=== PATIENT | female | born 1955 | race Caucasian/White ===

== ENCOUNTER 2016-12-23 12:04 | Emergency (ER) | payer OTHER ==
--- NOTE | 2016-12-23 13:48 | RAD ---
INDICATION: Change in mental status COMPARISON: June 29, 2013 TECHNIQUE: Noncontrast axial source images were acquired from the skull base to the vertex. FINDINGS: Ventricles/sulci: The ventricles and cisterns are normal in size and configuration for age. Brain parenchyma: There is no focal parenchymal finding, evidence of intracranial mass, or intracranial mass effect. Intracranial hemorrhage:None. Extra-axial spaces: There are no abnormal extra axial fluid collections or evidence of extra-axial mass. Calvarium: There is no calvarial fracture or other calvarial abnormality. Scalp: There is no evidence of scalp or extracalvarial soft tissue abnormality. Paranasal sinuses/mastoid: The paranasal sinuses and mastoid air cells are clear. Other: None. IMPRESSION: NO ACUTE INTRACRANIAL FINDINGS
[2016-12-23 14:18] LABS: Hematocrit 32 % (35-47); Hemoglobin 10.5 g/dl (12.0-16.0); Mean Corpuscular HGB Conc 33 g/dl (31-36); Mean Corpuscular Hemoglobin 30 pg (27-31); Mean Corpuscular Volume 92 fL (80-97); Mean Platelet Volume 9 um3 (7.4-10.4); Red Blood Count 3.46 10^6/ul (4.0-5.4); Red Cell Distribution Width 16 % (10.5-15); White Blood Count 10.7 10^3/ul (3.5-10.8)
[2016-12-23 14:30] LABS: Albumin 3.6 g/dL (3.2-5.2); BUN/Creatinine Ratio 16.4 (8-20); Calcium 8.5 mg/dL (8.6-10.3); Globulin 3.7 g/dL (2-4); Potassium 3.8 mmol/L (3.5-5.0); Total Bilirubin 0.2 mg/dL (0.2-1.0); Total Protein 7.3 g/dL (6.4-8.9)
[2016-12-23 14:32] LABS: Troponin I 0.01 ng/mL (<0.04)
[2016-12-23 14:47] LABS: Urine Bacteria 1+ (Absent); Urine Bilirubin Negative (Negative); Urine Glucose Negative (Negative); Urine Nitrite Negative (Negative)
[2016-12-23 17:02] LABS: Benzodiazepine Urine Screen None Detected (None Detect)
[2016-12-23 18:16] VITALS: BP 132/62
--- NOTE | 2016-12-25 13:35 | ED ---
Samy Hartman Billy, scribed for Reinier Santos MD on 12/23/16 at 1322 . Neurological HPI - HPI Summary HPI Summary: Patient is a 61 year-old female coming to [facility] after Dr. Ott referred her to the ED with concerns for slurred speech. Patient states that her speech impairment began this morning. Patient also reports fatigue today. Patient reports RLE and bilateral upper extremity weakness which she states is chronic and unchanged today. Nothing makes her symptoms better or worse today. - History of Current Complaint Chief Complaint: EDWeakness Stated Complaint: WEAKNESS Time Seen by Provider: 12/23/16 13:01 Hx Obtained From: Patient Onset/Duration: Gradual Onset Timing: Constant Onset Severity: Moderate Current Severity: Moderate Pain Intensity: 0 Character: Weak, Impaired Speech, Other: - fatigue Aggravating: Nothing Alleviating: Nothing - Allergy/Home Medications Allergies/Adverse Reactions: Allergies Allergy/AdvReac Type Severity Reaction Status Date / Time Povidone Iodine Allergy Mild Rash Verified 07/02/16 16:05 [From Betadine] Doxazosin [From Cardura] Allergy Unknown Unknown Verified 07/02/16 16:05 Reaction Details Diazepam [From Valium] Allergy electrophysiology nurse practitioner Verified 07/02/16 16:05 reaction Mushroom Extract Complex Allergy GI Upset Verified 07/02/16 16:05 Sertraline Allergy suicidal Verified 07/02/16 16:05 Ibuprofen [From Motrin] AdvReac Severe See Comment Verified 07/02/16 16:05 Alprazolam [From Xanax] AdvReac Intermediate Agitation Verified 07/02/16 16:05 KIERSTEN Inhibitors AdvReac Coughing Verified 07/02/16 16:05 Atorvastatin [From Lipitor] AdvReac muscle Verified 07/02/16 16:05 weakness Erythromycin AdvReac abd. pain Verified 07/02/16 16:05 Fentanyl AdvReac suicidal Verified 06/24/16 11:27 Lamotrigine [From Lamictal] AdvReac kidney Verified 06/24/16 11:27 failure Rosiglitazone [From Avandia] AdvReac heart Verified 06/24/16 11:27 failure Simvastatin [From Zocor] AdvReac muscle Verified 06/24/16 11:27 weakness Venlafaxine [From Effexor] AdvReac dizzy Verified 06/24/16 11:27 PMH/Surg Hx/FS Hx/Imm Hx Endocrine/Hematology History: Reports: Hx Diabetes Denies: Hx Anticoagulant Therapy, Hx Thyroid Disease Cardiovascular History: Reports: Hx Hypercholesterolemia, Hx Hypertension, Other Cardiovascular Problems/Disorders - IDDM Denies: Hx Angina, Hx Coronary Artery Disease, Hx Myocardial Infarction, Hx Pacemaker/ICD, Hx Valvular Heart Disease Respiratory History: Reports: Hx Asthma Denies: Hx Chronic Obstructive Pulmonary Disease (COPD) GI History: Reports: Hx Gall Bladder Disease History: Reports: Hx Kidney Stones Denies: Hx Renal Disease Musculoskeletal History: Reports: Hx Arthritis, Hx Back Problems, Hx Osteoporosis Denies: Hx Rheumatoid Arthritis Sensory History: Reports: Hx Contacts or Glasses Opthamlomology History: Reports: Hx Contacts or Glasses Neurological History: Reports: Other Neuro Impairments/Disorders - RUPTURED DISKS, SPINAL STIMULATOR Denies: Hx Dementia, Hx Seizures Psychiatric History: Reports: Hx Anxiety, Hx Depression Denies: Hx Substance Abuse - Surgical History Surgery Procedure, Year, and Place: SPINE stimulator, gall bladder removed, gastric bipass 2002, multiple ortho surgeries Hx Anesthesia Reactions: No - Immunization History Date of Tetanus Vaccine: ` Infectious Disease History: No Infectious Disease History: Denies: Hx Hepatitis, Hx Human Immunodeficiency Virus (HIV), Traveled Outside the [place] in Last 30 Days - Family History Known Family History: Positive: Cardiac Disease, Hypertension, Diabetes, Renal Disease, Other - brain CA - Social History Alcohol Use: None Substance Use Type: Reports: None Hx Tobacco Use: No Smoking Status (MU): Never Smoked Tobacco Have You Smoked in the Last Year: No Review of Systems Positive: Fatigue. Negative: Fever Positive: Weakness, Slurred Speech All Other Systems Reviewed And Are Negative: Yes Physical Exam Triage Information Reviewed: Yes Vital Signs On Initial Exam: Initial Vitals Temp Pulse Resp BP Pulse Ox 98.4 F 78 16 136/61 100 12/23/16 12:18 12/23/16 12:18 12/23/16 12:18 12/23/16 12:18 12/23/16 12:18 Vital Signs Reviewed: Yes Appearance: Positive: Well-Appearing, No Pain Distress Skin: Positive: Warm, Skin Color Reflects Adequate Perfusion, Dry Head/Face: Positive: Normal Head/Face Inspection Eyes: Positive: Other: - Pinpoint pupils. Neck: Positive: Supple, Nontender Respiratory/Lung Sounds: Positive: Clear to Auscultation, Breath Sounds Present Cardiovascular: Positive: RRR Abdomen Description: Positive: Nontender, Soft Musculoskeletal: Positive: Edema Left - 2-3+ lower extremity edema bilaterally. , Edema Right - 2-3+ lower extremity edema bilaterally. Neurological: Positive: Slurred Speech Psychiatric: Positive: Affect/Mood Appropriate AVPU Assessment: Alert Diagnostics - Vital Signs Vital Signs Temp Pulse Resp BP Pulse Ox 12/23/16 12:18 98.4 F 78 16 136/61 100 - Laboratory Lab Results: Lab Results 12/23/16 12/23/16 12/23/16 Range/Units 13:50 13:50 13:50 WBC 10.7 (3.5-10.8) 10^3/ul RBC 3.46 L (4.0-5.4) 10^6/ul Hgb 10.5 L (12.0-16.0) g/dl Hct 32 L (35-47) % MCV 92 (80-97) fL MCH 30 (27-31) pg MCHC 33 (31-36) g/dl RDW 16 H (10.5-15) % Plt Count 288 (150-450) 10^3/ul MPV 9 (7.4-10.4) um3 Neut % (Auto) 60.0 (38-83) % Lymph % (Auto) 32.2 (25-47) % Sebastian % (Auto) 5.2 (1-9) % Eos % (Auto) 1.9 (0-6) % Baso % (Auto) 0.7 (0-2) % Absolute Neuts (auto) 6.4 (1.5-7.7) 10^3/ul Absolute Lymphs (auto) 3.4 (1.0-4.8) 10^3/ul Absolute Monos (auto) 0.6 (0-0.8) 10^3/ul Absolute Eos (auto) 0.2 (0-0.6) 10^3/ul Absolute Basos (auto) 0.1 (0-0.2) 10^3/ul Absolute Nucleated RBC 0.01 10^3/ul Nucleated RBC % 0.1 Sodium 138 (133-145) mmol/L Potassium 3.8 (3.5-5.0) mmol/L Chloride 113 H (101-111) mmol/L Carbon Dioxide 18 L (22-32) mmol/L Anion Gap 7 (2-11) mmol/L BUN 30 H (6-24) mg/dL Creatinine 1.83 H (0.51-0.95) mg/dL Est GFR ( Amer) 36.0 (>60) Est GFR (Non-Af Amer) 28.0 (>60) BUN/Creatinine Ratio 16.4 (8-20) Glucose 50 L (70-100) mg/dL Lactic Acid 1.0 (0.5-2.0) mmol/L Calcium 8.5 L (8.6-10.3) mg/dL Total Bilirubin 0.20 (0.2-1.0) mg/dL AST 40 H (13-39) U/L ALT 20 (7-52) U/L Alkaline Phosphatase 74 (34-104) U/L Troponin I 0.01 (<0.04) ng/mL Total Protein 7.3 (6.4-8.9) g/dL Albumin 3.6 (3.2-5.2) g/dL Globulin 3.7 (2-4) g/dL Albumin/Globulin Ratio 1.0 (1-3) TSH (0.34-5.60) mcIU/mL Urine Color Urine Appearance Urine pH (5-9) Ur Specific [place] (1.010-1.030) Urine Protein (Negative) Urine Ketones (Negative) Urine Blood (Negative) Urine Nitrate (Negative) Urine Bilirubin (Negative) Urine Urobilinogen (Negative) Ur Leukocyte Esterase (Negative) Urine WBC (Auto) (Absent) Urine RBC (Auto) (Absent) Ur Squamous Epith Cells (Absent) Urine Bacteria (Absent) Hyaline Casts (Absent) Urine Glucose (Negative) Urine Opiates Screen (None Detect) Ur Barbiturates Screen (None Detect) Ur Phencyclidine Scrn (None Detect) Ur Amphetamines Screen (None Detect) U Benzodiazepines Scrn (None Detect) Urine Cocaine Screen (None Detect) U Cannabinoids Screen (None Detect) 12/23/16 12/23/16 12/23/16 Range/Units 13:50 13:50 14:23 WBC (3.5-10.8) 10^3/ul RBC (4.0-5.4) 10^6/ul Hgb (12.0-16.0) g/dl Hct (35-47) % MCV (80-97) fL MCH (27-31) pg MCHC (31-36) g/dl RDW (10.5-15) % Plt Count (150-450) 10^3/ul MPV (7.4-10.4) um3 Neut % (Auto) (38-83) % Lymph % (Auto) (25-47) % Sebastian % (Auto) (1-9) % Eos % (Auto) (0-6) % Baso % (Auto) (0-2) % Absolute Neuts (auto) (1.5-7.7) 10^3/ul Absolute Lymphs (auto) (1.0-4.8) 10^3/ul Absolute Monos (auto) (0-0.8) 10^3/ul Absolute Eos (auto) (0-0.6) 10^3/ul Absolute Basos (auto) (0-0.2) 10^3/ul Absolute Nucleated RBC 10^3/ul Nucleated RBC % Sodium (133-145) mmol/L Potassium (3.5-5.0) mmol/L Chloride (101-111) mmol/L Carbon Dioxide (22-32) mmol/L Anion Gap (2-11) mmol/L BUN (6-24) mg/dL Creatinine (0.51-0.95) mg/dL Est GFR ( Amer) (>60) Est GFR (Non-Af Amer) (>60) BUN/Creatinine Ratio (8-20) Glucose (70-100) mg/dL Lactic Acid (0.5-2.0) mmol/L Calcium (8.6-10.3) mg/dL Total Bilirubin (0.2-1.0) mg/dL AST (13-39) U/L ALT (7-52) U/L Alkaline Phosphatase (34-104) U/L Troponin I (<0.04) ng/mL Total Protein (6.4-8.9) g/dL Albumin (3.2-5.2) g/dL Globulin (2-4) g/dL Albumin/Globulin Ratio (1-3) TSH 3.89 (0.34-5.60) mcIU/mL Urine Color Straw Urine Appearance Clear Urine pH 5.0 (5-9) Ur Specific [place] 1.008 L (1.010-1.030) Urine Protein Negative (Negative) Urine Ketones Negative (Negative) Urine Blood 1+ H (Negative) Urine Nitrate Negative (Negative) Urine Bilirubin Negative (Negative) Urine Urobilinogen Negative (Negative) Ur Leukocyte Esterase Negative (Negative) Urine WBC (Auto) Trace(0-5/hpf) (Absent) Urine RBC (Auto) Trace(0-2/hpf) (Absent) Ur Squamous Epith Cells Present H (Absent) Urine Bacteria 1+ H (Absent) Hyaline Casts Present H (Absent) Urine Glucose Negative (Negative) Urine Opiates Screen None detected (None Detect) Ur Barbiturates Screen None detected (None Detect) Ur Phencyclidine Scrn None detected (None Detect) Ur Amphetamines Screen None detected (None Detect) U Benzodiazepines Scrn None detected (None Detect) Urine Cocaine Screen None detected (None Detect) U Cannabinoids Screen None detected (None Detect) Result Diagrams: 12/23/16 13:50 12/23/16 13:50 Lab Statement: Any lab studies that have been ordered have been reviewed, and results considered in the medical decision making process. - CT brain CT Interpretation: No Acute Changes CT Interpretation Completed By: Radiologist - EKG 1226 EKG Interpretation: NSR 80 bpm, no ST elevation Course/Dx - Course Course Of Treatment: Loni Richards was sent over from the wound clinic with a concern for AMS. She was reported to be groggy and to have difficulty picking things up with her hands and to have right leg weakness.SHe reported to me that she always has difficulty with her hands secondary to carpal tunnel and her right leg is always weak seconday to back issues for which she has had surgery in the past. She was quite sleepy here and her pupils were quite small. Her W/ U was negative and she was allowed to recover here in the ED for presumed over- use of her fentanyl. - Diagnoses Provider Diagnoses: WEAKNESS Discharge - Discharge Plan Condition: Stable Disposition: HOME Patient Education Materials: Weakness (ED) Referrals: Cortney Yeboah MD [Primary Care Provider] - The documentation as recorded by the Samy falcon Billy accurately reflects the service I personally performed and the decisions made by me, Reinier Santos MD.
== END 2016-12-23 18:12 | disposition home or self-care (01) ==
LOC: ED 12:04
DX: R53.1 Weakness (principal); E11.9 Type 2 diabetes mellitus without complications; I10 Essential (primary) hypertension; E78.00 Pure hypercholesterolemia, unspecified; Z79.4 Long term (current) use of insulin; Z79.82 Long term (current) use of aspirin
CPT/HCPCS: 36415; 70450; 80053; 80307; 81003; 81015; 83605; 84443; 84484; 85025; 87086; 93005; 99282

== ENCOUNTER 2017-04-02 17:28 | Emergency (ER) | payer OTHER ==
[2017-04-02 19:51] VITALS: BP 157/82
--- NOTE | 2017-04-02 21:30 | UC ---
Eloy Hartman Alok, scribed for Anh Del Rosario MD on 04/02/17 at 1905 . Complaint Female HPI - HPI Summary HPI Summary: 61F presents to the [facility] for right-sided lower back pain and right flank pain for the past 3 days. Pt states her back pain is different than her chronic back pain at her center spine. Pt states her pain registers at a 7.5 out of 10 at rest and 9 out of 10 while standing. Pt also notes muscle spasms and pain across her right side abd that radiates to her lower abd. Pt also notes urinary urgency and dysuria. Pt denies fever. Pt has h/o kidney stones and was last treated for with lithotripsy and nephrostomy tube 1.5 years ago on the right side. Since then she has had several small kidney stones she was able to pass. Pt also states she has right kidney, stage two, kidney failure. PMHx/PSHx includes HTN, lithotripsy, and a laminectomy. - History Of Current Complaint Chief Complaint: UCBackPain Stated Complaint: LOW BACK PAIN Time Seen by Provider: 04/02/17 18:45 Hx Obtained From: Patient ?: No Onset/Duration: Lasting Days, Still Present Timing: Constant Severity Initially: Moderate Severity Currently: Moderate Pain Intensity: 7 Pain Scale Used: 0-10 Numeric Character: Dull Aggravating Factor(s): Urination Alleviating Factor(s): Nothing Associated Signs And Symptoms: Positive: Back Pain. Negative: Fever - Allergies/Home Medications Allergies/Adverse Reactions: Allergies Allergy/AdvReac Type Severity Reaction Status Date / Time Povidone Iodine Allergy Mild Rash Verified 04/02/17 17:43 [From Betadine] Doxazosin [From Cardura] Allergy Unknown Unknown Verified 04/02/17 17:43 Reaction Details Diazepam [From Valium] Allergy hydrogen plant operations manager Verified 04/02/17 17:43 reaction Mushroom Extract Complex Allergy GI Upset Verified 04/02/17 17:43 Sertraline Allergy suicidal Verified 04/02/17 17:43 Ibuprofen [From Motrin] AdvReac Severe See Comment Verified 04/02/17 17:43 Alprazolam [From Xanax] AdvReac Intermediate Agitation Verified 04/02/17 17:43 KIERSTEN Inhibitors AdvReac Coughing Verified 04/02/17 17:43 Atorvastatin [From Lipitor] AdvReac muscle Verified 04/02/17 17:43 weakness Erythromycin AdvReac abd. pain Verified 04/02/17 17:43 Fentanyl AdvReac suicidal Verified 04/02/17 17:43 Lamotrigine [From Lamictal] AdvReac kidney Verified 04/02/17 17:43 failure Rosiglitazone [From Avandia] AdvReac heart Verified 04/02/17 17:43 failure Simvastatin [From Zocor] AdvReac muscle Verified 04/02/17 17:43 weakness Venlafaxine [From Effexor] AdvReac dizzy Verified 04/02/17 17:43 PMH/Surg Hx/FS Hx/Imm Hx Endocrine History Of: Reports: Diabetes Denies: Thyroid Disease Cardiovascular History Of: Reports: Hypertension Denies: Cardiac Disorders, Pacemaker/ICD, Myocardial Infarction Respiratory History Of: Reports: Asthma Denies: COPD GI/ History Of: Reports: Gall Bladder Disease, Kidney Stones Denies: Renal Disease Neurological History Of: Denies: CVA, Dementia, Seizures Psychological History Of: Reports: Anxiety, Depression Other History Of: Negative For: Anticoagulant Therapy - Surgical History Surgical History: Yes Surgery Procedure, Year, and Place: SPINE stimulator, gall bladder removed, gastric bipass 2002, multiple ortho surgeries - Family History Known Family History: Positive: Cardiac Disease, Hypertension, Diabetes, Renal Disease, Other - brain CA - Social History Occupation: Disabled Alcohol Use: None Substance Use Type: None Smoking Status (MU): Never Smoked Tobacco Have You Smoked in the Last Year: No - Immunization History Most Recent Influenza Vaccination: 2012 Most Recent Tetanus Shot: 2010 Most Recent Pneumonia Vaccination: 2012 Review of Systems Constitutional: Negative Skin: Negative Gastrointestinal: Abdominal Pain Genitourinary: Dysuria, Urgency Musculoskeletal: Myalgia, Other: - back pain Neurological: Negative Psychological: Negative All Other Systems Reviewed And Are Negative: Yes Physical Exam Triage Information Reviewed: Yes Appearance: Well-Appearing, Well-Nourished, Pain Distress Vital Signs: Initial Vital Signs Temp 98.1 F 04/02/17 17:37 Pulse 104 04/02/17 17:37 Resp 16 04/02/17 17:37 BP 150/73 04/02/17 17:37 Pulse Ox 100 04/02/17 17:37 Elevated BP and Tachycardia noted. Vital Signs Reviewed: Yes Eyes: Positive: Conjunctiva Clear ENT: Positive: Normal ENT inspection Neck: Positive: Supple Respiratory: Positive: Lungs clear, Normal breath sounds, No respiratory distress Cardiovascular: Positive: RRR, No Murmur, Pulses Normal, Brisk Capillary Refill Abdomen Description: Positive: Nontender, No Organomegaly, Soft, CVA Tenderness (R). Negative: CVA Tenderness (L), Distended, Guarding, Hepatomegaly, McBurney' s Point Tenderness, Peritoneal Signs, Pulsatile Mass, Splenomegaly Bowel Sounds: Positive: Present Musculoskeletal: Positive: Other: - Palpable spinal stimulator. Right para- spinal and right flank tenderness. Ambulates with a walker. Neurological: Positive: Alert, Muscle Tone Normal Psychological Exam: Normal Skin Exam: Normal Complaint Female Dx - Course Course Of Treatment: High Blood Pressure noted. Allergies noted. Pt medications reviewed at visit. Pt presents with right flank pain and dysuria. UA showed positive leukocytes, trace urine blood, and positive urine protein. Expressed unavailablility of CT at [facility] so unable to assess for renal calculi. Will treat for UTI with Sulfa-antibiotics and pain with tramadol. Advise pt to strain all urine and f/u with urologist. - Differential Dx/Diagnosis Differential Diagnosis/HQI/PQRI: Renal Colic, Ureteral Stone, Urinary Tract Infection Provider Diagnoses: Blood pressure under poor control. UTI Discharge - Discharge Plan Condition: Stable Disposition: HOME Prescriptions: Sulfamethox/Trimethoprim DS* [Bactrim DS 800/160 TAB*] 1 tab PO BID #20 tab traMADol TAB* [Ultram*] 50 mg PO Q6HR PRN #20 tab MDD 4 PRN Reason: Pain Patient Education Materials: Urinary Tract Infection in Women (ED), Flank Pain (ED) Referrals: Cortney Yeboah MD [Primary Care Provider] - 2 Days Nikolai Shaw MD [Medical Doctor] - As Soon As Possible Additional Instructions: Strain all of your urine. Follow up with your urologist in [place], or Dr. Shaw. RETURN TO URGENT CARE FOR ANY NEW OR WORSENING SYMPTOMS The documentation as recorded by the Eloy falcon Alok accurately reflects the service I personally performed and the decisions made by , Anh Del Rosario MD.
== END 2017-04-02 19:49 | disposition home or self-care (01) ==
LOC: UCEAST 17:28
DX: N39.0 Urinary tract infection, site not specified (principal); I12.9 Hypertensive chronic kidney disease with stage 1 through stage 4 chronic kidney disease, or unspecified chronic kidney disease; N18.2 Chronic kidney disease, stage 2 (mild); J45.909 Unspecified asthma, uncomplicated; F41.9 Anxiety disorder, unspecified; F32.9 Major depressive disorder, single episode, unspecified; E11.22 Type 2 diabetes mellitus with diabetic chronic kidney disease; Z88.5 Allergy status to narcotic agent; Z88.3 Allergy status to other anti-infective agents; Z87.442 Personal history of urinary calculi; Z98.84 Bariatric surgery status; Z96.9 Presence of functional implant, unspecified
CPT/HCPCS: 81003; 87077; 87086; 87186; 99212; G0463

== ENCOUNTER 2017-04-08 11:59 | Emergency (ER) | payer OTHER ==
[2017-04-08] MEDS ORDERED: Ketorolac INJ* 30 MG/ML 1 ML VIAL IV ONE (14:36)
[2017-04-08] MEDS ORDERED: NS 0.9% 1000 ML* 1,000 ML IV ONE (14:36)
[2017-04-08] MEDS ORDERED: Morphine INJ* 4 MG/ML 1 ML SYRINGE IV ONE (14:40)
[2017-04-08 14:49] LABS: Hematocrit 33 % (35-47); Hemoglobin 10.9 g/dl (12.0-16.0); Mean Corpuscular HGB Conc 33 g/dl (31-36); Mean Corpuscular Hemoglobin 30 pg (27-31); Mean Corpuscular Volume 92 fL (80-97); Mean Platelet Volume 9 um3 (7.4-10.4); Red Blood Count 3.65 10^6/ul (4.0-5.4); Red Cell Distribution Width 14 % (10.5-15); White Blood Count 8.1 10^3/ul (3.5-10.8)
[2017-04-08 15:00] LABS: Albumin 3.5 g/dL (3.2-5.2); BUN/Creatinine Ratio 16.9 (8-20); C Reactive Protein 9.45 mg/L (< 5.00); Calcium 8.4 mg/dL (8.6-10.3); EGFR Non-African American 32.7 (>60); Globulin 3.6 g/dL (2-4); Potassium 5.4 mmol/L (3.5-5.0); Total Bilirubin 0.2 mg/dL (0.2-1.0); Total Protein 7.1 g/dL (6.4-8.9)
[2017-04-08 15:01] LABS: Urine Bacteria 1+ (Absent); Urine Bilirubin Negative (Negative); Urine Glucose 2+(150 mg/dL) (Negative); Urine Nitrite Negative (Negative)
--- NOTE | 2017-04-08 15:59 | RAD ---
CLINICAL HISTORY: Right flank pain. Relevant surgical history includes cholecystectomy and gastric bypass surgery. COMPARISON: Most recent comparison CT is dated July 02, 2016 TECHNIQUE: Noncontrast CT examination of the abdomen and pelvis from the lung bases through the initial tuberosities. FINDINGS: VISUALIZED LUNG BASES: The visualized lung bases are grossly clear. There is no pleural effusion. ABDOMEN AND PELVIS: Evaluation of the solid organs and vasculature is limited without intravenous contrast. Surgical material at the gastroesophageal junction is consistent with the patient's history of gastric bypass surgery. The liver, spleen, pancreas and adrenal glands are grossly normal in appearance. The gallbladder is surgically absent. At the right lower pole collecting system there is a 3 mm calcification. The punctate calcification seen at the left lower pole collecting system on the previous CT examination is not seen today. There is no significant hydronephrosis bilaterally. There is no new severe perinephric stranding. No renal calculi are seen in either ureter or in the urinary bladder. Evaluation of the gastrointestinal tract is limited without oral contrast. The small and large bowel are not distended.The patient's normal appendix is identified in the right lower quadrant with gas in the lumen (axial image 120). There is no gross retroperitoneal or mesenteric lymphadenopathy. There is a supraumbilical diastases recti allowing mesenteric fat and a small amount of bowel to herniate beyond the border of the abdominal wall musculature. This is similar in appearance to the previous CT examination. The pelvic viscera is normal in appearance. There is infrarenal abdominal aortic aneurysm. Coarse atherosclerotic calcification particularly involves the celiac trunk and superior mesenteric artery. Again seen are multilevel degenerative changes of the lower thoracic and lumbar spine. Postoperative findings include a T8/T9 level intrathecal neural stimulator as well as posterior transpedicular fixation of the L3, L4 and L5 levels.There are no sinister bone lesions. IMPRESSION: 1. No obstructing renal calculi or signs of urinary obstruction bilaterally. 2. Extensive degenerative, chronic and postoperative findings described in the body of the report.
[2017-04-08 16:21] VITALS: BP 132/77
--- NOTE | 2017-04-08 18:47 | ED ---
Samy Hartman Billy, scribed for Choco Mejía MD on 04/08/17 at 1400 . GI/ HPI - HPI Summary HPI Summary: Patient is a 61 year-old female coming to [facility] for evaluation of right-sided flank pain. She has a history of kidney stones. These symptoms started about 8 days ago. Pain severity 8/10. She reports constant pain that is worse with movement and ambulation. Positive nausea without diarrhea or constipation. She took 1 tramadol at 1200 without improvement. - History of Current Complaint Chief Complaint: EDFlankPain Time Seen by Provider: 04/08/17 13:56 Stated Complaint: PAIN ON RT SIDE Hx Obtained From: Patient Onset/Duration: Started Days Ago Timing: Constant Severity: Moderate Current Severity: Moderate Pain Intensity: 8 Location of Pain: Flank Associated Signs and Symptoms: Positive: Nausea. Negative: Constipation, Diarrhea Aggravating Factor(s): Movement Alleviating Factor(s): Nothing - Allergy/Home Medications Allergies/Adverse Reactions: Allergies Allergy/AdvReac Type Severity Reaction Status Date / Time Povidone Iodine Allergy Mild Rash Verified 04/02/17 17:43 [From Betadine] Doxazosin [From Cardura] Allergy Unknown Unknown Verified 04/02/17 17:43 Reaction Details Diazepam [From Valium] Allergy emergency preparedness manager Verified 04/02/17 17:43 reaction Mushroom Extract Complex Allergy GI Upset Verified 04/02/17 17:43 Sertraline Allergy suicidal Verified 04/02/17 17:43 Ibuprofen [From Motrin] AdvReac Severe See Comment Verified 04/02/17 17:43 Alprazolam [From Xanax] AdvReac Intermediate Agitation Verified 04/02/17 17:43 KIERSTEN Inhibitors AdvReac Coughing Verified 04/02/17 17:43 Atorvastatin [From Lipitor] AdvReac muscle Verified 04/02/17 17:43 weakness Erythromycin AdvReac abd. pain Verified 04/02/17 17:43 Fentanyl AdvReac suicidal Verified 04/02/17 17:43 Lamotrigine [From Lamictal] AdvReac kidney Verified 04/02/17 17:43 failure Rosiglitazone [From Avandia] AdvReac heart Verified 04/02/17 17:43 failure Simvastatin [From Zocor] AdvReac muscle Verified 04/02/17 17:43 weakness Venlafaxine [From Effexor] AdvReac dizzy Verified 04/02/17 17:43 PMH/Surg Hx/FS Hx/Imm Hx Endocrine/Hematology History: Reports: Hx Diabetes Denies: Hx Anticoagulant Therapy, Hx Thyroid Disease Cardiovascular History: Reports: Hx Hypercholesterolemia, Hx Hypertension, Other Cardiovascular Problems/Disorders - IDDM Denies: Hx Angina, Hx Coronary Artery Disease, Hx Myocardial Infarction, Hx Pacemaker/ICD, Hx Valvular Heart Disease Respiratory History: Reports: Hx Asthma Denies: Hx Chronic Obstructive Pulmonary Disease (COPD) GI History: Reports: Hx Gall Bladder Disease History: Reports: Hx Kidney Stones Denies: Hx Renal Disease Musculoskeletal History: Reports: Hx Arthritis, Hx Back Problems, Hx Osteoporosis Denies: Hx Rheumatoid Arthritis Sensory History: Reports: Hx Contacts or Glasses Opthamlomology History: Reports: Hx Contacts or Glasses Neurological History: Reports: Other Neuro Impairments/Disorders - RUPTURED DISKS, SPINAL STIMULATOR Denies: Hx Dementia, Hx Seizures Psychiatric History: Reports: Hx Anxiety, Hx Depression Denies: Hx Substance Abuse - Surgical History Surgery Procedure, Year, and Place: SPINE stimulator, gall bladder removed, gastric bipass 2002, multiple ortho surgeries Hx Anesthesia Reactions: No - Immunization History Date of Tetanus Vaccine: ` Infectious Disease History: Denies: Hx Clostridium Difficile, Hx Hepatitis, Hx Human Immunodeficiency Virus (HIV), Hx of Known/Suspected MRSA, Hx Shingles, Hx Tuberculosis, Hx Known/ Suspected VRE, Traveled Outside the [place] in Last 30 Days - Family History Known Family History: Positive: Cardiac Disease, Hypertension, Diabetes, Renal Disease, Other - brain CA - Social History Alcohol Use: None Substance Use Type: Reports: None Hx Tobacco Use: No Smoking Status (MU): Never Smoked Tobacco Have You Smoked in the Last Year: No Review of Systems Negative: Fever Positive: Nausea. Negative: Diarrhea Positive: flank pain All Other Systems Reviewed And Are Negative: Yes Physical Exam - Summary Physical Exam Summary: VITAL SIGNS: Reviewed. GENERAL: Patient is an obese, well-developed, well-nourished female who is in some discomfort in the stretcher secondary to pain. Patient is not in any acute respiratory distress. HEAD AND FACE: No signs of trauma. No ecchymosis, hematomas or skull depressions. No sinus tenderness. EYES: PERRLA, EOMI x 2, No injected conjunctiva, no nystagmus. EARS: Hearing grossly intact. Ear canals and tympanic membranes are within normal limits. MOUTH: Oropharynx within normal limits. NECK: Supple, trachea is midline, no adenopathy, no JVD, no carotid bruit, no c- spine tenderness, neck with full ROM. CHEST: Symmetric, no tenderness at palpation LUNGS: Clear to auscultation bilaterally. No wheezing or crackles. CVS: Regular rate and rhythm, S1 and S2 present, no murmurs or gallops appreciated. ABDOMEN: Soft, non-tender. Positive right-sided CVA tenderness. No signs of distention. No rebound no guarding, and no masses palpated. Bowel sounds are normal. EXTREMITIES: FROM in all major joints, no edema, no cyanosis or clubbing. NEURO: Alert and oriented x 3. No acute neurological deficits. Speech is normal and follows commands. SKIN: Dry and warm Triage Information Reviewed: Yes Vital Signs On Initial Exam: Initial Vitals Temp Pulse Resp BP Pulse Ox 98.8 F 107 20 183/84 100 04/08/17 12:06 04/08/17 12:06 04/08/17 12:06 04/08/17 12:06 04/08/17 12:06 Vital Signs Reviewed: Yes Diagnostics - Vital Signs Vital Signs Temp Pulse Resp BP Pulse Ox 04/08/17 13:14 98 18 155/76 100 04/08/17 12:06 98.8 F 107 20 183/84 100 - Laboratory Lab Results: Lab Results 04/08/17 04/08/17 04/08/17 Range/Units 14:15 14:15 14:15 WBC 8.1 (3.5-10.8) 10^3/ul RBC 3.65 L (4.0-5.4) 10^6/ul Hgb 10.9 L (12.0-16.0) g/dl Hct 33 L (35-47) % MCV 92 (80-97) fL MCH 30 (27-31) pg MCHC 33 (31-36) g/dl RDW 14 (10.5-15) % Plt Count 272 (150-450) 10^3/ul MPV 9 (7.4-10.4) um3 Neut % (Auto) 59.3 (38-83) % Lymph % (Auto) 30.8 (25-47) % Lewis % (Auto) 7.3 (1-9) % Eos % (Auto) 1.8 (0-6) % Baso % (Auto) 0.8 (0-2) % Absolute Neuts (auto) 4.8 (1.5-7.7) 10^3/ul Absolute Lymphs (auto) 2.5 (1.0-4.8) 10^3/ul Absolute Monos (auto) 0.6 (0-0.8) 10^3/ul Absolute Eos (auto) 0.2 (0-0.6) 10^3/ul Absolute Basos (auto) 0.1 (0-0.2) 10^3/ul Absolute Nucleated RBC 0 10^3/ul Nucleated RBC % 0 Sodium 131 L (133-145) mmol/L Potassium 5.4 H (3.5-5.0) mmol/L Chloride 104 (101-111) mmol/L Carbon Dioxide 22 (22-32) mmol/L Anion Gap 5 (2-11) mmol/L BUN 27 H (6-24) mg/dL Creatinine 1.60 H (0.51-0.95) mg/dL Est GFR ( Amer) 42.0 (>60) Est GFR (Non-Af Amer) 32.7 (>60) BUN/Creatinine Ratio 16.9 (8-20) Glucose 154 H (70-100) mg/dL Lactic Acid (0.5-2.0) mmol/L Calcium 8.4 L (8.6-10.3) mg/dL Total Bilirubin 0.20 (0.2-1.0) mg/dL AST 29 (13-39) U/L ALT 21 (7-52) U/L Alkaline Phosphatase 96 (34-104) U/L C-Reactive Protein 9.45 H (< 5.00) mg/L Total Protein 7.1 (6.4-8.9) g/dL Albumin 3.5 (3.2-5.2) g/dL Globulin 3.6 (2-4) g/dL Albumin/Globulin Ratio 1.0 (1-3) Amylase 51 (29-103) U/L Lipase 23 (11.0-82.0) U/L Urine Color Yellow Urine Appearance Cloudy Urine pH 5.0 (5-9) Ur Specific [place] 1.011 (1.010-1.030) Urine Protein 2+(100 mg/dl) H (Negative) Urine Ketones Negative (Negative) Urine Blood Negative (Negative) Urine Nitrate Negative (Negative) Urine Bilirubin Negative (Negative) Urine Urobilinogen Negative (Negative) Ur Leukocyte Esterase 3+ H (Negative) Urine WBC (Auto) 3+(>20/hpf) H (Absent) Urine RBC (Auto) 2+(6-10/hpf) H (Absent) Ur Squamous Epith Cells Present H (Absent) Urine Bacteria 1+ H (Absent) Urine Glucose 2+(150 mg/dl) H (Negative) 04/08/17 04/08/17 Range/Units 14:15 16:48 WBC (3.5-10.8) 10^3/ul RBC (4.0-5.4) 10^6/ul Hgb (12.0-16.0) g/dl Hct (35-47) % MCV (80-97) fL MCH (27-31) pg MCHC (31-36) g/dl RDW (10.5-15) % Plt Count (150-450) 10^3/ul MPV (7.4-10.4) um3 Neut % (Auto) (38-83) % Lymph % (Auto) (25-47) % Lewis % (Auto) (1-9) % Eos % (Auto) (0-6) % Baso % (Auto) (0-2) % Absolute Neuts (auto) (1.5-7.7) 10^3/ul Absolute Lymphs (auto) (1.0-4.8) 10^3/ul Absolute Monos (auto) (0-0.8) 10^3/ul Absolute Eos (auto) (0-0.6) 10^3/ul Absolute Basos (auto) (0-0.2) 10^3/ul Absolute Nucleated RBC 10^3/ul Nucleated RBC % Sodium (133-145) mmol/L Potassium 4.9 (3.5-5.0) mmol/L Chloride (101-111) mmol/L Carbon Dioxide (22-32) mmol/L Anion Gap (2-11) mmol/L BUN (6-24) mg/dL Creatinine (0.51-0.95) mg/dL Est GFR ( Amer) (>60) Est GFR (Non-Af Amer) (>60) BUN/Creatinine Ratio (8-20) Glucose (70-100) mg/dL Lactic Acid 1.1 (0.5-2.0) mmol/L Calcium (8.6-10.3) mg/dL Total Bilirubin (0.2-1.0) mg/dL AST (13-39) U/L ALT (7-52) U/L Alkaline Phosphatase (34-104) U/L C-Reactive Protein (< 5.00) mg/L Total Protein (6.4-8.9) g/dL Albumin (3.2-5.2) g/dL Globulin (2-4) g/dL Albumin/Globulin Ratio (1-3) Amylase (29-103) U/L Lipase (11.0-82.0) U/L Urine Color Urine Appearance Urine pH (5-9) Ur Specific [place] (1.010-1.030) Urine Protein (Negative) Urine Ketones (Negative) Urine Blood (Negative) Urine Nitrate (Negative) Urine Bilirubin (Negative) Urine Urobilinogen (Negative) Ur Leukocyte Esterase (Negative) Urine WBC (Auto) (Absent) Urine RBC (Auto) (Absent) Ur Squamous Epith Cells (Absent) Urine Bacteria (Absent) Urine Glucose (Negative) Result Diagrams: 04/08/17 14:15 04/08/17 16:48 Lab Statement: Any lab studies that have been ordered have been reviewed, and results considered in the medical decision making process. - CT abd/pel CT Interpretation Completed By: Radiologist - 1. No obstructing renal calculi or signs of urinary obstruction bilaterally. 2. Extensive degenerative, chronic and postoperative findings described in the body of the report. Re-Evaluation - Re-Evaluation First Eval Re-Evaluation Time: 17:13 Change: Improved GIGU Course/Dx - Course Assessment/Plan: Patient is a 61 year-old female coming to [facility] for evaluation of right-sided flank pain. She has a history of kidney stones. These symptoms started about 8 days ago. Pain severity 8/10. She reports constant pain that is worse with movement and ambulation. Positive nausea without diarrhea or constipation. She took 1 tramadol at 1200 without improvement. Test results WNL except for a slight chronic anemia, sodium 131, potassium 5.4, but after hydration, it was 4.9. BUN 27, creatinine 1.60 which is consistent with chronic renal failure. UA is contaminated therefore the patients urine will be sent for urine cultures. In the ED course, the patient was given IV fluids and morphine for the pain. The patients symptoms then resolved. CT abd/pel shows findings as read by the radiologist: 1. No obstructing renal calculi or signs of urinary obstruction bilaterally. 2. Extensive degenerative, chronic and postoperative findings described in the body of the report. Since the patient is feeling better and there are no kidney stones, I recommended for the patient to follow up with PCP. The patient is hemodynamically stable, A&Ox3. I discussed all the findings and test results with the patient. Patient was instructed to return to the emergency room immediately if any of the symptoms return or worsens. They were explained the possibility of an early abdominal pathology which was not detected at this time despite the physical exam and testing. They understand and agree. Abdominal exam before discharge: Soft, NT. No signs of distention. BS present. No rebound no guarding, and no masses palpated. Patient is alert and oriented and hemodynamically stable. Patient is to follow up with primary care physician in the next 2 to 3 days. Patient agree and understands. In the official report by Dr. Peterson, it says that there is a infrarenal AAA. I discussed the case with Dr. Eastman who read the CT, and he states that this is an error and that the report should in fact read that there is NO infrarenal AAA. - Diagnoses Differential Diagnoses - Female: Diverticulitis, Urinary Tract Infection, Ureteral Calculi Provider Diagnoses: Flank pain Discharge - Discharge Plan Condition: Stable Disposition: HOME Patient Education Materials: Flank Pain (ED) Referrals: Cortney Yeboah MD [Primary Care Provider] - The documentation as recorded by the Samy falcon Billy accurately reflects the service I personally performed and the decisions made by me, Choco Mejía MD.
--- NOTE | 2017-04-10 14:42 | PN ---
Progress Note - Progress Note Note: urine culture grew e.coli - called patient to inform Patient was placed on Cipro by her PCP today Will await sensitivities and call if needed to change
== END 2017-04-08 17:20 | disposition home or self-care (01) ==
LOC: ED 11:59
DX: R10.84 Generalized abdominal pain (principal); R11.0 Nausea
CPT/HCPCS: 36415; 74176; 80053; 81003; 81015; 82150; 83605; 83690; 84132; 85025; 86140; 87077; 87086; 87186; 99283; J1885; J2270; Q9967

== ENCOUNTER 2018-01-23 21:50 | Emergency (ER) | payer OTHER ==
[2018-01-23] MEDS ORDERED: traMADol TAB* 50 MG PO ONE (22:47)
--- NOTE | 2018-01-23 22:49 | ED ---
Lower Extremity - History of Current Complaint Chief Complaint: EDExtremityLower Stated Complaint: RT LEG PAIN Time Seen by Provider: 01/23/18 22:32 Hx Obtained From: Patient Mechanism Of Injury: Blunt Trauma, Fall From A Standing Position Onset/Duration: Hours Severity Initially: Mild Severity Currently: Mild Pain Intensity: 0 Timing: Constant Character Of Pain: Aching Associated Signs And Symptoms: Positive: Swelling, Bruising Aggravating Factor(s): Standing Alleviating Factor(s): Rest - Allergies/Home Medications Allergies/Adverse Reactions: Allergies Allergy/AdvReac Type Severity Reaction Status Date / Time MS Povidone Iodine Allergy Mild Rash Verified 04/02/17 17:43 [From Betadine] MS Doxazosin [From Cardura] Allergy Unknown Unknown Verified 04/02/17 17:43 Reaction Details MS Ibuprofen [From Motrin] AdvReac Severe CAUSED Verified 01/23/18 23:02 RENAL DEFICIT MS Alprazolam [From Xanax] AdvReac Intermediate Agitation Verified 04/02/17 17: 43 MS KIERSTEN Inhibitors AdvReac Coughing Verified 04/02/17 17:43 [KIERSTEN Inhibitors] MS Atorvastatin AdvReac muscle Verified 04/02/17 17:43 [From Lipitor] weakness MS Diazepam [From Valium] AdvReac battery tester Verified 01/23/18 23:02 reaction MS Erythromycin AdvReac abd. pain Verified 04/02/17 17:43 [Erythromycin] MS Fentanyl [Fentanyl] AdvReac suicidal Verified 04/02/17 17:43 MS Lamotrigine AdvReac kidney Verified 04/02/17 17:43 [From Lamictal] failure MS Mushroom Extract Complex AdvReac GI Upset Verified 01/23/18 23:02 [Mushroom Extract Complex] MS Rosiglitazone AdvReac heart Verified 04/02/17 17:43 [From Avandia] failure MS Sertraline [Sertraline] AdvReac suicidal Verified 01/23/18 23:02 MS Simvastatin [From Zocor] AdvReac muscle Verified 04/02/17 17:43 weakness MS Venlafaxine [From Effexor] AdvReac dizzy Verified 04/02/17 17:43 PMH/Surg Hx/FS Hx/Imm Hx Endocrine/Hematology History: Reports: Hx Diabetes Denies: Hx Anticoagulant Therapy, Hx Thyroid Disease Cardiovascular History: Reports: Hx Hypercholesterolemia, Hx Hypertension, Other Cardiovascular Problems/Disorders - IDDM Denies: Hx Angina, Hx Coronary Artery Disease, Hx Myocardial Infarction, Hx Pacemaker/ICD, Hx Valvular Heart Disease Respiratory History: Reports: Hx Asthma Denies: Hx Chronic Obstructive Pulmonary Disease (COPD) GI History: Reports: Hx Gall Bladder Disease History: Reports: Hx Kidney Stones Denies: Hx Dialysis Comment Only: Hx Renal Disease - ONLY KIDNEY STONES PER PT Musculoskeletal History: Reports: Hx Arthritis, Hx Back Problems, Hx Osteoporosis Denies: Hx Rheumatoid Arthritis Sensory History: Reports: Hx Contacts or Glasses Opthamlomology History: Reports: Hx Contacts or Glasses Neurological History: Reports: Other Neuro Impairments/Disorders - RUPTURED DISKS, SPINAL STIMULATOR Denies: Hx Dementia, Hx Seizures Psychiatric History: Reports: Hx Anxiety, Hx Depression Denies: Hx Substance Abuse - Cancer History Hx Chemotherapy: No Hx Radiation Therapy: No - Surgical History Surgery Procedure, Year, and Place: SPINE stimulator, gall bladder removed, gastric bipass 2002, multiple ortho surgeries Hx Anesthesia Reactions: No - Immunization History Date of Tetanus Vaccine: ` Infectious Disease History: No Infectious Disease History: Denies: Hx Clostridium Difficile, Hx Hepatitis, Hx Human Immunodeficiency Virus (HIV), Hx of Known/Suspected MRSA, Hx Shingles, Hx Tuberculosis, Hx Known/ Suspected VRE, Traveled Outside the [place] in Last 30 Days - Family History Known Family History: Positive: Cardiac Disease, Hypertension, Diabetes, Renal Disease, Other - brain CA - Social History Alcohol Use: None Substance Use Type: Reports: None Hx Tobacco Use: No Smoking Status (MU): Never Smoked Tobacco Have You Smoked in the Last Year: No Review of Systems All Other Systems Reviewed And Are Negative: Yes Physical Exam Vital Signs On Initial Exam: Initial Vitals Temp Pulse Resp BP Pulse Ox 36.9 C 118 20 124/78 99 01/23/18 21:56 01/23/18 21:56 01/23/18 21:56 01/23/18 21:56 01/23/18 21:56 Appearance: Positive: Well-Appearing Skin: Positive: Warm, Dry Respiratory/Lung Sounds: Positive: Clear to Auscultation, Breath Sounds Present Cardiovascular: Positive: Normal, RRR Psychiatric: Positive: Normal Diagnostics - Vital Signs Vital Signs Temp Pulse Resp BP Pulse Ox 01/23/18 21:56 36.9 C 118 20 124/78 99 - Laboratory Lab Statement: Any lab studies that have been ordered have been reviewed, and results considered in the medical decision making process. Lower Extremity Course/Dx - Diagnoses Differential Diagnosis/HQI/PQRI: Positive: Contusion, Dislocation, Fracture ( Closed), Sprain, Strain, Tendonitis Provider Diagnoses: Hematoma of leg Discharge - Discharge Plan Condition: Improved Disposition: HOME Prescriptions: Ketorolac TAB * [Toradol TAB *] 10 mg PO Q6H 3 Days #10 tab Patient Education Materials: Hematoma (ED) Referrals: Cortney Yeboah MD [Primary Care Provider] - Piyush Kaur MD [Medical Doctor] - 4 Days
[2018-01-24 00:01] VITALS: BP 128/72
--- NOTE | 2018-01-24 07:59 | RAD ---
Indication: Lateral right lower leg bruising and pain after a fall Comparison: None. Technique: AP and lateral views right lower leg. Report: The visualized bones are adequately corticated and well aligned. There is no acute fracture, dislocation or other focal abnormality. The soft tissues appear grossly normal. Atherosclerotic calcification is seen overlying the distal SFA and popliteal arteries extending into the anterior and posterior tibial arteries. IMPRESSION: 1. No radiographically apparent fracture or dislocation. 2. Incidentally noted is calcified atherosclerosis of the right infrapopliteal arteries. If the patient's symptoms persist, follow-up imaging is recommended.
== END 2018-01-24 | disposition home or self-care (01) ==
LOC: ED 21:50
DX: S80.11XA Contusion of right lower leg, initial encounter (principal); E11.8 Type 2 diabetes mellitus with unspecified complications; Z79.4 Long term (current) use of insulin; E78.00 Pure hypercholesterolemia, unspecified; I10 Essential (primary) hypertension; W19.XXXA Unspecified fall, initial encounter; Y92.9 Unspecified place or not applicable
CPT/HCPCS: 99282; A9270-GY

== ENCOUNTER → 2018-05-14 09:47 | Emergency (ER) | payer OTHER ==
[~2018-05-14 09:47] MED LIST: NS 0.9% 1000 ML* 1,000 ML IV ONE; Ondansetron INJ* 2 MG/ML VIAL IV ONE
--- NOTE | 2018-05-14 11:05 | RAD ---
INDICATION: Right upper quadrant and right lower chest pain. COMPARISON: Comparison is made with a prior chest x-ray study from April 14, 2017. TECHNIQUE: A portable view of the chest was obtained. FINDINGS: The heart is within normal limits in size. There is a focal area of increased density at the right lung base possibly representing atelectasis although nonspecific. The lungs are otherwise clear. No pleural effusion is seen. IMPRESSION: RIGHT BASILAR DENSITY POSSIBLY REPRESENTING ATELECTASIS. RECOMMEND PA AND LATERAL CHEST FILMS FOR FURTHER EVALUATION.
[2018-05-14 11:22] LABS: ABS Basophils 0 10^3/ul (0-0.2); ABS Eosinophils 0.2 10^3/ul (0-0.6); ABS Lymphocytes 1.6 10^3/ul (1.0-4.8); ABS Monocytes 0.6 10^3/ul (0-0.8); ABS Neutrophils 5.4 10^3/ul (1.5-7.7); ABS Nucleated RBC 0 10^3/ul; Eosinophil % 2.9 % (0-6); Hematocrit 25 % (35-47); Hemoglobin 8.1 g/dl (12.0-16.0); Lymphocyte % 20.5 % (25-47); Mean Corpuscular HGB Conc 32 g/dl (31-36); Mean Corpuscular Hemoglobin 28 pg (27-31); Mean Corpuscular Volume 85 fL (80-97); Mean Platelet Volume 8.1 um3 (7.4-10.4); Nucleated Red Blood Cells % 0.1; Platelet Count 362 10^3/ul (150-450); Red Blood Count 2.95 10^6/ul (4.00-5.40); Red Cell Distribution Width 16 % (10.5-15); White Blood Count 7.9 10^3/ul (3.5-10.8)
[2018-05-14 11:30] LABS: INR 0.95 (0.77-1.02)
[2018-05-14 11:39] LABS: EGFR Non-African American 39.1 (>60)
[2018-05-14 12:47] LABS: Urine Appearance Cloudy; Urine Blood Negative (Negative); Urine Color Yellow; Urine Ketones Negative (Negative); Urine Protein 1+(30 mg/dL) (Negative); Urine Urobilinogen Negative (Negative)
--- NOTE | 2018-05-14 13:07 | RAD ---
HISTORY: ruq/rt lateral upper abd pain,po contrast only, mass seen on port COMPARISONS: CT of the chest dated April 16, 2017 TECHNIQUE: Multiple contiguous axial CT scans were obtained of the chest, abdomen, and pelvis, without intravenous contrast enhancement. Coronal and sagittal multiplanar reformations are submitted for review.. Oral contrast was administered. FINDINGS: The study is limited by the lack of intravenous contrast. This limits evaluation of the solid organs and vasculature. CHEST NECK AND THYROID: The lower neck and thyroid are unremarkable. CHEST WALL: There is no lower cervical, axillary, or supraclavicular lymphadenopathy by size criteria. HEART AND PERICARDIUM: The heart is unremarkable. AORTA AND PULMONARY VASCULATURE: The aorta and pulmonary vasculature are normal. MEDIASTINUM: There is no mediastinal lymphadenopathy by size criteria. JILLIAN: There is no hilar lymphadenopathy by size criteria. AIRWAY AND ESOPHAGUS: The airway is unremarkable, without endobronchial filling defect. The esophagus is grossly normal. LUNG PARENCHYMA: The lungs are clear. PLEURA: There is minimal eventration of the right hemidiaphragm. This appears to correspond to the finding noted on portable radiograph. BONES AND SOFT TISSUES: Degenerative changes are noted. ABDOMEN/PELVIS: LIVER: The liver is normal in shape, size, contour, and attenuation. BILE DUCTS: There is no intrahepatic or extrahepatic biliary dilatation. GALLBLADDER: The gallbladder is not visualized. Surgical clips are noted in the gallbladder fossa. PANCREAS: The pancreas is normal, without mass or ductal dilatation. SPLEEN: Normal in size and appearance. UPPER GI TRACT: Evaluation of the gastrointestinal tract is limited by incomplete gastric distention. There is postsurgical change to the upper GI tract. SMALL BOWEL & MESENTERY: The small bowel is normal in contour, course, and caliber. There is no obstruction or dilatation. COLON: The colon is normal in contour, course, caliber. There is no pericolonic inflammatory change. ADRENALS: Normal bilaterally. KIDNEYS: The kidneys are normal in shape, size, contour, and axis. There is no hydronephrosis or nephrolithiasis. BLADDER: The bladder is smooth in contour. PELVIC ORGANS: The uterus and adnexa are grossly normal for technique. AORTA: There is calcific atherosclerotic disease of the abdominal aorta and its branches, without aneurysmal dilatation IVC: Unremarkable LYMPH NODES: There is no lymphadenopathy by size criteria. ABDOMINAL WALL: There is large ventral hernia containing fat and a loop of small bowel. There is no obstruction. There is stranding of the subcutaneous fat anteriorly. BONES AND SOFT TISSUES: Degenerative changes are noted. The patient is status post multilevel laminectomy and spinal fusion. OTHER: None IMPRESSION: 1. LARGE VENTRAL HERNIA CONTAINING FAT AND LOOP OF SMALL BOWEL WITHOUT OBSTRUCTION. 2. INFLAMMATORY CHANGE OF THE SUBCUTANEOUS FAT ANTERIORLY WHICH MAY REFLECT CELLULITIS IN THE CORRECT CLINICAL SETTING. 3. POSTSURGICAL CHANGE. 4. ATHEROSCLEROSIS. 5. NO LUNG MASS.
[2018-05-14 14:55] VITALS: BP 135/83
--- NOTE | 2018-05-14 15:32 | ED ---
Rachel Hartman Edward, scribed for Tad Maldonado MD on 05/14/18 at 1012 . Abdominal Pain/Female - HPI Summary HPI Summary: 63 y/o female presents to the ED c/o R side ABD pain starting around 5-6 weeks ago. Pain most severe right below the R rib. Pain aggravated with food and drink - pain described as someone "taking a knife and twisting it". At its worst the pain is 10/10; currently it is at a 3/10. Associated sx: decreased appetite, nausea. Denies fevers/chills or urinary symptoms. Pt seen by PCP this morning, sent to ED. Sx - gallbladder removal, gastric bypass (2002), 4x back surgeries, R shoulder reduction, "belly button surgery". Past medications reviewed on visit. Pt takes 500 mg ASA 1x in the morning, oxycontin for chronic back pain. PMHx kidney stones, broken rib R side. - History of Current Complaint Chief Complaint: EDAbdPain Stated Complaint: ABD PAIN Time Seen by Provider: 05/14/18 10:08 Hx Obtained From: Patient Onset/Duration: Lasting Weeks Timing: Constant Severity Currently: Mild Pain Intensity: 3 Pain Scale Used: 0-10 Numeric Location: Other - R side Aggravating Factor(s): Food Alleviating Factor(s): Nothing Associated Signs and Symptoms: Positive: Decreased Appetite, Nausea. Negative: Fever, Urinary Symptoms Allergies/Adverse Reactions: Allergies Allergy/AdvReac Type Severity Reaction Status Date / Time MS Povidone Iodine Allergy Mild Rash Verified 05/14/18 09:56 [From Betadine] MS Doxazosin [From Cardura] Allergy Unknown Unknown Verified 05/14/18 09:56 Reaction Details MS Ibuprofen [From Motrin] AdvReac Severe CAUSED Verified 05/14/18 09:56 RENAL DEFICIT MS Alprazolam [From Xanax] AdvReac Intermediate Agitation Verified 05/14/18 09: 56 MS KIERSTEN Inhibitors AdvReac Coughing Verified 05/14/18 09:56 [KIERSTEN Inhibitors] MS Atorvastatin AdvReac muscle Verified 05/14/18 09:56 [From Lipitor] weakness MS Diazepam [From Valium] 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 pain Verified 05/14/18 09:56 [Erythromycin] MS Fentanyl [Fentanyl] AdvReac suicidal Verified 05/14/18 09:56 MS Lamotrigine AdvReac kidney Verified 05/14/18 09:56 [From Lamictal] failure MS Mushroom Extract Complex AdvReac GI Upset Verified 05/14/18 09:56 [Mushroom Extract Complex] MS Rosiglitazone AdvReac heart Verified 05/14/18 09:56 [From Avandia] failure MS Sertraline [Sertraline] AdvReac suicidal Verified 05/14/18 09:56 MS Simvastatin [From Zocor] AdvReac muscle Verified 05/14/18 09:56 weakness MS Venlafaxine [From Effexor] AdvReac dizzy Verified 05/14/18 09:56 Home Medications: Home Medications Albuterol HFA INHALER* [Ventolin HFA Inhaler*] 2 puff INH Q4H PRN 05/14/18 [ History Confirmed 05/14/18] Cholecalciferol TAB* [Vitamin D TAB*] 1,000 units PO DAILY 05/14/18 [History Confirmed 05/14/18] Cyclobenzaprine HCl [Amrix] 30 mg PO BEDTIME 05/14/18 [History Confirmed ] DULoxetine DR CAP* [Cymbalta CAP*] 30 mg PO BEDTIME 05/14/18 [History Confirmed 05/14/18] Diltiazem CD CAP* [Cardizem CD CAP*] 120 mg PO BEDTIME 05/14/18 [History Confirmed 05/14/18] Fexofenadine HCl [Allergy Relief 24Hr] 180 mg PO QAM 05/14/18 [History Confirmed 05/14/18] Gabapentin [Gralise] 300 mg PO BEDTIME 05/14/18 [History Confirmed 05/14/18] Insulin Glargine,Hum.rec.anlog [Basaglar Kwikpen] 50 unit SC BID 05/14/18 [ History Confirmed 05/14/18] Insulin LISPRO* [HumaLOG*] 0 units SUBCUT DIRECTED 05/14/18 [History Confirmed 05/14/18] Losartan TAB* [Cozaar TAB*] 50 mg PO QAM 05/14/18 [History Confirmed 05/14/18] Ropinirole TAB* [Requip TAB*] 1 mg PO BEDTIME 05/14/18 [History Confirmed ] oxyCODONE SR TAB(*) [Oxycontin(*)] 10 mg PO TID PRN 05/14/18 [History Confirmed 05/14/18] PMH/Surg Hx/FS Hx/Imm Hx Previously Healthy: No Endocrine/Hematology History: Reports: Hx Diabetes Denies: Hx Anticoagulant Therapy, Hx Thyroid Disease Cardiovascular History: Reports: Hx Hypercholesterolemia, Hx Hypertension, Other Cardiovascular Problems/Disorders - IDDM Denies: Hx Angina, Hx Coronary Artery Disease, Hx Myocardial Infarction, Hx Pacemaker/ICD, Hx Valvular Heart Disease Respiratory History: Reports: Hx Asthma Denies: Hx Chronic Obstructive Pulmonary Disease (COPD) GI History: Reports: Hx Gall Bladder Disease History: Reports: Hx Kidney Stones Denies: Hx Dialysis Comment Only: Hx Renal Disease - ONLY KIDNEY STONES PER PT Musculoskeletal History: Reports: Hx Arthritis, Hx Back Problems, Hx Osteoporosis Denies: Hx Rheumatoid Arthritis Sensory History: Reports: Hx Contacts or Glasses Opthamlomology History: Reports: Hx Contacts or Glasses Neurological History: Reports: Other Neuro Impairments/Disorders - RUPTURED DISKS, SPINAL STIMULATOR Denies: Hx Dementia, Hx Seizures Psychiatric History: Reports: Hx Anxiety, Hx Depression Denies: Hx Substance Abuse - Cancer History Hx Chemotherapy: No Hx Radiation Therapy: No - Surgical History Surgery Procedure, Year, and Place: SPINE stimulator, gall bladder removed, gastric bipass 2002, multiple ortho surgeries Hx Anesthesia Reactions: No - Immunization History Date of Tetanus Vaccine: ` Infectious Disease History: No Infectious Disease History: Denies: Hx Clostridium Difficile, Hx Hepatitis, Hx Human Immunodeficiency Virus (HIV), Hx of Known/Suspected MRSA, Hx Shingles, Hx Tuberculosis, Hx Known/ Suspected VRE, Traveled Outside the [place] in Last 30 Days - Family History Known Family History: Positive: Cardiac Disease, Hypertension, Diabetes, Renal Disease, Other - brain CA - Social History Alcohol Use: None Hx Substance Use: No Substance Use Type: Reports: None Hx Tobacco Use: No Smoking Status (MU): Never Smoked Tobacco Have You Smoked in the Last Year: No Review of Systems Constitutional: Negative Eyes: Negative ENT: Negative Cardiovascular: Negative Respiratory: Negative Positive: Abdominal Pain, Nausea, Other - decreased appetite Genitourinary: Negative Musculoskeletal: Negative Skin: Negative Neurological: Negative Psychological: Normal All Other Systems Reviewed And Are Negative: Yes Physical Exam Triage Information Reviewed: Yes Vital Signs On Initial Exam: Initial Vitals Temp Pulse Resp BP Pulse Ox 97.3 F 100 17 151/67 100 05/14/18 09:53 05/14/18 09:53 05/14/18 09:53 05/14/18 09:53 05/14/18 09:53 Vital Signs Reviewed: Yes Appearance: Positive: Well-Appearing, No Pain Distress Skin: Positive: Warm, Skin Color Reflects Adequate Perfusion, Dry, Other - No rash Head/Face: Positive: Normal Head/Face Inspection Eyes: Positive: EOMI, SANG ENT: Positive: Normal ENT inspection Neck: Positive: Supple, Nontender Respiratory/Lung Sounds: Positive: Clear to Auscultation, Breath Sounds Present Cardiovascular: Positive: RRR Abdomen Description: Positive: Soft, Other: - TTP RUQ @ R upper lateral ABD Bowel Sounds: Positive: Present Musculoskeletal: Positive: Strength/ROM Intact, Edema Left - Pedal edema worse on the L than the R Neurological: Positive: Sensory/Motor Intact, Alert, Oriented to Person Place, Time Psychiatric: Positive: Affect/Mood Appropriate Diagnostics - Vital Signs Vital Signs Temp Pulse Resp BP Pulse Ox 05/14/18 09:53 97.3 F 100 17 151/67 100 - Laboratory Lab Results: Lab Results 05/14/18 05/14/18 05/14/18 Range/Units 11:01 11:01 11:01 WBC 7.9 (3.5-10.8) 10^3/ul RBC 2.95 L (4.00-5.40) 10^6/ul Hgb 8.1 L (12.0-16.0) g/dl Hct 25 L (35-47) % MCV 85 (80-97) fL MCH 28 (27-31) pg MCHC 32 (31-36) g/dl RDW 16 H (10.5-15) % Plt Count 362 (150-450) 10^3/ul MPV 8.1 (7.4-10.4) um3 Neut % (Auto) 68.8 (38-83) % Lymph % (Auto) 20.5 L (25-47) % [place] % (Auto) 7.4 H (0-7) % Eos % (Auto) 2.9 (0-6) % Baso % (Auto) 0.4 (0-2) % Absolute Neuts (auto) 5.4 (1.5-7.7) 10^3/ul Absolute Lymphs (auto) 1.6 (1.0-4.8) 10^3/ul Absolute Monos (auto) 0.6 (0-0.8) 10^3/ul Absolute Eos (auto) 0.2 (0-0.6) 10^3/ul Absolute Basos (auto) 0 (0-0.2) 10^3/ul Absolute Nucleated RBC 0 10^3/ul Nucleated RBC % 0.1 INR (Anticoag Therapy) 0.95 (0.77-1.02) APTT 28.5 (26.0-36.3) seconds Sodium 138 (135-145) mmol/L Potassium 4.0 (3.5-5.0) mmol/L Chloride 110 (101-111) mmol/L Carbon Dioxide 22 (22-32) mmol/L Anion Gap 6 (2-11) mmol/L BUN 19 (6-24) mg/dL Creatinine 1.36 H (0.51-0.95) mg/dL Est GFR ( Amer) 47.4 (>60) Est GFR (Non-Af Amer) 39.1 (>60) BUN/Creatinine Ratio 14.0 (8-20) Glucose 52 L (70-100) mg/dL Lactic Acid (0.5-2.0) mmol/L Calcium 8.0 L (8.6-10.3) mg/dL Total Bilirubin 0.20 (0.2-1.0) mg/dL AST 18 (13-39) U/L ALT 10 (7-52) U/L Alkaline Phosphatase 101 (34-104) U/L C-Reactive Protein 16.66 H (<8.01) mg/L B-Natriuretic Peptide ( - 100) pg/mL Total Protein 6.5 (6.4-8.9) g/dL Albumin 3.0 L (3.2-5.2) g/dL Globulin 3.5 (2-4) g/dL Albumin/Globulin Ratio 0.9 L (1-3) Lipase < 10 L (11.0-82.0) U/L Urine Color Urine Appearance Urine pH (5-9) Ur Specific [place] (1.010-1.030) Urine Protein (Negative) Urine Ketones (Negative) Urine Blood (Negative) Urine Nitrate (Negative) Urine Bilirubin (Negative) Urine Urobilinogen (Negative) Ur Leukocyte Esterase (Negative) Urine WBC (Auto) (Absent) Urine RBC (Auto) (Absent) Ur Squamous Epith Cells (Absent) Urine Bacteria (Absent) Urine Glucose (Negative) 05/14/18 05/14/18 05/14/18 Range/Units 11:01 11:01 12:26 WBC (3.5-10.8) 10^3/ul RBC (4.00-5.40) 10^6/ul Hgb (12.0-16.0) g/dl Hct (35-47) % MCV (80-97) fL MCH (27-31) pg MCHC (31-36) g/dl RDW (10.5-15) % Plt Count (150-450) 10^3/ul MPV (7.4-10.4) um3 Neut % (Auto) (38-83) % Lymph % (Auto) (25-47) % [place] % (Auto) (0-7) % Eos % (Auto) (0-6) % Baso % (Auto) (0-2) % Absolute Neuts (auto) (1.5-7.7) 10^3/ul Absolute Lymphs (auto) (1.0-4.8) 10^3/ul Absolute Monos (auto) (0-0.8) 10^3/ul Absolute Eos (auto) (0-0.6) 10^3/ul Absolute Basos (auto) (0-0.2) 10^3/ul Absolute Nucleated RBC 10^3/ul Nucleated RBC % INR (Anticoag Therapy) (0.77-1.02) APTT (26.0-36.3) seconds Sodium (135-145) mmol/L Potassium (3.5-5.0) mmol/L Chloride (101-111) mmol/L Carbon Dioxide (22-32) mmol/L Anion Gap (2-11) mmol/L BUN (6-24) mg/dL Creatinine (0.51-0.95) mg/dL Est GFR ( Amer) (>60) Est GFR (Non-Af Amer) (>60) BUN/Creatinine Ratio (8-20) Glucose (70-100) mg/dL Lactic Acid 1.1 (0.5-2.0) mmol/L Calcium (8.6-10.3) mg/dL Total Bilirubin (0.2-1.0) mg/dL AST (13-39) U/L ALT (7-52) U/L Alkaline Phosphatase (34-104) U/L C-Reactive Protein (<8.01) mg/L B-Natriuretic Peptide 98 ( - 100) pg/mL Total Protein (6.4-8.9) g/dL Albumin (3.2-5.2) g/dL Globulin (2-4) g/dL Albumin/Globulin Ratio (1-3) Lipase (11.0-82.0) U/L Urine Color Yellow Urine Appearance Cloudy Urine pH 5.0 (5-9) Ur Specific [place] 1.010 (1.010-1.030) Urine Protein 1+(30 mg/dl) A (Negative) Urine Ketones Negative (Negative) Urine Blood Negative (Negative) Urine Nitrate Positive A (Negative) Urine Bilirubin Negative (Negative) Urine Urobilinogen Negative (Negative) Ur Leukocyte Esterase 3+ A (Negative) Urine WBC (Auto) 3+(>20/hpf) A (Absent) Urine RBC (Auto) 2+(6-10/hpf) A (Absent) Ur Squamous Epith Cells Present A (Absent) Urine Bacteria 1+ A (Absent) Urine Glucose Negative (Negative) Result Diagrams: 05/14/18 11:01 05/14/18 11:01 Lab Statement: Any lab studies that have been ordered have been reviewed, and results considered in the medical decision making process. - Radiology CXR Xray Interpretation: Positive (See Comments) - RIGHT BASILAR DENSITY POSSIBLY REPRESENTING ATELECTASIS. RECOMMEND PA AND LATERAL CHEST FILMS FOR FURTHER EVALUATION. Radiology Interpretation Completed By: Radiologist - CT Chest/ABD/Pel CT CT Interpretation: Positive (See Comments) - 1. LARGE VENTRAL HERNIA CONTAINING FAT AND LOOP OF SMALL BOWEL WITHOUT OBSTRUCTION. 2. INFLAMMATORY CHANGE OF THE SUBCUTANEOUS FAT ANTERIORLY WHICH MAY REFLECT CELLULITIS IN THE CORRECT CLINICAL SETTING. 3. POSTSURGICAL CHANGE. 4. ATHEROSCLEROSIS. 5. NO LUNG MASS. CT Interpretation Completed By: Radiologist Abdominal Pain Fem Course/Dx - Course Course Of Treatment: DISCUSSED RESULTS WITH PATIENT. RX ZOFRAN. F/U PMD; RETURN IF WORSE. - Diagnoses Provider Diagnoses: Abdominal pain, right lateral, Abdominal pain, right upper quadrant, Nausea Discharge - Sign-Out/Discharge Documenting (check all that apply): Discharge/Admit/Transfer - Discharge Plan Condition: Stable Disposition: HOME Prescriptions: Ondansetron ODT TAB* [Zofran 4 MG Odt TAB*] 4 mg PO Q6H PRN #15 tab.odt PRN Reason: Nausea Patient Education Materials: Acute Nausea and Vomiting (ED), Abdominal Pain (ED ) Referrals: Cortney Yeboah MD [Primary Care Provider] - Additional Instructions: FOLLOW UP WITH YOUR DOCTOR. CALL TODAY FRO FOLLOW UP. RETURN TO THE EMERGENCY DEPARTMENT FOR ANY WORSENING OF YOUR CONDITION; PAIN, FEVER, DEHYDRATION OR QUESTIONS OR CONCERNS. - Billing Disposition and Condition Condition: STABLE Disposition: Home The documentation as recorded by the Rachel falcon Edward accurately reflects the service I personally performed and the decisions made by me, Tad Maldonado MD.
--- NOTE | 2018-05-16 07:41 | ED ---
Progress - Progress Note Progress Note: Patient's preliminary urine culture findings reveal greater than 100,000 Escherichia coli. Patient was not initiated on antibiotics however will await final results to start treatment. Final cultures pending and should return by tomorrow. Course/Dx - Course Course Of Treatment: DISCUSSED RESULTS WITH PATIENT. RX ZOFRAN. F/U PMD; RETURN IF WORSE. - Diagnoses Provider Diagnoses: Abdominal pain, right lateral, Abdominal pain, right upper quadrant, Nausea Discharge - Sign-Out/Discharge Documenting (check all that apply): Post-Discharge Follow Up - Discharge Plan Condition: Stable Disposition: HOME Prescriptions: Ondansetron ODT TAB* [Zofran 4 MG Odt TAB*] 4 mg PO Q6H PRN #15 tab.odt PRN Reason: Nausea Patient Education Materials: Acute Nausea and Vomiting (ED), Abdominal Pain (ED ) Referrals: Cortney Yeboah MD [Primary Care Provider] - Additional Instructions: FOLLOW UP WITH YOUR DOCTOR. CALL TODAY FRO FOLLOW UP. RETURN TO THE EMERGENCY DEPARTMENT FOR ANY WORSENING OF YOUR CONDITION; PAIN, FEVER, DEHYDRATION OR QUESTIONS OR CONCERNS. - Billing Disposition and Condition Condition: STABLE Disposition: Home
--- NOTE | 2018-05-17 11:42 | PN ---
Progress Note - Progress Note Date of Service: 05/14/18 Note: Pt. seen in ER 05/14. Final urine culture today is growing >100,000 e. coli. I called and spoke with pt. today at 11:39am and discussed results. Will start on keflex based on culture sensitivity. Will f.u with PCP. Pt. understands and agrees with plan.
== END | disposition home or self-care (01) ==
LOC: ED 09:47
DX: R10.11 Right upper quadrant pain (principal); R11.0 Nausea; K43.9 Ventral hernia without obstruction or gangrene; J98.4 Other disorders of lung; E11.9 Type 2 diabetes mellitus without complications; Z79.4 Long term (current) use of insulin; I10 Essential (primary) hypertension; E78.00 Pure hypercholesterolemia, unspecified; J45.909 Unspecified asthma, uncomplicated; Z87.442 Personal history of urinary calculi; F41.9 Anxiety disorder, unspecified; F32.9 Major depressive disorder, single episode, unspecified; Z90.49 Acquired absence of other specified parts of digestive tract; Z98.84 Bariatric surgery status; Z88.6 Allergy status to analgesic agent; Z88.1 Allergy status to other antibiotic agents; Z88.8 Allergy status to other drugs, medicaments and biological substances; Z82.49 Family history of ischemic heart disease and other diseases of the circulatory system; Z83.3 Family history of diabetes mellitus; Z84.1 Family history of disorders of kidney and ureter; Z80.8 Family history of malignant neoplasm of other organs or systems
CPT/HCPCS: 36415; 71045; 71250; 74176; 80053; 81003; 81015; 83605; 83690; 83880; 85025; 85610; 85730; 86140; 87077; 87086; 87186; 96374; 99283; J2405

== ENCOUNTER 2018-06-19 20:50 | Emergency (ER) | payer OTHER ==
--- OUTSIDE RECORDS SUMMARY | 2018-06-19 21:16 | XMS REPORT ---
:1955 External Reference #:[id number] Author Organization Morales Marie M.D., [facility] Address [address] [facility] [facility] [address] [place] [address] Phone [phone] Care Team Providers Name Role Phone Cortney Yeboah MD Care Team Information Fnp Unavailable Cortney Yeboah MD Primary Care Physician Unavailable Payers Type Date Identification Numbers Payment Provider Subscriber Commercial Effective: Policy Number: Raheel Richards 2013 [id number] PayID: [id number] [address] [place], [place] [id number] Problems Date Description Provider Status Onset: 05/15/2017 Primary open angle glaucoma of right Gabino Santino, OD Active eye Onset: 08/23/2016 Primary open angle glaucoma of right Morales Marie M.D. Active eye Onset: 09/20/2015 Primary open-angle glaucoma, mild stage Morales Marie M.D. Active Onset: 06/03/2014 Degeneration of macula due to cyst, Morales Marie M.D. Active hole or pseudohole Onset: 03/02/2014 Tear film insufficiency Morales Marie M.D. Active Onset: 03/02/2014 Lens Replaced By Other Means Morales Marie M.D. Active Onset: 03/02/2014 Open-angle glaucoma Morales Marie M.D. Active Family History Date Family Member(s) Problem(s) Comments Father Blindness Father Cataract Father Diabetes Father Heart Disease Father Noncontributory Mother Diabetes Mother Heart Disease Mother High BP Social History Type Date Description Comments ETOH Use Denies alcohol use Smoking Patient has never smoked Allergies, Adverse Reactions, Alerts Date Description Reaction Status Severity Comments 12/02/2013 ALL Anit-Depressants active Medications Medication Date Status Form Strength Qnty SIG Indications Ordering Provider Betoptic-S 03/10 Active Suspension 0.25% 15ml one drop Gabino /2018 twice a De, day right OD eye Latanoprost 03/10 Active Solution 0.005% 7.5ml 1 drops both eyes De, every OD night Brimonidine 02/18 Active Solution 0.15% 15uni instill 1 ts drop bid De, OD OD Prilosec Active Capsules DR Unknown Albuterol Sulfate Active Unknown Lantus Active Aspir-[address] 81mg Unknown Furosemide Active Tablets Unknown Duloxetine HCL Active Caps DR 30mg Cymbalta Part Ropinirole HCL Active Tablets Requip Gralise Active Tablets 300mg Ropinirole HCL Active Tablets 0.5mg Cortney VALDERRAMA Omeprazole Active Capsules DR 20mg Take One Capsule By Mouth Daily Losartan Active Tablets 25mg Take 1 Unknown Potassium Tablet Daily Loratadine Active Tablets 10mg Take 1 Tablet Daily as Needed For Allergies Diltiazem HCL ER Active Caps ER 120mg Take 1 Unknown Coated Beads 24HR Capsule AT Bedtime Silver Active Cream 1% Yeboah, Sulfadiazine Cortney VALDERRAMA Amrix Active Caps ER 15mg Unknown 24HR Citalopram Active Tablets 10mg Take 1 Unknown Hydrobromide Tablet Every Day Klor-Con M10 Active Tablets ER 10Meq Cortney VALDERRAMA Terbinafine HCL Active Cream 1% Oxycodone HCL Active Tablets 5mg Unknown Ventolin HFA Active Aerosol 108(90Bas , e) Cortney mcg/Act Meclizine HCL Active Tablets 25mg Cortney VALDERRAMA Humalog Kwikpen Active Solution 100Unit/M If BS Unknown /0000 Pen-Inject L 150-199 Give 3 Units , If BS 200-250 Give 4 U 250-299 Give 6 Uni Klor-Con 10 Active Tablets ER 10Meq Take 1 Unknown /0000 Tablet By Mouth Every Day Fluconazole 00 Active Tablets 100mg Unknown /0000 Hydrocodone-Aceta Active Tablets 5-325mg Unknown min Truetest Test Active Strips Yeboah Cortney VALDERRAMA Diltiazem HCL ER 00 Active Caps ER 180mg Unknown Coated 24HR Cyclobenzaprine Active Tablets 10mg Unknown HCL /0000 Gabapentin 00 Active Capsules 300mg Unknown /0000 Calcium Carbonate Active Tablets 1250mg Unknown / Latanoprost 05/15 Hx Solution 0.005% 7.5ml 1 drops H40.1111 right eye De, - QHS OD 03/10 Betoptic-S 05/15 Hx Suspension 0.25% 10uni instill 1 H40.1111 ts drop bid De, - OD OD 03/10 Latanoprost 12/21 Hx Solution 0.005% 2.5un 1 drops H40.11x1 its right Frank, - every M.D. 05/15 /2016 Restasis 12/02 Hx Emulsion 0.05% 180vi 1 gtt ou als bid Frank, - M.D. 06/03 Betoptic-S 11/18 Hx Suspension 0.25% 10uni place 1 ts drop into Frank, - right eye M.D. 05/15 twice a day Sulfasalazine /00 Hx Tablets Unknown / - 02/18 Oxycodone HCL 00/00 Hx Capsules Unknown / - 09/05 Oxycontin 00/00 Hx Unknown / - 04/18 Lovaza /00 Hx Capsules Unknown / - 09/05 Gabapentin /00 Hx Capsules Unknown / - 09/05 Cephalexin /00 Hx Capsules 500mg Unknown / - 02/18 Amoxicillin 00/00 Hx Capsules 500mg Unknown / - 02/18 Azithromycin 00/00 Hx Tablets 250mg Take 2 Unknown /0000 Tablets By - Mouth 02/18 Then Take 1 Tablet Daily For 4 Days Ciprofloxacin HCL 00/00 Hx Tablets 250mg Unknown / - 02/18 Ciprofloxacin HCL 00/00 Hx Tablets 500mg take 1 Unknown /0000 tablet - twice a Vital Signs Date Vital Result Comment 03/10/2018 Intraocular Pressure Right Eye 18 mmHg Intraocular Pressure Left Eye 15 mmHg 02/18/2018 Intraocular Pressure Right Eye 23 mmHg Intraocular Pressure Left Eye 20 mmHg 11/17/2017 Intraocular Pressure Right Eye 18 mmHg 08/15/2017 Intraocular Pressure Right Eye 18 mmHg Intraocular Pressure Left Eye 16 mmHg 05/15/2017 Intraocular Pressure Right Eye 18 mmHg Intraocular Pressure Left Eye 15 mmHg 08/23/2016 Intraocular Pressure Right Eye 18 mmHg Intraocular Pressure Left Eye 16 mmHg 05/23/2016 Intraocular Pressure Right Eye 18 mmHg Intraocular Pressure Left Eye 16 mmHg 04/18/2016 Intraocular Pressure Right Eye 25 mmHg Intraocular Pressure Left Eye 16 mmHg 01/17/2016 Intraocular Pressure Right Eye 14 mmHg Intraocular Pressure Left Eye 15 mmHg 12/21/2015 Intraocular Pressure Right Eye 25 mmHg Intraocular Pressure Left Eye 16 mmHg 09/20/2015 Intraocular Pressure Right Eye 18 mmHg Intraocular Pressure Left Eye 14 mmHg 06/16/2015 Intraocular Pressure Right Eye 18 mmHg Intraocular Pressure Left Eye 14 mmHg 03/15/2015 Intraocular Pressure Right Eye 16 mmHg Intraocular Pressure Left Eye 15 mmHg 12/15/2014 Intraocular Pressure Right Eye 15 mmHg Intraocular Pressure Left Eye 14 mmHg 09/05/2014 Intraocular Pressure Right Eye 18 mmHg Intraocular Pressure Left Eye 14 mmHg 06/03/2014 Intraocular Pressure Right Eye 18 mmHg Intraocular Pressure Left Eye 14 mmHg 03/02/2014 Intraocular Pressure Right Eye 14 mmHg Intraocular Pressure Left Eye 14 mmHg Results Description No Information Procedures Date CPT Code Description Status 03/10/2018 54071 Refraction Completed 03/10/2018 44783 Eye Exam Est Intermediate Completed 02/18/2018 14231 Oct, Optic Nerve Completed 02/18/2018 43511 Eye Exam Est Intermediate Completed 11/17/2017 11290 Oct Retina Completed 11/17/2017 14243 Eye Exam Est Intermediate Completed 08/15/2017 78697 Eye Exam Est Intermediate Completed 05/15/2017 54380 Visual Field Exam Extended, Unilateral Or Bilateral Completed 05/15/2017 72743 Eye Exam Est Intermediate Completed 08/23/2016 83742 Fundus Photography W/Interpretation & Report Completed 08/23/2016 14795 Refraction Completed 08/23/2016 13501 Eye Exam Est Comprehensive Completed 04/18/2016 48238 Eye Exam Est Intermediate Completed 12/21/2015 21392 Oct, Optic Nerve Completed 12/21/2015 23802 Eye Exam Est Intermediate Completed 09/20/2015 43623 Eye Exam Est Intermediate Completed 09/20/2015 15813 Visual Field Exam Extended, Unilateral Or Bilateral Completed 06/16/2015 70781 Fundus Photography W/Interpretation & Report Completed 06/16/2015 20565 Eye Exam Est Comprehensive Completed 03/15/2015 47035 Eye Exam Est Intermediate Completed 12/15/2014 34580 Oct, Optic Nerve Completed 12/15/2014 85330 Eye Exam Est Intermediate Completed 09/05/2014 65664 Visual Field Exam Extended, Unilateral Or Bilateral Completed 09/05/2014 93358 Eye Exam Est Intermediate Completed 06/03/2014 21979 Fundus Photography W/Interpretation & Report Completed 06/03/2014 55254 Ophthalmoscopy Subsequent Completed 06/03/2014 85291 Eye Exam Est Intermediate Completed 03/02/2014 55937 Eye Exam Est Intermediate Completed 02/18/2012 91965 Ophthalmic Biometry By Partial Coherence Interferometry Completed W/Intra 02/18/2012 28472 Eye Exam New Comprehensive Completed Encounters Type Date Location Provider CPT E/M Dx Office Visit 05/23/2016 3:45p Main Office Morales Marie M.D. 42075 H40.11x1 Office Visit 01/17/2016 2:15p Main Office Morales Marie M.D. 54486 H40.11x1 Plan of Care 06/11/2018 - Gabino De ODH40.1112 Primary open-angle glaucoma, right eye, moderate [id number] Primary open-angle glaucoma, left eye, mild kncmgC14.343 Macular cyst, hole, or pseudohole, bilateralFollow up:3 mos full, sooner PRN
--- OUTSIDE RECORDS SUMMARY | 2018-06-19 21:18 | XMS REPORT ---
:1955 External Reference #:[id number] Author Organization [facility] Address [address] [place] [address] [place] [address] Phone [phone] Care Team Providers Name Role Phone Cortney Yeboah MD Primary Care Physician Unavailable Payers Type Date Identification Numbers Payment Provider Subscriber Commercial Effective: Policy Number: [employer] Ligaab[employer] He Maurice 2013 [id number] Group Number: [id number] [address] PayID: [id number] [place] [address] Medigap Part B Expires: 2013 Policy Number: [id number] Medicaid Cathy Muñoz PayID: [id number] [address] [place] [address] Problems Date Description Provider Status Onset: 12/19/2013 Type 2 diabetes mellitus with multiple Cortney Yeboah M.D. Active complications Note: neuropathy, nephropathy stage 3 renal failure ( s/p stent for staghorn calculus) Onset: 12/19/2013 Hyperlipidemia Cortney Yeboah M.D. Active Onset: 12/19/2013 Benign essential hypertension Cortney Yeboah M.D. Active Onset: 10/12/2014 Chronic pain Cortney Yeboah M.D. Active Onset: 10/12/2014 Depressive disorder Cortney Yeboah M.D. Active Onset: 10/12/2014 Obesity Cortney Yeboah M.D. Active Onset: 10/12/2014 Chronic renal failure Cortney Yeboah M.D. Active Note: diabetic nephropathy and recurrent nephrolithiasis in the past Dr. Herndon Onset: 10/12/2014 Glaucoma Cortney Yeboah M.D. Active Onset: 10/12/2014 Varicose veins of lower extremity Cortney Yeboah M.D. Active Onset: 11/18/2014 Dyssomnia Lauren Leung MD Active Onset: 11/18/2014 Hypersomnia Lauren Leung MD Active Onset: 11/18/2014 Restless legs Lauren Leung MD Active Onset: 11/18/2014 Bariatric Surgery Status Lauren Leung MD Active Onset: 02/08/2015 Obstructive sleep apnea syndrome Lauren Leung MD Active Onset: 02/08/2015 Morbid obesity Lauren Leung MD Active Onset: Hernia of anterior abdominal wall Active Note: referred to [facility] by Dr. Thomson due to need of abdominoplasty Onset: 02/21/2016 Osteoporosis Cortney Yeboah M.D. Active Onset: 09/09/2016 Essential hypertension Cortney Yeboah M.D. Active Onset: 10/25/2016 Secondary hyperparathyroidism Cortney Yeboah M.D. Active Note: due to renal failure Dr. Herndon Onset: 07/31/2017 Peripheral vascular disease Anuradha Hope MD, [facility], Active [facility] Onset: 10/12/2014 Osteopenia Cortney Yeboah M.D. Inactive Inactive: 02/21/2016 Onset: 01/14/2013 Chronic osteomyelitis Ti Mendoza M.D. Resolved Resolved: 10/12/2014 Onset: 12/19/2013 Kidney stone Cortney Yeboah M.D. Resolved Resolved: 11/23/2015 Family History Date Family Member(s) Problem(s) Comments General Diabetes General Heart Disease Father 70 Children None First Sister 65 Second Sister 58 Grandfather 64 Grandfather due to Accident () Grandmother 84 : (age 64 Paternal Grandmother due to Brain Cancer Years) Social History Type Date Description Comments Marital Status Lives With Alone Occupation Disabled Cigarette Use Never Smoked Cigarettes ETOH Use Denies alcohol use Smoking Patient has never smoked Recreational Drug Use Denies Drug Use Daily Caffeine Does Not Consume Caffeine Daily Caffeine consumes chocolate occasionally Exercise Type/Frequency Exercises regularly pt states she walks daily for about 30 minutes Personal Habits Text 3-5 meals a day since bypass surgery Allergies, Adverse Reactions, Alerts Date Description Reaction Status Severity Comments 01/13/2013 Alex Inhibitors active cough 01/13/2013 Lipitor active muscle weakness /pain in legs 01/13/2013 Diazepam active 01/13/2013 Doxazosin active 01/21/2013 Mushrooms active 01/21/2013 Xanax active 01/21/2013 Valium active 11/02/2014 Sertraline suicidal effect active 11/02/2014 Betadine Dermatologic reaction active 11/02/2014 Erythromycin abdominal pain active 11/02/2014 Fentanyl suicidal effects active Medications Medication Date Status Form Strength Qnty SIG Indications Ordering Provider Bacitraycin Plus 06/11 Active Ointment 500Unit/GM 1unit apply to S30.811A s wound Yeboah, twice a M.D. day Bacitracin Zinc 06/11 Active Ointment 500Unit/GM 14.17 apply S30.811A Cortney /2018 0gm twice a Yeboah, day x 10 M.D. days Ciprofloxacin 06/11 Hx Tablets 250mg 14tab take one N39.0 Cortney HCL s tablet [place], - twice a M.D. 06/18 day for days. Bed Rails 11/12 Active 2unit as needed R29.6 Cortney s dx r29.6 Lorraine Yeboah Fergon 07/31 Active Tablets 240(27Fe) takes Marcis T. mg occasional Sodums, ly--1 , FAC, tablet [facility] daily Radha Allergy 06/26 Active Tablets 180mg 60tab 1 by mouth R05 s every day [place], as needed M.Geo Calabrese 01/15 Active Solution 100Unit/ML 45ml now doing Cortney /2017 Pen-Inject 55u at [place], hs----inje M.DNighat ct 50 units and 50 u PM BD Pen Norman 06/13 Active Misc 31G X 8 mm 100un for use Cortney Short/Ultrafine its with [place], 31G X 5/16" lantus & M.D. humalog pens daily Truetest Strips 11/23 Active Strips 100un Test four Cortney /2016 its times a Yeboah, day if M.D. needed Cpap 07/13 Active Device Cortney Lorraine Yeboah Duloxetine HCL 08/[address] 30mg 1 by mouth [address] Adonay Domínguez Kwikpen 04/07 Active Solution 100Unit/ML 45ml Refer to E66.09 Cortney Pen-Inject scanned esther Yeboah, MKb sliding scale Losartan 03/29 Active Tablets 25mg 90tab take 2 I10 Cortney Potassium s tablet [place], daily (pt M.DNighat states one 50 mg tab daily 02/20/18) Diltiazem HCL ER 03/29 Active Caps ER 120mg 90cap 1 by mouth Cortney Coated Beads 24HR s at bedtime Lorraine Yeboah Freestyle 02/21 Active Misc Freestyle 100un use 4 E66.09 Cortney Lancets Lancets its times a [place], day as M.DNighat directed dx 250.02 Freestyle Lite 02/21 Active Device 1unit check E66.09 Cortney Blood Glucose s fingerstic [place], Monitoring k daily M.DNighat System Freestyle Lite 02/21 Active Strip 100un Test four E11.69 Cortney Test /2013 its times a [place], day M.D. BD Insulin 07/21 Active Misc 29G X 1/2" 100un use as Cortney Syringe /2012 1 ML its directed [place] Safetyglide/1ML/ with M.DNighat 29G X 1/2" lantus Trueresult Blood 06/09 Active Kit w/Device 1unit use as Cortney Glucose s directed [place], Monitoring M.DNighat System Insulin 04/27 Active Misc 30G X 1box as Cortney Syringe/0.5ML/ 5/16" 0.5 directed [place] G X 16" ML M.DNighat Betoptic-S Active Suspension 0.25% 1 gtt OU Unknown / bid Xalatan Active Solution 0.005% right eye Unknown / twice a day Amrix Active Tablets 30 1 po q lizy Proair HFA Active Aerosol 108(90Base 1unit 2 puffs by Cortney / ) mcg/Act s mouth Yeboah, every 4 M.D. hours as needed Alpha Lipoic Active Capsules 200mg 1 cap po Unknown Acid daily Systane Ultra Active Solution 0.4-0.3% 1 drop Unknown each eye twice daily for dry eyes Grallse Active 300mg once a day Unknown Potassium Active Tablets 595(99K) takes Unknown Gluconate /0000 mg prn---take 1 tablets by mouth in the morning Niacin Active Tablets 500mg 1 by mouth Unknown every day Magnesium Oxide Active Tablets 250mg 1 by mouth Unknown -MG Supplement every day as needed Turmeric Active Tablets 500mg daily Vitamin D Active Tablets 5000Units 4 by mouth E55.9 Unknown every day Oxycontin Active Tab ER 12H 10mg take 1 Abuse-Det tablet by mouth every 8 hours as directed maximum daily dose of Requip Active Tablets 0.5mg 90tab take 1 to Cortney /0000 s 3 tabs at Yeboah, night for M.D. rls Benadryl Active Capsules 25mg taking 2 bid currently- -----one tab by mouth at bedtime as needed Cephalexin 11/12 Hx Capsules 250mg 15cap 1 cap 3 L03.311 s times a [place], - day x 5 M.D. Bacitracin 11/12 Hx Ointment 500Unit/GM 14gm apply to Cortney (External) affected Yeboah, - areas on M.D. 02/19 the hands twice a day x 7 days Ciprofloxacin 04/14 Hx Tablets 500mg 10tab one by N39.0 Madalyn HCL s mouth Varn, - twice N.P. 04/19 daily for 5 days Cipro 04/08 Hx Tablets 500mg 14tab 1 by mouth Cortney s twice a Yeboah, - day for 7 M.D. Vitamin D 03/26 Hx Capsules [id number] 6caps once a E55.9 Cortney (Ergocalciferol) week Yeboah, - M.D. 08/07 Bacitracin 09/09 Hx Ointment 500Unit/GM 60gm apply to L03.818 Cortney (External) arm twice Yeboah, - a day x 10 M.D. Alendronate 02/20 Hx Tablets 70mg 12tab not M81.0 Cortney Sodium s taking--on Yeboah, - ce a week M.D. 02/19 Vitamin D 02/20 Hx Capsules [id number] 8caps 1 tab by E55.9 Cortney (Ergocalciferol) mouth Yeboah, - every week M.D. 01/15 Doxycycline 02/11 Hx Tablets 100mg 1 by mouth Unknown Hyclate twice a - day 02/21 Ergocalciferol 12/11 Hx Capsules [id number] 8caps 1 tab by Cortney mouth Yeboah, - every week M.D. 02/20 Truetest Test 11/23 Hx Strips 100un Test four its times a [place], - day if M.D. 11/23 needed Ciprofloxacin 11/01 Hx Tablets 500mg 14tab 1 tab by R31.9 Cortney HCL s mouth Yeboah, - twice a M.D. Cipro 10/02 Hx Tablets 250mg 6tabs one by M54.5 nouth Yeboah, - twice M.D. 11/01 daily for 3 days Furosemide 10/02 Hx Tablets 20mg 7tabs 1 by mouth R60.9 every Yeboah, - other day M.D. 11/01 Fluconazole 07/13 Hx Tablets 100mg 7tabs 1 tab by 682.2 Cortney /2015 mouth Yeboah, - daily x 7 M.D. Mupirocin 02/09 Hx Ointment 2% 22gm apply on 682.9 Cortney /2015 affected Yeboah, - area twice M.D. 05/29 daily for 10 days Cephalexin 01/25 Hx Tablets 250mg 20tab 1 by mouth 682.9 Cortney /2015 s twice a [place], - day M.D. 02/09 Lantus Melinaostar 12/26 Hx Solution 100Unit/ML 60uni inject 55 Pen-Inject ts u in the Yeboah, - morning 50 M.D. 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 08/24 areas Celexa 07/28 Hx Tablets 10mg 90tab 1 by mouth s every day Rimma Yeboah M.D. 08/17 Duloxetine HCL 07/[address] 20mg 30cap take one 311 Part s capsule by [place], - mouth one M.D. 08/17 time [place]-3 Complex 04/12 Hx Capsules 192-251-11 90cap once a day mg-mg-Unit s [place] - M.DNighat 12/13 [place]-3 & 03/29 Hx Capsules 1200mg 90cap once a day 272.4 Ocrtney [place]-6 Fish Oil s [place] - M.DNighat 01/25 Loratadine 03/29 Hx Tablets 10mg 90tab take 1 J30.9 s tablet [place], - daily as M.D. 02/02 needed for allergies Diltiazem HCL ER 02/21 Hx Caps ER 180mg 30cap 1 by mouth 24HR s every day Rimma YeboahDNighat 03/29 Gabapentin 11/18 Hx Capsules 300mg 90cap 1 po bid s - 04/19 Meclizine HCL 07/21 Hx Tablets 25mg 90tab 1 by mouth 850.0 s as needed [place], - every 12 M.D. 05/24 hours needed Truetest Strips 06/09 Hx Strips 100un Test four its times a [place], - day if M.D. 11/23 needed Lantus Solostar 04/29 Hx Pens 5unit inject 25 s units sq [place], - bid M.D. 04/29 Humalog Kwikpen 04/29 Hx Sopn 100Unit/ML 5unit 5 units sq s with meals [place], - M.D. 04/07 BD Pen 04/29 Hx Misc 31G X 5 mm 100un use as Cortney Needle/Mini its directed [place] afine/31G X - with M.D. 01/23" 06/13 lantus and /2015 humalog Lantus Solostar 04/29 Hx Sopn 100Unit/ML 60uni inject 45 ts units in [place], - the M.D. 12/26 and 35 units in at night One Touch Ultra 04/27 Hx 100un check bs 4 Cortney Strips its times a [place], - day M.D. 06/09 Calcium 500 +D 04/27 Hx Tablets 500-400mg- 60tab 1 po qd Unit s [place], - M.D. 11/23 Accu-Check Katerine 02/25 Hx 1Box check bs 4 Cortney Test Strips /2012 times/day [place], - M.D. 04/27 Ergocalciferol 02/05 Hx Capsules [id number] 8caps 1 tab by mouth [place], - every week M.D. 07/21 Calcium 02/05 Hx Tablets 600mg 120ta 1 harinder bid bs [place], - M.D. 07/21 Spinal 01/21 Hx Cortney Stimulator [place], - M.D. 05/23 Klor-Con 10 01/21 Hx Tablets ER 10Meq 90tab 1 by mouth s every day [place], - M.D. 02/20 Xanax Hx Tablets 0.5mg 30tab po tid prn Unknown /0000 s - 01/21 Miralax Hx Packet [id number] 1mon 17 gm qd Unknown / prn - 07/21 Orphenadrine Hx Tablets ER 100mg 20tab po bid prn Unknown Citrate CR /0000 12HR s - 01/21 Xalatan Hx Solution 0.005% ou qhs 1 Unknown /0000 ggt R eye - 02/25 Multivitamins Hx Tablets 30tab 1 po qd Unknown / s - 11/23 Lantus Hx Solution 100Unit/ML 6unit 25 units Cortney /0000 s sq bid Rimma Yeboah M.D. 04/29 Humalog Hx Solution 100Unit/ML 5unit 5 units sq Cortney /0000 s with meals Rimma Yeboah M.D. 04/29 Vitamin D-3 Hx Tablets 5000Unit 8tabs po qd Unknown / - 02/05 Cod Liver Oil Hx Capsules 1 po qd Unknown /0000 - 07/21 Meclizine HCL Hx Tablets 12.5mg 12tab tid prn Unknown / s - 11/[address] Aspir-[address] 81mg 1 po qd Unknown /0000 - 11/18 Lovaza Hx Capsules 1gm 60cap 1 by mouth Cortney /0000 s twice a [place] - meghan Peters 03/29 Oxycontin Hx Tablets ER 30mg 60tab 1 po tid Unknown /0000 12HR s - 04/27 Oxycodone HCL Hx Tablets 10mg 120ta 1 tablet Unknown /0000 bs po q4hrs - prn 04/27 Flexeril Hx Tablets 10mg 30tab 1.5 tabs Unknown /0000 s po bid prn - 10/12 Gabapentin Hx Capsules 300mg 90cap 1 po tid Unknown /0000 s - 11/05 Bactrim DS Hx Tablets 800-160mg 14tab 1 po bid Unknown /0000 s for 14 - days 01/21 Zioptan Hx Solution 0.0015% once daily Unknown /0000 right eye - at hs 07/21 Preservative Hx both eyes Unknown Free Tears /0000 4 times a - day 07/21 Oxycontin 00/00 Hx Tablets ER 20mg 1 tab bid Unknown /0000 12HR - 11/[address] 30mg 90cap 1 po qd Cortney /0000 Part Rimma Kruse M.D. 04/07 Oxycontin Hx 10mg bid Unknown / - 10/03 Aspirin Hx Tablets 81mg one tab Unknown /0000 daily - 01/08 Iron Hx Tablets Unknown / - 12/13 Vitamin D High Hx Capsules Unknown Potency - 10/03 Diltiazem CD Hx Caps ER 180mg 90cap 1 po qd Cortney /0000 24HR Rimma Kruse M.D. 02/21 Gralise Hx Tablets 300mg one po at Unknown /0000 hs - 10/03 Oxycodone HCL ER Hx Capsules 15mg 40cap one tab Unknown /0000 s twice - daily 10/03 Oxycontin Hx Tab ER 12H 20mg 60tab Not Taking Unknown /0000 Abuse-Det s 1 by - mouth 01/15 twice daily Cymbalta Hx Caps DR 30mg 90cap 1 by mouth Unknown / Part s every day - 12/13 Duloxetine HCL Hx Caps DR 30mg 1 by mouth 311 Unknown /0000 Part every day - Dr. Urias 12/13 Cholecalciferol Hx Pill 5,000Units one daily Unknown /0000 - 02/19 Cyclobenzaprine Hx Tablets 10mg 30tab one by Unknown HCL /0000 s mouth - three 12/12 times day as needed spasm Gabapentin Hx Capsules 300mg 1 by mouth Unknown /0000 at bedtime - 12/13 Gralise Hx Tablets 300mg 1 po qd Unknown /0000 - 04/02 Iron Supplement 00/00 Hx Tablets 325(65Fe) by mouth Unknown /0000 mg every day - 02/19 Vitamin D 00/00 Hx Tablets 5000Unit 6 by mouth Unknown /0000 every day - 08/07 Magnesium 00/00 Hx Capsules otc once a Unknown /0000 day - 11/23 Potassium 00/00 Hx Tablets 1 tab by Unknown /0000 mouth - every 11/23 other OTC Cranberry 00/00 Hx Capsules 2 tabs Unknown /0000 with every - meal 04/02 Iron 00/00 Hx Tablets 325(65Fe) 1 by mouth Unknown /0000 mg every day - 06/25 Furosemide 00 Hx Tablets 20mg take 1 Unknown /0000 tablet by - mouth once 02/20 daily 7 days then 1 tablet every other day . Takes as needed Omeprazole [address] 20mg 30cap Cortney /0000 Rimma Kruse M.D. 04/02 Furosemide 00/00 Hx Tablets 20mg 1 by mouth Unknown /0000 every - morning as 10/17 Niacin 00/ Hx Tablets 1 by mouth Unknown /0000 every day - 04/02 Claritin-D 12 Hx Tablets ER 5-120mg prn Unknown Hour /0000 12HR - 06/26 Lasix 00 Hx Tablets 20mg 1 by mouth Unknown /0000 every - other day 06/25 Klor-Con 10 00/00 Hx Tablets ER 10Meq 1 by mouth Unknown /0000 every day - 06/25 Tramadol HCL 00/00 Hx Tablets 50mg 1-2 Unknown /0000 tablets - every 6 07/05 hours needed Bactrim DS 0000 Hx Tablets 800-160mg 1 by mouth Unknown /0000 twice a - day 06/25 Pope 00/00 Hx Tablets 650mg Unknown /0000 - 12/11 Oxycodone HCL 00/00 Hx Tablets 10mg 1 by mouth Unknown /0000 every 6 - hours as 12/11 pain Immunizations CPT Code Status Date Vaccine Lot # [id number] Given 08/07/2017 Influenza Virus Vaccine, Quadrivalent, Split, [id number] Preservative Free [id number] Given 09/13/2016 Influenza Virus Vaccine, Quadrivalent, Split, Preservative Free [id number] Given 08/25/2015 Flu Vaccine NOS [id number] Given 01/25/2015 Pneumococcal Conjugate Vaccine 13 Valent For [id number] Intramuscular Use 93818 Given 08/17/2014 Influenza Virus Vaccine, Quadrivalent, Split, [id number] Preservative Free 89555 Given 07/06/2014 Zoster (Zostavax) [id number] 02188 Given 07/21/2013 Influenza Virus 3Yrs & Over 97948 Given 02/25/2013 Pneumonia Vaccine [id number] Refused 09/09/2016 Influenza Virus Vaccine, Quadrivalent, Split Virus , Im Use Vital Signs Date Vital Result Comment 06/11/2018 Height 66 inches 5'6" Weight 262.00 lb Heart Rate 105 /min BP Systolic Sitting 118 mmHg BP Diastolic Sitting 78 mmHg O2 % BldC Oximetry 97 % BMI (Body Mass Index) 42.3 kg/m2 05/14/2018 Height 66 inches 5'6" Weight 278.00 lb Heart Rate 89 /min BP Systolic Sitting 126 mmHg BP Diastolic Sitting 64 mmHg O2 % BldC Oximetry 98 % BMI (Body Mass Index) 44.9 kg/m2 03/27/2018 Height 66 inches 5'6" Weight 279.38 lb Heart Rate 88 /min BP Systolic Sitting 130 mmHg Rue large cuff BP Diastolic Sitting 82 mmHg Rue large cuff Respiratory Rate 14 /min O2 % BldC Oximetry 98 % On Ra BMI (Body Mass Index) 45.1 kg/m2 03/10/2018 Height 66 inches 5'6" Weight 277.00 lb w/ shoes Heart Rate 82 /min reg BP Systolic Sitting 112 mmHg Lue BP Diastolic Sitting 70 mmHg Lue Respiratory Rate 16 /min BMI (Body Mass Index) 44.7 kg/m2 Ejection Fraction 50-55% as of 12/2014 echo 02/20/2018 Height 66 inches 5'6" Weight 295.00 lb Heart Rate 90 /min BP Systolic Sitting 130 mmHg Lue large cuff BP Diastolic Sitting 66 mmHg Lue large cuff Respiratory Rate 16 /min O2 % BldC Oximetry 97 % On Ra BMI (Body Mass Index) 47.6 kg/m2 02/02/2018 Heart Rate 112 /min BP Systolic Sitting 138 mmHg BP Diastolic Sitting 75 mmHg O2 % BldC Oximetry 99 % 11/12/2017 Weight 282.00 lb Heart Rate 90 /min BP Systolic Sitting 104 mmHg BP Diastolic Sitting 60 mmHg Body Temperature 97.7 F O2 % BldC Oximetry 95 % 08/07/2017 Weight 284.25 lb Heart Rate 87 /min BP Systolic Sitting 150 mmHg BP Diastolic Sitting 98 mmHg Body Temperature 98.0 F O2 % BldC Oximetry 98 % 07/31/2017 Height 67 inches 5'7" Weight 275.00 lb with out shoes Heart Rate 110 /min reg BP Systolic Sitting 160 mmHg Lue lg cuff BP Diastolic Sitting 80 mmHg Lue lg cuff Respiratory Rate 18 /min BMI (Body Mass Index) 43.1 kg/m2 Ejection Fraction 50-55% date 01/05/15 ECHO 06/26/2017 Weight 280.12 lb Heart Rate 90 /min BP Systolic Sitting 140 mmHg BP Diastolic Sitting 68 mmHg Body Temperature 98.8 F O2 % BldC Oximetry 98 % 04/22/2017 Weight 285.38 lb Heart Rate 107 /min BP Systolic 140 mmHg BP Diastolic 80 mmHg Body Temperature 98.7 F O2 % BldC Oximetry 97 % 04/14/2017 Weight 259.00 lb Heart Rate 121 /min BP Systolic 120 mmHg BP Diastolic 62 mmHg Body Temperature 98.2 F O2 % BldC Oximetry 99 % 04/03/2017 Height 67 inches 5'7" Weight 276.25 lb with shoes BP Systolic 126 mmHg LA lrg cuff BP Diastolic 70 mmHg LA lrg cuff BMI (Body Mass Index) 43.3 kg/m2 Ejection Fraction 50% - 55% echo 01/05/15 03/26/2017 Weight 274.25 lb Heart Rate 108 /min BP Systolic 140 mmHg BP Diastolic 76 mmHg Body Temperature 98.2 F O2 % BldC Oximetry 98 % 01/15/2017 Weight 261.25 lb Heart Rate 102 /min BP Systolic Sitting 152 mmHg 138/80 BP Diastolic Sitting 90 mmHg 138/80 Body Temperature 99.0 F O2 % BldC Oximetry 92 % 10/17/2016 Weight 266.25 lb Heart Rate 101 /min BP Systolic 140 mmHg BP Diastolic 70 mmHg Body Temperature 98.2 F O2 % BldC Oximetry 98 % 09/09/2016 Weight 264.00 lb Heart Rate 112 /min BP Systolic Sitting 130 mmHg BP Diastolic Sitting 74 mmHg Body Temperature 97.4 F O2 % BldC Oximetry 98 % 06/06/2016 Weight 268.50 lb Heart Rate 98 /min BP Systolic 130 mmHg BP Diastolic 80 mmHg Body Temperature 97.0 F O2 % BldC Oximetry 98 % 03/05/2016 Weight 269.00 lb Heart Rate 93 /min BP Systolic Sitting 127 mmHg BP Diastolic Sitting 70 mmHg Body Temperature 97.3 F 02/21/2016 Weight 269.00 lb Heart Rate 99 /min BP Systolic Sitting 152 mmHg BP Diastolic Sitting 79 mmHg Body Temperature 97.6 F 01/02/2016 Height 66 inches 5'6" Weight 260.50 lb with out shoes Heart Rate 88 /min BP Systolic Sitting 164 mmHg LA lg cuff BP Diastolic Sitting 82 mmHg LA lg cuff Respiratory Rate 17 /min BMI (Body Mass Index) 42.0 kg/m2 Ejection Fraction 50-55% date 01/05/15 ECHO 12/15/2015 Height 66 inches 5'6" Weight 264.00 lb Heart Rate 99 /min BP Systolic Sitting 130 mmHg BP Diastolic Sitting 80 mmHg Respiratory Rate 14 /min Body Temperature 98.0 F O2 % BldC Oximetry 97 % BMI (Body Mass Index) 42.6 kg/m2 11/23/2015 Height 66 inches 5'6" Weight 250.00 lb Heart Rate 91 /min BP Systolic Sitting 122 mmHg BP Diastolic Sitting 60 mmHg Body Temperature 97.8 F O2 % BldC Oximetry 98 % BMI (Body Mass Index) 40.3 kg/m2 11/01/2015 Height 66 inches 5'6" Weight 263.00 lb Heart Rate 80 /min BP Systolic Sitting 128 mmHg BP Diastolic Sitting 80 mmHg Respiratory Rate 15 /min Body Temperature 98.5 F O2 % BldC Oximetry 98 % BMI (Body Mass Index) 42.4 kg/m2 10/13/2015 Height 66 inches 5'6" Weight 275.00 lb Heart Rate 94 /min BP Systolic 150 mmHg BP Diastolic 80 mmHg Respiratory Rate 16 /min O2 % BldC Oximetry 98 % BMI (Body Mass Index) 44.4 kg/m2 10/12/2015 Height 66 inches 5'6" Weight 275.00 lb Heart Rate 76 /min BP Systolic Sitting 128 mmHg BP Diastolic Sitting 84 mmHg Respiratory Rate 14 /min Body Temperature 98.6 F O2 % BldC Oximetry 98 % BMI (Body Mass Index) 44.4 kg/m2 10/02/2015 Height 66 inches 5'6" Weight 262.00 lb Heart Rate 105 /min BP Systolic Sitting 114 mmHg BP Diastolic Sitting 74 mmHg Body Temperature 98.6 F Pain Level 7 R flank O2 % BldC Oximetry 98 % BMI (Body Mass Index) 42.3 kg/m2 07/19/2015 Height 66 inches 5'6" Weight 259.00 lb Pain Level 10 BMI (Body Mass Index) 41.8 kg/m2 07/13/2015 Weight 259.00 lb Heart Rate 94 /min BP Systolic Sitting 124 mmHg BP Diastolic Sitting 64 mmHg Body Temperature 98.9 F O2 % BldC Oximetry 97 % 07/12/2015 Heart Rate 91 /min BP Systolic 130 mmHg BP Diastolic 70 mmHg Respiratory Rate 14 /min O2 % BldC Oximetry 98 % 05/29/2015 Weight 263.00 lb Heart Rate 105 /min BP Systolic Sitting 118 mmHg BP Diastolic Sitting 76 mmHg Body Temperature 97.7 F 04/24/2015 Heart Rate 99 /min BP Systolic Sitting 149 mmHg BP Diastolic Sitting 82 mmHg Respiratory Rate 20 /min O2 % BldC Oximetry 98 % 02/21/2015 Height 66 inches 5'6" Weight 265.00 lb Heart Rate 82 /min BP Systolic Sitting 150 mmHg Ra, large BP Diastolic Sitting 80 mmHg Ra, large BMI (Body Mass Index) 42.8 kg/m2 02/09/2015 Height 66 inches 5'6" Weight 265.00 lb Heart Rate 96 /min Body Temperature 98.1 F O2 % BldC Oximetry 97 % BMI (Body Mass Index) 42.8 kg/m2 02/08/2015 Height 66 inches 5'6" Weight 289.00 lb Heart Rate 96 /min BP Systolic Sitting 130 mmHg BP Diastolic Sitting 68 mmHg O2 % BldC Oximetry 98 % BMI (Body Mass Index) 46.6 kg/m2 01/25/2015 Weight 262.00 lb Heart Rate 113 /min BP Systolic Sitting 152 mmHg 122/80 on recheck BP Diastolic Sitting 80 mmHg 122/80 on recheck Body Temperature 97.7 F 12/13/2014 Height 66 inches 5'6" Weight 241.00 lb Heart Rate 80 /min BP Systolic Sitting 122 mmHg LA, large BP Diastolic Sitting 84 mmHg LA, large BMI (Body Mass Index) 38.9 kg/m2 11/18/2014 Height 66 inches 5'6" Weight 254.00 lb Heart Rate 108 /min BP Systolic Sitting 148 mmHg BP Diastolic Sitting 92 mmHg Respiratory Rate 22 /min Body Temperature 97.8 F O2 % BldC Oximetry 97 % BMI (Body Mass Index) 41.0 kg/m2 Neck Circumference in inches 15.5 10/27/2014 Weight 263.00 lb Heart Rate 96 /min BP Systolic Sitting 114 mmHg BP Diastolic Sitting 64 mmHg Body Temperature 98.4 F 10/12/2014 Weight 252.00 lb Heart Rate 90 /min BP Systolic Sitting 138 mmHg BP Diastolic Sitting 80 mmHg 08/31/2014 Weight 260.00 lb Heart Rate 92 /min BP Systolic Sitting 118 mmHg BP Diastolic Sitting 71 mmHg Body Temperature 97.6 F Pain Level 9 knees 08/24/2014 Weight 254.00 lb Heart Rate 92 /min BP Systolic Sitting 128 mmHg BP Diastolic Sitting 74 mmHg Body Temperature 97.6 F O2 % BldC Oximetry 98 % 08/17/2014 Weight 254.00 lb Heart Rate 84 /min BP Systolic Sitting 138 mmHg BP Diastolic Sitting 82 mmHg 07/06/2014 Weight 247.50 lb Heart Rate 90 /min BP Systolic Sitting 130 mmHg BP Diastolic Sitting 76 mmHg O2 % BldC Oximetry 98 % 06/02/2014 Weight 246.00 lb Heart Rate 74 /min BP Systolic Sitting 124 mmHg BP Diastolic Sitting 80 mmHg 04/20/2014 Weight 243.00 lb Heart Rate 86 /min BP Systolic Sitting 124 mmHg BP Diastolic Sitting 82 mmHg Body Temperature 98.5 F 04/18/2014 Weight 244.00 lb Heart Rate 108 /min BP Systolic Standing 122 mmHg BP Diastolic Standing 68 mmHg Body Temperature 98.0 F O2 % BldC Oximetry 98 % 04/07/2014 Weight 250.00 lb Heart Rate 80 /min BP Systolic Sitting 124 mmHg BP Diastolic Sitting 62 mmHg Body Temperature 98.2 F 03/29/2014 Weight 243.00 lb Heart Rate 64 /min BP Systolic Sitting 148 mmHg BP Diastolic Sitting 84 mmHg 11/18/2013 Height 66.75 inches 5'6.75" Weight 251.00 lb Heart Rate 83 /min BP Systolic Sitting 120 mmHg BP Diastolic Sitting 64 mmHg Body Temperature 97.9 F BMI (Body Mass Index) 39.6 kg/m2 07/21/2013 Height 66.75 inches 5'6.75" Weight 237.75 lb Heart Rate 112 /min BP Systolic Sitting 156 mmHg BP Diastolic Sitting 64 mmHg BMI (Body Mass Index) 37.5 kg/m2 04/27/2013 Weight 240.25 lb Heart Rate 126 /min BP Systolic Sitting 139 mmHg BP Diastolic Sitting 94 mmHg 02/25/2013 Height 66.5 inches 5'6.50" Weight 252.75 lb Heart Rate 98 /min BP Systolic Sitting 120 mmHg BP Diastolic Sitting 74 mmHg BMI (Body Mass Index) 40.2 kg/m2 02/04/2013 Weight 255.75 lb Heart Rate 96 /min BP Systolic Sitting 126 mmHg BP Diastolic Sitting 68 mmHg 01/21/2013 Height 66 inches 5'6" Weight 255.25 lb Heart Rate 106 /min BP Systolic Sitting 124 mmHg BP Diastolic Sitting 72 mmHg Body Temperature 97.6 F O2 % BldC Oximetry 95 % BMI (Body Mass Index) 41.2 kg/m2 01/14/2013 Height 66 inches 5'6" Weight 251.00 lb BP Systolic 118 mmHg BP Diastolic 76 mmHg Body Temperature 97.6 F BMI (Body Mass Index) 40.5 kg/m2 Results Test Date Test Result H/L Range Note Ua Routine 06/11/2018 Ua Specific Erin 1.015 Ua PH 5 Ua Color dark yellow Ua Appera cloudy Ua WBC ++ Ua Protein 100++ Ua Glucose norm Ua Ketones - Ua Bilirubin - Ua Urobilinogen norm Ua Nitrite + Ua Occult Blood trace CBC Auto Diff 05/14/2018 White Blood Count 7.9 10^3/uL 3.5-10.8 Red Blood Count 2.95 10^6/uL Low 4.00-5.40 Hemoglobin 8.1 g/dL Low 12.0-16.0 Hematocrit 25 % Low 35-47 Mean Corpuscular Volume 85 fL 80-97 Mean Corpuscular Hemoglobin 28 pg 27-31 Mean Corpuscular HGB Conc 32 g/dL 31-36 Red Cell Distribution Width 16 % High 10.5-15 Platelet Count 362 10^3/uL 150-450 Mean Platelet Volume 8.1 um3 7.4-10.4 Abs Neutrophils 5.4 10^3/uL 1.5-7.7 Abs Lymphocytes 1.6 10^3/uL 1.0-4.8 Abs Monocytes 0.6 10^3/uL 0-0.8 Abs Eosinophils 0.2 10^3/uL 0-0.6 Abs Basophils 0 10^3/uL 0-0.2 Abs Nucleated RBC 0 10^3/uL Granulocyte % 68.8 % 38-83 Lymphocyte % 20.5 % Low 25-47 Monocyte % 7.4 % High 0-7 Eosinophil % 2.9 % 0-6 Basophil % 0.4 % 0-2 Nucleated Red Blood Cells % 0.1 Laboratory test finding 05/14/2018 Lactic Acid 1.1 mmol/L 0.5-2.0 1 B-Type Natriuretic Peptide BNP 98 pg/mL 2 Inr/Protime 05/14/2018 Inr 0.95 0.77-1.02 Laboratory test finding 05/14/2018 Partial Thrombo Time 28.5 seconds 26.0 -36.3 PTT Comp Metabolic Panel 05/14/2018 Sodium 138 mmol/L 135-145 Potassium 4.0 mmol/L 3.5-5.0 Chloride 110 mmol/L 101-111 Co2 Carbon Dioxide 22 mmol/L 22-32 Anion Gap 6 mmol/L 2-11 Glucose 52 mg/dL Low 70-100 Blood Urea Nitrogen 19 mg/dL 6-24 Creatinine 1.36 mg/dL High 0.51-0.95 BUN/Creatinine Ratio 14.0 8-20 Calcium 8.0 mg/dL Low 8.6-10.3 Total Protein 6.5 g/dL 6.4-8.9 Albumin 3.0 g/dL Low 3.2-5.2 Globulin 3.5 g/dL 2-4 Albumin/Globulin Ratio 0.9 Low 1-3 Total Bilirubin 0.20 mg/dL 0.2-1.0 Alkaline Phosphatase 101 U/L 34-104 Alt 10 U/L 7-52 Ast 18 U/L 13-39 Egfr Non- 39.1 >60 Egfr 47.4 >60 3 Laboratory test finding 05/14/2018 Lipase < 10 U/L Low 11.0-82.0 C Reactive Protein 16.66 mg/L High <8.01 Urinalysis Profile 05/14/2018 Urine Color Yellow Urine Appearance Cloudy Urine Specific Erin 1.010 1.010-1.030 Urine pH 5.0 5-9 Urine Urobilinogen Negative Negative Urine Ketones Negative Negative Urine Protein 1+(30 mg/dL) Negative Urine Leukocytes 3+ Negative Urine Blood Negative Negative Urine Nitrite Positive Negative Urine Bilirubin Negative Negative Urine Glucose Negative Negative Urine White Blood Cell 3+(>20/hpf) Absent Urine Red Blood Cell 2+(6-10/hpf) Absent Urine Bacteria 1+ Absent Urine Squamous Epithelial Cell Present Absent Urine Culture And 05/14/2018 Urine Culture SEE RESULT BELOW 4 Sensitivities Laboratory test finding 05/14/2018 Hemoglobin A1c 7.5 High 5-7 Laboratory test finding 11/12/2017 Hemoglobin A1c 8.1 High 5-7 Laboratory test finding 08/07/2017 Hemoglobin A1c 9.9 High 5-7 Lipid Profile (Trig/Chol/HDL) 07/02/2017 Triglycerides 210 mg/dL 5 Cholesterol 186 mg/dL 6 HDL Cholesterol 38.0 mg/dL 7 LDL Cholesterol 106 mg/dL 8 Laboratory test finding 07/02/2017 Ferritin 22.3 ng/mL 11-307 CBC Auto Diff 07/02/2017 White Blood Count 8.0 10^3/uL 3.5-10.8 Red Blood Count 3.92 10^6/uL Low 4.0-5.4 Hemoglobin 11.5 g/dL Low 12.0-16.0 Hematocrit 35 % 35-47 Mean Corpuscular Volume 89 fL 80-97 Mean Corpuscular Hemoglobin 29 pg 27-31 Mean Corpuscular HGB Conc 33 g/dL 31-36 Red Cell Distribution Width 14 % 10.5-15 Platelet Count 306 10^3/uL 150-450 Mean Platelet Volume 9 um3 7.4-10.4 Abs Neutrophils 5.4 10^3/uL 1.5-7.7 Abs Lymphocytes 1.8 10^3/uL 1.0-4.8 Abs Monocytes 0.6 10^3/uL 0-0.8 Abs Eosinophils 0.2 10^3/uL 0-0.6 Abs Basophils 0.1 10^3/uL 0-0.2 Abs Nucleated RBC 0 10^3/uL Granulocyte % 67.2 % 38-83 Lymphocyte % 22.6 % Low 25-47 Monocyte % 7.4 % 1-9 Eosinophil % 2.1 % 0-6 Basophil % 0.7 % 0-2 Nucleated Red Blood Cells % 0 Comp Metabolic Panel 07/02/2017 Sodium 135 mmol/L 133-145 Potassium 4.0 mmol/L 3.5-5.0 Chloride 106 mmol/L 101-111 Co2 Carbon Dioxide 22 mmol/L 22-32 Anion Gap 7 mmol/L 2-11 Glucose 186 mg/dL High 70-100 Blood Urea Nitrogen 22 mg/dL 6-24 Creatinine 1.35 mg/dL High 0.51-0.95 BUN/Creatinine Ratio 16.3 8-20 Calcium 8.6 mg/dL 8.6-10.3 Total Protein 6.9 g/dL 6.4-8.9 Albumin 3.4 g/dL 3.2-5.2 Globulin 3.5 g/dL 2-4 Albumin/Globulin Ratio 1.0 1-3 Total Bilirubin 0.30 mg/dL 0.2-1.0 Alkaline Phosphatase 98 U/L 34-104 Alt 17 U/L 7-52 Ast 25 U/L 13-39 Egfr Non- 39.6 >60 Egfr 50.9 >60 9 Laboratory test finding 07/02/2017 Vitamin D Total 25(Oh) 24.7 ng/mL Low 30-50 Urine Microalbumin Random 06/26/2017 Urine Creatinine 65.75 mg/dL Ur Microalbumin (mg/L) 354.3 mg/L Urine Microalbumin/Creatinine 538.8 ug/mg High <31 Laboratory test 05/18/2017 Epifix 18 SEE RESULTS BELO 10, 11 finding <SEE NOTE> CBC Auto Diff 04/14/2017 White Blood Count 10.0 10^3/uL 3.5-10.8 Red Blood Count 3.81 10^6/uL Low 4.0-5.4 Hemoglobin 11.3 g/dL Low 12.0-16.0 Hematocrit 34 % Low 35-47 Mean Corpuscular Volume 90 fL 80-97 Mean Corpuscular Hemoglobin 30 pg 27-31 Mean Corpuscular HGB Conc 33 g/dL 31-36 Red Cell Distribution Width 14 % 10.5-15 Platelet Count 273 10^3/uL 150-450 Mean Platelet Volume 9 um3 7.4-10.4 Abs Neutrophils 7.1 10^3/uL 1.5-7.7 Abs Lymphocytes 2.1 10^3/uL 1.0-4.8 Abs Monocytes 0.6 10^3/uL 0-0.8 Abs Eosinophils 0.2 10^3/uL 0-0.6 Abs Basophils 0.1 10^3/uL 0-0.2 Abs Nucleated RBC 0 10^3/uL Granulocyte % 70.9 % 38-83 Lymphocyte % 21.1 % Low 25-47 Monocyte % 5.9 % 1-9 Eosinophil % 1.5 % 0-6 Basophil % 0.6 % 0-2 Nucleated Red Blood Cells % 0 Basic Metabolic Panel 04/14/2017 Sodium 129 mmol/L Low 133-145 Potassium 4.1 mmol/L 3.5-5.0 Chloride 99 mmol/L Low 101-111 Co2 Carbon Dioxide 18 mmol/L Low 22-32 Anion Gap 12 mmol/L High 2-11 Glucose 273 mg/dL High 70-100 Blood Urea Nitrogen 42 mg/dL High 6-24 Creatinine 1.58 mg/dL High 0.51-0.95 BUN/Creatinine Ratio 26.6 High 8-20 Calcium 8.2 mg/dL Low 8.6-10.3 Egfr Non- 33.1 >60 Egfr 42.6 >60 12 Laboratory test 04/14/2017 D Dimer Quantitative > 1050 ng/mL High Less Than 230 13 finding TSH (Thyroid Stim Horm) 2.28 mcIU/mL 0.34-5.60 B-Type Natriuretic Peptide BNP 30 pg/mL 14 Urine Culture And 04/14/2017 Urine Culture SEE RESULT BELOW 15 Sensitivities Ua Routine 04/14/2017 Ua Specific Erin 1.015 Ua PH 5 Ua Color yellow Ua Appera cloudy Ua WBC pos Ua Protein 30+ Ua Glucose 1000 Ua Ketones neg Ua Bilirubin neg Ua Urobilinogen neg Ua Nitrite neg Ua Occult Blood about 50 Laboratory test finding 04/08/2017 Potassium 4.9 mmol/L 3.5-5.0 CBC Auto Diff 04/08/2017 White Blood Count 8.1 10^3/uL 3.5-10.8 Red Blood Count 3.65 10^6/uL Low 4.0-5.4 Hemoglobin 10.9 g/dL Low 12.0-16.0 Hematocrit 33 % Low 35-47 Mean Corpuscular Volume 92 fL 80-97 Mean Corpuscular Hemoglobin 30 pg 27-31 Mean Corpuscular HGB Conc 33 g/dL 31-36 Red Cell Distribution Width 14 % 10.5-15 Platelet Count 272 10^3/uL 150-450 Mean Platelet Volume 9 um3 7.4-10.4 Abs Neutrophils 4.8 10^3/uL 1.5-7.7 Abs Lymphocytes 2.5 10^3/uL 1.0-4.8 Abs Monocytes 0.6 10^3/uL 0-0.8 Abs Eosinophils 0.2 10^3/uL 0-0.6 Abs Basophils 0.1 10^3/uL 0-0.2 Abs Nucleated RBC 0 10^3/uL Granulocyte % 59.3 % 38-83 Lymphocyte % 30.8 % 25-47 Monocyte % 7.3 % 1-9 Eosinophil % 1.8 % 0-6 Basophil % 0.8 % 0-2 Nucleated Red Blood Cells % 0 Laboratory test finding 04/08/2017 Lactic Acid 1.1 mmol/L 0.5-2.0 16 Comp Metabolic Panel 04/08/2017 Sodium 131 mmol/L Low 133-145 Potassium 5.4 mmol/L High 3.5-5.0 Chloride 104 mmol/L 101-111 Co2 Carbon Dioxide 22 mmol/L 22-32 Anion Gap 5 mmol/L 2-11 Glucose 154 mg/dL High 70-100 Blood Urea Nitrogen 27 mg/dL High 6-24 Creatinine 1.60 mg/dL High 0.51-0.95 BUN/Creatinine Ratio 16.9 8-20 Calcium 8.4 mg/dL Low 8.6-10.3 Total Protein 7.1 g/dL 6.4-8.9 Albumin 3.5 g/dL 3.2-5.2 Globulin 3.6 g/dL 2-4 Albumin/Globulin Ratio 1.0 1-3 Total Bilirubin 0.20 mg/dL 0.2-1.0 Alkaline Phosphatase 96 U/L 34-104 Alt 21 U/L 7-52 Ast 29 U/L 13-39 Egfr Non- 32.7 >60 Egfr 42.0 >60 17 Laboratory test finding 04/08/2017 Amylase 51 U/L 29-103 Lipase 23 U/L 11.0-82.0 C Reactive Protein 9.45 mg/L High < 5.00 18 Urinalysis Profile 04/08/2017 Urine Color Yellow Urine Appearance Cloudy Urine Specific Erin 1.011 1.010-1.030 Urine pH 5.0 5-9 Urine Urobilinogen Negative Negative Urine Ketones Negative Negative Urine Protein 2+(100 mg/dL) Negative Urine Leukocytes 3+ Negative Urine Blood Negative Negative Urine Nitrite Negative Negative Urine Bilirubin Negative Negative Urine Glucose 2+(150 mg/dL) Negative Urine White Blood Cell 3+(>20/hpf) Absent Urine Red Blood Cell 2+(6-10/hpf) Absent Urine Bacteria 1+ Absent Urine Squamous Epithelial Cell Present Absent Urine Culture And 04/08/2017 Urine Culture SEE RESULT BELOW 19 Sensitivities Urine Culture And 04/02/2017 Urine Culture SEE RESULT BELOW 20 Sensitivities Poc Urinalysis 04/02/2017 Poc Glucose, Urine Negative Negative Poc Bilirubin, Urine Negative Negative Poc Ketone, Urine Negative Negative Poc Specific Erin, Urine <=1.005 Low 1.010-1.030 Poc Blood, Urine Trace-intact Negative Poc pH, Urine 5.0 5-9 Poc Protein, Urine 1+ Negative Poc Urobilinogen, Urine 0.2 Negative Poc Nitrite, Urine Negative Negative Poc Leukocytes, Urine 2+ Negative Poc Color, Urine Yellow Poc Clarity, Urine Clear 21 Laboratory test finding 03/26/2017 Hemoglobin A1c 11.1 High 5-7 Basic Metabolic Panel 03/10/2017 Sodium 136 mmol/L 133-145 Potassium 3.9 mmol/L 3.5-5.0 Chloride 106 mmol/L 101-111 Co2 Carbon Dioxide 23 mmol/L 22-32 Anion Gap 7 mmol/L 2-11 Glucose 144 mg/dL High 70-100 Blood Urea Nitrogen 21 mg/dL 6-24 Creatinine 1.29 mg/dL High 0.51-0.95 BUN/Creatinine Ratio 16.3 8-20 Calcium 8.9 mg/dL 8.6-10.3 Egfr Non- 41.9 >60 Egfr 53.9 >60 22 Laboratory test finding 03/10/2017 Magnesium 1.9 mg/dL 1.9-2.7 Prealbumin 21 mg/dL 18-38 C Reactive Protein 13.04 mg/L High < 5.00 23 Vitamin B12 435 pg/mL 180-914 24 Vitamin D Total 25(Oh) 17.9 ng/mL Low 30-50 CBC Auto Diff 03/10/2017 White Blood Count 10.7 10^3/uL 3.5-10.8 Red Blood Count 4.19 10^6/uL 4.0-5.4 Hemoglobin 12.7 g/dL 12.0-16.0 Hematocrit 38 % 35-47 Mean Corpuscular Volume 90 fL 80-97 Mean Corpuscular Hemoglobin 30 pg 27-31 Mean Corpuscular HGB Conc 34 g/dL 31-36 Red Cell Distribution Width 14 % 10.5-15 Platelet Count 301 10^3/uL 150-450 Mean Platelet Volume 9 um3 7.4-10.4 Abs Neutrophils 7.3 10^3/uL 1.5-7.7 Abs Lymphocytes 2.6 10^3/uL 1.0-4.8 Abs Monocytes 0.6 10^3/uL 0-0.8 Abs Eosinophils 0.2 10^3/uL 0-0.6 Abs Basophils 0.1 10^3/uL 0-0.2 Abs Nucleated RBC 0 10^3/uL Granulocyte % 68.1 % 38-83 Lymphocyte % 24.0 % Low 25-47 Monocyte % 5.7 % 1-9 Eosinophil % 1.6 % 0-6 Basophil % 0.6 % 0-2 Nucleated Red Blood Cells % 0 Laboratory test finding 03/10/2017 Erythrocyte Sed Rate 63 mm/Hr High 0- 30 Zinc Serum 0.52 g/mL 0.66-1.10 25 Laboratory test 03/10/2017 Epifix 2X2 SEE RESULTS BELO 10, 26 finding <SEE NOTE> Laboratory test 02/23/2017 Epifix 3.5X3.5 Mesh SEE RESULTS BELO 10, 27 finding <SEE NOTE> Laboratory test 02/02/2017 Epifix 3.5X3.5 Mesh SEE RESULTS BELO 28, 29 finding <SEE NOTE> Laboratory test 01/19/2017 Epifix 3.5X3.5 Mesh SEE RESULTS BELO 30, 31 finding <SEE NOTE> Laboratory test 01/15/2017 Hemoglobin A1c 9.1 High 5-7 finding Laboratory test 12/23/2016 Lactic Acid 1.0 mmol/L 0.5-2.0 32 finding Urinalysis Profile 12/23/2016 Urine Color Straw Urine Appearance Clear Urine Specific Erin 1.008 Low 1.010-1.030 Urine pH 5.0 5-9 Urine Urobilinogen Negative Negative Urine Ketones Negative Negative Urine Protein Negative Negative Urine Leukocytes Negative Negative Urine Blood 1+ Negative Urine Nitrite Negative Negative Urine Bilirubin Negative Negative Urine Glucose Negative Negative Urine White Blood Cell Trace(0-5/hpf) Absent Urine Red Blood Cell Trace(0-2/hpf) Absent Urine Bacteria 1+ Absent Urine Squamous Epithelial Cell Present Absent Urine Hyaline Casts Present Absent CBC Auto Diff 12/23/2016 White Blood Count 10.7 10^3/uL 3.5-10.8 Red Blood Count 3.46 10^6/uL Low 4.0-5.4 Hemoglobin 10.5 g/dL Low 12.0-16.0 Hematocrit 32 % Low 35-47 Mean Corpuscular Volume 92 fL 80-97 Mean Corpuscular Hemoglobin 30 pg 27-31 Mean Corpuscular HGB Conc 33 g/dL 31-36 Red Cell Distribution Width 16 % High 10.5-15 Platelet Count 288 10^3/uL 150-450 Mean Platelet Volume 9 um3 7.4-10.4 Abs Neutrophils 6.4 10^3/uL 1.5-7.7 Abs Lymphocytes 3.4 10^3/uL 1.0-4.8 Abs Monocytes 0.6 10^3/uL 0-0.8 Abs Eosinophils 0.2 10^3/uL 0-0.6 Abs Basophils 0.1 10^3/uL 0-0.2 Abs Nucleated RBC 0.01 10^3/uL Granulocyte % 60.0 % 38-83 Lymphocyte % 32.2 % 25-47 Monocyte % 5.2 % 1-9 Eosinophil % 1.9 % 0-6 Basophil % 0.7 % 0-2 Nucleated Red Blood Cells % 0.1 Comp Metabolic Panel 12/23/2016 Sodium 138 mmol/L 133-145 Potassium 3.8 mmol/L 3.5-5.0 Chloride 113 mmol/L High 101-111 Co2 Carbon Dioxide 18 mmol/L Low 22-32 Anion Gap 7 mmol/L 2-11 Glucose 50 mg/dL Low 70-100 Blood Urea Nitrogen 30 mg/dL High 6-24 Creatinine 1.83 mg/dL High 0.51-0.95 BUN/Creatinine Ratio 16.4 8-20 Calcium 8.5 mg/dL Low 8.6-10.3 Total Protein 7.3 g/dL 6.4-8.9 Albumin 3.6 g/dL 3.2-5.2 Globulin 3.7 g/dL 2-4 Albumin/Globulin Ratio 1.0 1-3 Total Bilirubin 0.20 mg/dL 0.2-1.0 Alkaline Phosphatase 74 U/L 34-104 Alt 20 U/L 7-52 Ast 40 U/L High 13-39 Egfr Non- 28.0 >60 Egfr 36.0 >60 33 Laboratory test 12/23/2016 Troponin-I (TnI) 0.01 ng/mL <0.04 34 finding Urine Drug SCR ED & 12/23/2016 Amphetamine Ur Screen None Detected None Detect Pain Clinic Barbiturates Urine Screen None Detected None Detect Benzodiazepine Urine Screen None Detected None Detect Urine Cannabinoids Screen None Detected None Detect Urine Cocaine Screen None Detected None Detect Urine Opiates Screen None Detected None Detect Urine Phencyclidine Screen None Detected None Detect 35 Laboratory test 12/23/2016 TSH (Thyroid Stim 3.89 mcIU/mL 0.34-5.60 finding Horm) Urine Culture And 12/23/2016 Urine Culture SEE RESULT BELOW 36 Sensitivities Laboratory test 12/16/2016 Epifix 3.5X3.5 SEE RESULTS BELO 30, 37 finding <SEE NOTE> Laboratory test 12/01/2016 Epifix 3.5X3.5 SEE RESULTS BELO 30, 38 finding <SEE NOTE> Laboratory test 11/17/2016 Epifix 3.5X3.5 SEE RESULTS BELO 30, 39 finding <SEE NOTE> Laboratory test 10/20/2016 Epifix 2X2 SEE RESULTS BELO 30, 40 finding <SEE NOTE> Basic Metabolic Panel 10/17/2016 Sodium 134 mmol/L 133-145 Potassium 4.7 mmol/L 3.5-5.0 Chloride 104 mmol/L 101-111 Co2 Carbon Dioxide 25 mmol/L 22-32 Anion Gap 5 mmol/L 2-11 Glucose 177 mg/dL High 70-100 Blood Urea Nitrogen 27 mg/dL High 6-24 Creatinine 1.45 mg/dL High 0.51-0.95 BUN/Creatinine Ratio 18.6 8-20 Calcium 8.3 mg/dL Low 8.6-10.3 Egfr Non- 36.6 >60 Egfr 47.1 >60 41 Laboratory test 10/17/2016 Osmolality Serum 295 mOsm/kg 275 - 295 42 finding Laboratory test 09/22/2016 Epifix 3.5X3.5 SEE RESULTS BELO 30, 43 finding <SEE NOTE> Lipid Profile 09/09/2016 Triglycerides 218 mg/dL 44 (Trig/Chol/HDL) Cholesterol 199 mg/dL 45 HDL Cholesterol 34.2 mg/dL 46 LDL Cholesterol 121 mg/dL 47 Laboratory test finding 09/09/2016 Vitamin D Total 25(Oh) 24.5 ng/mL Low 30-50 Basic Metabolic Panel 09/09/2016 Sodium 129 mmol/L Low 133-145 Potassium 5.1 mmol/L High 3.5-5.0 Chloride 95 mmol/L Low 101-111 Co2 Carbon Dioxide 25 mmol/L 22-32 Anion Gap 9 mmol/L 2-11 Glucose 164 mg/dL High 70-100 Blood Urea Nitrogen 15 mg/dL 6-24 Creatinine 1.66 mg/dL High 0.51-0.95 BUN/Creatinine Ratio 9.0 8-20 Calcium 9.7 mg/dL 8.6-10.3 Egfr Non- 31.3 >60 Egfr 40.3 >60 48 Laboratory test 09/09/2016 Hemoglobin A1c 8.1 High 5-7 finding Laboratory test 08/26/2016 Epifix 3.5X3.5 SEE RESULTS BELO 30, 49 finding <SEE NOTE> CBC Auto Diff 07/02/2016 White Blood Count 7.8 10^3/uL 3.5-10.8 Red Blood Count 3.84 10^6/uL Low 4.0-5.4 Hemoglobin 11.6 g/dL Low 12.0-16.0 Hematocrit 35 % 35-47 Mean Corpuscular Volume 92 fL 80-97 Mean Corpuscular Hemoglobin 30 pg 27-31 Mean Corpuscular HGB Conc 33 g/dL 31-36 Red Cell Distribution Width 14 % 10.5-15 Platelet Count 285 10^3/uL 150-450 Mean Platelet Volume 9 um3 7.4-10.4 Abs Neutrophils 4.4 10^3/uL 1.5-7.7 Abs Lymphocytes 2.5 10^3/uL 1.0-4.8 Abs Monocytes 0.6 10^3/uL 0-0.8 Abs Eosinophils 0.3 10^3/uL 0-0.6 Abs Basophils 0.1 10^3/uL 0-0.2 Abs Nucleated RBC 0 10^3/uL Granulocyte % 56.2 % 38-83 Lymphocyte % 31.9 % 25-47 Monocyte % 7.5 % 1-9 Eosinophil % 3.8 % 0-6 Basophil % 0.6 % 0-2 Nucleated Red Blood Cells % 0.1 Comp Metabolic Panel 07/02/2016 Sodium 135 mmol/L 133-145 Potassium 4.2 mmol/L 3.5-5.0 Chloride 107 mmol/L 101-111 Co2 Carbon Dioxide 22 mmol/L 22-32 Anion Gap 6 mmol/L 2-11 Glucose 98 mg/dL 70-100 Blood Urea Nitrogen 23 mg/dL 6-24 Creatinine 1.26 mg/dL High 0.51-0.95 BUN/Creatinine Ratio 18.3 8-20 Calcium 9.2 mg/dL 8.6-10.3 Total Protein 7.8 g/dL 6.4-8.9 Albumin 3.6 g/dL 3.2-5.2 Globulin 4.2 g/dL High 2-4 Albumin/Globulin Ratio 0.9 Low 1-3 Total Bilirubin 0.20 mg/dL 0.2-1.0 Alkaline Phosphatase 93 U/L 34-104 Alt 23 U/L 7-52 Ast 33 U/L 13-39 Egfr Non- 43.0 >60 Egfr 55.3 >60 50 Laboratory test finding 07/02/2016 Magnesium 1.6 mg/dL Low 1.9-2.7 Lipase 12 U/L 11.0-82.0 Troponin-I (TnI) 0.01 ng/mL <0.03 51 Lactic Acid 0.9 mmol/L 0.5-2.0 52 B-Type Natriuretic Peptide BNP 139 pg/mL High 53 Urinalysis Profile 07/02/2016 Urine Color Colorless Urine Appearance Clear Urine Specific Erin 1.005 Low 1.010-1.030 Urine pH 5.0 5-9 Urine Urobilinogen Negative Negative Urine Ketones Negative Negative Urine Protein 1+(30 mg/dL) Negative Urine Leukocytes Negative Negative Urine Blood 1+ Negative Urine Nitrite Negative Negative Urine Bilirubin Negative Negative Urine Glucose Negative Negative Urine White Blood Cell Trace(0-5/hpf) Absent Urine Red Blood Cell 2+(6-10/hpf) Absent Urine Bacteria Absent Absent Comp Metabolic Panel 06/24/2016 Sodium 133 mmol/L 133-145 Potassium 4.7 mmol/L 3.5-5.0 Chloride 105 mmol/L 101-111 Co2 Carbon Dioxide 23 mmol/L 22-32 Anion Gap 5 mmol/L 2-11 Glucose 182 mg/dL High 70-100 Blood Urea Nitrogen 18 mg/dL 6-24 Creatinine 1.31 mg/dL High 0.51-0.95 BUN/Creatinine Ratio 13.7 8-20 Calcium 8.9 mg/dL 8.6-10.3 Total Protein 7.3 g/dL 6.4-8.9 Albumin 3.3 g/dL 3.2-5.2 Globulin 4.0 g/dL 2-4 Albumin/Globulin Ratio 0.8 Low 1-3 Total Bilirubin 0.20 mg/dL 0.2-1.0 Alkaline Phosphatase 85 U/L 34-104 Alt 27 U/L 7-52 Ast 43 U/L High 13-39 Egfr Non- 41.1 >60 Egfr 52.9 >60 54 Laboratory test finding 06/24/2016 Amylase 41 U/L 29-103 Lipase 16 U/L 11.0-82.0 C Reactive Protein 9.38 mg/L High < 5.00 55 CBC Auto Diff 06/24/2016 White Blood Count 6.2 10^3/uL 3.5-10.8 Red Blood Count 3.82 10^6/uL Low 4.0-5.4 Hemoglobin 11.3 g/dL Low 12.0-16.0 Hematocrit 35 % 35-47 Mean Corpuscular Volume 91 fL 80-97 Mean Corpuscular Hemoglobin 30 pg 27-31 Mean Corpuscular HGB Conc 33 g/dL 31-36 Red Cell Distribution Width 14 % 10.5-15 Platelet Count 246 10^3/uL 150-450 Mean Platelet Volume 9 um3 7.4-10.4 Abs Neutrophils 3.8 10^3/uL 1.5-7.7 Abs Lymphocytes 1.8 10^3/uL 1.0-4.8 Abs Monocytes 0.4 10^3/uL 0-0.8 Abs Eosinophils 0.2 10^3/uL 0-0.6 Abs Basophils 0.1 10^3/uL 0-0.2 Abs Nucleated RBC 0 10^3/uL Granulocyte % 60.8 % 38-83 Lymphocyte % 28.9 % 25-47 Monocyte % 6.7 % 1-9 Eosinophil % 2.6 % 0-6 Basophil % 1.0 % 0-2 Nucleated Red Blood Cells % 0 Laboratory test 06/24/2016 Lactic Acid 1.3 mmol/L 0.5-2.0 56 finding Laboratory test 05/27/2016 Vitamin B12 1056 pg/mL High 180-914 57 finding Laboratory test 05/27/2016 Hemoglobin A1c 9.2 % High Less than 6.0 58 finding (Glyco HGB) Urine Microalbumin 05/27/2016 Urine Creatinine 45.84 mg/dL Random Ur Microalbumin (mg/L) 32.7 mg/L Urine Microalbumin/Creatinine 71.3 ug/mg High <31 CBC No Diff 05/21/2016 White Blood Count 6.2 10^3/uL 3.5-10.8 Red Blood Count 3.50 10^6/uL Low 4.0-5.4 Hemoglobin 10.5 g/dL Low 12.0-16.0 Hematocrit 32 % Low 35-47 Mean Corpuscular Volume 91 fL 80-97 Mean Corpuscular Hemoglobin 30 pg 27-31 Mean Corpuscular HGB Conc 33 g/dL 31-36 Red Cell Distribution Width 14 % 10.5-15 Platelet Count 205 10^3/uL 150-450 Mean Platelet Volume 10 um3 7.4-10.4 Comp Metabolic Panel 05/21/2016 Sodium 134 mmol/L 133-145 Potassium 4.6 mmol/L 3.5-5.0 Chloride 104 mmol/L 101-111 Co2 Carbon Dioxide 25 mmol/L 22-32 Anion Gap 5 mmol/L 2-11 Glucose 282 mg/dL High 70-100 Blood Urea Nitrogen 17 mg/dL 6-24 Creatinine 1.34 mg/dL High 0.51-0.95 BUN/Creatinine Ratio 12.7 8-20 Calcium 8.1 mg/dL Low 8.6-10.3 Total Protein 6.5 g/dL 6.4-8.9 Albumin 3.1 g/dL Low 3.2-5.2 Globulin 3.4 g/dL 2-4 Albumin/Globulin Ratio 0.9 Low 1-3 Total Bilirubin 0.30 mg/dL 0.2-1.0 Alkaline Phosphatase 89 U/L 34-104 Alt 18 U/L 7-52 Ast 26 U/L 13-39 Egfr Non- 40.1 >60 Egfr 51.5 >60 59 Iron & Iron Binding Capacity 05/21/2016 Iron 46 g/dL Low 50-212 Unsaturated Iron Binding 297 g/dL Total Iron Binding Capacity 343 g/dL 250-450 % Iron Saturation 13 % Low 15-55 Laboratory test finding 05/21/2016 Folic Acid (Folate) > 20.00 ng/mL > 3.99 Vitamin B12 873 pg/mL 180-914 60 Vitamin D Total 25(Oh) 22.2 ng/mL Low 30-50 Copper, Serum 1.23 g/mL 0.75-1.45 61 Zinc Serum 0.57 g/mL 0.66-1.10 62 Vitamin E Level 12.4 mg/L 5.5 - 17.0 63 Pthi 03/04/2016 Calcium (PTH Intact) 8.7 mg/dL 8.6-10.3 PTH Intact 9.0 pmol/L 1.3-9.3 Laboratory test finding 03/04/2016 Vitamin D Total 25(Oh) 22.0 ng/mL Low 30-50 Hemoglobin A1c (Glyco HGB) 8.9 % High Less than 6.0 64 Wound Culture/Sensi 02/12/2016 Wound/Misc SEE RESULT 65 Culture-Gram Stain BELOW Laboratory test 01/29/2016 Vitamin D Total 17.7 ng/mL Low 30-50 66 finding 25(Oh) Pthi 01/29/2016 Calcium (PTH Intact) 8.3 mg/dL Low 8.6-10.3 PTH Intact 7.4 pmol/L 1.3-9.3 Laboratory test finding 01/29/2016 Hemoglobin A1c (Glyco 8.9 % High Less than 6.0 67 HGB) Ua Routine 11/23/2015 Ua Specific Erin 1.005 Ua PH 5 Ua Color YELLOW Ua Appera CLEAR Ua WBC NEG Ua Protein NEG Ua Glucose NEG Ua Ketones NEG Ua Bilirubin NEG Ua Urobilinogen NEG Ua Nitrite NEG Ua Occult Blood POS Laboratory test finding 11/13/2015 Potassium 4.6 mmol/L 3.5-5.0 Ua Routine 11/01/2015 Ua Specific Erin 1.010 Ua PH 5 Ua Color yellow Ua Appera clear Ua WBC neg Ua Protein neg Ua Glucose neg Ua Ketones neg Ua Bilirubin neg Ua Urobilinogen neg Ua Nitrite neg Ua Occult Blood pos Laboratory test finding 11/01/2015 Magnesium 1.8 mg/dL Low 1.9-2.7 Potassium 5.3 mmol/L High 3.5-5.0 Laboratory test 11/01/2015 Urine Culture And SEE RESULT BELOW 68 finding Sensitivities Laboratory test 10/02/2015 Hemoglobin A1c 8.2 High 5-7 finding Ua Routine 10/02/2015 Ua Specific Erin 1.010 Ua PH 5 Ua Color yellow Ua Appera clear Ua WBC moderate (+) Ua Protein trace Ua Glucose 1000 Ua Ketones neg Ua Bilirubin neg Ua Urobilinogen normal Ua Nitrite neg Ua Occult Blood large Laboratory test 10/02/2015 Urine Culture And SEE RESULT BELOW 69 finding Sensitivities Basic Metabolic Panel 10/02/2015 Sodium 135 mmol/L 133-145 Potassium 4.3 mmol/L 3.5-5.0 Chloride 104 mmol/L 101-111 Co2 Carbon Dioxide 25 mmol/L 22-32 Anion Gap 6 mmol/L 2-11 Glucose 133 mg/dL High 70-100 Blood Urea Nitrogen 27 mg/dL High 6-24 Creatinine 1.54 mg/dL High 0.51-0.95 BUN/Creatinine Ratio 17.5 8-20 Calcium 8.5 mg/dL Low 8.6-10.3 Egfr Non- 34.2 >60 Egfr 44.0 >60 70 Laboratory test finding 10/02/2015 TSH (Thyroid Stim Horm) 3.01 ?IU/mL 0.34-5.60 B-Type Natriuretic Peptide BNP 42 pg/mL 71 Vitamin D Total 25(Oh) 16.7 ng/mL Low 30-50 Laboratory test finding 05/29/2015 Hemoglobin A1c 8.1 High 5-7 Laboratory test finding 01/25/2015 Hemoglobin A1c 8.3 High 5-7 Lipid Panel 01/20/2015 Triglycerides 168 mg/dL 72, 73 Cholesterol 151 mg/dL 72, 74 HDL Cholesterol 35.3 mg/dL 72, 75 LDL Cholesterol 82 mg/dL 72, 76 BMP Basic Metabolic Panel 01/20/2015 Sodium 137 mmol/L 133-145 72 Potassium 4.4 mmol/L 3.5-5.0 72 Chloride 102 mmol/L 101-111 72 Co2 Carbon Dioxide 29 mmol/L 22-32 72 Anion Gap 6 mmol/L 2-11 72 Glucose 109 mg/dL High 70-100 72 Blood Urea Nitrogen 21 mg/dL 6-24 72 Creatinine 1.29 mg/dL High 0.51-0.95 72 BUN/Creatinine Ratio 16.3 8-20 72 Calcium 8.4 mg/dL Low 8.6-10.3 72 Egfr Non- 42.2 >60 72 Egfr 54.2 >60 72, 77 Laboratory test finding 10/12/2014 Hemoglobin A1c 9.1 High 5-7 Wound Culture/Sensi 08/24/2014 Wound/Misc Culture-Gram (SEE NOTE) 78 Stain Basic Metabolic Panel 08/17/2014 Sodium 137 mmol/L 133-145 Potassium 4.8 mmol/L 3.7-5.6 Chloride 106 mmol/L 101-111 Co2 Carbon Dioxide 26 mmol/L 22-32 Anion Gap 5 mmol/L 2-11 Glucose 144 mg/dL High 70-100 Blood Urea Nitrogen 16 mg/dL 6-24 Creatinine 1.25 mg/dL High 0.51-0.95 BUN/Creatinine Ratio 12.8 8-20 Calcium 8.2 mg/dL Low 8.6-10.3 Egfr Non- 43.7 >60 Egfr 56.2 >60 79 Laboratory test finding 07/06/2014 Hemoglobin A1c 6.5 5-7 Urine Culture And 04/18/2014 Urine Culture (SEE NOTE) 80 Sensitivities CBC Auto Diff 04/18/2014 White Blood Count 7.0 10^3/uL 4.8-10.8 Red Blood Count 3.94 10^6/uL Low 4.0-5.4 Hemoglobin 12.0 g/dL 12.0-16.0 Hematocrit 35 % 35-47 Mean Corpuscular Volume 89 fL 80-97 Mean Corpuscular Hemoglobin 31 pg 27-31 Mean Corpuscular HGB Conc 35 g/dL 31-36 Red Cell Distribution Width 14 % 10.5-15 Platelet Count 233 10^3/uL 150-450 Mean Platelet Volume 9 um3 7.4-10.4 Abs Neutrophils 4.3 10^3/uL 1.5-7.7 Abs Lymphocytes 2.1 10^3/uL 1.0-4.8 Abs Monocytes 0.4 10^3/uL 0-0.8 Abs Eosinophils 0.2 10^3/uL 0-0.6 Abs Basophils 0 10^3/uL 0-0.2 Abs Nucleated RBC 0 10^3/uL Granulocyte % 61.2 % 38-83 Lymphocyte % 30.1 % 25-47 Monocyte % 5.7 % 1-9 Eosinophil % 2.4 % 0-6 Basophil % 0.6 % 0-2 Nucleated Red Blood Cells % 0 Inr/Protime 04/18/2014 Inr 0.91 0.85-1.06 Laboratory test finding 04/18/2014 Activated Partial 29.9 seconds 24.0- 36.1 Thrombo Time Lactic Acid 0.9 mmol/L 0.5-2.2 Comp Metabolic Panel 04/18/2014 Sodium 134 mmol/L 133-145 Potassium 3.5 mmol/L Low 3.7-5.6 Chloride 103 mmol/L 101-111 Co2 Carbon Dioxide 24 mmol/L 22-32 Anion Gap 7 mmol/L 2-11 Glucose 144 mg/dL High 70-100 Blood Urea Nitrogen 20 mg/dL 6-24 Creatinine 1.36 mg/dL High 0.51-0.95 BUN/Creatinine Ratio 14.7 8-20 Calcium 8.7 mg/dL 8.6-10.3 Total Protein 7.3 g/dL 6.4-8.9 Albumin 3.6 g/dL 3.2-5.2 Globulin 3.7 g/dL 2-4 Albumin/Globulin Ratio 1.0 1-3 Total Bilirubin 0.30 mg/dL 0.2-1.0 Alkaline Phosphatase 131 U/L High 34-104 Alt 30 U/L 7-52 Ast 22 U/L 13-39 Egfr Non- 39.8 >60 Egfr 51.2 >60 81 Laboratory test finding 04/18/2014 Troponin I 0.00 ng/mL <0.03 82 HIV 1 2 AB Self Referred Nonreactive Nonreactive 83 Blood Culture (SEE NOTE) 84 Comp Metabolic Panel 04/07/2014 Sodium 136 mmol/L 133-145 Potassium 3.9 mmol/L 3.7-5.6 Chloride 106 mmol/L 101-111 Co2 Carbon Dioxide 24 mmol/L 22-32 Anion Gap 6 mmol/L 2-11 Glucose 81 mg/dL 70-100 Blood Urea Nitrogen 30 mg/dL High 6-24 Creatinine 1.37 mg/dL High 0.51-0.95 BUN/Creatinine Ratio 21.9 High 8-20 Calcium 8.6 mg/dL 8.6-10.3 Total Protein 7.0 g/dL 6.4-8.9 Albumin 3.7 g/dL 3.2-5.2 Globulin 3.3 g/dL 2-4 Albumin/Globulin Ratio 1.1 1-3 Total Bilirubin 0.40 mg/dL 0.2-1.0 Alkaline Phosphatase 113 U/L High 34-104 Alt 9 U/L 7-52 Ast 16 U/L 13-39 Egfr Non- 39.5 >60 Egfr 50.8 >60 85 Vitamin D, 25 Hydroxy 04/07/2014 25-Hydroxy Vitamin D2 <4.0 ng/mL 25-Hydroxy Vitamin D3 23 ng/mL 25-Hydroxy Vitamin D Total 23 ng/mL 86 Laboratory test finding 03/29/2014 Hemoglobin A1c 10.1 High 5-7 Urinalysis 12/08/2013 Urine Color Yellow Urine Appearance Cloudy Urine Specific Erin 1.020 1.010-1.030 Urine Esterase 2+ Negative Urine Nitrate Negative Negative Urine Urobilinogen Negative E.U./dL Negative Urine Protein 2+ mg/dL Negative Urine pH 5.0 5-9 Urine Blood 3+ Negative Urine Ketones Negative mg/dL Negative Urine Bilirubin Negative Negative Urine Glucose 3+ mg/dL Negative Urine Microscopic 12/08/2013 Urine WBC 2+ (>10-30 /hpf) None Seen 87 Urine RBC 2+ (>3-10 /hpf) None Seen Urine Epithelial Cells 1+ Squamous /hpf None Seen Bacteria Urine 1+ None Seen Ua Comments Yeast CBC Auto Diff 12/08/2013 White Blood Count 12.7 10^3/uL High 4.8-10.8 Red Blood Count 3.67 10^6/uL Low 4.0-5.4 Hemoglobin 11.2 g/dL Low 12.0-16.0 Hematocrit 33 % Low 35-47 Mean Corpuscular Volume 91 fL 80-97 Mean Corpuscular Hemoglobin 31 pg 27-31 Mean Corpuscular HGB Conc 34 g/dL 31-36 Red Cell Distribution Width 14 % 10.5-15 Platelet Count 184 10^3/uL 150-450 Mean Platelet Volume 10 um3 7.4-10.4 Abs Neutrophils 10.1 10^3/uL High 1.5-7.7 Abs Lymphocytes 1.3 10^3/uL 1.0-4.8 Abs Monocytes 1.1 10^3/uL High 0-0.8 Abs Eosinophils 0.1 10^3/uL 0-0.6 Abs Basophils 0.1 10^3/uL 0-0.2 Abs Nucleated RBC 0.01 10^3/uL Granulocyte % 79.9 % 38-83 Lymphocyte % 10.4 % Low 25-47 Monocyte % 8.6 % 1-9 Eosinophil % 0.6 % 0-6 Basophil % 0.5 % 0-2 Nucleated Red Blood Cells % 0.1 Comp Metabolic Panel 12/08/2013 Sodium 127 mmol/L Low 133-145 Potassium 4.9 mmol/L 3.5-5.0 Chloride 92 mmol/L Low 101-111 Co2 Carbon Dioxide 25.0 mmol/L 22-32 Anion Gap 10.0 mmol/L 2-11 Glucose 441 mg/dL High 70-100 88 Blood Urea Nitrogen 42 mg/dL High 6-24 Creatinine 1.70 mg/dL High 0.50-1.40 BUN/Creatinine Ratio 24.7 High 8-20 Calcium 8.6 mg/dL 8.1-9.9 Total Protein 7.1 g/dL 6.2-8.1 Albumin 2.9 g/dL Low 3.6-5.4 Globulin 4.2 g/dL High 2-4 Albumin/Globulin Ratio 0.7 Low 1-3 Total Bilirubin 0.7 mg/dL 0.4-1.5 Alkaline Phosphatase 96 U/L 30-110 Alt 51 U/L 14-54 Ast 109 U/L High 12-42 Egfr Non- 30.8 >60 Egfr 39.6 >60 89 Laboratory test finding 12/08/2013 Magnesium 1.6 mg/dL Low 1.7-2.6 Creatine Kinase 3330 U/L High 0-200 Troponin I 0.09 ng/mL High 0-0.06 90 TSH (Thyroid Stimulating Horm) 2.91 miu/mL 0.34-5.60 Laboratory test finding 11/18/2013 Hemoglobin A1c 7.9 High 5-7 Vitamin D, 25 Hydroxy 11/18/2013 25-Hydroxy Vitamin D2 <4.0 ng/mL 25-Hydroxy Vitamin D3 27 ng/mL 25-Hydroxy Vitamin D Total 27 ng/mL 91 Comp Metabolic Panel 11/18/2013 Sodium 138 mmol/L 133-145 Potassium 4.1 mmol/L 3.5-5.0 Chloride 104 mmol/L 101-111 Co2 Carbon Dioxide 27.0 mmol/L 22-32 Anion Gap 7.0 mmol/L 2-11 Glucose 195 mg/dL High 70-100 Blood Urea Nitrogen 25 mg/dL High 6-24 Creatinine 1.30 mg/dL 0.50-1.40 BUN/Creatinine Ratio 19.2 8-20 Calcium 8.5 mg/dL 8.1-9.9 Total Protein 6.9 g/dL 6.2-8.1 Albumin 2.9 g/dL Low 3.6-5.4 Globulin 4.0 g/dL 2-4 Albumin/Globulin Ratio 0.7 Low 1-3 Total Bilirubin 0.5 mg/dL 0.4-1.5 Alkaline Phosphatase 98 U/L 30-110 Alt 17 U/L 14-54 Ast 21 U/L 12-42 Egfr Non- 41.9 >60 Egfr 53.9 >60 92 Urinalysis W/Microscopic 07/21/2013 Urine Color Yellow Urine Appearance Clear Urine Specific Erin 1.011 1.010-1.030 Urine Esterase Trace Negative Urine Nitrate Negative Negative Urine Urobilinogen Negative E.U./dL Negative Urine Protein Negative mg/dL Negative Urine pH 5.5 5-9 Urine Blood 2+ Negative Urine Ketones Negative mg/dL Negative Urine Bilirubin Negative Negative Urine Glucose Negative mg/dL Negative Urine WBC None Seen None Seen Urine RBC 1+ (<3 /hpf) None Seen Urine Epithelial Cells 1+ Squamous /hpf None Seen Bacteria Urine None Seen None Seen Ua Routine 07/21/2013 Ua Specific Erin 1.005 Ua PH 5.0 Ua Color yellow Ua Appera clear Ua WBC small Ua Protein trace Ua Glucose neg Ua Ketones neg Ua Bilirubin small Ua Urobilinogen neg Ua Nitrite neg Ua Occult Blood small Urine Drug SCR ED & 07/08/2013 Amphetamine Ur Screen None Detected None Detect Pain Clinic Barbiturates Urine Screen None Detected None Detect Benzodiazepine Urine Screen None Detected None Detect Urine Cannabinoids Screen None Detected None Detect Urine Cocaine Screen None Detected None Detect Urine Opiates Screen None Detected None Detect Urine Phencyclidine Screen None Detected None Detect 93 CBC Auto Diff 07/07/2013 White Blood Count 9.7 10^3/uL 4.8-10.8 Red Blood Count 3.65 10^6/uL Low 4.0-5.4 Hemoglobin 11.1 g/dL Low 12.0-16.0 Hematocrit 34 % Low 35-47 Mean Corpuscular Volume 93 fL 80-97 Mean Corpuscular Hemoglobin 31 pg 27-31 Mean Corpuscular HGB Conc 33 g/dL 31-36 Red Cell Distribution Width 13 % 10.5-15 Platelet Count 243 10^3/uL 150-450 Mean Platelet Volume 10 um3 7.4-10.4 Abs Neutrophils 7.8 10^3/uL High 1.5-7.7 Abs Lymphocytes 1.2 10^3/uL 1.0-4.8 Abs Monocytes 0.5 10^3/uL 0-0.8 Abs Eosinophils 0.1 10^3/uL 0-0.6 Abs Basophils 0 10^3/uL 0-0.2 Abs Nucleated RBC 0.01 10^3/uL Granulocyte % 80.5 % 38-83 Lymphocyte % 12.9 % Low 25-47 Monocyte % 5.5 % 1-9 Eosinophil % 0.8 % 0-6 Basophil % 0.3 % 0-2 Nucleated Red Blood Cells % 0.1 Inr/Protime 07/07/2013 Inr 0.88 0.87-0.97 Laboratory test finding 07/07/2013 Activated Partial 27.0 seconds 22.18- 37.18 Thrombo Time Comp Metabolic Panel 07/07/2013 Sodium 135 mmol/L 133-145 Potassium 3.5 mmol/L 3.5-5.0 Chloride 98 mmol/L Low 101-111 Co2 Carbon Dioxide 24.0 mmol/L 22-32 Anion Gap 13.0 mmol/L High 2-11 Glucose 185 mg/dL High 70-100 Blood Urea Nitrogen 21 mg/dL 6-24 Creatinine 1.30 mg/dL 0.50-1.40 BUN/Creatinine Ratio 16.2 8-20 Calcium 8.4 mg/dL 8.1-9.9 Total Protein 7.2 g/dL 6.2-8.1 Albumin 2.7 g/dL Low 3.6-5.4 Globulin 4.5 g/dL High 2-4 Albumin/Globulin Ratio 0.6 Low 1-3 Total Bilirubin 0.5 mg/dL 0.4-1.5 Alkaline Phosphatase 101 U/L 30-110 Alt 25 U/L 14-54 Ast 47 U/L High 12-42 Egfr Non- 41.9 >60 Egfr 53.9 >60 94 Laboratory test finding 07/07/2013 C Reactive Protein 3.8 mg/dL High Less than 0.5 B Type Natriuretic Peptide 69.0 pg/mL 0-100 Acetaminophen < 10 g/mL Low 10-30 95 Alcohol < 10 mg/dL Less Than 10 96 Salicylate < 4.0 Less Than 30 Serum Negative Negative 97 HIV 1 2 AB Self Referred Nonreactive Nonreactive 98 Urinalysis 07/07/2013 Urine Color Yellow Urine Appearance Clear Urine Specific Erin 1.006 Low 1.010-1.030 Urine Esterase 2+ Negative Urine Nitrate Negative Negative Urine Urobilinogen Negative E.U./dL Negative Urine Protein Negative mg/dL Negative Urine pH 5.0 5-9 Urine Blood Trace Negative Urine Ketones Negative mg/dL Negative Urine Bilirubin Negative Negative Urine Glucose Negative mg/dL Negative Urine Microscopic 07/07/2013 Urine WBC 1+ (<10 /hpf) None Seen Urine RBC None Seen None Seen Urine Epithelial Cells 1+ Squamous /hpf None Seen Bacteria Urine None Seen None Seen Ua Comments Yeast Urine Culture And 07/07/2013 Urine Culture (SEE NOTE) 99 Sensitivities Laboratory test finding 04/27/2013 Hemoglobin A1c 8.2 High 5-7 Vitamin D, 25 Hydroxy 03/12/2013 25-Hydroxy Vitamin D2 13 ng/mL 25-Hydroxy Vitamin D3 18 ng/mL 25-Hydroxy Vitamin D Total 31 ng/mL 100 Urine Microalbumin Random 02/04/2013 Ur Microalbumin (Mg/L) 29.0 mg/L 101 Urine Creatinine 127.8 mg/dL Urine Microalbumin/Creatinine 22.7 ug/mg Less Than 31 Lipid Profile (Trig/Chol/HDL) 02/02/2013 Triglycerides 89 mg/dL 40-200 Cholesterol 128 mg/dL Less than 200 HDL Cholesterol 36 mg/dL Low 40-60 102 Cholesterol/HDL Ratio 3.6 Average 1-4.44 LDL Cholesterol 74.2 mg/dL Less Than 100 103 Comp Metabolic Panel 02/02/2013 Sodium 143 mmol/L 133-145 Potassium 4.0 mmol/L 3.5-5.0 Chloride 108 mmol/L 101-111 Co2 Carbon Dioxide 27.0 mmol/L 22-32 Anion Gap 8.0 mmol/L 2-11 Glucose 74 mg/dL 70-100 Blood Urea Nitrogen 17 mg/dL 6-24 Creatinine 1.40 mg/dL 0.50-1.40 BUN/Creatinine Ratio 12.1 8-20 Calcium 8.5 mg/dL 8.1-9.9 Total Protein 6.2 g/dL 6.2-8.1 Albumin 3.0 g/dL Low 3.6-5.4 Globulin 3.2 g/dL 2-4 Albumin/Globulin Ratio 0.9 Low 1-3 Total Bilirubin 0.4 mg/dL 0.4-1.5 Alkaline Phosphatase 96 U/L 30-110 Alt 24 U/L 14-54 Ast 33 U/L 12-42 Egfr Non- 38.6 >60 Egfr 49.7 >60 104 Laboratory test finding 02/02/2013 Ferritin 149 ng/mL 11-307 Iron & Iron Binding Capacity 02/02/2013 Iron 52 g/dL 28-170 Unsaturated Iron Binding 226 g/dL Total Iron Binding Capacity 278 g/dL 250-450 % Iron Saturation 19 % 15-55 Laboratory test finding 02/02/2013 TSH (Thyroid Stimulating 4.10 miu/mL 0.34-5.60 Horm) Vitamin B12 And Folate 02/02/2013 Vitamin B12 586 pg/mL 180-914 Serum Folate 16.5 ng/mL High 2-16 Laboratory test finding 02/02/2013 Transferrin 195 mg/dL 200 - 360 105 Vitamin D, 25 Hydroxy 02/02/2013 25-Hydroxy Vitamin D2 <4.0 ng/mL 25-Hydroxy Vitamin D3 31 ng/mL 25-Hydroxy Vitamin D Total 31 ng/mL 106 Laboratory test finding 01/21/2013 Hemoglobin A1c 6.7 5-7 CBC No Diff 01/14/2013 White Blood Count 5.3 10^3/uL 4.8-10.8 Red Blood Count 3.60 10^6/uL Low 4.0-5.4 Hemoglobin 11.2 g/dL Low 12.0-16.0 Hematocrit 33 % Low 35-47 Mean Corpuscular Volume 91 fL 80-97 Mean Corpuscular Hemoglobin 31 pg 27-31 Mean Corpuscular HGB Conc 34 g/dL 31-36 Red Cell Distribution Width 14 % 10.5-15 Platelet Count 269 10^3/uL 150-450 Mean Platelet Volume 10 um3 7.4-10.4 Laboratory test finding 01/14/2013 Erythrocyte Sed Rate 57 mm/Hr High 0- 30 Comp Metabolic Panel 01/14/2013 Sodium 131 mmol/L Low 133-145 Potassium 4.7 mmol/L 3.5-5.0 Chloride 104 mmol/L 101-111 Co2 Carbon Dioxide 23.0 mmol/L 22-32 Anion Gap 4.0 mmol/L 2-11 Glucose 88 mg/dL 70-100 Blood Urea Nitrogen 22 mg/dL 6-24 Creatinine 1.40 mg/dL 0.50-1.40 BUN/Creatinine Ratio 15.7 8-20 Calcium 8.6 mg/dL 8.1-9.9 Total Protein 6.5 g/dL 6.2-8.1 Albumin 3.2 g/dL Low 3.6-5.4 Globulin 3.3 g/dL 2-4 Albumin/Globulin Ratio 1.0 1-3 Total Bilirubin 0.5 mg/dL 0.4-1.5 Alkaline Phosphatase 102 U/L 30-110 Alt 20 U/L 14-54 Ast 33 U/L 12-42 Egfr Non- 38.6 >60 Egfr 49.7 >60 107 Laboratory test finding 01/14/2013 C Reactive Protein 0.7 mg/dL High Less than 0.[address] [facility] Severe Sepsis and Septic Shock Management Bundle Measure requires all lactic acids initially measuring >2.0 mmol/L be repeated. 2 >100 to <200 pg/mL: likely compensated congestive heart failure (CHF) 200 to 400 pg/mL: likely moderate CHF >400 pg/mL: likely moderate to severe CHF 3 Because ethnic data is not always readily available, this report includes an eGFR for both -Americans and non- Americans. The National Kidney Disease Education Program (NKDEP) does not endorse the use of the MDRD equation for patients that are not between the ages of 18 and 70, are , have extremes of body size, muscle mass, or nutritional status, or are non- or non-. According to the National Kidney Foundation, irrespective of diagnosis, the stage of the disease is based on the level of kidney function: Stage Description GFR(mL/min/1.73 m(2)) 1 Kidney damage with normal or decreased GFR 90 2 Kidney damage with mild decrease in GFR 60-89 3 Moderate decrease in GFR 30-59 4 Severe decrease in GFR 15-29 5 Kidney failure <15 (or dialysis) 4 SEE RESULT BELOW Name: CATHY MUÑOZ : [address]: Tad Maldonado MD Acct: [id number] Unit: [id number] AGE: 63 Location: ED Re05/14/18 SEX: F Status: REG ER SPEC: [id number] NOREEN: 05/14/18-[address] [facility] [address]: Tad Maldonado MD REQ: [id number] RECD: 05/14/181232 STATUS: ROCHELLE LICONA DR: Cortney Yeboah MD _ SOURCE: URINE [facility]: ORDERED: Urine Culture Procedure Result Reported Site Urine Culture Final 05/16/18- 08 ML Organism 1 ESCHERICHIA COLI [place] Count >100,000 (Many) CFU/ML 1. ESCHERICHIA COLI M.I.C. RX --------- ------ Ampicillin >=32 R Cefazolin <=4 S Cefepime <=1 S Ceftriaxone <=1 S Ciprofloxacin 1 S Gentamicin <=1 S Levofloxacin 1 S Meropenem <=0.25 S Nitrofurantoin <=16 S Tetracycline <=1 S Pipercillin/Tazobactam <=4 S Trimethoprim/Sulfamethoxazole >=320 R Amoxicillin/Clavulanic Acid 4 S Aztreonam <=1 S Contact the Microbiology Department for any additional antibiotic reporting. * ML - Main Lab . END OF REPORT DEPARTMENT OF PATHOLOGY, [address] [place] [address] Bonifacio Kay M.D. Director [facility] # [id number] 5 Desirable <150 Borderline high 150-199 High 200-499 Very High >500 6 Desirable <200 Borderline high 200-239 High >239 7 Low <40 Desirable: 40-60 High: >60 8 Desirable: <100 mg/dL Near Optimal: 100-129 mg/dL Borderline High: 130-159 mg/dL High: 160-189 mg/dL Very High: >189 mg/dL 9 Because ethnic data is not always readily available, this report includes an eGFR for both -Americans and non- Americans. The National Kidney Disease Education Program (NKDEP) does not endorse the use of the MDRD equation for patients that are not between the ages of 18 and 70, are , have extremes of body size, muscle mass, or nutritional status, or are non- or non-. According to the National Kidney Foundation, irrespective of diagnosis, the stage of the disease is based on the level of kidney function: Stage Description GFR(mL/min/1.73 m(2)) 1 Kidney damage with normal or decreased GFR 90 2 Kidney damage with mild decrease in GFR 60-89 3 Moderate decrease in GFR 30-59 4 Severe decrease in GFR 15-29 5 Kidney failure <15 (or dialysis) 10 FU 11 SEE RESULTS BELOW [id number] EPIFIX 18 05/19/17 1047 12 Because ethnic data is not always readily available, this report includes an eGFR for both -Americans and non- Americans. The National Kidney Disease Education Program (NKDEP) does not endorse the use of the MDRD equation for patients that are not between the ages of 18 and 70, are , have extremes of body size, muscle mass, or nutritional status, or are non- or non-. According to the National Kidney Foundation, irrespective of diagnosis, the stage of the disease is based on the level of kidney function: Stage Description GFR(mL/min/1.73 m(2)) 1 Kidney damage with normal or decreased GFR 90 2 Kidney damage with mild decrease in GFR 60-89 3 Moderate decrease in GFR 30-59 4 Severe decrease in GFR 15-29 5 Kidney failure <15 (or dialysis) 13 Please note: The following may produce a false positive D Dimer test: - Rheumatoid factor greater than 60 IU/ml - Plasma hemoglobin greater than 0.05 gm/dl - Bilirubin greater than 50 mg/dl - Lipids greater than 1000 mg/dl - FDP greater than 20 ug/ml 14 >100 to <200 pg/mL: likely compensated congestive heart failure (CHF) 200 to 400 pg/mL: likely moderate CHF >400 pg/mL: likely moderate to severe CHF 15 SEE RESULT BELOW Name: CATHY MUÑOZ : [address]: Madalyn Pitt NP Acct: [id number] Unit: [id number] AGE: 61 Location: [facility] Re04/14/17 SEX: F Status: REG REF SPEC: [id number] NOREEN: 04/14/17-[address]: Madalyn Pitt NP REQ: [id number] RECD: 04/15/171008 STATUS: COMP _ SOURCE: URINE SPDESC: ORDERED: Urine Culture COMMENTS: [id number] Urine Source: Random Procedure Result Reported Site Urine Culture Final 04/16/17- 1005 ML No growth of clinically significant organisms * ML - MAIN LAB ([facility]) . END OF REPORT * ML=Testing performed at Main Lab DEPARTMENT OF PATHOLOGY, [address] [place] [address] Bonifacio Kay M.D. Director [facility] # [id number] [address] [facility] Severe Sepsis and Septic Shock Management Bundle Measure requires all lactic acids initially measuring >2.0 mmol/L be repeated. 17 Because ethnic data is not always readily available, this report includes an eGFR for both -Americans and non- Americans. The National Kidney Disease Education Program (NKDEP) does not endorse the use of the MDRD equation for patients that are not between the ages of 18 and 70, are , have extremes of body size, muscle mass, or nutritional status, or are non- or non-. According to the National Kidney Foundation, irrespective of diagnosis, the stage of the disease is based on the level of kidney function: Stage Description GFR(mL/min/1.73 m(2)) 1 Kidney damage with normal or decreased GFR 90 2 Kidney damage with mild decrease in GFR 60-89 3 Moderate decrease in GFR 30-59 4 Severe decrease in GFR 15-29 5 Kidney failure <15 (or dialysis) 18 Acute inflammation: >10.00 19 SEE RESULT BELOW Name: CATHY MUÑOZ : [address]: Choco Mejía MD Acct: [id number] Unit: [id number] AGE: 61 Location: ED Re04/08/17 SEX: F Status: DEP ER SPEC: [id number] NOREEN: 04/08/[address] [facility] [address]: Choco Mejía MD REQ: [id number] RECD: 04/08/17 STATUS: ROCHELLE LICONA DR: Cortney Yeboah MD _ SOURCE: URINE SPDESC: ORDERED: Urine Culture Procedure Result Reported Site Urine Culture Final 04/10/17- 0844 ML Organism 1 ESCHERICHIA COLI [place] Count >100,000 (Many) CFU/ML 1. ESCHERICHIA COLI M.I.C. RX --------- ------ Ampicillin >=32 R Cefazolin <=4 S Cefepime <=1 S Ceftriaxone <=1 S Ciprofloxacin 1 S Gentamicin <=1 S Levofloxacin 1 S Meropenem <=0.25 S Nitrofurantoin <=16 S Tetracycline <=1 S Pipercillin/Tazobactam <=4 S Trimethoprim/Sulfamethoxazole >=320 R Amoxicillin/Clavulanic Acid 4 S Aztreonam <=1 S Contact the Microbiology Department for any additional antibiotic reporting. * ML - MAIN LAB ([facility]) . END OF REPORT * ML=Testing performed at Main Lab DEPARTMENT OF PATHOLOGY, [address] [place] [address] Bonifacio Kay M.D. Director [facility] # [id number] 20 SEE RESULT BELOW Name: CATHY MUÑOZ : [address]: Anh Del Rosario MD Acct: [id number] Unit: [id number] AGE: 61 Location: [facility] Re04/02/17 SEX: F Status: DEP ER SPEC: [id number] NOREEN: 04/02/17-[address] [facility] [address]: Anh Del Rosario MD REQ: [id number] RECD: 04/03/17-1054 STATUS: ROCHELLE LICONA DR: Cortney Yeboah MD _ [facility] ORDERED: Urine Culture Procedure Result Reported Site Urine Culture Final 04/05/17- 0942 ML Organism 1 ESCHERICHIA COLI [place] Count >100,000 (Many) CFU/ML 1. ESCHERICHIA COLI M.I.C. RX --------- ------ Ampicillin >=32 R Cefazolin <=4 S Cefepime <=1 S Ceftriaxone <=1 S Ciprofloxacin 1 S Gentamicin <=1 S Levofloxacin 1 S Meropenem <=0.25 S Nitrofurantoin <=16 S Tetracycline <=1 S Pipercillin/Tazobactam <=4 S Trimethoprim/Sulfamethoxazole >=320 R Amoxicillin/Clavulanic Acid 4 S Aztreonam <=1 S Contact the Microbiology Department for any additional antibiotic reporting. * ML - MAIN LAB ([facility]) . END OF REPORT * ML=Testing performed at Main Lab DEPARTMENT OF PATHOLOGY, [address] [place] [address] Bonifacio Kay M.D. Director [facility] # [id number] 21 Tank Driver: [id number] 22 Because ethnic data is not always readily available, this report includes an eGFR for both -Americans and non- Americans. The National Kidney Disease Education Program (NKDEP) does not endorse the use of the MDRD equation for patients that are not between the ages of 18 and 70, are , have extremes of body size, muscle mass, or nutritional status, or are non- or non-. According to the National Kidney Foundation, irrespective of diagnosis, the stage of the disease is based on the level of kidney function: Stage Description GFR(mL/min/1.73 m(2)) 1 Kidney damage with normal or decreased GFR 90 2 Kidney damage with mild decrease in GFR 60-89 3 Moderate decrease in GFR 30-59 4 Severe decrease in GFR 15-29 5 Kidney failure <15 (or dialysis) 23 Acute inflammation: >10.00 24 Normal Range 180 to 914 Indeterminate Range 145 to 180 Deficient Range <145 25 ADDITIONAL INFORMATION This test was developed and its performance characteristics determined by [facility] in a manner consistent with CLIA requirements. This test has not been cleared or approved by the U.S. Food and Drug Administration. Test Performed by: [address] [id number] 26 SEE RESULTS BELOW [id number] EPIFIX 2X2 TRANSFUSED 03/10/17 0814 27 SEE RESULTS BELOW [id number] EPIFIX 3.5 MESH TRANSFUSED 02/24/17 1043 28 fu 29 SEE RESULTS BELOW [id number] EPIFIX 3.5 MESH TRANSFUSED 02/03/17 0815 30 FU 31 SEE RESULTS BELOW [id number] EPIFIX 3.5 MESH TRANSFUSED 01/20/[address] [facility] Severe Sepsis and Septic Shock Management Bundle Measure requires all lactic acids initially measuring >2.0 mmol/L be repeated. 33 Because ethnic data is not always readily available, this report includes an eGFR for both -Americans and non- Americans. The National Kidney Disease Education Program (NKDEP) does not endorse the use of the MDRD equation for patients that are not between the ages of 18 and 70, are , have extremes of body size, muscle mass, or nutritional status, or are non- or non-. According to the National Kidney Foundation, irrespective of diagnosis, the stage of the disease is based on the level of kidney function: Stage Description GFR(mL/min/1.73 m(2)) 1 Kidney damage with normal or decreased GFR 90 2 Kidney damage with mild decrease in GFR 60-89 3 Moderate decrease in GFR 30-59 4 Severe decrease in GFR 15-29 5 Kidney failure <15 (or dialysis) 34 99th percentile=0.04 ng/mL Troponin results at [facility] and [facility] are not interchangeable. 35 The urine specimen was tested at the listed cutoffs: Drug class test level (ng/mL) Amphetamines 500 Barbiturates 200 Benzodiazepine metabolites 200 Cocaine metabolites 150 Cannabinoids 50 Opiates 300 Pcp 25 Specimen was received without chain of custody. Results should be used for medical purposes only. 36 SEE RESULT BELOW Name: CATHY MUÑOZ : [address]: Reinier Santos MD Acct: [id number] Unit: [id number] AGE: 61 Location: ED Re12/23/16 SEX: F Status: DEP ER SPEC: [id number] NOREEN: 12/23/[address] [facility] [address]: Reinier Santos MD REQ: [id number] RECD: 12/23/16 STATUS: COMP OTHR DR: Cortney Yeboah MD _ SOURCE: URINE SPDESC: ORDERED: Urine Culture Procedure Result Reported Site Urine Culture Final 12/25/16- 0818 ML No Growth (<1,000 CFU/mL) * ML - [facility]IN LAB ([facility]) . END OF REPORT * ML=Testing performed at Main Lab DEPARTMENT OF PATHOLOGY, [address] [place] [address] Bonifacio Kay M.D. Director [facility] # [id number] 37 SEE RESULTS BELOW [id number] EPIFIX 3.5X3.5 TRANSFUSED 12/16/16 1029 38 SEE RESULTS BELOW [id number] EPIFIX 3.5X3.5 TRANSFUSED 12/02/16 0829 39 SEE RESULTS BELOW [id number] EPIFIX 3.5X3.5 TRANSFUSED 11/18/16 1011 40 SEE RESULTS BELOW [id number] EPIFIX 2X2 TRANSFUSED 10/21/16 1031 41 Because ethnic data is not always readily available, this report includes an eGFR for both -Americans and non- Americans. The National Kidney Disease Education Program (NKDEP) does not endorse the use of the MDRD equation for patients that are not between the ages of 18 and 70, are , have extremes of body size, muscle mass, or nutritional status, or are non- or non-. According to the National Kidney Foundation, irrespective of diagnosis, the stage of the disease is based on the level of kidney function: Stage Description GFR(mL/min/1.73 m(2)) 1 Kidney damage with normal or decreased GFR 90 2 Kidney damage with mild decrease in GFR 60-89 3 Moderate decrease in GFR 30-59 4 Severe decrease in GFR 15-29 5 Kidney failure <15 (or dialysis) 42 Test Performed by: [address] [address] Campaign Associate: Tad Schneider II, M.D., Ph.D. 43 SEE RESULTS BELOW [id number] EPIFIX 3.5X3.5 TRANSFUSED 09/23/16 1013 44 Desirable <150 Borderline high 150-199 High 200-499 Very High >500 45 Desirable <200 Borderline high 200-239 High >239 46 Low <40 Desirable: 40-60 High: >60 47 Desirable: <100 mg/dL Near Optimal: 100-129 mg/dL Borderline High: 130-159 mg/dL High: 160-189 mg/dL Very High: >189 mg/dL 48 Because ethnic data is not always readily available, this report includes an eGFR for both -Americans and non- Americans. The National Kidney Disease Education Program (NKDEP) does not endorse the use of the MDRD equation for patients that are not between the ages of 18 and 70, are , have extremes of body size, muscle mass, or nutritional status, or are non- or non-. According to the National Kidney Foundation, irrespective of diagnosis, the stage of the disease is based on the level of kidney function: Stage Description GFR(mL/min/1.73 m(2)) 1 Kidney damage with normal or decreased GFR 90 2 Kidney damage with mild decrease in GFR 60-89 3 Moderate decrease in GFR 30-59 4 Severe decrease in GFR 15-29 5 Kidney failure <15 (or dialysis) 49 SEE RESULTS BELOW [id number] EPIFIX 3.5X3.5 TRANSFUSED 08/26/16 0946 50 Because ethnic data is not always readily available, this report includes an eGFR for both -Americans and non- Americans. The National Kidney Disease Education Program (NKDEP) does not endorse the use of the MDRD equation for patients that are not between the ages of 18 and 70, are , have extremes of body size, muscle mass, or nutritional status, or are non- or non-. According to the National Kidney Foundation, irrespective of diagnosis, the stage of the disease is based on the level of kidney function: Stage Description GFR(mL/min/1.73 m(2)) 1 Kidney damage with normal or decreased GFR 90 2 Kidney damage with mild decrease in GFR 60-89 3 Moderate decrease in GFR 30-59 4 Severe decrease in GFR 15-29 5 Kidney failure <15 (or dialysis) 51 Reference Range and Interpretation: TnI (ng/mL) Interpretation Less Than 0.03 ng/mL Not supportive of diagnosis of [place] 0.03 - 0.50 ng/mL Indeterminate: suggest serial studies if clinically indicated. Greater than 0.5 ng/mL Consistent with diagnosis of [place] [address] [facility] Severe Sepsis and Septic Shock Management Bundle Measure requires all lactic acids initially measuring >2.0 mmol/L be repeated. 53 >100 to <200 pg/mL: likely compensated congestive heart failure (CHF) 200 to 400 pg/mL: likely moderate CHF >400 pg/mL: likely moderate to severe CHF 54 Because ethnic data is not always readily available, this report includes an eGFR for both -Americans and non- Americans. The National Kidney Disease Education Program (NKDEP) does not endorse the use of the MDRD equation for patients that are not between the ages of 18 and 70, are , have extremes of body size, muscle mass, or nutritional status, or are non- or non-. According to the National Kidney Foundation, irrespective of diagnosis, the stage of the disease is based on the level of kidney function: Stage Description GFR(mL/min/1.73 m(2)) 1 Kidney damage with normal or decreased GFR 90 2 Kidney damage with mild decrease in GFR 60-89 3 Moderate decrease in GFR 30-59 4 Severe decrease in GFR 15-29 5 Kidney failure <15 (or dialysis) 55 Acute inflammation: >10.[address] [facility] Severe Sepsis and Septic Shock Management Bundle Measure requires all lactic acids initially measuring >2.0 mmol/L be repeated. 57 Normal Range 180 to 914 Indeterminate Range 145 to 180 Deficient Range <145 58 Therapeutic target for the treatment of diabetes Mellitus patients is <7% HBA1C, and in selective patients <6.0%.Please refer to [employer] Diabetic care guidelines for further information. 59 Because ethnic data is not always readily available, this report includes an eGFR for both -Americans and non- Americans. The National Kidney Disease Education Program (NKDEP) does not endorse the use of the MDRD equation for patients that are not between the ages of 18 and 70, are , have extremes of body size, muscle mass, or nutritional status, or are non- or non-. According to the National Kidney Foundation, irrespective of diagnosis, the stage of the disease is based on the level of kidney function: Stage Description GFR(mL/min/1.73 m(2)) 1 Kidney damage with normal or decreased GFR 90 2 Kidney damage with mild decrease in GFR 60-89 3 Moderate decrease in GFR 30-59 4 Severe decrease in GFR 15-29 5 Kidney failure <15 (or dialysis) 60 Normal Range 180 to 914 Indeterminate Range 145 to 180 Deficient Range <145 61 Test Performed by: [facility] [place] [address] Campaign Associate: Tad Schneider II, M.D., Ph.D. 62 Test Performed by: [facility] [place] [address] Campaign Associate: Tad Schneider II, M.D., Ph.D. 63 Test Performed by: [place] [address] Campaign Associate: Shanda Santiago, Ph.D. 64 Therapeutic target for the treatment of diabetes Mellitus patients is <7% HBA1C, and in selective patients <6.0%.Please refer to [employer] Diabetic care guidelines for further information. 65 SEE RESULT BELOW Name: CATHY MUÑOZ : [address]: Edwige Ott MD Acct: [id number] Unit: [id number] AGE: 60 Location: WOUND Re02/12/16 SEX: F Status: REG REF SPEC: [id number] NOREEN: 02/12/16-[address] [facility] [address]: Edwige Ott MD REQ: [id number] RECD: 02/12/163689 STATUS: [facility] DR: Cortney Yeboah MD _ SOURCE: ABDOMEN SPDESC: ORDERED: Culture Stain QUERIES: Specimen Description RT LOWER QUADERANT Procedure Result Reported Site Wound/Misc Gram Stain Final 02/12/16- 1300 ML 1+ Neutrophils 1+ Gram Positive Cocci Wound/Misc Culture Final 02/14/16- 0847 ML Organism 1 STAPHYLOCOCCUS AUREUS Quantity 2+ 1. STAPHYLOCOCCUS AUREUS M.I.C. RX --------- ------ Penicillin >=0.5 R Clindamycin <=0.25 S Erythromycin <=0.25 S Gentamicin >=16 R Linezolid 2 S Nitrofurantoin <=16 S Oxacillin <=0.25 S * Quinupristin/Dalfopristin <=0.25 S Rifampin <=0.5 S Tetracycline <=1 S Doxycycline - Deduced S * Minocycline - Deduced S Trimethoprim/Sulfamethoxazole <=10 S Vancomycin 1 S Imipenem-Deduced S * Ampicillin/Sulbactam-Deduced S CONTINUED ON NEXT PAGE * ML=Testing performed at Main Lab DEPARTMENT OF PATHOLOGY, [address] [place] [address] Bonifacio Kay M.D. Director [facility] # [id number] Patient: CATHY MUÑOZ [id number] (Continued) Specimen: [id number] Collected: 02/12/16 Received: 02/12/16115 (Continued) Procedure Result Reported Site Wound/Misc Culture Final (continued) 02/14/16- 846 1. STAPHYLOCOCCUS AUREUS (continued) M.I.C. RX --------- ------ Cefazolin-Deduced S * These antibiotics are not available in the [facility] Formulary Contact the Microbiology Department for any additional antibiotic reporting. * ML - MAIN LAB ([facility]) . END OF REPORT * ML=Testing performed at Main Lab DEPARTMENT OF PATHOLOGY, [address] [place] [address] Bonifacio Kay M.D. Director [facility] # [id number] 66 Please repeat blood work in 8 weeks 02/06/16 67 Therapeutic target for the treatment of diabetes Mellitus patients is <7% HBA1C, and in selective patients <6.0%.Please refer to [employer] Diabetic care guidelines for further information. 68 SEE RESULT BELOW Name: CATHY MUÑOZ : [address]: Cortney Yeboah MD Acct: [id number] Unit: [id number] AGE: 60 Location: [facility] Re11/01/15 SEX: F Status: REG REF SPEC: [id number] NOREEN: 11/01/15-[address]: Cortney Yeboah MD REQ: [id number] RECD: 11/01/157264 STATUS: COMP _ SOURCE: URINE SPDESC: ORDERED: Urine Culture Procedure Result Reported Site Urine Culture Final 11/03/15- 907 ML No Growth (<1,000 CFU/mL) * ML - [facility] ([facility]) . END OF REPORT * ML=Testing performed at Main Lab DEPARTMENT OF PATHOLOGY, [address] [place] [address] Bonifacio Kay M.D. Director [facility] # [id number] 69 SEE RESULT BELOW Name: CATHY MUÑOZ : [address]: Cortney Yeboah MD Acct: [id number] Unit: [id number] AGE: 60 Location: [facility] Re10/02/15 SEX: F Status: REG REF SPEC: [id number] NOREEN: 10/02/15-[address] [facility] [address]: Cortney Yeboah MD REQ: [id number] RECD: 10/02/15 STATUS: COMP _ SOURCE: URINE SPDESC: ORDERED: Urine Culture Procedure Result Reported Site Urine Culture Final 10/05/15- 828 ML Organism 1 KLEBSIELLA PNEUMONIAE Stanford Count >100,000 (Many) CFU/ML 1. KLEBSIELLA PNEUMONIAE M.I.C. RX --------- ------ Ampicillin R Cefazolin <=4 S Cefepime <=1 S Ceftriaxone <=1 S Ciprofloxacin <=0.25 S Gentamicin <=1 S Levofloxacin <=0.12 S Meropenem <=0.25 S Nitrofurantoin 32 S Tetracycline <=1 S Pipercillin/Tazobactam <=4 S Trimethoprim/Sulfamethoxazole <=20 S Amoxicillin/Clavulanic Acid <=2 S Aztreonam <=1 S Contact the Microbiology Department for any additional antibiotic reporting. * ML - MAIN LAB ([facility]) . END OF REPORT * ML=Testing performed at Main Lab DEPARTMENT OF PATHOLOGY, [address] [place] [address] Bonifacio Kay M.D. Director [facility] # [id number] 70 Because ethnic data is not always readily available, this report includes an eGFR for both -Americans and non- Americans. The National Kidney Disease Education Program (NKDEP) does not endorse the use of the MDRD equation for patients that are not between the ages of 18 and 70, are , have extremes of body size, muscle mass, or nutritional status, or are non- or non-. According to the National Kidney Foundation, irrespective of diagnosis, the stage of the disease is based on the level of kidney function: Stage Description GFR(mL/min/1.73 m(2)) 1 Kidney damage with normal or decreased GFR 90 2 Kidney damage with mild decrease in GFR 60-89 3 Moderate decrease in GFR 30-59 4 Severe decrease in GFR 15-29 5 Kidney failure <15 (or dialysis) 71 >100 to <200 pg/mL: likely compensated congestive heart failure (CHF) 200 to 400 pg/mL: likely moderate CHF >400 pg/mL: likely moderate to severe CHF 72 FASTING 73 Desirable <150 Borderline high 150-199 High 200-499 Very High >500 74 Desirable <200 Borderline high 200-239 High >239 75 Low <40 Desirable: 40-60 High: >60 76 Desirable: <100 mg/dL Near Optimal: 100-129 mg/dL Borderline High: 130-159 mg/dL High: 160-189 mg/dL Very High: >189 mg/dL 77 Because ethnic data is not always readily available, this report includes an eGFR for both -Americans and non- Americans. The National Kidney Disease Education Program (NKDEP) does not endorse the use of the MDRD equation for patients that are not between the ages of 18 and 70, are , have extremes of body size, muscle mass, or nutritional status, or are non- or non-. According to the National Kidney Foundation, irrespective of diagnosis, the stage of the disease is based on the level of kidney function: Stage Description GFR(mL/min/1.73 m(2)) 1 Kidney damage with normal or decreased GFR 90 2 Kidney damage with mild decrease in GFR 60-89 3 Moderate decrease in GFR 30-59 4 Severe decrease in GFR 15-29 5 Kidney failure <15 (or dialysis) 78 RUN DATE: 08/26/14 [facility] LAB LIVE PAGE 1 RUN TIME: [address] [place] [address] Specimen Inquiry Name: CATHY MUÑOZ : [address]: Ebenezer Ellsworth NP Acct: [id number] Unit: [id number] AGE: 59 Location: [facility] Re08/24/14 SEX: F Status: REG REF SPEC: [id number] NOREEN: 08/24/14-[address]: Ebenezer Ellsworth SEATING UPHOLSTERER REQ: [id number] RECD: 08/24/14 STATUS: COMP _ SOURCE: WOUND SPDESC:WOUND ORDERED: Culture Stain QUERIES: Medent Number [id number] Specimen Description RIGHT LATERAL FOOT ULCER Procedure Result Verified Site Wound/Misc Gram Stain Final 08/25/14- 0810 ML No Neutrophils Observed 3+ Gram Positive Cocci in Clusters, resembling Staph Wound/Misc Culture Final 08/26/14- 48 ML Organism 1 STAPHYLOCOCCUS AUREUS Quantity 2+ Organism 2 NORMAL CHET Quantity 2+ 1. STAPHYLOCOCCUS AUREUS M.I.C. RX --------- ------ Penicillin >=0.5 R Clindamycin <=0.25 S Erythromycin <=0.25 S Gentamicin <=0.5 S Linezolid 2 S Nitrofurantoin 32 S Oxacillin <=0.25 S * Quinupristin/Dalfopristin <=0.25 S Rifampin <=0.5 S Tetracycline <=1 S Doxycycline - Deduced S * Minocycline - Deduced S Trimethoprim/Sulfamethoxazole <=10 S Vancomycin 1 S CONTINUED ON NEXT PAGE * ML=Testing performed at Main Lab DEPARTMENT OF PATHOLOGY, [address] [place] [address] Bonifacio Kay M.D. Director [facility] # [id number] RUN DATE: 08/26/14 [facility] LAB LIVE PAGE 2 RUN TIME: [address] [place] [address] Specimen Inquiry Patient: LINDSAY MUÑOZESSA Ying [id number] (Continued) Specimen: [id number] Collected: 08/24/14-102 Received: 08/24/14135 (Continued) Procedure Result Verified Site Wound/Misc Culture Final (continued) 08/26/14947 1. STAPHYLOCOCCUS AUREUS (continued) M.I.C. RX --------- ------ Imipenem-Deduced S * Ampicillin/Sulbactam-Deduced S Cefazolin-Deduced S * These antibiotics are not available in the [facility] Formulary Contact the Microbiology Department for any additional antibiotic reporting. END OF REPORT * ML=Testing performed at Main Lab DEPARTMENT OF PATHOLOGY, [facility] [employer] [place], [place] [address] Bonifacio Kay M.D. Director [facility] # [id number] 79 Because ethnic data is not always readily available, this report includes an eGFR for both -Americans and non- Americans. The National Kidney Disease Education Program (NKDEP) does not endorse the use of the MDRD equation for patients that are not between the ages of 18 and 70, are , have extremes of body size, muscle mass, or nutritional status, or are non- or non-. According to the National Kidney Foundation, irrespective of diagnosis, the stage of the disease is based on the level of kidney function: Stage Description GFR(mL/min/1.73 m(2)) 1 Kidney damage with normal or decreased GFR 90 2 Kidney damage with mild decrease in GFR 60-89 3 Moderate decrease in GFR 30-59 4 Severe decrease in GFR 15-29 5 Kidney failure <15 (or dialysis) 80 RUN DATE: 04/20/14 [facility] LAB LIVE PAGE 1 RUN TIME: 912 [facility] [place], [place] [address] Specimen Inquiry Name: CATHY MUÑOZ : [address]: Karthik Luu Acct: [id number] Unit: [id number] AGE: 58 Location: ED Re04/18/14 SEX: F Status: DEP ER SPEC: [id number] NOREEN: 04/18/14-[address] [facility] [address]: Graciela Murphy MD REQ: [id number] RECD: 04/18/14 STATUS: [facility]LE [facility]IC[facility] DR: [facility] Cortney Yeboah MD _ SOURCE: URINE SPDESC: ORDERED: Urine Culture Procedure Result Verified Site Urine Culture Final 04/20/14- 912 ML Organism 1 NORMAL CHET Stanford Count 1-10,000 (Few) CFU/ML END OF REPORT * ML=Testing performed at Main Lab DEPARTMENT OF PATHOLOGY, [address] [place] [address] Bonifacio Kay M.D. Director [facility] # [id number] 81 Because ethnic data is not always readily available, this report includes an eGFR for both -Americans and non- Americans. The National Kidney Disease Education Program (NKDEP) does not endorse the use of the MDRD equation for patients that are not between the ages of 18 and 70, are , have extremes of body size, muscle mass, or nutritional status, or are non- or non-. According to the National Kidney Foundation, irrespective of diagnosis, the stage of the disease is based on the level of kidney function: Stage Description GFR(mL/min/1.73 m(2)) 1 Kidney damage with normal or decreased GFR 90 2 Kidney damage with mild decrease in GFR 60-89 3 Moderate decrease in GFR 30-59 4 Severe decrease in GFR 15-29 5 Kidney failure <15 (or dialysis) 82 Reference Range and Interpretation: TnI (ng/mL) Interpretation Less Than 0.03 ng/mL Not supportive of diagnosis of [place] 0.03 - 0.50 ng/mL Indeterminate: suggest serial studies if clinically indicated. Greater than 0.5 ng/mL Consistent with diagnosis of [place] 83 It is recognized that currently available assays for the detection of antibodies to HIV-1 and/or HIV-2 may not detect all infected individuals. HIV antibodies may be undetectable in some stages of the infection and in some clinical conditions. The performance of this assay has not been established for populations of infants or children. Assayed by Chemiluminescence Microparticle Immunoassay on the Siemens Advia Centaur CP. Values obtained with different methods or kits cannot be used interchangeably.The diagnostic specificity of the ADVIA Centaur 1/O/2 Enhanced assay in the low risk population was 99.90% (6052/6058) with a 95% confidence interval of 99.78 to 99.96%. 84 RUN DATE: 04/23/14 [facility] LAB LIVE PAGE 1 RUN TIME: [address] [place] [address] Specimen Inquiry Name: CATHY MUÑOZ : [address]: Karthik Luu Acct: [id number] Unit: [id number] AGE: 58 Location: ED Re04/18/14 SEX: F Status: DEP ER SPEC: [id number] NOREEN: 04/18/14-[address] [facility] [address]: Graciela Murphy MD REQ: [id number] RECD: 04/18/14-1531 STATUS: ROCHELLE LICONA DR: [facility] Cortney Yeboah MD _ SOURCE: BLOOD,VENO SPDESC: ORDERED: Blood Cult Procedure Result Verified Site Aerobic Culture Bottle Final 04/23/14- 1532 ML No Growth Day 5 Anaerobic Culture Bottle Final 04/23/14- 1532 ML No Growth Day 5 END OF REPORT * ML=Testing performed at Main Lab DEPARTMENT OF PATHOLOGY, [address] [place] [address] Bonifacio Kay M.D. Director [facility] # [id number] 85 Because ethnic data is not always readily available, this report includes an eGFR for both -Americans and non- Americans. The National Kidney Disease Education Program (NKDEP) does not endorse the use of the MDRD equation for patients that are not between the ages of 18 and 70, are , have extremes of body size, muscle mass, or nutritional status, or are non- or non-. According to the National Kidney Foundation, irrespective of diagnosis, the stage of the disease is based on the level of kidney function: Stage Description GFR(mL/min/1.73 m(2)) 1 Kidney damage with normal or decreased GFR 90 2 Kidney damage with mild decrease in GFR 60-89 3 Moderate decrease in GFR 30-59 4 Severe decrease in GFR 15-29 5 Kidney failure <15 (or dialysis) 86 -- REFERENCE VALUE -- 25-HYDROXY D TOTAL (D2+D3) Optimum levels in the healthy population are 20-50, patients with bone disease may benefit from higher levels within this range. Test Performed by: [facility] [address] [place] [address] Campaign Associate: Anuel Russell III, M.D. 87 2+ (>10-30 /hpf) 88 Verbal to [id number] by at 1349 on 12/08/13. Results read back accurately. 89 Because ethnic data is not always readily available, this report includes an eGFR for both -Americans and non- Americans. The National Kidney Disease Education Program (NKDEP) does not endorse the use of the MDRD equation for patients that are not between the ages of 18 and 70, are , have extremes of body size, muscle mass, or nutritional status, or are non- or non-. According to the National Kidney Foundation, irrespective of diagnosis, the stage of the disease is based on the level of kidney function: Stage Description GFR(mL/min/1.73 m(2)) 1 Kidney damage with normal or decreased GFR 90 2 Kidney damage with mild decrease in GFR 60-89 3 Moderate decrease in GFR 30-59 4 Severe decrease in GFR 15-29 5 Kidney failure <15 (or dialysis) 90 Verbal to [id number] by at 1400 on 12/08/13. Results read back accurately. Reference Range and Interpretation: TnI (ng/mL) Interpretation Less Than 0.06 ng/mL Not supportive of diagnosis of [place] 0.06 - 0.50 ng/mL Indeterminate: suggest serial studies if clinically indicated. Greater than 0.5 ng/mL Consistent with diagnosis of [place] 91 -- REFERENCE VALUE -- 25-HYDROXY D TOTAL (D2+D3) Optimum levels in the healthy population are 20-50, patients with bone disease may benefit from higher levels within this range. Test Performed by: [facility] [address] [place] [address] Campaign Associate: Anuel Russell III, M.D. 92 Because ethnic data is not always readily available, this report includes an eGFR for both -Americans and non- Americans. The National Kidney Disease Education Program (NKDEP) does not endorse the use of the MDRD equation for patients that are not between the ages of 18 and 70, are , have extremes of body size, muscle mass, or nutritional status, or are non- or non-. According to the National Kidney Foundation, irrespective of diagnosis, the stage of the disease is based on the level of kidney function: Stage Description GFR(mL/min/1.73 m(2)) 1 Kidney damage with normal or decreased GFR 90 2 Kidney damage with mild decrease in GFR 60-89 3 Moderate decrease in GFR 30-59 4 Severe decrease in GFR 15-29 5 Kidney failure <15 (or dialysis) 93 The urine specimen was tested at the listed cutoffs: Drug class test level (ng/ml) Amphetamines 300 Barbituates 200 Benzodiazepine metabolites 200 Cocaine metabolites 300 Cannabinoids 25 Opiates 200 Pcp 25 This is a screening procedure. Positive results are not confirmed. Specimen was received without chain of custody. Results should be used for medical purposes only. 94 Because ethnic data is not always readily available, this report includes an eGFR for both -Americans and non- Americans. The National Kidney Disease Education Program (NKDEP) does not endorse the use of the MDRD equation for patients that are not between the ages of 18 and 70, are , have extremes of body size, muscle mass, or nutritional status, or are non- or non-. According to the National Kidney Foundation, irrespective of diagnosis, the stage of the disease is based on the level of kidney function: Stage Description GFR(mL/min/1.73 m(2)) 1 Kidney damage with normal or decreased GFR 90 2 Kidney damage with mild decrease in GFR 60-89 3 Moderate decrease in GFR 30-59 4 Severe decrease in GFR 15-29 5 Kidney failure <15 (or dialysis) 95 Toxic levels: greater than 150 mcg/ml @ 4hr post ingest Greater than 50 mcg/ml @ 12hr post ingest The detection limit for acetaminophen is 10.0 mcg/ml . Values less than 10.0 mcg/ml cannot be accurately measured. 96 The detection limit for Ethanol is 10.0 mg/dl . Values less than 10.0 mg/dl cannot be accurately measured. 97 This test detects intact HCG only and is indicated for the early detection of . 98 It is recognized that currently available assays for the detection of antibodies to HIV-1 and/or HIV-2 may not detect all infected individuals. HIV antibodies may be undetectable in some stages of the infection and in some clinical conditions. The performance of this assay has not been established for populations of infants or children. Assayed by Chemiluminescence Microparticle Immunoassay on the Siemens Advia Centaur CP. Values obtained with different methods or kits cannot be used interchangeably.The diagnostic specificity of the ADVIA Centaur 1/O/2 Enhanced assay in the low risk population was 99.90% (6052/6058) with a 95% confidence interval of 99.78 to 99.96%. 99 RUN DATE: 07/10/13 [facility] LAB LIVE PAGE 1 RUN TIME: [address] [place] [address] Specimen Inquiry Name: CATHY MUÑOZ : [address]: Tad Maldonado MD Acct: [id number] Unit: [id number] AGE: 58 Location: ED Re07/07/13 SEX: F Status: DEP ER SPEC: [id number] NOREEN: 07/07/[address] [facility] [address]: Tad Maldonado MD REQ: [id number] RECD: 07/07/13 STATUS: ROCHELLE LICONA DR: Ti Yeboah MD _ SOURCE: URINE SPDESC: ORDERED: Urine Culture Procedure Result Verified Site Urine Culture Final 07/10/13- 857 ML Organism 1 NORMAL CHET [place] Count 75-100,000 (Many) CFU/ML END OF REPORT * ML=Testing performed at Main Lab DEPARTMENT OF PATHOLOGY, [address] [place] [address] Bonifacio Kay M.D. Director [facility] Permit #[id number] 100 -- REFERENCE VALUE -- 25-HYDROXY D TOTAL (D2+D3) Optimum levels in the normal population are 25-80 Test Performed by: [place] [address] Campaign Associate: nAuel Russell III, M.D. 101 Microalbuminuria in a random sample is defined as: Microalbumin/Creatinine ratio of 30-299 ug/mg. 102 HDL Interpretation: Undesirable: High Risk: Less than 40 MG/DL Desirable: Low Risk: Greater than 60 MG/DL 103 LDL Interpretation: Low Risk Optimal Level: LDL Less than 100 MG/DL Near or Above Optimal: LDL 100-129 MG/DL Borderline High Risk: LDL 130-159 MG/DL High Risk: LDL 160-189 MG/DL Very High Risk: LDL Greater than 189 MG/DL 104 Because ethnic data is not always readily available, this report includes an eGFR for both -Americans and non- Americans. The National Kidney Disease Education Program (NKDEP) does not endorse the use of the MDRD equation for patients that are not between the ages of 18 and 70, are , have extremes of body size, muscle mass, or nutritional status, or are non- or non-. According to the National Kidney Foundation, irrespective of diagnosis, the stage of the disease is based on the level of kidney function: Stage Description GFR(mL/min/1.73 m(2)) 1 Kidney damage with normal or decreased GFR 90 2 Kidney damage with mild decrease in GFR 60-89 3 Moderate decrease in GFR 30-59 4 Severe decrease in GFR 15-29 5 Kidney failure <15 (or dialysis) 105 Test Performed by: [place] [address] Campaign Associate: Anuel Russell III, M.D. 106 -- REFERENCE VALUE -- 25-HYDROXY D TOTAL (D2+D3) Optimum levels in the normal population are 25-80 Test Performed by: [place] [address] Campaign Associate: Anuel Russell III, M.D. 107 Because ethnic data is not always readily available, this report includes an eGFR for both -Americans and non- Americans. The National Kidney Disease Education Program (NKDEP) does not endorse the use of the MDRD equation for patients that are not between the ages of 18 and 70, are , have extremes of body size, muscle mass, or nutritional status, or are non- or non-. According to the National Kidney Foundation, irrespective of diagnosis, the stage of the disease is based on the level of kidney function: Stage Description GFR(mL/min/1.73 m(2)) 1 Kidney damage with normal or decreased GFR 90 2 Kidney damage with mild decrease in GFR 60-89 3 Moderate decrease in GFR 30-59 4 Severe decrease in GFR 15-29 5 Kidney failure <15 (or dialysis) Procedures Date CPT Code Description Status Comment 03/10/2018 42977 EKG Tracing & Interpretation Completed 02/26/2018 40221 Polysomnography Sleep Staging Completed 4+ Parameters 08/14/2017 Mammogram Completed 04/14/2017 51483 EKG Tracing & Interpretation Completed 04/08/2017 09414 Removal Devitalization Tissue Completed Wound Less Than Equal 20 Square CM 04/03/2017 82701 EKG Tracing & Interpretation Completed 01/06/2017 12874 Removal Devitalization Tissue Completed Wound Less Than Equal 20 Square CM 01/06/2017 44261 Removal Devitalization Tissue Completed Wound Less Than Equal 20 Square CM 11/10/2016 Colonoscopy Completed normal per pt repeat done in 2012 ( poor prep, recommended repeat in 2 yrs 2014 ) Dr. Simmons refuses to do it again 01/02/2016 00289 EKG Tracing & Interpretation Completed 12/27/2015 Diabetic Retinal Eye Exam Completed 10/19/2015 Bone Mineral Density Test Completed 03/26/2015 28731 Polysomnography Sleep Staging Completed 4+ Parameters W/Cpap 01/05/2015 26267 ECHO Transthoracic, Real-Time Completed 2D With Doppler And Color Flow 01/04/2015 20653 Polysomnography Sleep Staging Completed 4+ Parameters 12/13/2014 31434 EKG Tracing & Interpretation Completed 12/01/2014 56829 Stress Test Supervsn W/Out I/R Completed 12/01/2014 30009 Treadmill Interp/Report Only Completed 10/31/2014 Mammogram Completed 10/12/2014 38586 EKG Tracing & Interpretation Completed 06/30/2013 Diabetic Retinal Eye Exam Completed 06/17/2013 Colonoscopy Completed 01/05/2013 87248 Amputation,Toe;Interphalangeal Completed Joint 01/05/2013 45132 Amputation,Toe;Interphalangeal Completed Joint 08/28/2012 Mammogram Completed 06/10/2011 33970 Rad Exam; Knee, Ap&L Completed 09/17/2008 72843 Treadmill Interp/Report Only Completed 09/17/2008 16026 Treadmill Interp/Report Only Completed 09/17/2008 72249 Stress Test Supervsn W/Out I/R Completed Encounters Type Date Location Provider CPT E/M Dx Office Visit 05/14/2018 [facility] Internal Medicine Cortney Yeboah M.D. 69136 R10.11 8:30a - Pankaj R11.2 E11.65 Office Visit 03/27/2018 11:15a [facility] Jenna Gomez, 72017 G47.33 Services Of [facility] SOHAIL RN, [facility] G47.14 Z68.42 Office Visit 03/10/2018 2:00p [facility] Chasidy Denise, 18069 G47.33 Lorraine E78.2 I10 E66.9 R94.31 Office Visit 02/20/2018 10:00a [facility] Sleep Jenna Gomez, 14027 G47.33 Services Of [facility] AUBRIE SAUCEDA, [facility] Z68.42 Office Visit 02/02/2018 4:20p [facility] Internal Medicine Choco Mcclendon, 93694 S80.11xA - Pankaj Peters M79.661 Office Visit 11/12/2017 11:50a [facility] Internal Medicine Cortney Yeobah, 62947 E11.65 - Pankaj Peters J06.9 L03.311 R29.6 G47.33 Office Visit 08/07/2017 10:10a [facility] Internal Medicine Cortney Yeboah M.D. 34803 J30.9 - Pankaj Z91.19 G47.33 E11.21 Z23 M54.5 Office Visit 07/31/2017 10:00a [facility] Of Anuradha Hope, 30863 I73.9 [facility] [place] [facility] [place], FSCAI Office Visit 06/26/2017 10:30a [facility] Internal Medicine Cortney Yeboah, 41960 E11.65 - Pankaj Peters E78.2 Z91.19 Z98.84 G47.33 R05 I73.9 H40.1111 Office Visit 04/22/2017 2:40p [facility] Internal Medicine Cortney Yeboah M.D. 52397 M54.5 - Pankaj E11.65 Office Visit 04/15/2017 10:00a [facility] [place], 11006 S31.102S [place] [facility] [place]raine E66.9 E55.9 E11.622 Z98.84 Office Visit 04/14/2017 11:20a [facility] Internal Medicine Madalyn Pitt, N.P. 18293 N30.01 - Sawyer N20.0 M54.5 R06.02 Z16.29 Office Visit 04/03/2017 2:20p [facility] Chasidy Denise, 15866 I10 M.Geo E11.65 E55.9 E66.9 Office Visit 03/26/2017 10:30a [facility] Internal Medicine Cortney Yeboah, 46584 E11.65 - Pankaj Peters E55.9 R25.2 J30.9 Office Visit 02/17/2017 12:15p [facility] Jenna Gomez DNP, 83012 T21.22xD AT [facility] [place], FARIDEH-TOM X15.0xxD T31.0 E11.628 Z79.4 Office Visit 01/15/2017 11:50a [facility] Internal Medicine Cortney Yeboah 83133 E11.65 - Pankaj Peters D50.8 E55.9 Z12.31 D50.9 Office Visit 10/17/2016 10:50a [facility] Internal Medicine Cortney Yeboah, 90507 E11.65 - Pankaj Peters E87.1 G47.33 E87.5 Office Visit 10/07/2016 12:09p [facility] Jenna Gomez DNP, 62660 Y92.010 AT [facility] [place], FARIDEH-BC X15.0xxA T31.0 T21.22xA Y92.009 S31.102A Y69 S31.103A E11.622 Office Visit 09/09/2016 10:30a [facility] Internal Medicine Cortney Yeboah, 73272 E11.65 - Pankaj Peters S22.31xA M81.0 E78.2 I10 E55.9 L03.818 Office Visit 06/06/2016 10:50a [facility] Internal Medicine Cortney Yeboah 59625 E11.65 - Lion Peters E55.9 D50.8 E60 Office Visit 03/05/2016 11:10a [facility] Internal Medicine Cortney Yeboah 86159 E11.65 - Lion Peters E55.9 R11.2 Office Visit 02/21/2016 1:40p [facility] Internal Medicine Cortney Yeboah, 84236 E11.65 - Lion Peters E55.9 M81.0 Office Visit 01/02/2016 3:20p [facility] Chasidy Denise, 46476 R60.9 Lorraine E11.65 G47.33 E66.01 I10 Office Visit 12/15/2015 3:40p [facility] Internal [place] [address] M79.671 Lion M25.561 S16.1xxA Office Visit 11/23/2015 1:00p [facility] Internal Medicine Cortney Yeboah 36070 E11.65 - Lion Peters R31.9 Office Visit 11/01/2015 10:10a [facility] Internal Medicine Cortney Yeboah M.D. 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 42105 724.2 C.M.A. 715.15 Office Visit 07/13/2015 11:50a [facility] Internal Medicine Cortney Yeboah M.D. 69162 682.2 - Lion 327.23 Office Visit 07/12/2015 2:30p [facility] [place] [address] 327.23 Services Of [facility] 278.00 Office Visit 05/29/2015 1:30p [facility] Internal Medicine Cortney Yeboah 38109 250.62 - Lion Peters 719.45 250.02 Office Visit 04/24/2015 2:00p [facility] [place] [address] 327.23 Services Of [employer] 780.54 Office Visit 02/21/2015 1:30p [facility] ELI Ferro 10977 327.23 278.01 272.2 401.1 794.39 Office Visit 02/09/2015 10:50a [facility] Internal Medicine Cortney Yeboah 82799 250.62 - Lion Peters 682.9 Office Visit 02/08/2015 11:00a [facility] [place] [address] 327.23 [facility] 278.01 Office Visit 01/25/2015 11:50a [facility] Internal Medicine Cortney Yeboah 93702 250.62 - Lion Peters 272.2 682.9 401.1 V03.82 Office Visit 12/13/2014 11:00a [facility] Chasidy Denise 49565 786.09 M.DNighat 278.01 780.59 401.1 Office Visit 12/01/2014 8:30a [facility] Chasidy Denise 59132 786.09 M.DNighat 794.31 278.01 Office Visit 11/18/2014 11:00a [facility] [place] [address] 780.59 [facility] 780.54 333.94 278.00 V45.86 Office Visit 10/27/2014 10:50a [facility] Internal Medicine Cortney Yeboah 47505 250.60 - Lion Peters 944.06 Office Visit 10/12/2014 10:50a [facility] Internal Medicine Cortney Yeboah 35517 250.60 - Sawyer M.D. 780.79 786.50 V76.10 272.1 916.8 Office Visit 08/31/2014 1:00p [facility] Internal Medicine FARIDEH Lynn 36456 719.46 - Sawyer 724.5 945.19 948.00 Office Visit 08/24/2014 10:00a [facility] Internal Medicine FARIDEH Lynn 33434 945.19 - Sawyer Office Visit 08/17/2014 12:10p [facility] Internal Medicine Cortney Yeboah, 32677 311 - Sawyerdeyanira Peters 945.19 V04.89 276.8 Office Visit 07/06/2014 10:50a [facility] Internal Medicine Cortney Yeboah 75844 250.60 - Lion Peters 276.8 311 454.8 250.82 V04.89 V05.8 Office Visit 06/02/2014 1:50p [facility] Internal Medicine Cortney Yeboah 38533 250.82 - Lion Peters V76.10 Office Visit 04/20/2014 1:30p [facility] Internal Medicine Cortney Yeboah 26097 250.82 - Lion Peters 466.0 276.8 Office Visit 04/18/2014 12:10p [facility] Internal Medicine Cortney Yeboah M.D. 39287 486 Sawyer 250.82 Office Visit 04/07/2014 10:50a [facility] Internal Medicine Cortney Yeboah 57893 250.82 - Lion Peters 338.4 401.9 268.9 268.9 Office Visit 03/29/2014 12:40p [facility] Internal Medicine Cortney Yeboah 04815 250.82 - Lion Peters 401.9 272.4 477.9 Office Visit 12/10/2013 3:25p [facility], Stacy Hazel, 50908 584.5 Hospitalists D.O. 595.0 780.79 728.89 Office Visit 12/09/2013 3:24p [facility], Stacy Hazel, 17958 584.5 Hospitalists D.O. 595.0 780.79 728.89 Office Visit 12/08/2013 3:23p [facility], Heidi Thomson, 13882 728.89 Hospitalists N.P. 595.0 780.79 584.5 Office Visit 11/18/2013 9:50a [facility] Internal Medicine Cortney Yeboah 12133 250.82 - Lion Peters 401.1 268.9 272.4 592.0 586 Office Visit 07/21/2013 10:50a [facility] Internal Medicine Cortney Yeboah M.D. 37660 850.0 - Sawyer 250.82 599.0 Office Visit 04/27/2013 1:50p [facility] Internal Medicine Cortney Obinna, 30428 250.80 - Lion Peters 268.9 401.1 Office Visit 02/25/2013 1:10p [facility] Internal Medicine Cortney Obinna, 93945 V72.31 - Lion Peters V76.2 V76.19 V76.51 250.80 781.91 V76.43 681.11 V03.82 Office Visit 02/04/2013 10:10a [facility] Internal Medicine Cortney Yeboah 19054 250.00 - Sawyer M.Geo 276.1 272.4 586 780.79 285.8 Office Visit 01/21/2013 9:10a [facility] Internal Medicine Cortney Yeboah 57080 250.00 - Lion Son.Geo 276.1 272.1 586 285.8 V45.86 311 401.1 Office Visit 01/14/2013 3:00p [facility] Bev Guardado 37699 730.10 Infectious Diseases Lorraine Mendoza Office Visit 01/08/2013 3:30p [facility] Stacy Hazel, 82877 730.10 Assoc, Hospitalists D.ONighat 682.6 250.00 724.2 Office Visit 01/07/2013 3:30p [facility] Assoc, Stacy Hazel, 57617 730.10 Hospitalists D.ONighat 682.6 250.00 724.2 Office Visit 01/07/2013 1:36p [facility] Bev Mendoza, 39548 730.27 Infectious Diseases M.D. Office Visit 01/06/2013 1:35p [facility] Bev Mendoza, 73684 730.27 Infectious Diseases M.D. Office Visit 01/06/2013 3:30p [facility], 72948 730.10 Assoc, Hospitalists Lorraine 682.6 250.01 724.2 Office Visit 01/05/2013 3:30p [facility], 16713 682.6 Assoc, Hospitalists Lorraine 730.10 250.01 724.2 Office Visit 01/04/2013 1:34p [facility] Ti Mendoza, 35980 730.27 Infectious Diseases M.DNighat Office Visit 01/04/2013 3:29p [facility], 70505 730.10 Assoc, Hospitalists Lorraine 682.6 250.01 724.2 Office Visit 01/04/2013 4:15p [facility] Shane Lucas, 87988 250.80 C.M.A. Lorraine 731.8 Office Visit 01/03/2013 3:29p [facility], 98855 730.10 Assoc, Hospitalists Lorraine 682.6 250.01 724.2 Office Visit 01/02/2013 3:28p [facility], 67805 730.10 Assoc, Hospitalists Lorraine 682.6 995.91 250.01 Office Visit 01/01/2013 3:28p [facility], 54652 682.6 Assoc, Hospitalists Lorraine 995.91 730.10 250.01 Office Visit 12/31/2012 3:28p [facility], 01670 682.6 Assoc, Hospitalists Lorraine 995.91 250.01 724.2 Office Visit 12/30/2012 3:27p [facility], Annia Raza, N.P. 61762 682.6 Hospitalists 250.01 995.91 724.2 Office Visit 07/18/2012 12:06p [facility] Donato Sesay M.D. 21232 995.91 Hospitalists 595.0 780.97 250.00 Office Visit 07/17/2012 12:06p [facility] Assoc, Stacy Hazel, 64924 995.91 Hospitalists D.ONighat 595.0 780.97 250.00 Office Visit 07/05/2011 1:30p [facility] Karel Easton M.D. 44904 716.96 C.M.A. Office Visit 06/10/2011 8:00a [facility] M.D. 19073 844.9 C.M.A. Office Visit 12/05/2010 9:30a [facility] M.D. 27577 716.96 C.M.A. 836.0 Plan of Care 06/11/2018 - Cortney Yeboah M.D.R10.10 Upper abdominal pain, rmozfujsshdY06.8 Other urticariaComments:we discussed using Zyrtec instead of benadryl to help with hivesReferral:[facility], Allergy & TvrhbbhmcnD03.13 Benign paroxysmal vertigo, bilateralComments:it is likely a benign positional vertigo , you should take your time to change baklzipbmV02.811A Abrasion of abdominal wall, initial encounterNew Medication: Bacitraycin Plus 500 Unit/GMBacitracin Zinc 500 Unit/GMN39.0 Urinary tract infection, site not specifiedNew Medication:Ciprofloxacin HCL 250 mgL98.9 Disorder of the skin and subcutaneous tissue, unspecifiedReferral:Hossein Dejesus MD, Dermatology
--- NOTE | 2018-06-20 00:17 | ED ---
Altered Mental Status - HPI Summary HPI Summary: Patient presents to the ED by EMS for possible AMS and neuro symptoms starting this evening. Patient was found by home health nurse, nodding off, lethargic, possible right facial droop, speech change and was sent for evaluation of possible stroke. Here in ED patient is alert and oriented, no facial droop, no speech change. Patient states she took 2 oxycodone 10 mg by mouth together this evening for chronic pain knowing it would help her go to sleep. Patient states she has done before, but not often. Patient also states she has a recent history of right eye injury from a cat which causes her to keep her right eyelid closed. Eye injury has been evaluated by ophthalmology and patient has been told it will heal with time, that she may have vision issues until then. Patient states keeping her right eyelid closed makes the vision change in her right eye less annoying, and she does it regularly. No prior history of CVA or TIA. Denies fever, cough, sore throat, CP, SOB, N/V/D, abdominal pain, change in urinary BM. Medical history is DM, HTN, chronic pain. - History Of Current Complaint Chief Complaint: EDGeneral Stated Complaint: POSS STROKE Time Seen by Provider: 06/19/18 21:07 Hx Obtained From: Patient Onset/Duration: Resolved Timing: Lasting Minutes Severity Initially: Moderate Severity Currently: None Character: Lethargy Aggravating Factor(s): Medication Change Alleviating Factor(s): Nothing Associated Signs And Symptoms: Positive: Negative - Risk Factors CVA Risk Factor: Hypertension, Diabetes - Allergies/Home Medications Allergies/Adverse Reactions: Allergies Allergy/AdvReac Type Severity Reaction Status Date / Time MS Povidone Iodine Allergy Mild Rash Verified 05/14/18 09:56 [From Betadine] MS Doxazosin [From Cardura] Allergy Unknown Unknown Verified 05/14/18 09:56 Reaction Details MS Ibuprofen [From Motrin] AdvReac Severe CAUSED Verified 05/14/18 09:56 RENAL DEFICIT MS Alprazolam [From Xanax] AdvReac Intermediate Agitation Verified 05/14/18 09: 56 MS KIERSTEN Inhibitors AdvReac Coughing Verified 05/14/18 09:56 [KIERSTEN Inhibitors] MS Atorvastatin AdvReac muscle Verified 05/14/18 09:56 [From Lipitor] weakness MS Diazepam [From Valium] AdvReac planning manager Verified 05/14/18 09:56 reaction MS Erythromycin AdvReac abd. pain Verified 05/14/18 09:56 [Erythromycin] MS Fentanyl [Fentanyl] AdvReac suicidal Verified 05/14/18 09:56 MS Lamotrigine AdvReac kidney Verified 05/14/18 09:56 [From Lamictal] failure MS Mushroom Extract Complex AdvReac GI Upset Verified 05/14/18 09:56 [Mushroom Extract Complex] MS Rosiglitazone AdvReac heart Verified 05/14/18 09:56 [From Avandia] failure MS Sertraline [Sertraline] AdvReac suicidal Verified 05/14/18 09:56 MS Simvastatin [From Zocor] AdvReac muscle Verified 05/14/18 09:56 weakness MS Venlafaxine [From Effexor] AdvReac dizzy Verified 05/14/18 09:56 PMH/Surg Hx/FS Hx/Imm Hx Endocrine/Hematology History: Reports: Hx Diabetes Denies: Hx Anticoagulant Therapy, Hx Thyroid Disease Cardiovascular History: Reports: Hx Hypercholesterolemia, Hx Hypertension, Other Cardiovascular Problems/Disorders - IDDM Denies: Hx Angina, Hx Coronary Artery Disease, Hx Myocardial Infarction, Hx Pacemaker/ICD, Hx Valvular Heart Disease Respiratory History: Reports: Hx Asthma Denies: Hx Chronic Obstructive Pulmonary Disease (COPD) GI History: Reports: Hx Gall Bladder Disease History: Reports: Hx Kidney Stones Denies: Hx Dialysis Comment Only: Hx Renal Disease - ONLY KIDNEY STONES PER PT Musculoskeletal History: Reports: Hx Arthritis, Hx Back Problems, Hx Osteoporosis Denies: Hx Rheumatoid Arthritis Sensory History: Reports: Hx Contacts or Glasses Opthamlomology History: Reports: Hx Contacts or Glasses Neurological History: Reports: Other Neuro Impairments/Disorders - RUPTURED DISKS, SPINAL STIMULATOR Denies: Hx Dementia, Hx Seizures Psychiatric History: Reports: Hx Anxiety, Hx Depression Denies: Hx Substance Abuse - Cancer History Hx Chemotherapy: No Hx Radiation Therapy: No - Surgical History Surgery Procedure, Year, and Place: SPINE stimulator, gall bladder removed, gastric bipass 2002, multiple ortho surgeries Hx Anesthesia Reactions: No - Immunization History Date of Tetanus Vaccine: utd Date of Influenza Vaccine: fall 2016 Infectious Disease History: No Infectious Disease History: Denies: Hx Clostridium Difficile, Hx Hepatitis, Hx Human Immunodeficiency Virus (HIV), Hx of Known/Suspected MRSA, Hx Shingles, Hx Tuberculosis, Hx Known/ Suspected VRE, Traveled Outside the [place] in Last 30 Days - Family History Known Family History: Positive: Cardiac Disease, Hypertension, Diabetes, Renal Disease, Other - brain CA - Social History Alcohol Use: None Hx Substance Use: No Substance Use Type: Reports: None Hx Tobacco Use: No Smoking Status (MU): Never Smoked Tobacco Have You Smoked in the Last Year: No Review of Systems Constitutional: Negative Positive: Blurred Vision ENT: Negative Cardiovascular: Negative Respiratory: Negative Gastrointestinal: Negative Genitourinary: Negative Musculoskeletal: Negative Skin: Negative Positive: Slurred Speech Psychological: Normal All Other Systems Reviewed And Are Negative: Yes Physical Exam - Summary Physical Exam Summary: Patient alert and oriented x 4. Neuro exam normal. Pupils mildly constricted, but equal and reactive. No difficulty with speech or finding words. No facial droop. Triage Information Reviewed: Yes Vital Signs On Initial Exam: Initial Vitals Temp Pulse Resp BP Pulse Ox 98.3 F 96 18 136/58 100 06/19/18 20:57 06/19/18 20:57 06/19/18 20:57 06/19/18 20:57 06/19/18 20:57 Vital Signs Reviewed: Yes Appearance: Positive: Well-Appearing Skin: Positive: Warm Head/Face: Positive: Normal Head/Face Inspection Eyes: Positive: Normal Neck: Positive: Supple Respiratory/Lung Sounds: Positive: Clear to Auscultation Cardiovascular: Positive: Normal Abdomen Description: Positive: Nontender Musculoskeletal: Positive: Normal Neurological: Positive: Normal Psychiatric: Positive: Normal AVPU Assessment: Alert - Kendy Coma Scale Best Eye Response: 4 - Spontaneous Best Motor Response: 6 - Obeys Commands Best Verbal Response: 5 - Oriented Coma Scale Total: 15 Diagnostics - Vital Signs Vital Signs Temp Pulse Resp BP Pulse Ox 06/19/18 20:57 98.3 F 96 18 136/58 100 - Laboratory Lab Statement: Any lab studies that have been ordered have been reviewed, and results considered in the medical decision making process. - CT brain CT Interpretation: No Acute Changes CT Interpretation Completed By: Radiologist Altered Mental Statu Course/Dx - Course Course Of Treatment: Patient presents to the ED by EMS for possible AMS and neuro symptoms starting this evening. Patient was found by home health nurse, nodding off, lethargic, possible right facial droop, speech change and was sent for evaluation of possible stroke. Here in ED patient is alert and oriented, no facial droop, no speech change. Patient states she took 2 oxycodone 10 mg by mouth together this evening for chronic pain knowing it would help her go to sleep. Patient states she has done before, but not often. Patient also states she has a recent history of right eye injury from a cat which causes her to keep her right eyelid closed. Eye injury has been evaluated by ophthalmology and patient has been told it will heal with time, that she may have vision issues until then. Patient states keeping her right eyelid closed makes the vision change in her right eye less annoying, and she does it regularly. No prior history of CVA or TIA. Denies fever, cough, sore throat, CP, SOB, N/V/D, abdominal pain, change in urinary BM. Medical history is DM, HTN, chronic pain. Physical exam:Patient alert and oriented x 4. Neuro exam normal. Pupils mildly constricted, but equal and reactive. No difficulty with speech or finding words. No facial droop. Patient has no neurological symptoms during exam. Reveals no neurological symptoms during stay in the ED. Head CT negative. Vital signs within normal limits. Likely source of altered mental status is oxycodone 10 mg by mouth 2 tabs. Found by Home health nurse who was concerned for stroke symptoms. Patient also has history of right eye injury which makes her keep right eye closed, likely explanation for right side face alteration perceived by home health nurse. - Diagnoses Provider Diagnoses: Altered mental status Discharge - Sign-Out/Discharge Documenting (check all that apply): Patient Departure - Discharge Plan Condition: Stable Disposition: HOME Patient Education Materials: Altered Mental Status (ED) Referrals: Cortney Yeboah MD [Primary Care Provider] - Additional Instructions: Follow-up with primary care. Return to the ED for any new or worsening symptoms - Billing Disposition and Condition Condition: STABLE Disposition: Home
[2018-06-20 00:38] VITALS: BP 146/74
--- NOTE | 2018-06-20 07:06 | RAD ---
INDICATION: Possible TIA. COMPARISON: Comparison is made with a prior CT of the brain from December 23, 2016. TECHNIQUE: Contiguous axial sections of the brain were obtained from the skull base to the vertex without contrast. FINDINGS: The ventricles, cisterns and sulci are enlarged consistent with age-related atrophy. There are small areas of decreased density in the subcortical and periventricular white matter suggestive of mild chronic small vessel ischemic changes. In addition there are small more focal CSF density areas present in the subinsular areas and regions of the caudate nuclei heads most consistent with old lacunar infarcts. No other focal abnormality or mass effect is seen. There is no evidence for hemorrhage. No significant focal osseous abnormality is seen. The visualized portion of the paranasal sinuses and mastoid air cells appear clear. IMPRESSION: 1. NO EVIDENCE FOR GROSS ACUTE INFARCT, MASS EFFECT OR HEMORRHAGE. 2. FINDINGS SUGGESTIVE OF MILD CHRONIC SMALL VESSEL ISCHEMIC CHANGE AND OLD LACUNAR INFARCT NOTED.
== END 2018-06-20 00:37 | disposition home or self-care (01) ==
LOC: ED 20:50
DX: R41.82 Altered mental status, unspecified (principal); R53.83 Other fatigue; Z88.6 Allergy status to analgesic agent; Z88.1 Allergy status to other antibiotic agents; Z88.3 Allergy status to other anti-infective agents; Z88.8 Allergy status to other drugs, medicaments and biological substances; Z82.49 Family history of ischemic heart disease and other diseases of the circulatory system; Z83.3 Family history of diabetes mellitus; Z84.1 Family history of disorders of kidney and ureter; Z80.8 Family history of malignant neoplasm of other organs or systems
CPT/HCPCS: 70450; 99282

== ENCOUNTER 2018-10-22 12:04 | Emergency (ER) | payer OTHER ==
[2018-10-22] MEDS ORDERED: NS 0.9% 1000 ML* 1,000 ML IV ONE (12:14)
--- NOTE | 2018-10-22 12:30 | ED ---
Abdominal Pain/Female - HPI Summary HPI Summary: Pt is a 63 y/o female who presents to the ED c/o flank pain. She was diagnosed recently with a UTI at [place], and has been on 500 mg Keflex for [address] revealed no kidney stones at the time. She states she never got the UA results. Pt still reports 6/10 right flank pain. She has dysuria, but denies any hematuria. PMHx kidney stones, DM, HTN, and chronical renal disease. Pt denies being no blood thinners. - History of Current Complaint Chief Complaint: EDUrogenitalProblems Stated Complaint: PAIN ON HER RT SIDE Time Seen by Provider: 10/22/18 12:14 Hx Obtained From: Patient Onset/Duration: Gradual Onset, Lasting Weeks, Still Present Timing: Constant Severity Currently: Moderate Pain Intensity: 6 Pain Scale Used: 0-10 Numeric Location: Flank - right Radiates: No Alleviating Factor(s): Nothing Associated Signs and Symptoms: Positive: Negative Allergies/Adverse Reactions: Allergies Allergy/AdvReac Type Severity Reaction Status Date / Time MS Povidone Iodine Allergy Mild Rash Verified 05/14/18 09:56 [From Betadine] MS Doxazosin [From Cardura] Allergy Unknown Unknown Verified 05/14/18 09:56 Reaction Details MS Ibuprofen [From Motrin] AdvReac Severe CAUSED Verified 05/14/18 09:56 RENAL DEFICIT MS Alprazolam [From Xanax] AdvReac Intermediate Agitation Verified 05/14/18 09: 56 MS KIERSTEN Inhibitors AdvReac Coughing Verified 05/14/18 09:56 [KIERSTEN Inhibitors] MS Atorvastatin AdvReac muscle Verified 05/14/18 09:56 [From Lipitor] weakness MS Diazepam [From Valium] AdvReac political aide Verified 05/14/18 09:56 reaction MS Erythromycin AdvReac abd. pain Verified 05/14/18 09:56 [Erythromycin] MS Fentanyl [Fentanyl] AdvReac suicidal Verified 05/14/18 09:56 MS Lamotrigine AdvReac kidney Verified 05/14/18 09:56 [From Lamictal] failure MS Mushroom Extract Complex AdvReac GI Upset Verified 05/14/18 09:56 [Mushroom Extract Complex] MS Rosiglitazone AdvReac heart Verified 05/14/18 09:56 [From Avandia] failure MS Sertraline [Sertraline] AdvReac suicidal Verified 05/14/18 09:56 MS Simvastatin [From Zocor] AdvReac muscle Verified 05/14/18 09:56 weakness MS Venlafaxine [From Effexor] AdvReac dizzy Verified 05/14/18 09:56 Home Medications: Home Medications [place] 650 mg PO BID 10/22/18 [History Confirmed 10/22/18] Betaxolol-S 0.25%* [Betoptic-S 0.25%*] 1 drop RIGHT EYE BID 10/22/18 [History Confirmed 10/22/18] Brimonidine P 0.15%(NF) [Alphagan P 0.15%(NF)] 1 drop RIGHT EYE BID 10/22/18 [ History Confirmed 10/22/18] Cholecalciferol (Vitamin D3) [Vitamin D3] 5,000 unit PO BID 10/22/18 [History Confirmed 10/22/18] Cyclobenzaprine HCl [Amrix] 30 mg PO BEDTIME 10/22/18 [History Confirmed ] Ferrous Sulfate TAB* 325 mg PO DAILY 10/22/18 [History Confirmed 10/22/18] Fexofenadine (NF) [Radha 180 (NF)] 180 mg PO DAILY PRN 10/22/18 [History Confirmed 10/22/18] Gabapentin [Gralise] 300 mg PO DAILY 10/22/18 [History Confirmed 10/22/18] Insulin Lispro [Admelog Solostar] 0 - 100 unit SUBCUT QID 10/22/18 [History Confirmed 10/22/18] Latanoprost 0.005%* [Xalatan 0.005%*] 1 drop BOTH EYES BEDTIME 10/22/18 [ History Confirmed 10/22/18] Sodium Bicarbonate (ANTACID)* 650 mg PO .WITH EVERY MEAL 10/22/18 [History Confirmed 10/22/18] Torsemide TAB* [Demadex 20 MG*] 40 - 60 mg PO QAM 10/22/18 [History Confirmed ] dilTIAZem HCl [Diltiazem 24Hr ER] 120 mg PO BEDTIME 10/22/18 [History Confirmed 10/22/18] oxyCODONE SR TAB(*) [Oxycontin 10 mg (*)] 10 mg PO Q8HR MDD 30 mg 10/22/18 [ History Confirmed 10/22/18] PMH/Surg Hx/FS Hx/Imm Hx Endocrine/Hematology History: Reports: Hx Diabetes Denies: Hx Anticoagulant Therapy, Hx Thyroid Disease Cardiovascular History: Reports: Hx Hypercholesterolemia, Hx Hypertension, Other Cardiovascular Problems/Disorders - IDDM Denies: Hx Angina, Hx Coronary Artery Disease, Hx Myocardial Infarction, Hx Pacemaker/ICD, Hx Valvular Heart Disease Respiratory History: Reports: Hx Asthma Denies: Hx Chronic Obstructive Pulmonary Disease (COPD) GI History: Reports: Hx Gall Bladder Disease History: Reports: Hx Kidney Stones Denies: Hx Dialysis Comment Only: Hx Renal Disease - ONLY KIDNEY STONES PER PT Musculoskeletal History: Reports: Hx Arthritis, Hx Back Problems, Hx Osteoporosis Denies: Hx Rheumatoid Arthritis Sensory History: Reports: Hx Contacts or Glasses Opthamlomology History: Reports: Hx Contacts or Glasses Neurological History: Reports: Other Neuro Impairments/Disorders - RUPTURED DISKS, SPINAL STIMULATOR Denies: Hx Dementia, Hx Seizures Psychiatric History: Reports: Hx Anxiety, Hx Depression Denies: Hx Substance Abuse - Cancer History Hx Chemotherapy: No Hx Radiation Therapy: No - Surgical History Surgery Procedure, Year, and Place: SPINE stimulator, gall bladder removed, gastric bipass 2002, multiple ortho surgeries Hx Anesthesia Reactions: No - Immunization History Date of Tetanus Vaccine: utd Date of Influenza Vaccine: fall 2016 Infectious Disease History: No Infectious Disease History: Denies: Hx Clostridium Difficile, Hx Hepatitis, Hx Human Immunodeficiency Virus (HIV), Hx of Known/Suspected MRSA, Hx Shingles, Hx Tuberculosis, Hx Known/ Suspected VRE, Traveled Outside the [place] in Last 30 Days - Family History Known Family History: Positive: Cardiac Disease, Hypertension, Diabetes, Renal Disease, Other - brain CA - Social History Alcohol Use: None Hx Substance Use: No Substance Use Type: Reports: None Hx Tobacco Use: No Smoking Status (MU): Never Smoked Tobacco Have You Smoked in the Last Year: No Review of Systems Negative: Fever Positive: dysuria, flank pain. Negative: hematuria All Other Systems Reviewed And Are Negative: Yes Physical Exam - Summary Physical Exam Summary: Appearance: Well appearing, no pain distress, obese Skin: warm, dry, reflects adequate perfusion, scar in midline abdomen with chronic skin erosion, cat scratch RLQ, excoriated wound LLQ, several surgical scars on lower back Head/face: normal Eyes: EOMI, SANG ENT: mucous membranes moist Neck: supple, non-tender Respiratory: CTA, breath sounds present Cardiovascular: RRR, pulses symmetrical, 1-2+ bilateral pitting edema Abdomen: non-tender, soft, ventral hernia, no CVA tenderness, no reproducible abdominal pain Bowel Sounds: present Musculoskeletal: normal, strength/ROM intact, no muscular tenderness Neuro: normal, sensory motor intact, A&Ox3 Triage Information Reviewed: Yes Vital Signs On Initial Exam: Initial Vitals Temp Pulse Resp BP Pulse Ox 96.2 F 106 18 156/68 96 10/22/18 12:07 10/22/18 12:07 10/22/18 12:07 10/22/18 12:07 10/22/18 12:07 Vital Signs Reviewed: Yes Diagnostics - Vital Signs Vital Signs Temp Pulse Resp BP Pulse Ox 10/22/18 12:07 96.2 F 106 18 156/68 96 - Laboratory Result Diagrams: 10/22/18 12:26 10/22/18 12:26 Lab Statement: Any lab studies that have been ordered have been reviewed, and results considered in the medical decision making process. - Radiology Hip/Pelvis XR Radiology Interpretation Completed By: Radiologist Summary of Radiographic Findings: MILD BILATERAL OSTEOARTHRITIC CHANGE IN THE HIPS. ED physician reviewed radiology report. Re-Evaluation - Re-Evaluation First Eval Re-Evaluation Time: 13:27 Change: Unchanged Comment: Informed pt of the normal UA results. Pt has pain with walking. Will put a Lidoderm patch on. Second Eval Re-Evaluation Time: 15:10 Change: Improved Comment: Lidoderm patch alleviated the pain. Abdominal Pain Fem Course/Dx - Course Course Of Treatment: Nurse's note reviewed. Patient with chronic/persistent right flank pain and hip pain for at least one week. CT did one week ago and treated for UTI. IV Rocephin here and case partially treated. Urine is negative including no blood. X-ray of the hip shows constipation that right lower quadrant and some mild osteoarthritis. She is feeling much better with Lidoderm patch in the area. She is instructed to follow up closely with her primary care physician. She will also be treated for possible constipation with MiraLAX, etc. - Diagnoses Differential Diagnosis: Positive: Appendicitis, Irritable Bowel Syndrome, Ovarian Cyst, Renal Colic, Urinary Tract Infection, Other - Arthritis of the hip Provider Diagnoses: Osteoarthritis of right hip, Constipation, Right flank pain Discharge - Sign-Out/Discharge Documenting (check all that apply): Patient Departure - Discharge - Discharge Plan Condition: Improved Disposition: HOME Prescriptions: Bisacodyl SUPP* [Dulcolax Supp*] 10 mg AR DAILY PRN #5 supp PRN Reason: Constipation Polyethylene Glycol 3350* [Miralax*] 17 gm PO TID PRN #20 packet PRN Reason: Constipation Patient Education Materials: Flank Pain (ED) Referrals: Cortney Yeboah MD [Primary Care Provider] - Additional Instructions: If the Lidoderm patch works, will need to order. Call your doctor today to schedule prompt follow-up. Drink plenty of fluids, natural fruit juices may help. Return if worse, fevers, new symptoms or other concerns. - Billing Disposition and Condition Condition: IMPROVED Disposition: Home - Attestation Statements Document Initiated by Niko: Yes Documenting Scribe: Tarsha Weiner Provider For Whom Niko is Documenting (Include Credential): Ayaan Wick MD Scribe Attestation: Tarsha Hartman scribed for Ayaan Wick MD on 10/22/18 at 1835. Scribe Documentation Reviewed: Yes Provider Attestation: The documentation as recorded by the Tarsha falcon accurately reflects the service I personally performed and the decisions made by Ayaan emanuel MD Status of Scribe Document: Viewed
[2018-10-22 12:42] LABS: ABS Basophils 0.1 10^3/ul (0-0.2); ABS Eosinophils 0.2 10^3/ul (0-0.6); ABS Lymphocytes 1.8 10^3/ul (1.0-4.8); ABS Monocytes 0.6 10^3/ul (0-0.8); ABS Neutrophils 6.2 10^3/ul (1.5-7.7); ABS Nucleated RBC 0 10^3/ul; Eosinophil % 2.1 %; Hematocrit 34 % (35-47); Lymphocyte % 20.5 %; Mean Corpuscular HGB Conc 33 g/dl (31-36); Mean Corpuscular Hemoglobin 31 pg (27-31); Mean Corpuscular Volume 94 fL (80-97); Mean Platelet Volume 8.7 fL (7.4-10.4); Nucleated Red Blood Cells % 0; Platelet Count 322 10^3/ul (150-450); Red Blood Count 3.58 10^6/ul (4.00-5.40); Red Cell Distribution Width 15 % (10.5-15); White Blood Count 8.8 10^3/ul (3.5-10.8)
[2018-10-22 12:44] LABS: Urine Appearance Clear; Urine Blood Negative (Negative); Urine Color Straw; Urine Ketones Negative (Negative); Urine Protein Negative (Negative); Urine Specific Gravity 1.004 (1.010-1.030); Urine Urobilinogen Negative (Negative)
--- OUTSIDE RECORDS SUMMARY | 2018-10-22 12:48 | XMS REPORT | Continuity of Care Document ---
:1955 External Reference #:[id number] Author Name Laura Bowden Care Team Providers Name Role Phone Cortney Yeboah MD Care Team Information Operating Room Coordinator Unavailable Cortney Yeboah MD Primary Care Physician Unavailable Payers Type Date Identification Numbers Payment Provider Subscriber Effective: Policy Number: [id number] Raheel He Maurice 2013 Group Number: [id number] [address] PayID: [id number] [place] [address] Expires: 2013 Policy Number: [id number] Medicaid Cathy Muñoz PayID: [id number] [address] [place] [address] Advance Directives Type Date Description Status Comment ÁLVARO 07/06/2014 ÁLVARO Current and Verified Problems Date Description Provider Status Onset: 12/19/2013 [...] anterior abdominal wall Active Note: referred to [facility] by Dr. Thomson due to need of abdominoplasty Onset: 02/21/2016 Osteoporosis Cortney Yeboah M.D. Active Onset: 09/09/2016 Essential hypertension Cortney Yeboah M.D. Active Onset: 10/25/2016 Secondary hyperparathyroidism Cortney Yeboah M.D. Active Note: due to renal failure Dr. Herndon Onset: 07/31/2017 Peripheral vascular disease Anuradha Hope MD, [facility], Active [facility] Onset: 10/20/2018 Chronic kidney disease stage 3 Viri Larsen MD Active Onset: 10/12/2014 Osteopenia Cortney Yeboah M.D. Inactive [...] Years) Social History Type Date Description Comments Sex Unknown Marital Status Lives With Alone Occupation Disabled Tobacco Use Start: Unknown Never Smoked Cigarettes Smoking Status Reviewed: 09/15/18 Never Smoked Cigarettes ETOH Use Denies alcohol use Tobacco Use Start: Unknown Patient has never smoked Recreational Drug Use Denies Drug Use Exercise Type/Frequency Exercises regularly pt states she walks daily for about 30 minutes Allergies, Adverse Reactions, Alerts Date Description Reaction Status Severity Comments 01/13/2013 Alex Inhibitors Active cough 01/13/2013 Lipitor Active muscle weakness /pain in legs 01/13/2013 Diazepam Active 01/13/2013 Doxazosin Active 01/21/2013 Mushrooms Active 01/21/2013 Xanax Active 01/21/2013 Valium Active 11/02/2014 Sertraline suicidal effect Active 11/02/2014 Betadine Dermatologic reaction Active 11/02/2014 Erythromycin abdominal pain Active 11/02/2014 Fentanyl suicidal effects Active Medications Medication Date Status Form Strength Qnty SIG Indications Ordering Provider Shingrix 09/15 Active Suspension 50mcg/0.5M 1unit intramuscu Rec L s lar x 1 Obinna then Lorraine repeat in 4 months Bed Rails 11/12 Active 2unit as needed R29.6 s dx r29.6 Lorraine Yeboah Fergon 07/31 Active Tablets 240(27Fe) takes Marcis T. /2016 mg occasional Sodums, ly--1 , FACC, tablet [facility] daily Radha Allergy 06/26 Active Tablets 180mg 60tab 1 by mouth R05 s every day [place], as needed MKb Tompkinspen 01/15 Active Solution 100Unit/ML 45ml inject 50 Pen-Inject units and [place], 40 u PM M.DNighat BD Pen [place] 06/13 Active Misc 31G X 8 mm 100un for use Cortney Short/Ultrafine its with [place], 31G X 5/16" lant & Lorraine humalog pens daily Truetest Strips 11/23 Active Strips 100un Test four its times a [place], day if M.D. needed Cpap 07/13 Active Device Cortney /2015 Lorraine Yeboah Duloxetine HCL 08/[address] 30mg 1 by mouth [address] Urias Losartan 03/29 Active Tablets 25mg 90tab take 2 I10 Cortney s tablet [place], daily (pt M.D. states one 50 mg tab daily 02/20/18) Diltiazem HCL ER 03/29 Active Caps ER 120mg 90cap 1 by mouth Cortney Coated Beads 24HR s at bedtime Lorraine Yeboah Freestyle 02/21 Active Misc Freestyle 100un use 4 E66.09 Cortney Lancets Lancets its times a [place], day as M.D. directed dx 250.02 Freestyle Lite 02/21 Active Device 1unit check E66.09 Cortney Blood Glucose s fingerstic [place] Monitoring k daily M.D. System Freestyle Lite 02/21 Active Strip 100un use as E11.69 Cortney Test its directed [place], four times M.D. a day BD Insulin 07/21 Active Misc 29G X 1/2" 100un use as Cortney Syringe /2012 1 ML its directed [place], Safetyglide/1ML/ with M.D. 29G X 1/2" lantus Trueresult Blood 06/09 Active Kit w/Device 1unit use as Cortney Glucose s directed [place], Monitoring M.D. System Insulin 04/27 Active Misc 30G X 1box as Cortney Syringe/0.5ML/ 5/16" 0.5 directed [place], G X 5/16" ML M.D. Betoptic-S Active Suspension 0.25% 1 gtt OU Unknown / bid Xalatan Active Solution 0.005% right eye Unknown / twice a day Amrix Active Tablets 30 1 po q lizy Proair HFA Active Aerosol 108(90Base 1unit 2 puffs by Cortney /0000 ) mcg/Act s mouth [place], every 4 M.D. hours as needed Alpha Lipoic Active Capsules 200mg 1 cap po Unknown Acid / daily Systane Ultra Active Solution 0.4-0.3% 1 drop Unknown / each eye twice daily for dry eyes Grallse Active 300mg once a day Unknown / Potassium Active Tablets 595(99K) takes Unknown Gluconate /0000 mg prn---take 1 tablets by mouth in the morning Magnesium Oxide Active Tablets 250mg 1 by mouth Unknown -MG Supplement / every day as needed Turmeric Active Tablets 500mg daily Unknown Vitamin D Active Tablets 5000Units 4 by mouth E55.9 Unknown every day Oxycontin Active Tab ER 12H 10mg take 1 Abuse-Det tablet by mouth every 8 hours as directed maximum daily dose of Sodium Active Tablets 650mg one tid Unknown Bicarbonate Torsemide Active Tablets 20mg take 2 tablets by mouth once daily Cranberry Active Tablets 450mg 4 by mouth Unknown every day prn Fluarix Active Nessa 0.5ml inject 0.5 Unknown Quadrivalent / milliliter intramuscu larly Admelog Solostar Active Solution 100Unit/ML Inject Pen-Inject Daily as Directed on SS Requip Active Tablets 0.5mg 90tab take 1 to s 3 tabs at Yeboah, night for M.D. rls Bacitraycin Plus 06/11 Hx Ointment 500Unit/GM 1unit apply to S30.811A s wound Yeboah, - twice a M.D. Bacitracin Zinc 06/11 Hx Ointment 500Unit/GM 14.17 apply S30.811A 0gm twice a Yeboah, - day x 10 M.D. Ciprofloxacin 06/11 Hx Tablets 250mg 14tab take one N39.0 Cortney HCL s tablet Yeboah, - twice a M.D. 06/18 day for days. Cephalexin 11/12 Hx Capsules 250mg 15cap 1 cap 3 L03.311 s times a Yeboah, - day x 5 M.D. Bacitracin 11/12 Hx Ointment 500Unit/GM 14gm apply to Cortney (External) affected Yeboah, - areas on M.D. 02/19 the twice a day x 7 days Ciprofloxacin 04/14 Hx Tablets 500mg 10tab one by N39.0 Madalyn HCL s mouth Varn, - twice N.P. 04/19 daily for 5 days Cipro 04/08 Hx Tablets 500mg 14tab 1 by mouth Cortney s twice a Yeboah, - day for 7 M.D. Vitamin D 03/26 Hx Capsules 06989Suav 6caps once a E55.9 Cortney (Ergocalciferol) week Yeboah, - M.D. 08/07 Bacitracin 09/09 Hx Ointment 500Unit/GM 60gm apply to L03.818 Cortney (External) arm twice Yeboah, - a day x 10 M.D. Alendronate 02/20 Hx Tablets 70mg 12tab not M81.0 Cortney Sodium s taking--on Yeboah, - ce a week M.D. 02/19 Vitamin D 02/20 Hx Capsules 76409Wpzf 8caps 1 tab by E55.9 Cortney (Ergocalciferol) mouth Yeboah, - every week M.D. 01/15 Doxycycline 02/11 Hx Tablets 100mg 1 by mouth Unknown Hyclate twice a - day 02/21 Ergocalciferol 12/11 Hx Capsules 95465Nmqa 8caps 1 tab by Cortney mouth Yeboah, - every week M.D. 02/20 Truetest Test 11/23 Hx Strips 100un Test four its times a Yeboah, - day if M.D. 11/23 needed Ciprofloxacin 11/01 Hx Tablets 500mg 14tab 1 tab by R31.9 Cortney HCL s mouth Yeboah, - twice a M.D. Cipro 10/02 Hx Tablets 250mg 6tabs one by M54.5 Cortney nouth Yeboah, - twice M.D. 11/01 daily for 3 days Furosemide 10/02 Hx Tablets 20mg 7tabs 1 by mouth R60.9 Cortney every Yeboah, - other day M.D. 11/01 Fluconazole 07/13 Hx Tablets 100mg 7tabs 1 tab by 682.2 Cortney mouth Yeboah, - daily x 7 M.D. Mupirocin 02/09 Hx Ointment 2% 22gm apply on 682.9 affected [place], - area twice M.D. 05/29 daily for 10 days Cephalexin 01/25 Hx Tablets 250mg 20tab 1 by mouth 682.9 s twice a [place], - day M.D. 02/09 Lantus Solostar 12/26 Hx Solution 100Unit/ML 60uni inject 55 Pen-Inject ts u in the Yeboah, - morning 50 M.D. 01/15 u in at night Sulfamethoxazole 08/24 Hx Tablets 800-160mg 20tab take 1 tab 945.19 Zsofia /Trimethoprim DS s by mouth Seng, - twice a [employer] 08/24 day for days Cephalexin 08/24 Hx Capsules 500mg 30cap Take 1 tab 945.19 Zsofi s tid for 10 Seng, - days. [employer] 09/03 Silver 08/17 Hx Cream 1% 1unit apply 945.19 Cortney Sulfadiazine s twice a [place], - day to the M.D. 08/24 affected areas Celexa 07/28 Hx Tablets 10mg 90tab 1 by mouth s every day Rimma Yeboah M.DNighat 08/17 Duloxetine HCL 07/[address] 20mg 30cap take one 311 Part s capsule by [place], - mouth one M.D. 08/17 time daily Marlin-3 Complex 04/12 Hx Capsules 192-251-11 90cap once a day mg-mg-Unit s [place] - M.DNighat 12/13 Humalog Kwikpen 04/07 Hx Solution 100Unit/ML 45ml Refer to E66.09 Pen-Inject scanned Ob[place]na, - document, M.D. 09/15 sliding scale Marlin-3 & 0520 Hx Capsules 1200mg 90cap once a day 272.4 Cortney Marlin-6 Fish Oil s [place] - M.DNighat 01/25 Loratadine 03/29 Hx Tablets 10mg 90tab take 1 J30.9 s tablet [place], - daily as M.D. 02/02 needed for allergies Diltiazem HCL ER 02/21 Hx Caps ER 180mg 30cap 1 by mouth 24HR s every day [place], - M.D. 03/29 Gabapentin 11/18 Hx Capsules 300mg 90cap 1 po bid s - 04/19 Meclizine HCL 07/21 Hx Tablets 25mg 90tab 1 by mouth 850.0 Cortney /2013 s as needed [place], - every 12 M.D. 0524 hours as needed Truetest Strips 06/09 Hx Strips 100un [...] X 5 mm 100un use as Cortney Needle/Mini/ its directed [place] afcici/31G X - with M.D. 01/23" 06/13 lantus [...] - M.D. 04/27 Ergocalciferol 02/05 Hx Capsules [id number] 8caps 1 tab by mouth [place] - every week M.DNighat 07/21 Calcium 02/05 Hx Tablets 600mg 120ta 1 harinder bid bs Rimma Yeboah M.D. 07/21 Spinal 01/21 Hx Ocrtney Rimma Yeboah M.D. 05/23 Klor-Con 10 01/21 Hx Tablets ER 10Meq 90tab 1 by mouth s every day Rimma Yeboah M.D. 02/20 Xanax Hx Tablets 0.5mg 30tab po tid prn Unknown / s - 01/21 Miralax Hx Packet [id number] 1mon 17 gm qd Unknown / prn - 07/21 Orphenadrine Hx Tablets ER 100mg 20tab po bid prn Unknown Citrate CR /0000 12HR s - 01/21 Xalatan Hx Solution 0.005% ou qhs 1 Unknown / ggt R eye - 02/25 Multivitamins Hx [...] Oil Hx Capsules 1 po qd Unknown / - 07/21 Meclizine HCL Hx Tablets 12.5mg 12tab tid prn Unknown / s - 11/18 Aspir-[address] 81mg 1 po qd Unknown / - 11/18 Lovaza Hx Capsules 1gm 60cap 1 by mouth Cortney /0000 s twice a [place] - MNighatDNighat 03/29 Oxycontin Hx Tablets ER 30mg 60tab 1 po tid Unknown /0000 12HR s - 04/27 Oxycodone HCL 00/ Hx Tablets 10mg 120ta 1 tablet Unknown /0000 bs po q4hrs - prn 04/27 Flexeril Hx Tablets 10mg 30tab 1.5 tabs Unknown /0000 s po bid prn - 10/12 Gabapentin 00 Hx Capsules 300mg 90cap 1 po tid Unknown /0000 s - 11/05 Bactrim DS Hx Tablets 800-160mg 14tab 1 po bid Unknown /0000 s for 14 - days 01/21 Zioptan Hx Solution 0.0015% once daily Unknown /0000 right eye - at hs 07/21 Preservative Hx both eyes Unknown Free Tears /0000 4 times a - day 07/21 Oxycontin / Hx Tablets ER 20mg 1 tab bid Unknown /0000 12HR - 11/[address] 30mg 90cap 1 po qd Cortney /0000 Part s Rimma Yeboah M.D. 04/07 Oxycontin 00 Hx 10mg bid Unknown /0000 - 10/03 Aspirin / Hx Tablets 81mg one tab Unknown /0000 daily - 01/08 Iron 00/ Hx Tablets Unknown /0000 - 12/13 Vitamin D High Hx Capsules Unknown Potency /0000 - 10/03 Diltiazem CD Hx Caps ER 180mg 90cap 1 po qd Cortney /0000 24HR s Rimma Yeboah M.D. 02/21 Gralise 00/ Hx Tablets 300mg one po at Unknown /0000 hs - 10/03 Oxycodone HCL ER 00/00 Hx Capsules 15mg 40cap one tab Unknown /0000 s twice - daily 10/03 Oxycontin 00/ Hx Tab ER 12H 20mg 60tab Not Taking Unknown /0000 Abuse-Det s 1 by - mouth 01/15 twice daily Cymbalta Hx Caps DR 30mg 90cap 1 by mouth Unknown /0000 Part s every day - 12/13 Duloxetine HCL Hx Caps DR 30mg 1 by mouth 311 Unknown /0000 Part every day - Dr. Urias 12/13 Cholecalciferol Hx Pill 5,000Units one daily Unknown /0000 - 02/19 Cyclobenzaprine Hx Tablets 10mg 30tab one by Unknown HCL /0000 s mouth - three 12/12 times day as needed spasm Gabapentin 00 Hx Capsules 300mg 1 by mouth Unknown /0000 at bedtime - 12/13 Gralise 00 Hx Tablets 300mg 1 po qd Unknown /0000 - 04/02 Iron Supplement Hx Tablets 325(65Fe) by mouth Unknown /0000 mg every day - 02/19 Vitamin D Hx Tablets 5000Unit 6 by mouth Unknown /0000 every day - 08/07 Magnesium 00/ Hx Capsules otc once a Unknown /0000 day - 11/23 Potassium /00 Hx Tablets 1 tab by Unknown /0000 mouth - every 11/23 other OTC Cranberry Hx Capsules 2 tabs Unknown /0000 with every - meal 04/02 Iron 00 Hx Tablets 325(65Fe) 1 by mouth Unknown /0000 mg every day - 06/25 Furosemide Hx Tablets 20mg take 1 Unknown /0000 tablet by - mouth once 02/20 daily 7 days then 1 tablet every other day . Takes as needed Omeprazole [address] 20mg 30cap Cortney /0000 Rimma Kruse M.D. 04/02 Furosemide / Hx Tablets 20mg 1 by mouth Unknown /0000 every - morning as 10/17 Niacin / Hx Tablets 1 by mouth Unknown /0000 every day - 04/02 Claritin-D 12 Hx Tablets ER 5-120mg prn Unknown Hour /0000 12HR - 06/26 Lasix Hx Tablets 20mg 1 by mouth Unknown /0000 every - other day 06/25 Klor-Con 10 Hx Tablets ER 10Meq 1 by mouth Unknown /0000 every day - 06/25 Tramadol HCL 00/00 Hx Tablets 50mg 1-2 Unknown /0000 tablets - every 6 07/05 hours needed Bactrim DS 00/00 Hx Tablets 800-160mg 1 by mouth Unknown /0000 twice a - day 06/25 Niacin / Hx Tablets 500mg 1 by mouth Unknown /0000 every day - 07/08 Otoe Hx Tablets 650mg Unknown /0000 - 12/11 Oxycodone HCL Hx Tablets 10mg 1 by mouth Unknown /0000 every 6 - hours as 12/11 pain Benadryl Hx Capsules 25mg taking 2 Unknown /0000 bid - currently- 07/08 ----- tab by mouth at bedtime as needed Cephalexin Hx Capsules 500mg bid Unknown /0000 - 07/10 Immunizations CPT Code Status Date Vaccine Lot # [id number] Given 08/12/2018 Fluzone High Dose [id number] Given 08/07/2017 Influenza Virus Vaccine, Quadrivalent, Split, [id number] Preservative Free 66312 Given 09/13/2016 Influenza Virus Vaccine, Quadrivalent, Split, Preservative Free [id number] Given 08/25/2015 Flu Vaccine NOS 60098 Given 01/25/2015 Pneumococcal Conjugate Vaccine 13 Valent For [id number] Intramuscular Use 77045 Given 08/17/2014 Influenza Virus Vaccine, Quadrivalent, Split, [id number] Preservative Free 05829 Given 07/06/2014 Zoster (Zostavax) [id number] 89316 Given 07/21/2013 Influenza Virus 3Yrs & Over 11299 Given 02/25/2013 Pneumonia Vaccine [id number] Refused 09/09/2016 Influenza Virus Vaccine, Quadrivalent, Split Virus , Im Use Vital Signs Date Vital Result Comment 09/15/2018 10:33am Height 66 inches 5'6" Weight 268.00 lb Heart Rate 98 /min BP Systolic Sitting 120 mmHg BP Diastolic Sitting 78 mmHg O2 % BldC Oximetry 98 % BMI (Body Mass Index) 43.3 kg/m2 07/08/2018 1:25pm Height 66 inches 5'6" Weight 280.00 lb Heart Rate 96 /min BP Systolic Sitting 128 mmHg BP Diastolic Sitting 58 mmHg O2 % BldC Oximetry 97 % BMI (Body Mass Index) 45.2 kg/m2 06/11/2018 11:41am Height 66 inches 5'6" Weight 262.00 lb Heart Rate 105 /min BP Systolic Sitting 118 mmHg BP Diastolic Sitting 78 mmHg O2 % BldC Oximetry 97 % BMI (Body Mass Index) 42.3 kg/m2 05/14/2018 8:25am Height 66 inches 5'6" Weight 278.00 lb Heart Rate 89 /min BP Systolic Sitting 126 mmHg BP Diastolic Sitting 64 mmHg O2 % BldC Oximetry 98 % BMI (Body Mass Index) 44.9 kg/m2 03/27/2018 11:00am Height 66 inches 5'6" Weight 279.38 lb Heart Rate 88 /min BP Systolic Sitting 130 mmHg Rue large cuff BP Diastolic Sitting 82 mmHg Rue large cuff Respiratory Rate 14 /min O2 % BldC Oximetry 98 % On Ra BMI (Body Mass Index) 45.1 kg/m2 03/10/2018 1:39pm Height 66 inches 5'6" Weight 277.00 lb w/ shoes Heart Rate 82 /min reg BP Systolic Sitting 112 mmHg Lue BP Diastolic Sitting 70 mmHg Lue Respiratory Rate 16 /min BMI (Body Mass Index) 44.7 kg/m2 Ejection Fraction 50-55% as of 12/2014 echo 02/20/2018 9:54am Height 66 inches 5'6" Weight 295.00 lb Heart Rate 90 /min BP Systolic Sitting 130 mmHg Lue large cuff BP Diastolic Sitting 66 mmHg Lue large cuff Respiratory Rate 16 /min O2 % BldC Oximetry 97 % On Ra BMI (Body Mass Index) 47.6 kg/m2 02/02/2018 4:40pm Heart Rate 112 /min BP Systolic Sitting 138 mmHg BP Diastolic Sitting 75 mmHg O2 % BldC Oximetry 99 % 11/12/2017 11:46am Weight 282.00 lb Heart Rate 90 /min BP Systolic Sitting 104 mmHg BP Diastolic Sitting 60 mmHg Body Temperature 97.7 F O2 % BldC Oximetry 95 % 08/07/2017 10:35am Weight 284.25 lb Heart Rate 87 /min BP Systolic Sitting 150 mmHg BP Diastolic Sitting 98 mmHg Body Temperature 98.0 F O2 % BldC Oximetry 98 % 07/31/2017 9:02am Height 67 inches 5'7" Weight 275.00 lb with out shoes Heart Rate 110 /min reg BP Systolic Sitting 160 mmHg Lue lg cuff BP Diastolic Sitting 80 mmHg Lue lg cuff Respiratory Rate 18 /min BMI (Body Mass Index) 43.1 kg/m2 Ejection Fraction 50-55% date 01/05/15 ECHO 06/26/2017 10:44am Weight 280.12 lb Heart Rate 90 /min BP Systolic Sitting 140 mmHg BP Diastolic Sitting 68 mmHg Body Temperature 98.8 F O2 % BldC Oximetry 98 % 04/22/2017 2:45pm Weight 285.38 lb Heart Rate 107 /min BP Systolic 140 mmHg BP Diastolic 80 mmHg Body Temperature 98.7 F O2 % BldC Oximetry 97 % 04/14/2017 11:16am Weight 259.00 lb Heart Rate 121 /min BP Systolic 120 mmHg BP Diastolic 62 mmHg Body Temperature 98.2 F O2 % BldC Oximetry 99 % 04/03/2017 1:58pm Height 67 inches 5'7" Weight 276.25 lb with shoes BP Systolic 126 mmHg LA lrg cuff BP Diastolic 70 mmHg LA lrg cuff BMI (Body Mass Index) 43.3 kg/m2 Ejection Fraction 50% - 55% echo 01/05/15 03/26/2017 10:32am Weight 274.25 lb Heart Rate 108 /min BP Systolic 140 mmHg BP Diastolic 76 mmHg Body Temperature 98.2 F O2 % BldC Oximetry 98 % 01/15/2017 11:27am Weight 261.25 lb Heart Rate 102 /min BP Systolic Sitting 152 mmHg 138/80 BP Diastolic Sitting 90 mmHg 138/80 Body Temperature 99.0 F O2 % BldC Oximetry 92 % 10/17/2016 10:52am Weight 266.25 lb Heart Rate 101 /min BP Systolic 140 mmHg BP Diastolic 70 mmHg Body Temperature 98.2 F O2 % BldC Oximetry 98 % 09/09/2016 10:56am Weight 264.00 lb Heart Rate 112 /min BP Systolic Sitting 130 mmHg BP Diastolic Sitting 74 mmHg Body Temperature 97.4 F O2 % BldC Oximetry 98 % 06/06/2016 10:46am Weight 268.50 lb Heart Rate 98 /min BP Systolic 130 mmHg BP Diastolic 80 mmHg Body Temperature 97.0 F O2 % BldC Oximetry 98 % 03/05/2016 11:17am Weight 269.00 lb Heart Rate 93 /min BP Systolic Sitting 127 mmHg BP Diastolic Sitting 70 mmHg Body Temperature 97.3 F 02/21/2016 1:22pm Weight 269.00 lb Heart Rate 99 /min BP Systolic Sitting 152 mmHg BP Diastolic Sitting 79 mmHg Body Temperature 97.6 F 01/02/2016 3:13pm Height 66 inches 5'6" Weight 260.50 lb with out shoes Heart Rate 88 /min BP Systolic Sitting 164 mmHg LA lg cuff BP Diastolic Sitting 82 mmHg LA lg cuff Respiratory Rate 17 /min BMI (Body Mass Index) 42.0 kg/m2 Ejection Fraction 50-55% date 01/05/15 ECHO 12/15/2015 3:50pm Height 66 inches 5'6" Weight 264.00 lb Heart Rate 99 /min BP Systolic Sitting 130 mmHg BP Diastolic Sitting 80 mmHg Respiratory Rate 14 /min Body Temperature 98.0 F O2 % BldC Oximetry 97 % BMI (Body Mass Index) 42.6 kg/m2 11/23/2015 1:12pm Height 66 inches 5'6" Weight 250.00 lb Heart Rate 91 /min BP Systolic Sitting 122 mmHg BP Diastolic Sitting 60 mmHg Body Temperature 97.8 F O2 % BldC Oximetry 98 % BMI (Body Mass Index) 40.3 kg/m2 11/01/2015 10:07am Height 66 inches 5'6" Weight 263.00 lb Heart Rate 80 /min BP Systolic Sitting 128 mmHg BP Diastolic Sitting 80 mmHg Respiratory Rate 15 /min Body Temperature 98.5 F O2 % BldC Oximetry 98 % BMI (Body Mass Index) 42.4 kg/m2 10/13/2015 1:07pm Height 66 inches 5'6" Weight 275.00 lb Heart Rate 94 /min BP Systolic 150 mmHg BP Diastolic 80 mmHg Respiratory Rate 16 /min O2 % BldC Oximetry 98 % BMI (Body Mass Index) 44.4 kg/m2 10/12/2015 11:06am Height 66 inches 5'6" Weight 275.00 lb Heart Rate 76 /min BP Systolic Sitting 128 mmHg BP Diastolic Sitting 84 mmHg Respiratory Rate 14 /min Body Temperature 98.6 F O2 % BldC Oximetry 98 % BMI (Body Mass Index) 44.4 kg/m2 10/02/2015 1:16pm Height 66 inches 5'6" Weight 262.00 lb Heart Rate 105 /min BP Systolic Sitting 114 mmHg BP Diastolic Sitting 74 mmHg Body Temperature 98.6 F Pain Level 7 R flank O2 % BldC Oximetry 98 % BMI (Body Mass Index) 42.3 kg/m2 07/19/2015 3:31pm Height 66 inches 5'6" Weight 259.00 lb Pain Level 10 BMI (Body Mass Index) 41.8 kg/m2 07/13/2015 11:50am Weight 259.00 lb Heart Rate 94 /min BP Systolic Sitting 124 mmHg BP Diastolic Sitting 64 mmHg Body Temperature 98.9 F O2 % BldC Oximetry 97 % 07/12/2015 2:01pm Heart Rate 91 /min BP Systolic 130 mmHg BP Diastolic 70 mmHg Respiratory Rate 14 /min O2 % BldC Oximetry 98 % 05/29/2015 1:15pm Weight 263.00 lb Heart Rate 105 /min BP Systolic Sitting 118 mmHg BP Diastolic Sitting 76 mmHg Body Temperature 97.7 F 04/24/2015 2:03pm Heart Rate 99 /min BP Systolic Sitting 149 mmHg BP Diastolic Sitting 82 mmHg Respiratory Rate 20 /min O2 % BldC Oximetry 98 % 02/21/2015 1:25pm Height 66 inches 5'6" Weight 265.00 lb Heart Rate 82 /min BP Systolic Sitting 150 mmHg Ra, large BP Diastolic Sitting 80 mmHg Ra, large BMI (Body Mass Index) 42.8 kg/m2 02/09/2015 10:48am Height 66 inches 5'6" Weight 265.00 lb Heart Rate 96 /min Body Temperature 98.1 F O2 % BldC Oximetry 97 % BMI (Body Mass Index) 42.8 kg/m2 02/08/2015 10:05am Height 66 inches 5'6" Weight 289.00 lb Heart Rate 96 /min BP Systolic Sitting 130 mmHg BP Diastolic Sitting 68 mmHg O2 % BldC Oximetry 98 % BMI (Body Mass Index) 46.6 kg/m2 01/25/2015 12:01pm Weight 262.00 lb Heart Rate 113 /min BP Systolic Sitting 152 mmHg 122/80 on recheck BP Diastolic Sitting 80 mmHg 122/80 on recheck Body Temperature 97.7 F 12/13/2014 10:50am Height 66 inches 5'6" Weight 241.00 lb Heart Rate 80 /min BP Systolic Sitting 122 mmHg LA, large BP Diastolic Sitting 84 mmHg LA, large BMI (Body Mass Index) 38.9 kg/m2 11/18/2014 10:38am Height 66 inches 5'6" Weight 254.00 lb Heart Rate 108 /min BP Systolic Sitting 148 mmHg BP Diastolic Sitting 92 mmHg Respiratory Rate 22 /min Body Temperature 97.8 F O2 % BldC Oximetry 97 % BMI (Body Mass Index) 41.0 kg/m2 Neck Circumference in inches 15.5 10/27/2014 10:42am Weight 263.00 lb Heart Rate 96 /min BP Systolic Sitting 114 mmHg BP Diastolic Sitting 64 mmHg Body Temperature 98.4 F 10/12/2014 11:01am Weight 252.00 lb Heart Rate 90 /min BP Systolic Sitting 138 mmHg BP Diastolic Sitting 80 mmHg 08/31/2014 11:46am Weight 260.00 lb Heart Rate 92 /min BP Systolic Sitting 118 mmHg BP Diastolic Sitting 71 mmHg Body Temperature 97.6 F Pain Level 9 knees 08/24/2014 9:42am Weight 254.00 lb Heart Rate 92 /min BP Systolic Sitting 128 mmHg BP Diastolic Sitting 74 mmHg Body Temperature 97.6 F O2 % BldC Oximetry 98 % 08/17/2014 12:03pm Weight 254.00 lb Heart Rate 84 /min BP Systolic Sitting 138 mmHg BP Diastolic Sitting 82 mmHg 07/06/2014 11:07am Weight 247.50 lb Heart Rate 90 /min BP Systolic Sitting 130 mmHg BP Diastolic Sitting 76 mmHg O2 % BldC Oximetry 98 % 06/02/2014 1:43pm Weight 246.00 lb Heart Rate 74 /min BP Systolic Sitting 124 mmHg BP Diastolic Sitting 80 mmHg 04/20/2014 1:39pm Weight 243.00 lb Heart Rate 86 /min BP Systolic Sitting 124 mmHg BP Diastolic Sitting 82 mmHg Body Temperature 98.5 F 04/18/2014 12:25pm Weight 244.00 lb Heart Rate 108 /min BP Systolic Standing 122 mmHg BP Diastolic Standing 68 mmHg Body Temperature 98.0 F O2 % BldC Oximetry 98 % 04/07/2014 10:51am Weight 250.00 lb Heart Rate 80 /min BP Systolic Sitting 124 mmHg BP Diastolic Sitting 62 mmHg Body Temperature 98.2 F 03/29/2014 12:29pm Weight 243.00 lb Heart Rate 64 /min BP Systolic Sitting 148 mmHg BP Diastolic Sitting 84 mmHg 11/18/2013 9:53am Height 66.75 inches 5'6.75" Weight 251.00 lb Heart Rate 83 /min BP Systolic Sitting 120 mmHg BP Diastolic Sitting 64 mmHg Body Temperature 97.9 F BMI (Body Mass Index) 39.6 kg/m2 07/21/2013 10:40am Height 66.75 inches 5'6.75" Weight 237.75 lb Heart Rate 112 /min BP Systolic Sitting 156 mmHg BP Diastolic Sitting 64 mmHg BMI (Body Mass Index) 37.5 kg/m2 04/27/2013 1:43pm Weight 240.25 lb Heart Rate 126 /min BP Systolic Sitting 139 mmHg BP Diastolic Sitting 94 mmHg 02/25/2013 1:20pm Height 66.5 inches 5'6.50" Weight 252.75 lb Heart Rate 98 /min BP Systolic Sitting 120 mmHg BP Diastolic Sitting 74 mmHg BMI (Body Mass Index) 40.2 kg/m2 02/04/2013 9:59am Weight 255.75 lb Heart Rate 96 /min BP Systolic Sitting 126 mmHg BP Diastolic Sitting 68 mmHg 01/21/2013 9:11am Height 66 inches 5'6" Weight 255.25 lb Heart Rate 106 /min BP Systolic Sitting 124 mmHg BP Diastolic Sitting 72 mmHg Body Temperature 97.6 F O2 % BldC Oximetry 95 % BMI (Body Mass Index) 41.2 kg/m2 01/14/2013 3:03pm Height 66 inches 5'6" Weight 251.00 lb BP Systolic 118 mmHg BP Diastolic 76 mmHg Body Temperature 97.6 F BMI (Body Mass Index) 40.5 kg/m2 Results Test Date Facility Test Result H/L Range Note Ua Routine 06/11/2018 [facility] Ua Specific Jackman 1.015 Ua PH 5 Ua Color dark yellow Ua Appera cloudy Ua WBC ++ Ua Protein 100++ Ua Glucose norm Ua Ketones - Ua Bilirubin - Ua Urobilinogen norm Ua Nitrite + Ua Occult Blood trace Urine Culture And 06/11/2018 [facility] Urine Culture SEE RESULT [address] [place] [address] [phone] Laboratory test 05/14/2018 [facility] Hemoglobin A1c 7.5 High 5-7 finding Urine Culture And 05/14/2018 [facility] Urine Culture SEE RESULT [address] [place] [address] [phone] Urinalysis Profile 05/14/2018 [facility] Urine Color Yellow [address] [place] [address] [phone] Urine Appearance Cloudy Urine Specific Jackman 1.010 N 1.010-1.030 Urine pH 5.0 N 5-9 Urine Urobilinogen Negative Negative Urine Ketones Negative Negative Urine Protein 1+(30 mg/dL) Abnormal Negative Urine Leukocytes 3+ Abnormal Negative Urine Blood Negative Negative Urine Nitrite Positive Abnormal Negative Urine Bilirubin Negative Negative Urine Glucose Negative Negative Urine White Blood Cell 3+(>20/hpf) Abnormal Absent Urine Red Blood Cell 2+(6-10/hpf) Abnormal Absent Urine Bacteria 1+ Abnormal Absent Urine Squamous Epithelial Cell Present Abnormal Absent Laboratory test 05/14/2018 [facility] Lipase < 10 U/L Low 11.0 -82.[address] [place] [address] [phone] C Reactive Protein 16.66 mg/L High <8.01 Comp Metabolic Panel 05/14/2018 [facility] Sodium 138 mmol/L N 135-[address] [place] [address] [phone] Potassium 4.0 mmol/L N 3.5-5.0 Chloride 110 mmol/L N 101-111 Co2 Carbon Dioxide 22 mmol/L N 22-32 Anion Gap 6 mmol/L N 2-11 Glucose 52 mg/dL Low 70-100 Blood Urea Nitrogen 19 mg/dL N 6-24 Creatinine 1.36 mg/dL High 0.51-0.95 BUN/Creatinine Ratio 14.0 N 8-20 Calcium 8.0 mg/dL Low 8.6-10.3 Total Protein 6.5 g/dL N 6.4-8.9 Albumin 3.0 g/dL Low 3.2-5.2 Globulin 3.5 g/dL N 2-4 Albumin/Globulin Ratio 0.9 Low 1-3 Total Bilirubin 0.20 mg/dL N 0.2-1.0 Alkaline Phosphatase 101 U/L N 34-104 Alt 10 U/L N 7-52 Ast 18 U/L N 13-39 Egfr Non- 39.1 >60 Egfr 47.4 >60 3 Laboratory test 05/14/2018 [facility] Partial 28.5 seconds N 26.0-36.[address] [place] [address] PTT [phone] Inr/Protime 05/14/2018 [facility] Inr 0.95 N 0.77-1.[address] [place] [address] [phone] Laboratory test 05/14/2018 [facility] Lactic Acid 1.1 mmol/L N 0.5-2.[address] [place] [address] [phone] B-Type Natriuretic Peptide BNP 98 pg/mL 5 CBC Auto Diff 05/14/2018 [facility] White Blood 7.9 10^3/uL N 3.5-10.[address] [place] [address] [phone] Red Blood Count 2.95 10^6/uL Low 4.00-5.40 Hemoglobin 8.1 g/dL Low 12.0-16.0 Hematocrit 25 % Low 35-47 Mean Corpuscular Volume 85 fL N 80-97 Mean Corpuscular Hemoglobin 28 pg N 27-31 Mean Corpuscular HGB Conc 32 g/dL N 31-36 Red Cell Distribution Width 16 % High 10.5-15 Platelet Count 362 10^3/uL N 150-450 Mean Platelet Volume 8.1 um3 N 7.4-10.4 Abs Neutrophils 5.4 10^3/uL N 1.5-7.7 Abs Lymphocytes 1.6 10^3/uL N 1.0-4.8 Abs Monocytes 0.6 10^3/uL N 0-0.8 Abs Eosinophils 0.2 10^3/uL N 0-0.6 Abs Basophils 0 10^3/uL N 0-0.2 Abs Nucleated RBC 0 10^3/uL Granulocyte % 68.8 % N 38-83 Lymphocyte % 20.5 % Low 25-47 Monocyte % 7.4 % High 0-7 Eosinophil % 2.9 % N 0-6 Basophil % 0.4 % N 0-2 Nucleated Red Blood Cells % 0.1 Laboratory test 11/12/2017 [facility] Hemoglobin A1c 8.1 High 5-7 finding Laboratory test 08/07/2017 [facility] Hemoglobin A1c 9.9 High 5-7 finding Lipid Profile 07/02/2017 [facility] Triglycerides 210 mg/dL N 6 (Trig/Chol/HDL) [address] [place] [address] [phone] Cholesterol 186 mg/dL N 7 HDL Cholesterol 38.0 mg/dL N 8 LDL Cholesterol 106 mg/dL N 9 Laboratory test 07/02/2017 [facility] Ferritin 22.3 ng/mL N 11 -[address] [place] [address] [phone] CBC Auto Diff 07/02/2017 [facility] White Blood 8.0 10^3/uL N 3.5-10.[address] [place] [address] [phone] Red Blood Count 3.92 10^6/uL Low 4.0-5.4 Hemoglobin 11.5 g/dL Low 12.0-16.0 Hematocrit 35 % N 35-47 Mean Corpuscular Volume 89 fL N 80-97 Mean Corpuscular Hemoglobin 29 pg N 27-31 Mean Corpuscular HGB Conc 33 g/dL N 31-36 Red Cell Distribution Width 14 % N 10.5-15 Platelet Count 306 10^3/uL N 150-450 Mean Platelet Volume 9 um3 N 7.4-10.4 Abs Neutrophils 5.4 10^3/uL N 1.5-7.7 Abs Lymphocytes 1.8 10^3/uL N 1.0-4.8 Abs Monocytes 0.6 10^3/uL N 0-0.8 Abs Eosinophils 0.2 10^3/uL N 0-0.6 Abs Basophils 0.1 10^3/uL N 0-0.2 Abs Nucleated RBC 0 10^3/uL N Granulocyte % 67.2 % N 38-83 Lymphocyte % 22.6 % Low 25-47 Monocyte % 7.4 % N 1-9 Eosinophil % 2.1 % N 0-6 Basophil % 0.7 % N 0-2 Nucleated Red Blood Cells % 0 N Comp Metabolic Panel 07/02/2017 [facility] Sodium 135 mmol/L N 133-[address] [place] [address] [phone] Potassium 4.0 mmol/L N 3.5-5.0 Chloride 106 mmol/L N 101-111 Co2 Carbon Dioxide 22 mmol/L N 22-32 Anion Gap 7 mmol/L N 2-11 Glucose 186 mg/dL High 70-100 Blood Urea Nitrogen 22 mg/dL N 6-24 Creatinine 1.35 mg/dL High 0.51-0.95 BUN/Creatinine Ratio 16.3 N 8-20 Calcium 8.6 mg/dL N 8.6-10.3 Total Protein 6.9 g/dL N 6.4-8.9 Albumin 3.4 g/dL N 3.2-5.2 Globulin 3.5 g/dL N 2-4 Albumin/Globulin Ratio 1.0 N 1-3 Total Bilirubin 0.30 mg/dL N 0.2-1.0 Alkaline Phosphatase 98 U/L N 34-104 Alt 17 U/L N 7-52 Ast 25 U/L N 13-39 Egfr Non- 39.6 N >60 Egfr 50.9 N >60 10 Laboratory test 07/02/2017 [facility] Vitamin D Total 24.7 ng/ mL Low 30-[address] 25(Oh) [place] [address] [phone] Urine Microalbumin 06/26/2017 [facility] Urine 65.75 N Random [address] Creatinine mg/[place] [address] [phone] Ur Microalbumin (mg/L) 354.3 mg/L N Urine Microalbumin/Creatinine 538.8 ug/mg High <31 Laboratory test 05/18/2017 [facility] Epifix 18 SEE RESULTS 11, [address] BELO <[place] [address] NOTE> [phone] CBC Auto Diff 04/14/2017 [facility] White Blood 10.0 10^3/uL N 3.5-[address] Count 0.8 [place] [address] [phone] Red Blood Count 3.81 10^6/uL Low 4.0-5.4 Hemoglobin 11.3 g/dL Low 12.0-16.0 Hematocrit 34 % Low 35-47 Mean Corpuscular Volume 90 fL N 80-97 Mean Corpuscular Hemoglobin 30 pg N 27-31 Mean Corpuscular HGB Conc 33 g/dL N 31-36 Red Cell Distribution Width 14 % N 10.5-15 Platelet Count 273 10^3/uL N 150-450 Mean Platelet Volume 9 um3 N 7.4-10.4 Abs Neutrophils 7.1 10^3/uL N 1.5-7.7 Abs Lymphocytes 2.1 10^3/uL N 1.0-4.8 Abs Monocytes 0.6 10^3/uL N 0-0.8 Abs Eosinophils 0.2 10^3/uL N 0-0.6 Abs Basophils 0.1 10^3/uL N 0-0.2 Abs Nucleated RBC 0 10^3/uL N Granulocyte % 70.9 % N 38-83 Lymphocyte % 21.1 % Low 25-47 Monocyte % 5.9 % N 1-9 Eosinophil % 1.5 % N 0-6 Basophil % 0.6 % N 0-2 Nucleated Red Blood Cells % 0 N Basic Metabolic 04/14/2017 [facility] Sodium 129 mmol/L Low 133-[address] [place] [address] [phone] Potassium 4.1 mmol/L N 3.5-5.0 Chloride 99 mmol/L Low 101-111 Co2 Carbon Dioxide 18 mmol/L Low 22-32 Anion Gap 12 mmol/L High 2-11 Glucose 273 mg/dL High 70-100 Blood Urea Nitrogen 42 mg/dL High 6-24 Creatinine 1.58 mg/dL High 0.51-0.95 BUN/Creatinine Ratio 26.6 High 8-20 Calcium 8.2 mg/dL Low 8.6-10.3 Egfr Non- 33.1 N >60 Egfr 42.6 N >60 13 Laboratory test 04/14/2017 [facility] D Dimer > 1050 High Less [address] Quantitative ng/mL Than [address] [place] [address] [phone] TSH (Thyroid Stim Horm) 2.28 mcIU/mL N 0.34-5.60 B-Type Natriuretic Peptide BNP 30 pg/mL N 15 Urine Culture And 04/14/2017 [facility] Urine Culture SEE RESULT [address] [place] [address] [phone] Ua Routine 04/14/2017 [facility] Ua Specific 1.015 [place] Ua PH 5 Ua Color yellow Ua Appera cloudy Ua WBC pos Ua Protein 30+ Ua Glucose 1000 Ua Ketones neg Ua Bilirubin neg Ua Urobilinogen neg Ua Nitrite neg Ua Occult Blood about 50 Urine Culture And 04/08/2017 [facility] Urine Culture SEE RESULT [address] [place] [address] [phone] Urinalysis Profile 04/08/2017 [facility] Urine Color Yellow N [address] [place] [address] [phone] Urine Appearance Cloudy N Urine Specific Jackman 1.011 N 1.010-1.030 Urine pH 5.0 N 5-9 Urine Urobilinogen Negative N Negative Urine Ketones Negative N Negative Urine Protein 2+(100 mg/dL) Abnormal Negative Urine Leukocytes 3+ Abnormal Negative Urine Blood Negative N Negative Urine Nitrite Negative N Negative Urine Bilirubin Negative N Negative Urine Glucose 2+(150 mg/dL) Abnormal Negative Urine White Blood Cell 3+(>20/hpf) Abnormal Absent Urine Red Blood Cell 2+(6-10/hpf) Abnormal Absent Urine Bacteria 1+ Abnormal Absent Urine Squamous Epithelial Cell Present Abnormal Absent Laboratory test finding 04/08/2017 [facility] Amylase 51 U/L N 29-[address] [place] [address] [phone] Lipase 23 U/L N 11.0-82.0 C Reactive Protein 9.45 mg/L High < 5.00 18 Comp Metabolic Panel 04/08/2017 [facility] Sodium 131 mmol/L Low 133-[address] [place] [address] [phone] Potassium 5.4 mmol/L High 3.5-5.0 Chloride 104 mmol/L N 101-111 Co2 Carbon Dioxide 22 mmol/L N 22-32 Anion Gap 5 mmol/L N 2-11 Glucose 154 mg/dL High 70-100 Blood Urea Nitrogen 27 mg/dL High 6-24 Creatinine 1.60 mg/dL High 0.51-0.95 BUN/Creatinine Ratio 16.9 N 8-20 Calcium 8.4 mg/dL Low 8.6-10.3 Total Protein 7.1 g/dL N 6.4-8.9 Albumin 3.5 g/dL N 3.2-5.2 Globulin 3.6 g/dL N 2-4 Albumin/Globulin Ratio 1.0 N 1-3 Total Bilirubin 0.20 mg/dL N 0.2-1.0 Alkaline Phosphatase 96 U/L N 34-104 Alt 21 U/L N 7-52 Ast 29 U/L N 13-39 Egfr Non- 32.7 N >60 Egfr 42.0 N >60 19 Laboratory test 04/08/2017 [facility] Lactic Acid 1.1 mmol/L N 0.5-2.[address] [place] [address] [phone] CBC Auto Diff 04/08/2017 [facility] White Blood 8.1 10^3/uL N 3.5-10.[address] [place] [address] [phone] Red Blood Count 3.65 10^6/uL Low 4.0-5.4 Hemoglobin 10.9 g/dL Low 12.0-16.0 Hematocrit 33 % Low 35-47 Mean Corpuscular Volume 92 fL N 80-97 Mean Corpuscular Hemoglobin 30 pg N 27-31 Mean Corpuscular HGB Conc 33 g/dL N 31-36 Red Cell Distribution Width 14 % N 10.5-15 Platelet Count 272 10^3/uL N 150-450 Mean Platelet Volume 9 um3 N 7.4-10.4 Abs Neutrophils 4.8 10^3/uL N 1.5-7.7 Abs Lymphocytes 2.5 10^3/uL N 1.0-4.8 Abs Monocytes 0.6 10^3/uL N 0-0.8 Abs Eosinophils 0.2 10^3/uL N 0-0.6 Abs Basophils 0.1 10^3/uL N 0-0.2 Abs Nucleated RBC 0 10^3/uL N Granulocyte % 59.3 % N 38-83 Lymphocyte % 30.8 % N 25-47 Monocyte % 7.3 % N 1-9 Eosinophil % 1.8 % N 0-6 Basophil % 0.8 % N 0-2 Nucleated Red Blood Cells % 0 N Laboratory test 04/08/2017 [facility] Potassium 4.9 mmol/L N 3.5-5.[address] [place] [address] [phone] Urine Culture And 04/02/2017 [facility] Urine Culture SEE RESULT [address] [place] [address] [phone] Poc Urinalysis 04/02/2017 [facility] Poc Glucose, Negative N Negative [address] [place] [address] [phone] Poc Bilirubin, Urine Negative N Negative Poc Ketone, Urine Negative N Negative Poc Specific Jackman, Urine <=1.005 Low 1.010-1.030 Poc Blood, Urine Trace-intact Abnormal Negative Poc pH, Urine 5.0 N 5-9 Poc Protein, Urine 1+ Abnormal Negative Poc Urobilinogen, Urine 0.2 N Negative Poc Nitrite, Urine Negative N Negative Poc Leukocytes, Urine 2+ Abnormal Negative Poc Color, Urine Yellow N Poc Clarity, Urine Clear N 22 Laboratory test 03/26/2017 [facility] Hemoglobin A1c 11.1 High 5-7 finding Basic Metabolic 03/10/2017 [facility] Sodium 136 mmol/L N 133- [address] [place] [address] [phone] Potassium 3.9 mmol/L N 3.5-5.0 Chloride 106 mmol/L N 101-111 Co2 Carbon Dioxide 23 mmol/L N 22-32 Anion Gap 7 mmol/L N 2-11 Glucose 144 mg/dL High 70-100 Blood Urea Nitrogen 21 mg/dL N 6-24 Creatinine 1.29 mg/dL High 0.51-0.95 BUN/Creatinine Ratio 16.3 N 8-20 Calcium 8.9 mg/dL N 8.6-10.3 Egfr Non- 41.9 N >60 Egfr 53.9 N >60 23 Laboratory test 03/10/2017 [facility] Magnesium 1.9 mg/dL N 1.9-2.7 finding [address] [place] [address] [phone] Prealbumin 21 mg/dL N 18-38 C Reactive Protein 13.04 mg/L High < 5.00 24 Vitamin B12 435 pg/mL N 180-914 25 Vitamin D Total 25(Oh) 17.9 ng/mL Low 30-50 CBC Auto Diff 03/10/2017 [facility] White Blood 10.7 10^3/uL N 3.5-10.[address] [place] [address] [phone] Red Blood Count 4.19 10^6/uL N 4.0-5.4 Hemoglobin 12.7 g/dL N 12.0-16.0 Hematocrit 38 % N 35-47 Mean Corpuscular Volume 90 fL N 80-97 Mean Corpuscular Hemoglobin 30 pg N 27-31 Mean Corpuscular HGB Conc 34 g/dL N 31-36 Red Cell Distribution Width 14 % N 10.5-15 Platelet Count 301 10^3/uL N 150-450 Mean Platelet Volume 9 um3 N 7.4-10.4 Abs Neutrophils 7.3 10^3/uL N 1.5-7.7 Abs Lymphocytes 2.6 10^3/uL N 1.0-4.8 Abs Monocytes 0.6 10^3/uL N 0-0.8 Abs Eosinophils 0.2 10^3/uL N 0-0.6 Abs Basophils 0.1 10^3/uL N 0-0.2 Abs Nucleated RBC 0 10^3/uL N Granulocyte % 68.1 % N 38-83 Lymphocyte % 24.0 % Low 25-47 Monocyte % 5.7 % N 1-9 Eosinophil % 1.6 % N 0-6 Basophil % 0.6 % N 0-2 Nucleated Red Blood Cells % 0 N Laboratory test 03/10/2017 [facility] Erythrocyte Sed 63 mm/Hr High 0-[address] [place] [address] [phone] Zinc Serum 0.52 g/mL Abnormal 0.66-1.10 26 Laboratory test 03/10/2017 [facility] Epifix 2X2 SEE [address] [place] [address] BELO <SEE [phone] NOTE> Laboratory test 02/23/2017 [facility] Epifix 3.5X3.5 SEE [address] [place] [address] BELO <SEE [phone] NOTE> Laboratory test 02/02/2017 [facility] Epifix 3.5X3.5 SEE 29 , finding [address] Mesh RESULTS 30 [place] [address] BELO <SEE [phone] NOTE> Laboratory test 01/19/2017 [facility] Epifix 3.5X3.5 SEE 31 , finding [address] Mesh RESULTS 32 [place] [address] BELO <SEE [phone] NOTE> Laboratory test 01/15/2017 [facility] Hemoglobin A1c 9.1 High 5-7 finding Urine Culture 12/23/2016 [facility] Urine Culture SEE RESULT [address] [place] [address] [phone] Laboratory test 12/23/2016 [facility] TSH (Thyroid 3.89 N 0.34 -5.[address] Stim Horm) mcIU/mL 0 [place] [address] [phone] Urine Drug SCR 12/23/2016 [facility] Amphetamine Ur None N None [facility] [address] [place] [place] [address] [phone] Barbiturates Urine Screen None Detected N None Detect Benzodiazepine Urine Screen None Detected N None Detect Urine Cannabinoids Screen None Detected N None Detect Urine Cocaine Screen None Detected N None Detect Urine Opiates Screen None Detected N None Detect Urine Phencyclidine Screen None Detected N None Detect 34 Laboratory test 12/23/2016 [facility] Troponin-I 0.01 ng/mL N <0.[address] (TnI) [place] [address] [phone] Comp Metabolic 12/23/2016 [facility] Sodium 138 mmol/L N 133- [address] [place] [address] [phone] Potassium 3.8 mmol/L N 3.5-5.0 Chloride 113 mmol/L High 101-111 Co2 Carbon Dioxide 18 mmol/L Low 22-32 Anion Gap 7 mmol/L N 2-11 Glucose 50 mg/dL Low 70-100 Blood Urea Nitrogen 30 mg/dL High 6-24 Creatinine 1.83 mg/dL High 0.51-0.95 BUN/Creatinine Ratio 16.4 N 8-20 Calcium 8.5 mg/dL Low 8.6-10.3 Total Protein 7.3 g/dL N 6.4-8.9 Albumin 3.6 g/dL N 3.2-5.2 Globulin 3.7 g/dL N 2-4 Albumin/Globulin Ratio 1.0 N 1-3 Total Bilirubin 0.20 mg/dL N 0.2-1.0 Alkaline Phosphatase 74 U/L N 34-104 Alt 20 U/L N 7-52 Ast 40 U/L High 13-39 Egfr Non- 28.0 N >60 Egfr 36.0 N >60 36 CBC Auto Diff 12/23/2016 [facility] White Blood 10.7 10^3/uL N 3.5-10.[address] [place] [address] [phone] Red Blood Count 3.46 10^6/uL Low 4.0-5.4 Hemoglobin 10.5 g/dL Low 12.0-16.0 Hematocrit 32 % Low 35-47 Mean Corpuscular Volume 92 fL N 80-97 Mean Corpuscular Hemoglobin 30 pg N 27-31 Mean Corpuscular HGB Conc 33 g/dL N 31-36 Red Cell Distribution Width 16 % High 10.5-15 Platelet Count 288 10^3/uL N 150-450 Mean Platelet Volume 9 um3 N 7.4-10.4 Abs Neutrophils 6.4 10^3/uL N 1.5-7.7 Abs Lymphocytes 3.4 10^3/uL N 1.0-4.8 Abs Monocytes 0.6 10^3/uL N 0-0.8 Abs Eosinophils 0.2 10^3/uL N 0-0.6 Abs Basophils 0.1 10^3/uL N 0-0.2 Abs Nucleated RBC 0.01 10^3/uL N Granulocyte % 60.0 % N 38-83 Lymphocyte % 32.2 % N 25-47 Monocyte % 5.2 % N 1-9 Eosinophil % 1.9 % N 0-6 Basophil % 0.7 % N 0-2 Nucleated Red Blood Cells % 0.1 N Urinalysis Profile 12/23/2016 [facility] Urine Color Straw [place] [address] [place] [address] [phone] Urine Appearance Clear N Urine Specific Jackman 1.008 Low 1.010-1.030 Urine pH 5.0 N 5-9 Urine Urobilinogen Negative N Negative Urine Ketones Negative N Negative Urine Protein Negative N Negative Urine Leukocytes Negative N Negative Urine Blood 1+ Abnormal Negative Urine Nitrite Negative N Negative Urine Bilirubin Negative N Negative Urine Glucose Negative N Negative Urine White Blood Cell Trace(0-5/hpf) N Absent Urine Red Blood Cell Trace(0-2/hpf) N Absent Urine Bacteria 1+ Abnormal Absent Urine Squamous Epithelial Cell Present Abnormal Absent Urine Hyaline Casts Present Abnormal Absent Laboratory test 12/23/2016 [facility] Lactic Acid 1.0 mmol/L N 0.5-2.[address] [place] [address] [phone] Laboratory test 12/16/2016 [facility] Epifix SEE RESULTS [address] 3.5X3.5 BELO <[place] [address] NOTE> [phone] Laboratory test 12/01/2016 [facility] SEE RESULTS [address] 3.5X3.5 BELO <[place] [address] NOTE> [phone] Laboratory test 11/17/2016 [facility] SEE RESULTS [address] 3.5X3.5 [place] <[place] [address] NOTE> [phone] Laboratory test 10/20/2016 [facility] Epifix 2X2 SEE RESULTS [address] BELO <[place] [address] NOTE> [phone] Basic Metabolic 10/17/2016 [facility] Sodium 134 mmol/L N 133- [address] [place] [address] [phone] Potassium 4.7 mmol/L N 3.5-5.0 Chloride 104 mmol/L N 101-111 Co2 Carbon Dioxide 25 mmol/L N 22-32 Anion Gap 5 mmol/L N 2-11 Glucose 177 mg/dL High 70-100 Blood Urea Nitrogen 27 mg/dL High 6-24 Creatinine 1.45 mg/dL High 0.51-0.95 BUN/Creatinine Ratio 18.6 N 8-20 Calcium 8.3 mg/dL Low 8.6-10.3 Egfr Non- 36.6 N >60 Egfr 47.1 N >60 42 Laboratory test 10/17/2016 [facility] Osmolality Serum 295 mOsm/ kg N 275 - [address] [place] [address] [phone] Laboratory test 09/22/2016 [facility] Epifix 3.5X3.5 SEE RESULTS 44 finding 101 [facility] BELO <[place] [address] NOTE> [phone] Lipid Profile 09/09/2016 [facility] Triglycerides 218 mg/dL N 45 (Trig/Chol/HDL) [address] [place] [address] [phone] Cholesterol 199 mg/dL N 46 HDL Cholesterol 34.2 mg/dL N 47 LDL Cholesterol 121 mg/dL N 48 Laboratory test 09/09/2016 [facility] Vitamin D 24.5 ng/mL Low 30-50 finding [address] [facility] Total 25(Oh) [place] [address] [phone] Basic Metabolic 09/09/2016 [facility] Sodium 129 mmol/L Low 133-145 Panel [address] [place] [address] [phone] Potassium 5.1 mmol/L High 3.5-5.0 Chloride 95 mmol/L Low 101-111 Co2 Carbon Dioxide 25 mmol/L N 22-32 Anion Gap 9 mmol/L N 2-11 Glucose 164 mg/dL High 70-100 Blood Urea Nitrogen 15 mg/dL N 6-24 Creatinine 1.66 mg/dL High 0.51-0.95 BUN/Creatinine Ratio 9.0 N 8-20 Calcium 9.7 mg/dL N 8.6-10.3 Egfr Non- 31.3 N >60 Egfr 40.3 N >60 49 Laboratory test 09/09/2016 [facility] Hemoglobin A1c 8.1 High 5-7 finding Laboratory test 08/26/2016 [facility] Epifix 3.5X3.5 SEE RESULTS [address] BELO <[place] [address] NOTE> [phone] CBC Auto Diff 07/02/2016 [facility] White Blood 7.8 10^3/uL N 3.5-10.[address] [place] [address] [phone] Red Blood Count 3.84 10^6/uL Low 4.0-5.4 Hemoglobin 11.6 g/dL Low 12.0-16.0 Hematocrit 35 % N 35-47 Mean Corpuscular Volume 92 fL N 80-97 Mean Corpuscular Hemoglobin 30 pg N 27-31 Mean Corpuscular HGB Conc 33 g/dL N 31-36 Red Cell Distribution Width 14 % N 10.5-15 Platelet Count 285 10^3/uL N 150-450 Mean Platelet Volume 9 um3 N 7.4-10.4 Abs Neutrophils 4.4 10^3/uL N 1.5-7.7 Abs Lymphocytes 2.5 10^3/uL N 1.0-4.8 Abs Monocytes 0.6 10^3/uL N 0-0.8 Abs Eosinophils 0.3 10^3/uL N 0-0.6 Abs Basophils 0.1 10^3/uL N 0-0.2 Abs Nucleated RBC 0 10^3/uL N Granulocyte % 56.2 % N 38-83 Lymphocyte % 31.9 % N 25-47 Monocyte % 7.5 % N 1-9 Eosinophil % 3.8 % N 0-6 Basophil % 0.6 % N 0-2 Nucleated Red Blood Cells % 0.1 N Comp Metabolic Panel 07/02/2016 [facility] Sodium 135 mmol/L N 133-[address] [place] [address] [phone] Potassium 4.2 mmol/L N 3.5-5.0 Chloride 107 mmol/L N 101-111 Co2 Carbon Dioxide 22 mmol/L N 22-32 Anion Gap 6 mmol/L N 2-11 Glucose 98 mg/dL N 70-100 Blood Urea Nitrogen 23 mg/dL N 6-24 Creatinine 1.26 mg/dL High 0.51-0.95 BUN/Creatinine Ratio 18.3 N 8-20 Calcium 9.2 mg/dL N 8.6-10.3 Total Protein 7.8 g/dL N 6.4-8.9 Albumin 3.6 g/dL N 3.2-5.2 Globulin 4.2 g/dL High 2-4 Albumin/Globulin Ratio 0.9 Low 1-3 Total Bilirubin 0.20 mg/dL N 0.2-1.0 Alkaline Phosphatase 93 U/L N 34-104 Alt 23 U/L N 7-52 Ast 33 U/L N 13-39 Egfr Non- 43.0 N >60 Egfr 55.3 N >60 51 Laboratory test 07/02/2016 [facility] Magnesium 1.6 mg/dL Low 1.9-2.7 finding [address] [place] [address] [phone] Lipase 12 U/L N 11.0-82.0 Troponin-I (TnI) 0.01 ng/mL N <0.03 52 Lactic Acid 0.9 mmol/L N 0.5-2.0 53 B-Type Natriuretic Peptide BNP 139 pg/mL High 54 Urinalysis Profile 07/02/2016 [facility] Urine Color Colorless N [address] [place] [address] [phone] Urine Appearance Clear N Urine Specific Jackman 1.005 Low 1.010-1.030 Urine pH 5.0 N 5-9 Urine Urobilinogen Negative N Negative Urine Ketones Negative N Negative Urine Protein 1+(30 mg/dL) Abnormal Negative Urine Leukocytes Negative N Negative Urine Blood 1+ Abnormal Negative Urine Nitrite Negative N Negative Urine Bilirubin Negative N Negative Urine Glucose Negative N Negative Urine White Blood Cell Trace(0-5/hpf) N Absent Urine Red Blood Cell 2+(6-10/hpf) Abnormal Absent Urine Bacteria Absent N Absent Comp Metabolic Panel 06/24/2016 [facility] Sodium 133 mmol/L N 133-[address] [place] [address] [phone] Potassium 4.7 mmol/L N 3.5-5.0 Chloride 105 mmol/L N 101-111 Co2 Carbon Dioxide 23 mmol/L N 22-32 Anion Gap 5 mmol/L N 2-11 Glucose 182 mg/dL High 70-100 Blood Urea Nitrogen 18 mg/dL N 6-24 Creatinine 1.31 mg/dL High 0.51-0.95 BUN/Creatinine Ratio 13.7 N 8-20 Calcium 8.9 mg/dL N 8.6-10.3 Total Protein 7.3 g/dL N 6.4-8.9 Albumin 3.3 g/dL N 3.2-5.2 Globulin 4.0 g/dL N 2-4 Albumin/Globulin Ratio 0.8 Low 1-3 Total Bilirubin 0.20 mg/dL N 0.2-1.0 Alkaline Phosphatase 85 U/L N 34-104 Alt 27 U/L N 7-52 Ast 43 U/L High 13-39 Egfr Non- 41.1 N >60 Egfr 52.9 N >60 55 Laboratory test finding 06/24/2016 [facility] Amylase 41 U/L N 29-103 [address] [place] [address] [phone] Lipase 16 U/L N 11.0-82.0 C Reactive Protein 9.38 mg/L High < 5.00 56 CBC Auto Diff 06/24/2016 [facility] White Blood 6.2 10^3/uL N 3.5-10.[address] [place] [address] [phone] Red Blood Count 3.82 10^6/uL Low 4.0-5.4 Hemoglobin 11.3 g/dL Low 12.0-16.0 Hematocrit 35 % N 35-47 Mean Corpuscular Volume 91 fL N 80-97 Mean Corpuscular Hemoglobin 30 pg N 27-31 Mean Corpuscular HGB Conc 33 g/dL N 31-36 Red Cell Distribution Width 14 % N 10.5-15 Platelet Count 246 10^3/uL N 150-450 Mean Platelet Volume 9 um3 N 7.4-10.4 Abs Neutrophils 3.8 10^3/uL N 1.5-7.7 Abs Lymphocytes 1.8 10^3/uL N 1.0-4.8 Abs Monocytes 0.4 10^3/uL N 0-0.8 Abs Eosinophils 0.2 10^3/uL N 0-0.6 Abs Basophils 0.1 10^3/uL N 0-0.2 Abs Nucleated RBC 0 10^3/uL N Granulocyte % 60.8 % N 38-83 Lymphocyte % 28.9 % N 25-47 Monocyte % 6.7 % N 1-9 Eosinophil % 2.6 % N 0-6 Basophil % 1.0 % N 0-2 Nucleated Red Blood Cells % 0 N Laboratory test 06/24/2016 [facility] Lactic Acid 1.3 mmol/L N 0.5-2.0 [address] [place] [address] [phone] Urine 05/27/2016 [facility] Urine 45.84 N Microalbumin [address] Creatinine mg/[place] [address] [phone] Ur Microalbumin (mg/L) 32.7 mg/L N Urine Microalbumin/Creatinine 71.3 ug/mg High <31 Laboratory test 05/27/2016 [facility] Hemoglobin A1c 9.2 % High Less [address] (Glyco HGB) than 6.0 [place] [address] [phone] Laboratory test 05/27/2016 [facility] Vitamin B12 1056 High 180-914 [address] pg/[place] [address] [phone] CBC No Diff 05/21/2016 [facility] White Blood 6.2 N 3.5-10.[address] Count 10^3/[place] [address] [phone] Red Blood Count 3.50 10^6/uL Low 4.0-5.4 Hemoglobin 10.5 g/dL Low 12.0-16.0 Hematocrit 32 % Low 35-47 Mean Corpuscular Volume 91 fL N 80-97 Mean Corpuscular Hemoglobin 30 pg N 27-31 Mean Corpuscular HGB Conc 33 g/dL N 31-36 Red Cell Distribution Width 14 % N 10.5-15 Platelet Count 205 10^3/uL N 150-450 Mean Platelet Volume 10 um3 N 7.4-10.4 Comp Metabolic Panel 05/21/2016 [facility] Sodium 134 mmol/L N 133-145 [address] [place] [address] [phone] Potassium 4.6 mmol/L N 3.5-5.0 Chloride 104 mmol/L N 101-111 Co2 Carbon Dioxide 25 mmol/L N 22-32 Anion Gap 5 mmol/L N 2-11 Glucose 282 mg/dL High 70-100 Blood Urea Nitrogen 17 mg/dL N 6-24 Creatinine 1.34 mg/dL High 0.51-0.95 BUN/Creatinine Ratio 12.7 N 8-20 Calcium 8.1 mg/dL Low 8.6-10.3 Total Protein 6.5 g/dL N 6.4-8.9 Albumin 3.1 g/dL Low 3.2-5.2 Globulin 3.4 g/dL N 2-4 Albumin/Globulin Ratio 0.9 Low 1-3 Total Bilirubin 0.30 mg/dL N 0.2-1.0 Alkaline Phosphatase 89 U/L N 34-104 Alt 18 U/L N 7-52 Ast 26 U/L N 13-39 Egfr Non- 40.1 N >60 Egfr 51.5 N >60 60 Iron & Iron Binding 05/21/2016 [facility] Iron 46 g/dL Low 50-212 Capacity [address] [place] [address] [phone] Unsaturated Iron Binding 297 g/dL N Total Iron Binding Capacity 343 g/dL N 250-450 % Iron Saturation 13 % Low 15-55 Laboratory test 05/21/2016 [facility] Folic Acid > 20.00 N > 3.99 finding 101 [facility] (Folate) ng/[place] [address] [phone] Vitamin B12 873 pg/mL N 180-914 61 Vitamin D Total 25(Oh) 22.2 ng/mL Low 30-50 Copper, Serum 1.23 g/mL N 0.75-1.45 62 Zinc Serum 0.57 g/mL Abnormal 0.66-1.10 63 Vitamin E Level 12.4 mg/L N 5.5 - 17.0 64 Pthi 03/04/2016 [facility] Calcium (PTH Intact) 8.7 mg/dL N 8.6-10.[address] [place] [address] [phone] PTH Intact 9.0 pmol/L N 1.3-9.3 Laboratory test 03/04/2016 [facility] Vitamin D 22.0 ng/mL Low 30-[address] Total 25(Oh) [place] [address] [phone] Hemoglobin A1c (Glyco HGB) 8.9 % High Less than 6.0 65 Wound 02/12/2016 [facility] Wound/Misc SEE RESULT 66 Culture/Sensi [address] [place] [address] Stain [phone] Laboratory test 01/29/2016 [facility] Vitamin D Total 17.7 ng/ mL Low 30-5 [address] 25(Oh) 0 [place] [address] [phone] Pthi 01/29/2016 [facility] Calcium (PTH 8.3 mg/dL Low 8.6- [address] Intact) 10.3 [place] [address] [phone] PTH Intact 7.4 pmol/L N 1.3-9.3 Laboratory test 01/29/2016 [facility] Hemoglobin A1c 8.9 % High Less than [address] (Glyco HGB) 6.0 [place], [place] [phone] Ua Routine 11/23/2015 [facility] Ua Specific 1.005 Jackman Ua PH 5 Ua Color YELLOW Ua Appera CLEAR Ua WBC NEG Ua Protein NEG Ua Glucose NEG Ua Ketones NEG Ua Bilirubin NEG Ua Urobilinogen NEG Ua Nitrite NEG Ua Occult Blood POS Laboratory test 11/13/2015 [facility] Potassium 4.6 mmol/L N 3.5-5.[address] [place] [address] [phone] Ua Routine 11/01/2015 [facility] Ua Specific 1.010 Jackman Ua PH 5 Ua Color yellow Ua Appera clear Ua WBC neg Ua Protein neg Ua Glucose neg Ua Ketones neg Ua Bilirubin neg Ua Urobilinogen neg Ua Nitrite neg Ua Occult Blood pos Laboratory test 11/01/2015 [facility] Magnesium 1.8 mg/dL Low 1.9-2.[address] [place] [address] [phone] Potassium 5.3 mmol/L High 3.5-5.0 Laboratory test 11/01/2015 [facility] Urine Culture And SEE RESULT [address] [place] [address] [phone] Basic Metabolic 10/02/2015 [facility] Sodium 135 mmol/L N 133- [address] 45 [place] [address] [phone] Potassium 4.3 mmol/L N 3.5-5.0 Chloride 104 mmol/L N 101-111 Co2 Carbon Dioxide 25 mmol/L N 22-32 Anion Gap 6 mmol/L N 2-11 Glucose 133 mg/dL High 70-100 Blood Urea Nitrogen 27 mg/dL High 6-24 Creatinine 1.54 mg/dL High 0.51-0.95 BUN/Creatinine Ratio 17.5 N 8-20 Calcium 8.5 mg/dL Low 8.6-10.3 Egfr Non- 34.2 N >60 Egfr 44.0 N >60 70 Laboratory test 10/02/2015 [facility] TSH (Thyroid 3.01 ?IU/mL N 0.34-5.[address] Stim Horm) [place] [address] [phone] B-Type Natriuretic Peptide BNP 42 pg/mL N 71 Vitamin D Total 25(Oh) 16.7 ng/mL Low 30-50 Laboratory test 10/02/2015 [facility] Urine Culture And SEE RESULT [address] [place] [address] [phone] Ua Routine 10/02/2015 [facility] Ua Specific Jackman 1.010 Ua PH 5 Ua Color yellow Ua Appera clear Ua WBC moderate (+) Ua Protein trace Ua Glucose 1000 Ua Ketones neg Ua Bilirubin neg Ua Urobilinogen normal Ua Nitrite neg Ua Occult Blood large Laboratory test 10/02/2015 [facility] Hemoglobin A1c 8.2 High 5-7 finding Laboratory test 05/29/2015 [facility] Hemoglobin A1c 8.1 High 5-7 finding Laboratory test 01/25/2015 [facility] Hemoglobin A1c 8.3 High 5-7 finding BMP Basic 01/20/2015 [facility] Sodium 137 mmol/L N 133-145 73 Metabolic Panel [address] [place] [address] [phone] Potassium 4.4 mmol/L N 3.5-5.0 Chloride 102 mmol/L N 101-111 Co2 Carbon Dioxide 29 mmol/L N 22-32 Anion Gap 6 mmol/L N 2-11 Glucose 109 mg/dL High 70-100 Blood Urea Nitrogen 21 mg/dL N 6-24 Creatinine 1.29 mg/dL High 0.51-0.95 BUN/Creatinine Ratio 16.3 N 8-20 Calcium 8.4 mg/dL Low 8.6-10.3 Egfr Non- 42.2 N >60 Egfr 54.2 N >60 74 Lipid Panel 01/20/2015 [facility] Triglycerides 168 mg/dL N [address] [place] [address] [phone] Cholesterol 151 mg/dL N 76 HDL Cholesterol 35.3 mg/dL N 77 LDL Cholesterol 82 mg/dL N 78 Laboratory test 10/12/2014 [facility] Hemoglobin A1c 9.1 High 5-7 finding Wound 08/24/2014 [facility] Wound/Misc (SEE NOTE) 79 Culture/Sensi [address] [place] [address] Stain [phone] Basic Metabolic 08/17/2014 Sodium 137 mmol/L N 133-145 Panel Potassium 4.8 mmol/L N 3.7-5.6 Chloride 106 mmol/L N 101-111 Co2 Carbon Dioxide 26 mmol/L N 22-32 Anion Gap 5 mmol/L N 2-11 Glucose 144 mg/dL High 70-100 Blood Urea Nitrogen 16 mg/dL N 6-24 Creatinine 1.25 mg/dL High 0.51-0.95 BUN/Creatinine Ratio 12.8 N 8-20 Calcium 8.2 mg/dL Low 8.6-10.3 Egfr Non- 43.7 N >60 Egfr 56.2 N >60 80 Laboratory test 07/06/2014 [facility] Hemoglobin A1c 6.5 5-7 finding Urine Culture And 04/18/2014 [facility] Urine Culture (SEE [address] NOTE) [place], [place] [id number] [phone] CBC Auto Diff 04/18/2014 [facility] White Blood Count 7.0 N 4.8-10.[address] 10^3/[place] [address] [phone] Red Blood Count 3.94 10^6/uL Low 4.0-5.4 Hemoglobin 12.0 g/dL N 12.0-16.0 Hematocrit 35 % N 35-47 Mean Corpuscular Volume 89 fL N 80-97 Mean Corpuscular Hemoglobin 31 pg N 27-31 Mean Corpuscular HGB Conc 35 g/dL N 31-36 Red Cell Distribution Width 14 % N 10.5-15 Platelet Count 233 10^3/uL N 150-450 Mean Platelet Volume 9 um3 N 7.4-10.4 Abs Neutrophils 4.3 10^3/uL N 1.5-7.7 Abs Lymphocytes 2.1 10^3/uL N 1.0-4.8 Abs Monocytes 0.4 10^3/uL N 0-0.8 Abs Eosinophils 0.2 10^3/uL N 0-0.6 Abs Basophils 0 10^3/uL N 0-0.2 Abs Nucleated RBC 0 10^3/uL N Granulocyte % 61.2 % N 38-83 Lymphocyte % 30.1 % N 25-47 Monocyte % 5.7 % N 1-9 Eosinophil % 2.4 % N 0-6 Basophil % 0.6 % N 0-2 Nucleated Red Blood Cells % 0 N Inr/Protime 04/18/2014 [facility] Inr 0.91 N 0.85-1.[address] [place] [address] [phone] Laboratory test 04/18/2014 [facility] Activated 29.9 N 24.0- 36.1 finding 101 [facility] [place] [place] [address] Thrombo Time [phone] Lactic Acid 0.9 mmol/L N 0.5-2.2 Comp Metabolic Panel 04/18/2014 [facility] Sodium 134 mmol/L N 133-[address] [place] [address] [phone] Potassium 3.5 mmol/L Low 3.7-5.6 Chloride 103 mmol/L N 101-111 Co2 Carbon Dioxide 24 mmol/L N 22-32 Anion Gap 7 mmol/L N 2-11 Glucose 144 mg/dL High 70-100 Blood Urea Nitrogen 20 mg/dL N 6-24 Creatinine 1.36 mg/dL High 0.51-0.95 BUN/Creatinine Ratio 14.7 N 8-20 Calcium 8.7 mg/dL N 8.6-10.3 Total Protein 7.3 g/dL N 6.4-8.9 Albumin 3.6 g/dL N 3.2-5.2 Globulin 3.7 g/dL N 2-4 Albumin/Globulin Ratio 1.0 N 1-3 Total Bilirubin 0.30 mg/dL N 0.2-1.0 Alkaline Phosphatase 131 U/L High 34-104 Alt 30 U/L N 7-52 Ast 22 U/L N 13-39 Egfr Non- 39.8 N >60 Egfr 51.2 N >60 82 Laboratory test 04/18/2014 [facility] Troponin I 0.00 ng/mL N <0.03 83 finding [address] [place] [address] [phone] HIV 1 2 AB Self Referred Nonreactive N Nonreactive 84 Blood Culture (SEE NOTE) 85 Comp Metabolic Panel 04/07/2014 [facility] Sodium 136 mmol/L N 133-145 [address] [place] [address] [phone] Potassium 3.9 mmol/L N 3.7-5.6 Chloride 106 mmol/L N 101-111 Co2 Carbon Dioxide 24 mmol/L N 22-32 Anion Gap 6 mmol/L N 2-11 Glucose 81 mg/dL N 70-100 Blood Urea Nitrogen 30 mg/dL High 6-24 Creatinine 1.37 mg/dL High 0.51-0.95 BUN/Creatinine Ratio 21.9 High 8-20 Calcium 8.6 mg/dL N 8.6-10.3 Total Protein 7.0 g/dL N 6.4-8.9 Albumin 3.7 g/dL N 3.2-5.2 Globulin 3.3 g/dL N 2-4 Albumin/Globulin Ratio 1.1 N 1-3 Total Bilirubin 0.40 mg/dL N 0.2-1.0 Alkaline Phosphatase 113 U/L High 34-104 Alt 9 U/L N 7-52 Ast 16 U/L N 13-39 Egfr Non- 39.5 N >60 Egfr 50.8 N >60 86 Vitamin D, 25 04/07/2014 [facility] 25-Hydroxy Vitamin <4.0 ng/ mL N Hydroxy [address] D2 [place] [address] [phone] 25-Hydroxy Vitamin D3 23 ng/mL N 25-Hydroxy Vitamin D Total 23 ng/mL N 87 Laboratory test 03/29/2014 [facility] Hemoglobin A1c 10.1 High 5-7 finding Urinalysis 12/08/2013 [facility] Urine Color Yellow [address] [place] [address] [phone] Urine Appearance Cloudy Urine Specific Jackman 1.020 1.010-1.030 Urine Esterase 2+ Abnormal Negative Urine Nitrate Negative Negative Urine Urobilinogen Negative E.U./dL Negative Urine Protein 2+ mg/dL Abnormal Negative Urine pH 5.0 5-9 Urine Blood 3+ Abnormal Negative Urine Ketones Negative mg/dL Negative Urine Bilirubin Negative Negative Urine Glucose 3+ mg/dL Abnormal Negative Urine Microscopic 12/08/2013 [facility] Urine WBC 2+ (>10-30 None Seen [address] /hpf) [place] [address] [phone] Urine RBC 2+ (>3-10 /hpf) None Seen Urine Epithelial Cells 1+ Squamous /hpf None Seen Bacteria Urine 1+ None Seen Ua Comments Yeast CBC Auto 12/08/2013 [facility] White Blood 12.7 10^3/uL High 4.8-10.[address] [place] [address] [phone] Red Blood Count 3.67 10^6/uL Low 4.0-5.4 [...] Cells % 0.1 Comp Metabolic Panel 12/08/2013 [facility] Sodium 127 mmol/L Low 133-145 101 [place] [address] [phone] Potassium 4.9 mmol/L 3.5-5.0 Chloride 92 mmol/L Low 101-111 Co2 Carbon Dioxide 25.0 mmol/L 22-32 Anion Gap 10.0 mmol/L 2-11 Glucose 441 mg/dL High 70-100 89 Blood Urea Nitrogen 42 mg/dL High 6-24 [...] Egfr Non- 30.8 >60 Egfr 39.6 >60 90 Laboratory test 12/08/2013 [facility] Magnesium 1.6 mg/dL Low 1.7-2.6 finding [address] [place] [address] [phone] Creatine Kinase 3330 U/L High 0-200 Troponin I 0.09 ng/mL High 0-0.06 91 TSH (Thyroid Stimulating Horm) 2.91 miu/mL 0.34-5.60 Comp Metabolic Panel 11/18/2013 [facility] Sodium 138 mmol/L 133-145 [address] [place] [address] [phone] Potassium 4.1 mmol/L 3.5-5.0 Chloride 104 mmol/L [...] Non- 41.9 >60 Egfr 53.9 >60 92 Vitamin D, 25 11/18/2013 [facility] 25-Hydroxy Vitamin <4.0 ng/ mL Hydroxy [address] D2 [place] [address] [phone] 25-Hydroxy Vitamin D3 27 ng/mL 25-Hydroxy Vitamin D Total 27 ng/mL 93 Laboratory test 11/18/2013 [facility] Hemoglobin A1c 7.9 High 5-7 finding Urinalysis 07/21/2013 [facility] Urine Color Yellow W/Microscopic [address] [place] [address] [phone] Urine Appearance Clear Urine Specific Jackman 1.011 1.010-1.030 Urine Esterase Trace Abnormal Negative Urine Nitrate Negative Negative Urine Urobilinogen Negative E.U./dL Negative Urine Protein Negative mg/dL Negative Urine pH 5.5 5-9 Urine Blood 2+ Abnormal Negative Urine Ketones Negative mg/dL Negative Urine Bilirubin Negative Negative Urine Glucose Negative mg/dL Negative Urine WBC None Seen None Seen Urine RBC 1+ (<3 /hpf) None Seen Urine Epithelial Cells 1+ Squamous /hpf None Seen Bacteria Urine None Seen None Seen Ua Routine 07/21/2013 [facility] Ua Specific Jackman 1.005 Ua PH 5.0 Ua Color yellow Ua Appera clear Ua WBC small Ua Protein trace Ua Glucose neg Ua Ketones neg Ua Bilirubin small Ua Urobilinogen neg Ua Nitrite neg Ua Occult Blood small Urine Drug 07/08/2013 [facility] Amphetamine Ur None Detected None Detect SCR ED & [address] [place] [address] [phone] Barbiturates Urine Screen None Detected None Detect Benzodiazepine Urine Screen None Detected None Detect Urine Cannabinoids Screen None Detected None Detect Urine Cocaine Screen None Detected None Detect Urine Opiates Screen None Detected None Detect Urine Phencyclidine Screen None Detected None Detect 94 Urinalysis 07/07/2013 [facility] Urine Color Yellow [address] [place] [address] [phone] Urine Appearance Clear Urine Specific Jackman 1.006 Low 1.010-1.030 Urine Esterase 2+ Abnormal Negative Urine Nitrate Negative Negative Urine Urobilinogen Negative E.U./dL Negative Urine Protein Negative mg/dL Negative Urine pH 5.0 5-9 Urine Blood Trace Abnormal Negative Urine Ketones Negative mg/dL Negative Urine Bilirubin Negative Negative Urine Glucose Negative mg/dL Negative Urine Microscopic 07/07/2013 [facility] Urine WBC 1+ (<10 None Seen [address] /hpf) [place] [address] [phone] Urine RBC None Seen None Seen Urine Epithelial Cells 1+ Squamous /hpf None Seen Bacteria Urine None Seen None Seen Ua Comments Yeast Urine Culture And 07/07/2013 [facility] Urine Culture (SEE NOTE ) [address] [place] [address] [phone] CBC Auto Diff 07/07/2013 [facility] White Blood 9.7 10^3/uL 4.8-[address] Count .8 [place] [address] [phone] Red Blood Count 3.65 10^6/uL Low 4.0-5.4 [...] Red Blood Cells % 0.1 Inr/Protime 07/07/2013 [facility] Inr 0.88 0.87-0.[address] [place] [address] [phone] Laboratory test 07/07/2013 [facility] Activated 27.0 22.18- 37.[address] [place] [address] Thrombo Time [phone] Comp Metabolic 07/07/2013 [facility] Sodium 135 mmol/L 133- [address] [place] [address] [phone] Potassium 3.5 mmol/L 3.5-5.0 Chloride 98 mmol/L [...] Egfr Non- 41.9 >60 Egfr 53.9 >60 96 Laboratory test 07/07/2013 [facility] C Reactive 3.8 mg/dL High Less than finding [address] Protein 0.5 [place] [address] [phone] B Type Natriuretic Peptide 69.0 pg/mL 0-100 Acetaminophen < 10 g/mL Low 10-30 97 Alcohol < 10 mg/dL Less Than 10 98 Salicylate < 4.0 Less Than 30 Serum Negative Negative 99 HIV 1 2 AB Self Referred Nonreactive Nonreactive 100 Laboratory test 04/27/2013 [facility] Hemoglobin A1c 8.2 High 5-7 finding Vitamin D, 25 03/12/2013 [facility] 25-Hydroxy Vitamin 13 ng/mL Hydroxy [address] D2 [place], [place] [address] [phone] 25-Hydroxy Vitamin D3 18 ng/mL 25-Hydroxy Vitamin D Total 31 ng/mL 101 Urine Microalbumin 02/04/2013 [facility] Ur Microalbumin 29.0 mg /L [address] (Mg/L) [place] [address] [phone] Urine Creatinine 127.8 mg/dL Urine Microalbumin/Creatinine 22.7 ug/mg Less Than 31 Vitamin D, 25 02/02/2013 [facility] 25-Hydroxy Vitamin <4.0 ng/ mL Hydroxy [address] D2 [place] [address] [phone] 25-Hydroxy Vitamin D3 31 ng/mL 25-Hydroxy Vitamin D Total 31 ng/mL 103 Laboratory test 02/02/2013 [facility] Transferrin 195 mg/dL Abnormal 200 - [address] [place], [place] [address] [phone] Vitamin B12 And 02/02/2013 [facility] Vitamin B12 586 pg/mL 180-914 Folate Serum [address] [place], [place] [address] [phone] Folate 16.5 ng/mL High 2-16 Laboratory test 02/02/2013 [facility] TSH (Thyroid 4.10 0.34- 5.[address] Stimulating miu/[place] [address] Horm) [phone] Iron & Iron 02/02/2013 [facility] Iron 52 g/dL 28-[address] [place] [address] [phone] Unsaturated Iron Binding 226 g/dL Total Iron Binding Capacity 278 g/dL 250-450 % Iron Saturation 19 % 15-55 Laboratory test 02/02/2013 [facility] Ferritin 149 ng/mL 11- [address] [place], [place] [address] [phone] Comp Metabolic Panel 02/02/2013 [facility] Sodium 143 mmol/L 133-[address] [place] [address] [phone] Potassium 4.0 mmol/L 3.5-5.0 Chloride 108 mmol/L [...] Egfr Non- 38.6 >60 Egfr 49.7 >60 105 Lipid Profile 02/02/2013 [facility] Triglycerides 89 mg/dL 40 -200 (Trig/Chol/HDL) [address] [place] [address] [phone] Cholesterol 128 mg/dL Less than 200 HDL Cholesterol 36 mg/dL Low 40-60 106 Cholesterol/HDL Ratio 3.6 Average 1-4.44 LDL Cholesterol 74.2 mg/dL Less Than 100 107 Laboratory test 01/21/2013 [facility] Hemoglobin A1c 6.7 5-7 finding Comp Metabolic 01/14/2013 [facility] Sodium 131 mmol/L Low 133 -145 Panel [address] [place] [address] [phone] Potassium 4.7 mmol/L 3.5-5.0 Chloride 104 mmol/L [...] Egfr Non- 38.6 >60 Egfr 49.7 >60 108 Laboratory test 01/14/2013 [facility] C Reactive 0.7 mg/dL High Less than finding [address] Protein 0.5 [place] [address] [phone] CBC No Diff 01/14/2013 [facility] White Blood 5.3 4.8-10.[address] Count 10^3/[place] [address] [phone] Red Blood Count 3.60 10^6/uL Low 4.0-5.4 Hemoglobin 11.2 g/dL Low 12.0-16.0 Hematocrit 33 % Low 35-47 Mean Corpuscular Volume 91 fL 80-97 Mean Corpuscular Hemoglobin 31 pg 27-31 Mean Corpuscular HGB Conc 34 g/dL 31-36 Red Cell Distribution Width 14 % 10.5-15 Platelet Count 269 10^3/uL 150-450 Mean Platelet Volume 10 um3 7.4-10.4 Laboratory test 01/14/2013 [facility] Erythrocyte Sed 57 mm/Hr High 0-[address] [place] [address] [phone] 1 SEE RESULT BELOW Name: CATHY MUÑOZ : [address]: Cortney Yeboah MD Acct: [id number] Unit: [id number] AGE: 63 Location: [facility] Re06/11/18 SEX: F Status: REG REF SPEC: [id number] NOREEN: 06/11/18-[address] [facility] [address]: Cortney Yeboah MD REQ: [id number] RECD: 06/11/18 STATUS: COMP _ SOURCE: URINE SPDESC: ORDERED: Urine Culture COMMENTS: [id number] QUERIES: Urine Source: Random Procedure Result Reported Site Urine Culture Final 06/13/18- 0821 ML Organism 1 ESCHERICHIA COLI [place] Count >100,000 (Many) CFU/ML 1. ESCHERICHIA COLI M.I.C. RX --------- ------ Ampicillin >=32 R Cefazolin <=4 S Cefepime <=1 S Ceftriaxone <=1 S Ciprofloxacin 1 S Gentamicin <=1 S Levofloxacin 1 S Meropenem <=0.25 S Nitrofurantoin <=16 S Tetracycline 2 S Trimethoprim/Sulfamethoxazole >=320 R Amoxicillin/Clavulanic Acid 8 S Aztreonam <=1 S Contact the Microbiology Department for any additional antibiotic reporting. * ML - Main Lab . END OF REPORT DEPARTMENT OF PATHOLOGY, [address] [place] [address] Bonifacio Kay M.D. Director [facility] # [id number] 2 SEE RESULT BELOW Name: CATHY MUÑOZ : [address]: Tad Maldonado MD Acct: [id number] Unit: [id number] AGE: 63 Location: ED Re05/14/18 SEX: F Status: REG ER SPEC: [id number] NOREEN: 05/14/18-[address] [facility] [address]: Tad aMldonado MD REQ: [id number] RECD: 05/14/181232 STATUS: ROCHELLE LICONA DR: Cortney Yeboah MD _ SOURCE: URINE SPDESC: ORDERED: Urine Culture Procedure Result Reported Site Urine Culture Final 05/16/18- 08 ML Organism 1 ESCHERICHIA COLI [place] Count >100,000 (Many) CFU/ML 1. ESCHERICHIA COLI [...] . END OF REPORT DEPARTMENT OF PATHOLOGY, [address] [place] [address] Bonifacio Kay M.D. Director [facility] # [id number] 3 Because ethnic data is not always [...] 5 Kidney failure <15 (or dialysis) 4 TNS Severe Sepsis and Septic Shock Management Bundle Measure requires all lactic acids initially measuring >2.0 mmol/L be repeated. 5 >100 to <200 pg/mL: likely compensated congestive heart failure (CHF) 200 to 400 pg/mL: likely moderate CHF >400 pg/mL: likely moderate to severe CHF 6 Desirable <150 Borderline high 150-199 High 200-499 Very High >500 7 Desirable <200 Borderline high 200-239 High >239 8 Low <40 Desirable: 40-60 High: >60 9 Desirable: <100 mg/dL Near Optimal: 100-129 mg/dL Borderline High: 130-159 mg/dL High: 160-189 mg/dL Very High: >189 mg/dL 10 Because ethnic data is not always readily [...] 15-29 5 Kidney failure <15 (or dialysis) 11 FU 12 SEE RESULTS BELOW [id number] EPIFIX 18 05/19/17 1047 13 Because ethnic data is not always readily [...] 15-29 5 Kidney failure <15 (or dialysis) 14 Please note: The following may produce a false positive D Dimer test: - Rheumatoid factor greater than 60 IU/ml - Plasma hemoglobin greater than 0.05 gm/dl - Bilirubin greater than 50 mg/dl - Lipids greater than 1000 mg/dl - FDP greater than 20 ug/ml 15 >100 to <200 pg/mL: likely compensated congestive heart failure (CHF) 200 to 400 pg/mL: likely moderate CHF >400 pg/mL: likely moderate to severe CHF 16 SEE RESULT BELOW Name: CATHY MUÑOZ : [address]: Madalyn Pitt NP Acct: [id number] Unit: [id number] AGE: 61 Location: [facility] Re04/14/17 SEX: F Status: REG REF SPEC: [id number] NOREEN: 04/14/17-[address]: Madalyn Pitt NP REQ: [id number] RECD: 04/15/17-1008 STATUS: COMP _ SOURCE: URINE SPDESC: ORDERED: Urine Culture COMMENTS: [id number] Urine Source: Random Procedure Result Reported Site Urine Culture Final 04/16/17- 1005 ML No growth of clinically significant organisms * ML - MAIN LAB ([facility]) . END OF REPORT * ML=Testing performed at Main Lab DEPARTMENT OF PATHOLOGY, [address] [place] [address] Bonifacio Kay M.D. Director [facility] # [id number] 17 SEE RESULT BELOW Name: CATHY MUÑOZ Jeanne : [address]: Choco Mejía MD Acct: [id number] Unit: [id number] AGE: 61 Location: ED Re04/08/17 SEX: F Status: DEP ER SPEC: [id number] NOREEN: 04/08/[address]: Choco Mejía MD REQ: [id number] RECD: 04/08/17 STATUS: ROCHELLE LICONA DR: Cortney Yeboah MD _ SOURCE: URINE SPDESC: ORDERED: Urine Culture Procedure Result Reported Site Urine Culture Final 04/10/17- 843 ML Organism 1 ESCHERICHIA COLI [place] Count >100,000 (Many) CFU/ML 1. ESCHERICHIA COLI [...] antibiotic reporting. * ML - MAIN LAB ([facility]) . END OF REPORT * ML=Testing performed at Main Lab DEPARTMENT OF PATHOLOGY, [address] [place] [address] Bonifacio Kay M.D. Director [facility] # [id number] 18 Acute inflammation: >10.00 19 Because ethnic data is not always readily [...] 15-29 5 Kidney failure <15 (or dialysis) 20 [place] Severe Sepsis and Septic Shock Management Bundle Measure requires all lactic acids initially measuring >2.0 mmol/L be repeated. 21 SEE RESULT BELOW Name: CATHY MUÑOZ Jeanne : [address]: Anh Del Rosario MD Acct: [id number] Unit: [id number] AGE: 61 Location: [facility] Re04/02/17 SEX: F Status: DEP ER SPEC: [id number] NOREEN: 04/02/[address] [facility] [address]: Anh Del Rosario MD REQ: [id number] RECD: 04/03/17-1 STATUS: ROCHELLE LICONA DR: Cortney Yeboah MD _ SOURCE: URINE SPDESC: ORDERED: Urine Culture Procedure Result Reported Site Urine Culture Final 04/05/17- 0942 ML Organism 1 ESCHERICHIA COLI [place] Count >100,000 (Many) CFU/ML 1. ESCHERICHIA COLI [...] antibiotic reporting. * ML - MAIN LAB ([facility]) . END OF REPORT * ML=Testing performed at Main Lab DEPARTMENT OF PATHOLOGY, [address] [place] [address] Bonifacio Kay M.D. Director [facility] # [id number] 22 Utility Gelatin Maker: [id number] 23 Because ethnic data is not always readily [...] 15-29 5 Kidney failure <15 (or dialysis) 24 Acute inflammation: >10.00 25 Normal Range 180 to 914 Indeterminate Range 145 to 180 Deficient Range <145 26 ADDITIONAL INFORMATION This test was developed and its performance characteristics determined by [facility] in a manner consistent with CLIA requirements. This test has not been cleared or approved by the U.S. Food and Drug Administration. Test Performed by: [address] [address] 27 SEE RESULTS BELOW [id number] EPIFIX 2X2 TRANSFUSED 03/10/17 0814 28 SEE RESULTS BELOW [id number] EPIFIX 3.5 MESH TRANSFUSED 02/24/17 1043 29 fu 30 SEE RESULTS BELOW [id number] EPIFIX 3.5 MESH TRANSFUSED 02/03/17 0815 31 FU 32 SEE RESULTS BELOW [id number] EPIFIX 3.5 MESH TRANSFUSED 01/20/17 0826 33 SEE RESULT BELOW Name: CATHY MUÑOZ : [address]: Reinier Santos MD Acct: [id number] Unit: [id number] AGE: 61 Location: ED Re12/23/16 SEX: F Status: DEP ER SPEC: [id number] NOREEN: 12/23/[address] [facility] [address]: Reinier Santos MD REQ: [id number] RECD: 12/23/16 STATUS: COMP [facility] DR: Cortney Yeboah MD _ SOURCE: URINE SPDESC: ORDERED: Urine Culture Procedure Result Reported Site Urine Culture Final 12/25/16817 ML No Growth (<1,000 CFU/mL) * ML - MAIN LAB ([facility]) . END OF REPORT * ML=Testing performed at Main Lab DEPARTMENT OF PATHOLOGY, [address] [place] [address] Bonifacio Kay M.D. Director [facility] # [id number] 34 The urine specimen was tested at the listed cutoffs: Drug class test level (ng/mL) Amphetamines 500 Barbiturates 200 Benzodiazepine metabolites 200 Cocaine metabolites 150 Cannabinoids 50 Opiates 300 Pcp 25 Specimen was received without chain of custody. Results should be used for medical purposes only. 35 99th percentile=0.04 ng/mL Troponin results at [facility] are not interchangeable. 36 Because ethnic data is not always readily [...] 15-29 5 Kidney failure <15 (or dialysis) 37 [facility] Severe Sepsis and Septic Shock Management Bundle Measure requires all lactic acids initially measuring >2.0 mmol/L be repeated. 38 SEE RESULTS BELOW [id number] EPIFIX 3.5X3.5 TRANSFUSED 12/16/16 1029 39 SEE RESULTS BELOW [id number] EPIFIX 3.5X3.5 TRANSFUSED 12/02/16 0829 40 SEE RESULTS BELOW [id number] EPIFIX 3.5X3.5 TRANSFUSED 11/18/16 1011 41 SEE RESULTS BELOW [id number] EPIFIX 2X2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
[2018-10-22 12:58] LABS: EGFR Non-African American 26.6 (>60)
[2018-10-22] MEDS ORDERED: Lidocaine PATCH 5%* 1 PATCH TRANSDERM ONE (13:35)
[2018-10-22 15:23] VITALS: BP 158/85
[2018-10-22] MEDS ORDERED: Lidocaine Patch REMOVE* 1 NOTE MISC SCH (21:00)
== END 2018-10-22 15:24 | disposition home or self-care (01) ==
LOC: ED 12:04
DX: R10.31 Right lower quadrant pain (principal); M16.11 Unilateral primary osteoarthritis, right hip; K59.00 Constipation, unspecified; R30.0 Dysuria; E11.9 Type 2 diabetes mellitus without complications; Z79.4 Long term (current) use of insulin; Z87.442 Personal history of urinary calculi; Z88.6 Allergy status to analgesic agent; Z88.1 Allergy status to other antibiotic agents; Z88.8 Allergy status to other drugs, medicaments and biological substances
CPT/HCPCS: 36415; 80048; 81003; 83605; 85025; 96360; 99282; A9270-GY

== ENCOUNTER 2019-04-23 15:08 | Inpatient (IN) | payer OTHER ==
--- NOTE | 2019-04-23 16:22 | ED ---
Complex/Multi-Sys Presentation - HPI Summary HPI Summary: Patient told to come to the ED after abnormal routine labs this morning. Also complains of 2 falls this week with subsequent acute on chronic left hip pain. Denies head injury, LOC, vision change, RAYA, neck pain, back pain, fever, cough, sore throat, CP, SOB, N/V/D, abdominal pain, change in urine, change in BM. Medical history is HTN, DM, CK D stage IV, anemia. - History Of Current Complaint Chief Complaint: EDWeakness Time Seen by Provider: 04/23/19 15:55 Hx Obtained From: Patient Severity Currently: Moderate Severity Initially: Moderate Character: Throbbing Associated Signs And Symptoms: Positive: Recent Trauma - Allergies/Home Medications Allergies/Adverse Reactions: Allergies Allergy/AdvReac Type Severity Reaction Status Date / Time doxazosin Allergy Unknown Verified 04/23/19 15:19 Reaction Details fentanyl Allergy suicidal Verified 04/23/19 15:19 thoughts ibuprofen Allergy Has renal Verified 04/23/19 15:19 disease lamotrigine [From Lamictal] Allergy renal Verified 04/23/19 15:19 failure povidone-iodine Allergy Rash Verified 04/23/19 15:19 [From Betadine] rosiglitazone [From Avandia] Allergy Heart Verified 04/23/19 15:19 failure sertraline Allergy suicidal Verified 04/23/19 15:19 thoughts soap [From Betadine] Allergy Rash Verified 04/23/19 15:19 KIERSTEN Inhibitors AdvReac Coughing Verified 04/23/19 15:19 alprazolam [From Xanax] AdvReac Agitation Verified 04/23/19 15:19 atorvastatin [From Lipitor] AdvReac Muscle Verified 04/23/19 15:19 weakness diazepam [From Valium] AdvReac [employer]PER[employer] Verified 04/23/19 15:19 reaction erythromycin base AdvReac Abdominal Verified 04/23/19 15:19 Pain simvastatin [From Zocor] AdvReac Muscle Verified 04/23/19 15:19 weakness venlafaxine [From Effexor] AdvReac Dizziness Verified 04/23/19 15:19 mushroom extract complex AdvReac GI Upset Uncoded 04/23/19 15:19 Home Medications: Home Medications Cetirizine HCl [Allergy Relief] 10 mg PO DAILY 04/23/19 [History Confirmed 04/23] Cholecalciferol TAB* [Vitamin D TAB*] 2,000 units PO DAILY 04/23/19 [History Confirmed 04/23/19] Cyclobenzaprine TAB* [Flexeril 10 MG TAB*] 30 mg PO BEDTIME PRN 04/23/19 [ History Confirmed 04/23/19] Gabapentin CAP(*) [Neurontin 300 CAP(*)] 300 mg PO QPM 04/23/19 [History Confirmed 04/23/19] Insulin LISPRO* [HumaLOG*] 0 - 100 units SUBCUT QID 04/23/19 [History Confirmed 04/23/19] Loperamide CAP* [Imodium CAP*] 2 mg PO Q4H PRN 04/23/19 [History Confirmed 04/23] [place]-3S/Dha/Epa/Fish Oil [Fish Oil 1,200 mg Softgel] 1 cap PO DAILY 04/23/19 [ History Confirmed 04/23/19] PMH/Surg Hx/FS Hx/Imm Hx Endocrine/Hematology History: Reports: Hx Diabetes Denies: Hx Anticoagulant Therapy, Hx Thyroid Disease Cardiovascular History: Reports: Hx Hypercholesterolemia, Hx Hypertension, Other Cardiovascular Problems/Disorders - IDDM Denies: Hx Angina, Hx Coronary Artery Disease, Hx Myocardial Infarction, Hx Pacemaker/ICD, Hx Valvular Heart Disease Respiratory History: Reports: Hx Asthma Denies: Hx Chronic Obstructive Pulmonary Disease (COPD) GI History: Reports: Hx Gall Bladder Disease History: Reports: Hx Kidney Stones Denies: Hx Dialysis Comment Only: Hx Renal Disease - ONLY KIDNEY STONES PER PT Musculoskeletal History: Reports: Hx Arthritis, Hx Back Problems, Hx Osteoporosis Denies: Hx Rheumatoid Arthritis Sensory History: Reports: Hx Contacts or Glasses Opthamlomology History: Reports: Hx Contacts or Glasses Neurological History: Reports: Other Neuro Impairments/Disorders - RUPTURED DISKS, SPINAL STIMULATOR Denies: Hx Dementia, Hx Seizures Psychiatric History: Reports: Hx Anxiety, Hx Depression Denies: Hx Substance Abuse - Cancer History Hx Chemotherapy: No Hx Radiation Therapy: No - Surgical History Surgery Procedure, Year, and Place: SPINE stimulator, gall bladder removed, gastric bipass 2002, multiple ortho surgeries Hx Anesthesia Reactions: No - Immunization History Date of Tetanus Vaccine: utd Date of Influenza Vaccine: fall 2016 Infectious Disease History: No Infectious Disease History: Denies: Hx Clostridium Difficile, Hx Hepatitis, Hx Human Immunodeficiency Virus (HIV), Hx of Known/Suspected MRSA, Hx Shingles, Hx Tuberculosis, Hx Known/ Suspected VRE, Traveled Outside the [place] in Last 30 Days - Family History Known Family History: Positive: Cardiac Disease, Hypertension, Diabetes, Renal Disease, Other - brain CA - Social History Alcohol Use: None Hx Substance Use: No Substance Use Type: Reports: None Hx Tobacco Use: No Smoking Status (MU): Never Smoked Tobacco Have You Smoked in the Last Year: No Review of Systems Constitutional: Negative Eyes: Negative ENT: Negative Cardiovascular: Negative Respiratory: Negative Gastrointestinal: Negative Genitourinary: Negative Skin: Negative Neurological: Negative Psychological: Normal All Other Systems Reviewed And Are Negative: Yes Physical Exam - Summary Physical Exam Summary: No evidence of trauma to mouth, face, head. Full range of motion of jaw and neck. No pain with palpation of neck, back, chest wall, abdomen. Patient moves bilateral upper extremities freely without indication of pain. Patient moves bilateral lower extremities freely. Mild pain with palpation of left hip. Triage Information Reviewed: Yes Vital Signs On Initial Exam: Initial Vitals Temp Pulse Resp BP Pulse Ox 97.3 F 98 18 115/61 99 04/23/19 15:15 04/23/19 15:15 04/23/19 15:15 04/23/19 15:15 04/23/19 15:15 Vital Signs Reviewed: Yes Appearance: Positive: Well-Appearing Skin: Positive: Warm Head/Face: Positive: Normal Head/Face Inspection Eyes: Positive: Normal Neck: Positive: Supple Respiratory/Lung Sounds: Positive: Clear to Auscultation Cardiovascular: Positive: Normal Abdomen Description: Positive: Nontender Musculoskeletal: Positive: Normal Neurological: Positive: Normal Psychiatric: Positive: Normal AVPU Assessment: Alert - [place] Coma Scale Best Eye Response: 4 - Spontaneous Best Motor Response: 6 - Obeys Commands Best Verbal Response: 5 - Oriented Coma Scale Total: 15 Diagnostics - Vital Signs Vital Signs Temp Pulse Resp BP Pulse Ox 04/23/19 16:09 90 04/23/19 15:15 97.3 F 98 18 115/61 99 - Laboratory Lab Statement: Any lab studies that have been ordered have been reviewed, and results considered in the medical decision making process. Complex Multi-Symp Course/Dx Course Of Treatment: Patient told to come to the ED after abnormal routine labs this morning. Also complains of 2 falls this week with subsequent acute on chronic left hip pain. Denies head injury, LOC, vision change, RAYA, neck pain, back pain, fever, cough, sore throat, CP, SOB, N/V/D, abdominal pain, change in urine, change in BM. Medical history is HTN, DM, CK D stage IV, anemia. Physical exam:No evidence of trauma to mouth, face, head. Full range of motion of jaw and neck. No pain with palpation of neck, back, chest wall, abdomen. Patient moves bilateral upper extremities freely without indication of pain. Patient moves bilateral lower extremities freely. Mild pain with palpation of left hip. Vital signs within normal limits. Hemoglobin 7.5. CO2 13. Potassium 5.3. Creatinine 5.87. UA positive for UTI. Discussed patient with nephrology Dr. Warren who recommended admission, Rocephin for UTI, 2 L normal saline at 100 mL's per hour. Patient admitted to hospitalist. - Diagnoses Provider Diagnoses: Fall, HALEY (acute kidney injury), Anemia Discharge - Sign-Out/Discharge Documenting (check all that apply): Patient Departure Patient Received Moderate/Deep Sedation with Procedure: No - Discharge Plan Condition: Stable Disposition: HOME - Billing Disposition and Condition Condition: STABLE Disposition: Home
[2019-04-23] MEDS ORDERED: cefTRIAXone(*) 1 GM in NS 0.9% 50 ML* 50 ML IVPB ONE (16:34)
[2019-04-23] MEDS ORDERED: NS 0.9% 1000 ML** 1,000 ML IV SCH ×2 (16:45)
[2019-04-23] MEDS ORDERED: Lactated Ringers 1000 ML Bag* 1,000 ML IV SCH (18:00)
[2019-04-23] MEDS ORDERED: Ondansetron INJ* 2 MG/ML VIAL IV PRN (18:07)
[2019-04-23] MEDS ORDERED: Acetaminophen TAB* 325 MG PO PRN (18:07)
[2019-04-23] MEDS ORDERED: Loperamide CAP* 2 MG PO PRN (18:12)
[2019-04-23] MEDS ORDERED: Ropinirole TAB* 0.5 MG TAB PO PRN (18:12)
[2019-04-23] MEDS ORDERED: Dextrose 50% Syringe 50 ML* 25 GM/50 ML SYRINGE IV PUSH PRN (18:17)
[2019-04-23 18:36] LABS: Uric Acid 6.2 mg/dL (2.3-6.6)
--- NOTE | 2019-04-23 19:52 | HP ---
CC: Dr. Cortney Yeboah; Dr. Viri Larsen * ADMISSION HISTORY AND PHYSICAL: DATE OF ADMISSION: 04/23/19 PRIMARY CARE PROVIDER: Dr. Cortney Yeboah. MY ATTENDING WHILE IN THE HOSPITAL: Dr. Georgette Cole.* (DICTATED BY ELI ORTEGA) OUTPATIENT HASH SLINGER: Dr. Viri Larsen. CHIEF COMPLAINT: Kidney failure. HISTORY OF PRESENT ILLNESS: Ms. Richards is a 63-year-old female with past medical history significant for chronic kidney disease, diabetes mellitus type 2 , hypertension and nephrolithiasis, who for the past week has had nausea with intermittent vomiting, very poor oral intake, and nonbloody diarrhea approximately 4 times daily. The patient has not taken any antiemetics. The patient has been taking all of her chronic medications through this including her diuretics and has had persistently high urinary output through this. The patient's home health aide's kids are all infected with a GI bug, which she believes was passed along to her. The patient denies fevers or chills. The patient has some dizziness upon standing. The patient has no new pain in her back. The patient does have chronic back pain. The patient has been taking Bufferin 500 mg every 4 hours as well for her chronic pain. The patient recently had her pain medication regimen changed around, but this change has not taken effect yet. The patient denies chest pain, shortness of breath. The patient has noticed an increase in the swelling in her legs. No swelling in her abdomen. The patient today had a routine appointment with her outpatient keno attendant and at that time had laboratory work, which showed severe increase in her creatinine from a baseline of approximately 1.6 to 5.87. The patient was also markedly acidotic and had a borderline high potassium. The patient had a normal lactic acid and normal white blood cell count, but was much more anemic than her baseline. The patient in the emergency department was given fluids and had a CT of the abdomen and pelvis, which showed no obstruction. Due to concern for acute renal failure, we were asked to admit the patient to the hospital. PAST MEDICAL HISTORY: Chronic kidney disease, diabetes mellitus type 2, hypertension, back pain, nephrolithiasis, ventral hernia, anemia. PAST SURGICAL HISTORY: Gastric bypass, spinal surgery x3 with spinal stimulator implantation, shoulder surgery. MEDICATIONS: Medications at home per medication reconciliation: 1. Duloxetine 30 mg p.o. at bedtime. 2. Losartan 50 mg p.o. daily. 3. Torsemide 40 mg p.o. daily. 4. Sodium bicarbonate 650 mg p.o. 3 times daily. 5. Ferrous sulfate 325 mg p.o. daily. 6. Xalatan 1 drop both eyes at bedtime. 7. Diltiazem 120 mg p.o. at bedtime. 8. OxyContin 10 mg p.o. q.8 hours. 9. Ropinirole 0.5 to 1.5 mg p.o. at bedtime as needed for restless leg syndrome. 10. Insulin glargine 40 units subcutaneous b.i.d. 11. Aspirin 81 mg p.o. daily. 12. Loperamide 2 mg p.o. q.4 hours as needed. 13. Insulin lispro sliding scale subcutaneous 4 times daily. 14. Flexeril 30 mg p.o. at bedtime as needed. 15. Vitamin D 2000 units p.o. daily. 16. Cetirizine 10 mg p.o. daily. 17. Gabapentin 300 mg p.o. nightly. 18. [place]-3 fatty acids 1 cap p.o. daily. ALLERGIES: DOXAZOSIN, FENTANYL, IBUPROFEN, LAMOTRIGINE, IODINE, ROSIGLITAZONE, SERTRALINE, SOAP, KIERSTEN INHIBITORS, ALPRAZOLAM, LIPITOR, DIAZEPAM, ERYTHROMYCIN, SIMVASTATIN, VENLAFAXINE, MUSHROOM EXTRACT. FAMILY HISTORY: The patient's father of complications of diabetes and chronic kidney disease. The patient's mother of heart disease and had diabetes. The patient has a sister, who is alive and healthy and 7 years older than she is. SOCIAL HISTORY: The patient does not smoke, drink, or use illicit drugs. 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 The patient is and has no children. The patient's surrogate decision maker will be her sister, Britany. REVIEW OF SYSTEMS: A 14-point review of systems was reviewed and is negative except as above in the HPI. PHYSICAL EXAMINATION GENERAL: The patient is a 63-year-old female, who appears stated age and sitting comfortably in bed, in no acute distress. VITAL SIGNS: At the time of evaluation, temperature 97.3, pulse rate 94, respiratory rate 16, oxygen saturation 98% on room air, blood pressure 107/58. HEENT: Head: Normocephalic, atraumatic. Sclerae anicteric. No conjunctival injection. Nasal mucosa moist. Oral mucosa moist. No pharyngeal erythema, discharge, or exudate. NECK: Supple, nontender. No lymphadenopathy. No carotid bruits auscultated. No JVD. RESPIRATORY: Clear to auscultation bilaterally. No wheezes, rales, or rhonchi. Good air exchange bilaterally. CARDIAC: Regular rate and rhythm. No clicks, murmurs, gallops, or rubs. Pulses are 2+ in the bilateral dorsalis pedis, posterior tibialis, and radial areas. 2+ bilateral lower extremity pitting edema noted. ABDOMEN: Soft, nontender, nondistended. Bowel sounds present and normoactive in all 4 quadrants. No hepatosplenomegaly. No abdominal bruits auscultated. Ventral hernia palpated. GENITOURINARY: No suprapubic or CVA tenderness. NEURO: Cranial nerves II through XII intact. No focal deficits. Alert and oriented x3. PSYCHIATRIC: Pleasant and cooperative. SKIN: Midline burn with several open areas in the bilateral lower legs. No signs of infection. DIAGNOSTIC STUDIES/LAB DATA: Including data from earlier today: White blood cell count 9.1, hemoglobin 7.5, platelet count 249,000. Sodium 138, potassium 5.3, chloride 113, carbon dioxide 13, anion gap 12, BUN 87, creatinine 5.87, glucose 159, lactic acid 0.8, calcium 8.0. Bilirubin 0.3, AST 16, ALT 11, alkaline phosphatase 110. BNP 192. Protein 6.9, albumin 3.2, globulin 3.7. Urine: Yellow, turbid, pH 5.0, specific gravity 1.001, protein 1+, negative ketones, 1+ blood, positive nitrites, negative bilirubin, negative urobilinogen , 3+ leukocyte esterase, 3+ white blood cells, 3+ red blood cells, squamous epithelial cells and urine bacteria present. Microalbumin 128.6, creatinine of 56.59, albumin/creatinine ratio 27, protein concentration 65, glucose negative. Studies: Hip/pelvis x-ray read as no radiographic evidence for left hip fracture. Abdomen and pelvis CT from 04/23/19 read as kidneys are slightly small in size. No hydronephrosis or evidence for obstruction. There is a small nonobstructing right renal calculus, status post cholecystectomy and gastric bypass surgery, anterior abdominal wall hernia as described, anasarca. ASSESSMENT AND PLAN: Impression: Ms. Richards is a 63-year-old female with past medical history significant for chronic kidney disease, diabetes mellitus type 2 , hypertension and nephrolithiasis, who has had nausea, vomiting and diarrhea for 1 week with very poor oral intake in the setting of NSAID use, KIERSTEN inhibitor use and diuretic use. The patient's creatinine has gone from a baseline of 1.6 to 5.87. The patient will be admitted to the hospital for fluid resuscitation and monitoring as well as evaluation for alternative causes of acute kidney injury. 1. Acute on chronic kidney disease. The patient has a severe decrease in her kidney function over the past several months. This is likely related to the acute dehydration related to her gastroenteritis. The patient states that her nausea, vomiting and diarrhea have been subsiding. The patient will be treated with antiemetics and antidiarrheals as needed. The patient will be given lactated Ringer's for fluid resuscitation given her acidosis. The patient will be buffered with Bicitra. The patient has been discussed with Dr. Viri Laresn, who will mushroom picker her care in the hospital tomorrow. The patient will have FENa, FEurea, 24- hour creatinine while in the hospital. The patient' s most recent A1c was 6.2. This will not be repeated at this time. The patient' s medications will be renally dosed to avoid oversedation. The patient is currently asymptomatic except for anasarca. The patient has no signs of obstructing nephrolithiasis or pyelonephritis on CT scan and no casts in her urine. 2. Urinary tract infection. The patient has a concordance of leukocyte esterase and nitrite in her urine, although she said tonight he will be treated for urinary tract infection with ceftriaxone. 3. Diabetes mellitus type 2. The patient has recently been very well controlled. Continue the patient's home regimen of glargine and insulin sliding scale. 4. Hypertension. The patient is currently normotensive. Hold the patient's home antihypertensives of losartan and torsemide. 5. Anemia. The patient's anemia is normocytic, is chronic, but is much worse than has been previously. The patient has been on oral iron. This will be held while in the hospital due to her nausea and vomiting as this can be quite upsetting. Repeat iron studies will be done at this time. The patient should have outpatient endoscopy given normal colonoscopy to assess for areas of occult GI bleeding. The patient will have an erythropoietin level to see if this is related to her chronic kidney disease. 7. DVT prophylaxis: Renally dosed heparin. 8. FEN: The patient will have a renal diet and fluids as above. 9. Disposition: The patient is admitted inpatient to the hospital. TIME SPENT: Approximately 60 minutes were spent on the admission of this patient, 30 of which was spent [id number] with the patient obtaining history and physical and discussing treatment plan. This plan was discussed with my attending, Dr. Georgette Cole, and she is in agreement. ELI ORTEGA [id number]/CPS #: [id number]
[2019-04-23 20:12] LABS: Urine Sodium Concentration 79 mmol/L
[2019-04-23 20:20] LABS: Urine Appearance Cloudy; Urine Bacteria 1+ (Absent); Urine Bilirubin Negative (Negative); Urine Blood 1+ (Negative); Urine Color Yellow; Urine Glucose Negative (Negative); Urine Ketones Negative (Negative); Urine Nitrite Negative (Negative); Urine Protein Negative (Negative); Urine Red Blood Cell Trace(0-2/hpf) (Absent); Urine Specific Gravity 1.008 (1.010-1.030); Urine Squamous Epithelial Cell Present (Absent); Urine Urobilinogen Negative (Negative); Urine White Blood Cell 3+(>20/hpf) (Absent)
[2019-04-23] MEDS ORDERED: hydrALAZINE IV* 20 MG/ML VIAL IV SLOW PU PRN (20:26)
[2019-04-23 20:51] LABS: Ur Urea Nitrogen Concentration 347 mg/dL
[2019-04-23] MEDS: Cyclobenzaprine TAB* 10 MG PO PRN (21:55)
[2019-04-23] MEDS: Diltiazem CD CAP* 120 MG PO SCH (21:56)
[2019-04-23] MEDS: DULoxetine DR CAP* 30 MG CAP.DR PO SCH (21:56)
[2019-04-23] MEDS: Latanoprost 0.005%* 2.5 ml BTL BOTH EYES SCH (22:00)
[2019-04-23] MEDS: oxyCODONE SR TAB(*) 10 MG TAB.SR PO SCH (22:00)
[2019-04-23] MEDS: Insulin GLARGINE(*) 1 UNITS UNIT SUBCUT SCH (22:01)
[2019-04-23] MEDS: Insulin LISPRO* 1 UNITS UNIT SUBCUT SCH (22:01)
[2019-04-23] MEDS: Heparin VIAL(*) 5000 UNITS/ML VIAL (FIVE THOUSAND) SUBCUT SCH (22:03)
[2019-04-23] MEDS: Sodium Citrate/Citric Acid* 15 ML UDC PO SCH (22:08)
[2019-04-24 05:37] LABS: ABS Eosinophils 0.1 10^3/ul (0-0.6); ABS Lymphocytes 1.4 10^3/ul (1.0-4.8); ABS Monocytes 0.6 10^3/ul (0-0.8); ABS Neutrophils 3.5 10^3/ul (1.5-7.7); Eosinophil % 1.8 %; Hematocrit 20 % (35-47); Hemoglobin 6.6 g/dL (12.0-16.0); Mean Corpuscular HGB Conc 33 g/dL (31-36); Mean Corpuscular Hemoglobin 31 pg (27-31); Mean Corpuscular Volume 94 fL (80-97); Mean Platelet Volume 8.7 fL (7.4-10.4); Platelet Count 200 10^3/uL (150-450); Red Blood Count 2.16 10^6 /uL (3.70-4.87); Red Cell Distribution Width 14 % (10-15); White Blood Count 5.6 10^3/uL (3.5-10.8)
[2019-04-24 05:55] LABS: BUN/Creatinine Ratio 14.9 (8-20); Blood Urea Nitrogen 87 mg/dL (6-24); CO2 Carbon Dioxide 17 mmol/L (22-32); Calcium 7.8 mg/dL (8.6-10.3); EGFR African American 8.8 (>60); EGFR Non-African American 7.3 (>60); Glucose 120 mg/dL (70-100); Magnesium 1.7 mg/dL (1.9-2.7); Potassium 4.6 mmol/L (3.5-5.0); Sodium 139 mmol/L (135-145)
[2019-04-24 05:59] LABS: Anion Gap 7 mmol/L (2-11); Chloride 115 mmol/L (101-111)
[2019-04-24 06:03] LABS: % Iron Saturation 26 % (15-55); Iron 52 ug/dL (50-212); Total Iron Binding Capacity 202 mcg/dL (250-450); Transferrin 144 mg/dL (203-362)
[2019-04-24 06:22] LABS: Ferritin 125.5 ng/mL (11-307)
[2019-04-24] MEDS ORDERED: Magnesium Sulfate 1 GM IV* 1 GM/100 ML BAG IV ONE (08:00)
[2019-04-24 08:22] LABS: LDH 132 U/L (140-271)
[2019-04-24 08:23] LABS: ALT 9 U/L (7-52); AST 13 U/L (13-39); Albumin 2.7 g/dL (3.2-5.2); Albumin/Globulin Ratio 0.8 (1-3); Alkaline Phosphatase 97 U/L (34-104); Globulin 3.3 g/dL (2-4)
[2019-04-24 09:11] LABS: Platelet Count 194 10^3/ul (150-450)
[2019-04-24 09:15] LABS: Activated Partial Thrombo Time 27.3 seconds (26.0-38.0); Fibrinogen 331.6 mg/dL (110.8-404.3); INR 0.98 (0.82-1.09)
[2019-04-24 09:20] LABS: Schistocytes ABSENT
--- NOTE | 2019-04-24 09:45 | PN ---
Subjective Date of Service: 04/24/19 Interval History: Somewhat better.Continues to have ongoing diarrhea and nausea Objective Active Medications: Acetaminophen (Tylenol Tab*) 650 mg PO Q6H PRN PRN Reason: FEVER/PAIN Cetirizine HCl (Zyrtec*) 10 mg PO DAILY [facility] Cholecalciferol (Vitamin D Tab*) 2,000 units PO DAILY [facility] Citric Acid/Sodium Citrate (Bicitra*) 15 ml PO QID [facility] Last Admin: 04/23/19 22:08 Dose: 15 ml Cyclobenzaprine HCl (Flexeril Tab*) 30 mg PO BEDTIME PRN PRN Reason: PAIN Last Admin: 04/23/19 21:55 Dose: 30 mg Dextrose (D50w Syringe 50 Ml*) 12.5 gm IV PUSH .FOR FS < 60 - SS PRN PRN Reason: FS < 60 Diltiazem HCl (Cardizem Cd Cap*) 120 mg PO BEDTIME [facility]; Protocol Last Admin: 04/23/19 21:56 Dose: 120 mg Duloxetine HCl (Cymbalta Cap*) 30 mg PO BEDTIME [facility] Last Admin: 04/23/19 21:56 Dose: 30 mg Gabapentin (Neurontin Cap(*)) 100 mg PO QPM [facility] Heparin Sodium (Porcine) (Heparin Vial(*)) 5,000 units SUBCUT Q12HR [facility] Last Admin: 04/23/19 22:03 Dose: 5,000 units Ceftriaxone Sodium 1 gm/ (Sodium Chloride) 50 mls @ 200 mls/hr IVPB Q24H [facility] Insulin Glargine (Lantus(*)) 32 units SUBCUT BID [facility] Last Admin: 04/23/19 22:01 Dose: 32 units Insulin Human Lispro (Humalog*) 0 units SUBCUT ACHS [facility]; Protocol Last Admin: 04/23/19 22:01 Dose: 3 units Latanoprost (Xalatan 0.005%*) 1 drop BOTH EYES BEDTIME [facility] Last Admin: 04/23/19 22:00 Dose: Not Given Ondansetron HCl (Zofran Inj*) 4 mg IV Q6H PRN PRN Reason: NAUSEA Oxycodone HCl (Oxycontin(*)) 10 mg PO Q12H [facility] Last Admin: 04/23/19 22:00 Dose: 10 mg Ropinirole HCl (Requip Tab*) 0.5 mg PO BEDTIME PRN PRN Reason: RLS Last Admin: 04/23/19 21:56 Dose: 0.5 mg Vital Signs - 8 hr 04/24/19 03:40 Temperature 97.5 F Pulse Rate 81 Respiratory 18 Rate Blood Pressure 121/52 (mmHg) O2 Sat by Pulse 100 Oximetry Oxygen Devices in Use Now: None Eyes: No Scleral Icterus Ears/Nose/Mouth/Throat: NL Teeth, Lips, Gums Neck: NL Appearance and Movements; NL JVP Respiratory: Symmetrical Chest Expansion and Respiratory Effort Cardiovascular: NL Sounds; No Murmurs; No JVD Extremities: No Edema Skin: No Rash or Ulcers Neurological: Alert and Oriented x 3 Result Diagrams: 04/24/19 05:13 04/24/19 05:13 Assess/Plan/Problems-Billing Assessment: - Patient Problems (1) HALEY (acute kidney injury) Current Visit: Yes Status: Acute Code(s): N17.9 - ACUTE KIDNEY FAILURE, UNSPECIFIED SNOMED Code(s): 25815117 Comment: HALEY on CKD Baseline Cr 1.6-2 Sig worsening Prerenal considered in settig of diarrhea and vomitting and gi illness But clinical course c/w ATN versus Hemolytic uremic syndrome now with drop in hb recent GI illness and sig renal failure Will check e coli [id number] stool studies rota virus stool culture c diff Will check stat peripheral smear for systocytes and LDH to evaluate for HUS Transfuse PRBC No emergent HD indications (2) UTI (urinary tract infection) Current Visit: Yes Status: Acute Comment: Ceftriaxone Blood and urine cx pending (3) Anemia Current Visit: Yes Status: Acute Code(s): D64.9 - ANEMIA, UNSPECIFIED SNOMED Code(s): 492944360 Comment: Drop in Hb Evaluate for Hemolysis and HUS as above Iron studies ok Stool occult blood screen to eval for GI bleeding Transfuse 2 units PRBC (4) Diabetes Current Visit: Yes Status: Acute Code(s): E11.9 - TYPE 2 DIABETES MELLITUS WITHOUT COMPLICATIONS SNOMED Code(s): 55035756 Comment: Continue insulin (5) Hypomagnesemia Current Visit: Yes Status: Acute Code(s): E83.42 - HYPOMAGNESEMIA SNOMED Code(s): 441491481 Comment: 1g IV Mg today (6) Metabolic acidosis Current Visit: Yes Status: Acute Code(s): E87.2 - ACIDOSIS SNOMED Code(s) : 90602096 Comment: Continue Bicitra Renal failure and ongoing bicarb loss in setting of diarrhea and nausea Can consider bicarb drip also based on response to above after blood infusion (7) Diarrhea Current Visit: Yes Status: Acute Code(s): R19.7 - DIARRHEA, UNSPECIFIED SNOMED Code(s): 64989849 Comment: Stool studies as above Supp management Multiple contacts with GI illness in last 2 weeks
[2019-04-24] MEDS: Cetirizine* 10 MG TAB PO SCH (09:48)
[2019-04-24] MEDS: oxyCODONE SR TAB(*) 10 MG TAB.SR PO SCH ×2 (09:49→21:42)
[2019-04-24] MEDS: Insulin LISPRO* 1 UNITS UNIT SUBCUT SCH ×4 (09:51→21:56)
[2019-04-24] MEDS: Heparin VIAL(*) 5000 UNITS/ML VIAL (FIVE THOUSAND) SUBCUT SCH ×2 (09:52→21:43)
[2019-04-24] MEDS: Insulin GLARGINE(*) 1 UNITS UNIT SUBCUT SCH ×2 (09:52→21:53)
[2019-04-24] MEDS: Cholecalciferol TAB* 1000 UNITS PO SCH (11:49)
[2019-04-24] MEDS: Sodium Citrate/Citric Acid* 15 ML UDC PO SCH ×4 (11:49→21:42)
[2019-04-24] MEDS ORDERED: Furosemide IV* 10 MG/ML 2 ML VIAL (20 MG) IV ONE (15:03)
[2019-04-24] MEDS: cefTRIAXone(*) 1 GM in NS 0.9% 50 ML* 50 ML IVPB SCH (17:58)
[2019-04-24] MEDS: Gabapentin CAP(*) 100 MG PO SCH (18:11)
[2019-04-24] MEDS: Latanoprost 0.005%* 2.5 ml BTL BOTH EYES SCH (21:42)
[2019-04-24] MEDS: DULoxetine DR CAP* 30 MG CAP.DR PO SCH (21:42)
[2019-04-24] MEDS: Diltiazem CD CAP* 120 MG PO SCH (21:43)
[2019-04-24 22:36] LABS: Urine Creatinine Concentration 38.98 mg/dL
[2019-04-25 06:17] LABS: ABS Eosinophils 0.1 10^3/ul (0-0.6); ABS Lymphocytes 1.7 10^3/ul (1.0-4.8); ABS Monocytes 0.6 10^3/ul (0-0.8); Eosinophil % 2.1 %; Hematocrit 24 % (35-47); Mean Corpuscular HGB Conc 34 g/dL (31-36); Mean Corpuscular Hemoglobin 30 pg (27-31); Mean Corpuscular Volume 90 fL (80-97); Mean Platelet Volume 8.7 fL (7.4-10.4); Platelet Count 198 10^3/uL (150-450); Red Blood Count 2.63 10^6 /uL (3.70-4.87); Red Cell Distribution Width 15 % (10-15); White Blood Count 6.4 10^3/uL (3.5-10.8)
[2019-04-25 06:26] LABS: BUN/Creatinine Ratio 14.6 (8-20); Calcium 7.5 mg/dL (8.6-10.3); EGFR African American 9.1 (>60); EGFR Non-African American 7.5 (>60); Potassium 4.1 mmol/L (3.5-5.0)
[2019-04-25] MEDS: Insulin LISPRO* 1 UNITS UNIT SUBCUT SCH ×4 (08:06→21:05)
[2019-04-25] MEDS: oxyCODONE SR TAB(*) 10 MG TAB.SR PO SCH ×2 (09:55→21:48)
[2019-04-25] MEDS: Cetirizine* 10 MG TAB PO SCH (09:55)
[2019-04-25] MEDS: Cholecalciferol TAB* 1000 UNITS PO SCH (09:55)
[2019-04-25] MEDS: Heparin VIAL(*) 5000 UNITS/ML VIAL (FIVE THOUSAND) SUBCUT SCH ×2 (09:58→21:48)
[2019-04-25] MEDS: Insulin GLARGINE(*) 1 UNITS UNIT SUBCUT SCH ×2 (09:58→21:05)
[2019-04-25] MEDS: Sodium Citrate/Citric Acid* 15 ML UDC PO SCH ×4 (10:08→21:49)
[2019-04-25] MEDS ORDERED: Calcium Gluconate INJ* 1 GM in NS 0.9% 50 ML* 50 ML IVPB ONE (13:48)
--- NOTE | 2019-04-25 14:02 | PN ---
Subjective Date of Service: 04/25/19 Interval History: Reports feeling better now.appetite improved.nausea diarrhea improved Objective Active Medications: Acetaminophen (Tylenol Tab*) 650 mg PO Q6H PRN PRN Reason: FEVER/PAIN Cetirizine HCl (Zyrtec*) 10 mg PO DAILY [facility] Last Admin: 04/25/19 09:55 Dose: 10 mg Cholecalciferol (Vitamin D Tab*) 2,000 units PO DAILY [facility] Last Admin: 04/25/19 09:55 Dose: 2,000 units Citric Acid/Sodium Citrate (Bicitra*) 15 ml PO QID [facility] Last Admin: 04/25/19 12:54 Dose: 15 ml Cyclobenzaprine HCl (Flexeril Tab*) 30 mg PO BEDTIME PRN PRN Reason: PAIN Last Admin: 04/23/19 21:55 Dose: 30 mg Dextrose (D50w Syringe 50 Ml*) 12.5 gm IV PUSH .FOR FS < 60 - SS PRN PRN Reason: FS < 60 Diltiazem HCl (Cardizem Cd Cap*) 120 mg PO BEDTIME [facility]; Protocol Last Admin: 04/24/19 21:43 Dose: 120 mg Duloxetine HCl (Cymbalta Cap*) 30 mg PO BEDTIME [facility] Last Admin: 04/24/19 21:42 Dose: 30 mg Gabapentin (Neurontin Cap(*)) 100 mg PO QPM [facility] Last Admin: 04/24/19 18:11 Dose: 100 mg Heparin Sodium (Porcine) (Heparin Vial(*)) 5,000 units SUBCUT Q12HR [facility] Last Admin: 04/25/19 09:58 Dose: 5,000 units Ceftriaxone Sodium 1 gm/ (Sodium Chloride) 50 mls @ 200 mls/hr IVPB Q24H [facility] Last Admin: 04/24/19 17:58 Dose: 200 mls/hr Calcium Gluconate 1 gm/ Sodium (Chloride) 60 mls @ 60 mls/hr IVPB ONCE ONE Stop: 04/25/19 14:47 Insulin Glargine (Lantus(*)) 32 units SUBCUT BID [facility] Last Admin: 04/25/19 09:58 Dose: 32 units Insulin Human Lispro (Humalog*) 0 units SUBCUT ACHS [facility]; Protocol Last Admin: 04/25/19 12:39 Dose: Not Given Latanoprost (Xalatan 0.005%*) 1 drop BOTH EYES BEDTIME [facility] Last Admin: 04/24/19 21:42 Dose: 1 drop Ondansetron HCl (Zofran Inj*) 4 mg IV Q6H PRN PRN Reason: NAUSEA Oxycodone HCl (Oxycontin(*)) 10 mg PO Q12H [facility] Last Admin: 04/25/19 09:55 Dose: 10 mg Ropinirole HCl (Requip Tab*) 0.5 mg PO BEDTIME PRN PRN Reason: RLS Last Admin: 04/23/19 21:56 Dose: 0.5 mg Vital Signs - 8 hr 04/25/19 04/25/19 04/25/19 09:55 11:27 11:47 Temperature 97.8 F 97.5 F Pulse Rate 90 84 Respiratory 17 20 18 Rate Blood Pressure 126/53 128/58 (mmHg) O2 Sat by Pulse 98 98 Oximetry Oxygen Devices in Use Now: None Eyes: No Scleral Icterus Ears/Nose/Mouth/Throat: NL Teeth, Lips, Gums Neck: NL Appearance and Movements; NL JVP Respiratory: Symmetrical Chest Expansion and Respiratory Effort Cardiovascular: NL Sounds; No Murmurs; No JVD, RRR Abdominal: NL Sounds; No Tenderness; No Distention Extremities: No Edema, - - 1+ Edema bilaterally Neurological: Alert and Oriented x 3 Result Diagrams: 04/25/19 05:47 04/25/19 05:47 Microbiology and Other Data: Microbiology 04/24/19 20:02 Stool Gross Appearance - Final Stool C. difficile DNA Amplification - Final Stool Occult Blood ([facility]) - Final Rotavirus Antigen - Final Negative Rotavirus 04/23/19 17:14 Aerobic Blood Culture - Preliminary Blood Venous No Growth Day 1 Anaerobic Blood Culture - Preliminary No Growth Day 1 04/23/19 17:14 Aerobic Blood Culture - Preliminary Blood Venous No Growth Day 1 Anaerobic Blood Culture - Preliminary No Growth Day 1 Assess/Plan/Problems-Billing Assessment: - Patient Problems (1) HALEY (acute kidney injury) Current Visit: Yes Status: Acute Code(s): N17.9 - ACUTE KIDNEY FAILURE, UNSPECIFIED SNOMED Code(s): 20611144 Comment: HALEY on CKD Baseline Cr 1.6-2 Sig worsening Clinical course c/w ATN versus Hemolytic uremic syndrome with drop in hb recent GI illness and sig renal failure Will check e coli 0157:h7 stool studies rota virus stool culture c diff peripheral smear for systocytes neg now and LDH wnl so less likely HUS and HALEY likely from ATN and in current plateau phase of ATN s/p 2 units PRBC yesterday for hb 6.5 No emergent HD indications f/u h/h (2) UTI (urinary tract infection) Current Visit: Yes Status: Acute Comment: Ceftriaxone Blood and urine cx Urine cx from ER not reported yet? Will re order but already on antibiotics now Blood cx neg No hydro or pyelo on ct (3) Anemia Current Visit: Yes Status: Acute Code(s): D64.9 - ANEMIA, UNSPECIFIED SNOMED Code(s): 903577933 Comment: Drop in Hb Evaluated for Hemolysis and HUS as above Iron studies ok Stool occult blood screen to eval for GI bleeding Transfused 2 units PRBC (4) Diabetes Current Visit: Yes Status: Acute Code(s): E11.9 - TYPE 2 DIABETES MELLITUS WITHOUT COMPLICATIONS SNOMED Code(s): 00323549 Comment: Continue insulin (5) Hypomagnesemia Current Visit: Yes Status: Acute Code(s): E83.42 - HYPOMAGNESEMIA SNOMED Code(s): 158109229 Comment: Replaced (6) Metabolic acidosis Current Visit: Yes Status: Acute Code(s): E87.2 - ACIDOSIS SNOMED Code(s) : 76810612 Comment: Continue Bicitra Renal failure and ongoing bicarb loss in setting of diarrhea and nausea Condider bicarb drip if no improvement (7) Diarrhea Current Visit: Yes Status: Acute Code(s): R19.7 - DIARRHEA, UNSPECIFIED SNOMED Code(s): 26659206 Comment: Stool studies as above Supp management Multiple contacts with GI illness in last 2 weeks
[2019-04-25] MEDS: cefTRIAXone(*) 1 GM in NS 0.9% 50 ML* 50 ML IVPB SCH (16:50)
[2019-04-25] MEDS: Latanoprost 0.005%* 2.5 ml BTL BOTH EYES SCH (21:47)
[2019-04-25] MEDS: Gabapentin CAP(*) 100 MG PO SCH (21:48)
[2019-04-25] MEDS: Diltiazem CD CAP* 120 MG PO SCH (21:48)
[2019-04-25] MEDS: DULoxetine DR CAP* 30 MG CAP.DR PO SCH (21:48)
[2019-04-25] MEDS: Cyclobenzaprine TAB* 10 MG PO PRN (21:50)
[2019-04-26 06:49] LABS: ABS Eosinophils 0.1 10^3/ul (0-0.6); ABS Lymphocytes 1.7 10^3/ul (1.0-4.8); ABS Monocytes 0.6 10^3/ul (0-0.8); ABS Neutrophils 3.3 10^3/ul (1.5-7.7); Eosinophil % 2.6 %; Hematocrit 25 % (35-47); Hemoglobin 8.4 g/dL (12.0-16.0); Lymphocyte % 29.5 %; Mean Corpuscular HGB Conc 34 g/dL (31-36); Mean Corpuscular Hemoglobin 31 pg (27-31); Mean Corpuscular Volume 90 fL (80-97); Mean Platelet Volume 8.8 fL (7.4-10.4); Platelet Count 192 10^3/uL (150-450); Red Blood Count 2.74 10^6 /uL (3.70-4.87); Red Cell Distribution Width 15 % (10-15); White Blood Count 5.8 10^3/uL (3.5-10.8)
[2019-04-26 06:57] LABS: CO2 Carbon Dioxide 16 mmol/L (22-32); Sodium 139 mmol/L (135-145)
[2019-04-26 07:02] LABS: BUN/Creatinine Ratio 13.4 (8-20); Blood Urea Nitrogen 77 mg/dL (6-24); Chloride 112 mmol/L (101-111); EGFR Non-African American 7.4 (>60); Glucose 81 mg/dL (70-100)
[2019-04-26 07:35] LABS: Anion Gap 11 mmol/L (2-11)
[2019-04-26] MEDS: Insulin LISPRO* 1 UNITS UNIT SUBCUT SCH ×4 (08:05→21:59)
[2019-04-26] MEDS: Insulin GLARGINE(*) 1 UNITS UNIT SUBCUT SCH ×2 (09:06→21:59)
[2019-04-26] MEDS: Cholecalciferol TAB* 1000 UNITS PO SCH (10:06)
[2019-04-26] MEDS: Cetirizine* 10 MG TAB PO SCH (10:06)
[2019-04-26] MEDS: oxyCODONE SR TAB(*) 10 MG TAB.SR PO SCH ×2 (10:06→22:01)
[2019-04-26] MEDS: Heparin VIAL(*) 5000 UNITS/ML VIAL (FIVE THOUSAND) SUBCUT SCH ×2 (10:07→21:59)
[2019-04-26] MEDS: Sodium Citrate/Citric Acid* 15 ML UDC PO SCH ×4 (10:16→22:01)
--- NOTE | 2019-04-26 14:41 | PN ---
Subjective Date of Service: 04/26/19 Interval History: Pt feels well. Last BM -formed, this AM, denies abd pain Objective Active Medications: Acetaminophen (Tylenol Tab*) 650 mg PO Q6H PRN PRN Reason: FEVER/PAIN Cetirizine HCl (Zyrtec*) 10 mg PO DAILY [facility] Last Admin: 04/26/19 10:06 Dose: 10 mg Cholecalciferol (Vitamin D Tab*) 2,000 units PO DAILY [facility] Last Admin: 04/26/19 10:06 Dose: 2,000 units Citric Acid/Sodium Citrate (Bicitra*) 15 ml PO QID [facility] Last Admin: 04/26/19 13:37 Dose: 15 ml Cyclobenzaprine HCl (Flexeril Tab*) 30 mg PO BEDTIME PRN PRN Reason: PAIN Last Admin: 04/25/19 21:50 Dose: 30 mg Dextrose (D50w Syringe 50 Ml*) 12.5 gm IV PUSH .FOR FS < 60 - SS PRN PRN Reason: FS < 60 Diltiazem HCl (Cardizem Cd Cap*) 120 mg PO BEDTIME [facility]; Protocol Last Admin: 04/25/19 21:48 Dose: 120 mg Duloxetine HCl (Cymbalta Cap*) 30 mg PO BEDTIME [facility] Last Admin: 04/25/19 21:48 Dose: 30 mg Gabapentin (Neurontin Cap(*)) 100 mg PO QPM [facility] Last Admin: 04/25/19 21:48 Dose: 100 mg Heparin Sodium (Porcine) (Heparin Vial(*)) 5,000 units SUBCUT Q12HR [facility] Last Admin: 04/26/19 10:07 Dose: 5,000 units Ceftriaxone Sodium 1 gm/ (Sodium Chloride) 50 mls @ 200 mls/hr IVPB Q24H [facility] Last Admin: 04/25/19 16:50 Dose: 200 mls/hr Insulin Glargine (Lantus(*)) 32 units SUBCUT BID [facility] Last Admin: 04/26/19 09:06 Dose: Not Given Insulin Human Lispro (Humalog*) 0 units SUBCUT ACHS [facility]; Protocol Last Admin: 04/26/19 12:09 Dose: Not Given Latanoprost (Xalatan 0.005%*) 1 drop BOTH EYES BEDTIME [facility] Last Admin: 04/25/19 21:47 Dose: 1 drop Ondansetron HCl (Zofran Inj*) 4 mg IV Q6H PRN PRN Reason: NAUSEA Oxycodone HCl (Oxycontin(*)) 10 mg PO Q12H [facility] Last Admin: 04/26/19 10:06 Dose: 10 mg Ropinirole HCl (Requip Tab*) 0.5 mg PO BEDTIME PRN PRN Reason: RLS Last Admin: 04/23/19 21:56 Dose: 0.5 mg Vital Signs - 8 hr 04/26/19 04/26/19 04/26/19 08:00 09:25 10:06 Temperature 97.3 F Pulse Rate 73 Respiratory 18 18 18 Rate Blood Pressure 132/61 (mmHg) O2 Sat by Pulse 100 Oximetry 04/26/19 04/26/19 11:38 13:59 Temperature 97.4 F Pulse Rate 72 Respiratory 18 18 Rate Blood Pressure 122/48 (mmHg) O2 Sat by Pulse 100 Oximetry Oxygen Devices in Use Now: None Appearance: 63 yo F in nAD, aAOx3 Eyes: No Scleral Icterus, PERRLA Ears/Nose/Mouth/Throat: NL Teeth, Lips, Gums, Mucous Membranes Moist Neck: NL Appearance and Movements; NL JVP, Trachea Midline Respiratory: Symmetrical Chest Expansion and Respiratory Effort, Clear to Auscultation Cardiovascular: NL Sounds; No Murmurs; No JVD Abdominal: NL Sounds; No Tenderness; No Distention, No Hepatosplenomegaly Lymphatic: No Cervical Adenopathy Extremities: No Clubbing, Cyanosis, - - +1 pitting pedal edema b/l-chronic Skin: No Rash or Ulcers, No Nodules or Sclerosis Neurological: Alert and Oriented x 3, NL Muscle Strength and Tone Result Diagrams: 04/26/19 06:06 04/26/19 12:39 Microbiology and Other Data: Microbiology 04/24/19 20:02 Stool Gross Appearance - Final Stool C. difficile DNA Amplification - Final Stool Occult Blood ([facility]) - Final Rotavirus Antigen - Final Negative Rotavirus 04/23/19 17:14 Aerobic Blood Culture - Preliminary Blood Venous No Growth Day 1 Anaerobic Blood Culture - Preliminary No Growth Day 1 04/23/19 17:14 Aerobic Blood Culture - Preliminary Blood Venous No Growth Day 1 Anaerobic Blood Culture - Preliminary No Growth Day 1 Assess/Plan/Problems-Billing Assessment: 63 yo F with h/o DM2, CKD stage 3 presents with diarrhea and HALEY - Patient Problems (1) HALEY (acute kidney injury) Comment: HALEY on CKD Baseline Cr 1.6-2 Sig worsening Clinical course c/w ATN . Hemolytic uremic syndrome r/o with no schistiocytes on CBC and pt hb stable after transfusion. Aslo stool neg for shiga toxin e coli 0157:h7 stool studies pending. Rota virus neg s/p 2 units PRBC 04/24/19 with now stable Hb. No emergent HD indications f/u h/h (2) Anemia Comment: Drop in Hb Evaluated for Hemolysis and HUS as above Iron studies ok Stool occult blood screen to eval for GI bleeding neg Transfused 2 units PRBC 04/24/19 (3) Diabetes Comment: Continue insulin (4) Diarrhea Comment: Stool studies as above resolved (5) Hypomagnesemia Comment: Replaced (6) Metabolic acidosis Comment: Continue Bicitra Renal failure and ongoing bicarb loss in setting of diarrhea and nausea (7) UTI (urinary tract infection) Comment: Ceftriaxone-tx completed for 3 days Blood cx neg. urine cx + for E. coli on 04/23/19 No hydro or pyelo on ct (8) DVT prophylaxis Comment: HSQ Status and Disposition: inpatient, likely d/c tomorrow if creat lower
[2019-04-26] MEDS: Gabapentin CAP(*) 100 MG PO SCH (18:12)
[2019-04-26] MEDS: DULoxetine DR CAP* 30 MG CAP.DR PO SCH (22:00)
[2019-04-26] MEDS: Cyclobenzaprine TAB* 10 MG PO PRN (22:00)
[2019-04-26] MEDS: Diltiazem CD CAP* 120 MG PO SCH (22:00)
[2019-04-26] MEDS: Latanoprost 0.005%* 2.5 ml BTL BOTH EYES SCH (22:01)
[2019-04-27 06:35] LABS: Calcium 8.2 mg/dL (8.6-10.3); Potassium 4.3 mmol/L (3.5-5.0)
[2019-04-27 06:38] LABS: Hematocrit 27 % (35-47); Hemoglobin 7.4 g/dL (12.0-16.0); Mean Corpuscular HGB Conc 28 g/dL (31-36); Mean Corpuscular Hemoglobin 26 pg (27-31); Mean Corpuscular Volume 93 fL (80-97); Mean Platelet Volume 9.3 fL (7.4-10.4); Platelet Count 145 10^3/uL (150-450); Red Blood Count 2.89 10^6 /uL (3.70-4.87); Red Cell Distribution Width 15 % (10-15); White Blood Count 4.7 10^3/uL (3.5-10.8)
[2019-04-27 06:40] LABS: BUN/Creatinine Ratio 13.6 (8-20); EGFR African American 9.9 (>60); EGFR Non-African American 8.2 (>60)
[2019-04-27] MEDS: Insulin LISPRO* 1 UNITS UNIT SUBCUT SCH ×2 (08:52→12:30)
[2019-04-27] MEDS ORDERED: Sodium Citrate/Citric Acid* 15 ML UDC PO SCH (09:00)
[2019-04-27] MEDS: Cholecalciferol TAB* 1000 UNITS PO SCH (09:15)
[2019-04-27] MEDS: oxyCODONE SR TAB(*) 10 MG TAB.SR PO SCH (09:16)
[2019-04-27] MEDS: Heparin VIAL(*) 5000 UNITS/ML VIAL (FIVE THOUSAND) SUBCUT SCH (09:16)
[2019-04-27] MEDS: Cetirizine* 10 MG TAB PO SCH (09:16)
[2019-04-27 12:40] VITALS: BP 127/55
--- NOTE | 2019-04-27 14:08 | DS ---
CC: Cortney Yeboah MD; Viri Larsen MD* DISCHARGE SUMMARY: DATE OF ADMISSION: 04/23/19 DATE OF DISCHARGE: 04/27/19 PRIMARY CARE PROVIDER: Cortney Yeboah MD. DISPOSITION AT DISCHARGE: To home. CONDITION AT DISCHARGE: Stable. DISCHARGE DIAGNOSES: 1. Acute renal failure, likely due to acute tubular necrosis secondary to severe dehydration, a consequence of gastroenteritis that resolved. 2. Escherichia coli urinary tract infection, status post treatment with ceftriaxone and completed treatment for 3 days during the hospital stay. 3. Anemia likely of chronic disease with worsening due to renal failure, status post 2 units of packed blood cell transfusion during the hospital stay. 4. Non-anion gap metabolic acidosis due to renal failure. 5. Hypomagnesemia, replaced. SECONDARY DIAGNOSES: 1. History of chronic kidney disease stage 3 due to diabetes, at baseline. 2. History of diabetes type 2. 3. History of hypertension. 4. History of gastric bypass. 5. History of spinal surgery with spinal stimulator implantation. 6. History of nephrolithiasis. 7. History of ventral hernia. 8. History of anemia. MEDICATIONS AT DISCHARGE: Include: 1. Torsemide to be continued at 20 mg daily and to be restarted on 04/29/19. 2. Aspirin 81 mg daily. 3. Cetirizine 10 mg daily. 4. Vitamin D3 2000 units daily. 5. Flexeril 30 mg at bedtime p.r.n. 6. Diltiazem ER 120 mg at bedtime. 7. Cymbalta 30 mg at bedtime. 8. Ferrous sulfate 325 mg daily. 9. Gabapentin 300 mg q.p.m. 10. Insulin lispro at base scale previously used. 11. Xalatan eye drops 1 drop both eyes at bedtime. 12. Imodium 2 mg every 4 hours for diarrhea. 13. Thomson-3 fatty acids 1 capsule daily. 14. Oxycodone SR 10 mg every 8 hours p.r.n. 15. Requip 0.5 to 1.5 mg at bedtime p.r.n. as previously prescribed. 16. Insulin glargine at a lower dose of 20 units twice a day. 17. Bicitra 30 mL 4 times a day. LABORATORY DATA AND STUDIES PERFORMED DURING THE HOSPITAL STAY: On 04/27/19, white blood cell count of 4.7, hemoglobin of 7.1, hematocrit of 27, and platelets of 145. Sodium was 136, potassium 4.3, chloride 110, carbonate dioxide 14, anion gap of 12, BUN 72, creatinine 5.28. Microbiology testing showed E. coli positive UTI. Stool was negative for shiga toxin. Negative for E. coli 0157. Stool was also negative for blood. CT of abdomen obtained at admission, impression: "The kidneys are slightly smaller in size. There is no hydronephrosis or evidence of obstruction. There is a small nonobstructing left renal calculus. Status post cholecystectomy and gastric bypass surgery. Anterior abdominal wall hernia as described. Anasarca. " Hip and pelvis x-ray obtained on 04/23/19, impression: "No radiographic evidence of left hip fracture as x-rays may be negative for a nondisplaced hip fracture limitation, in emergent cases CT will be suggested." HOSPITALIZATION COURSE: Loni Richards is a 63-year-old female with a history of chronic kidney disease and diabetes, who presented complaining of diarrhea for several days. She continued to take diuretics throughout her illness, and she presented to the hospital with acute renal failure and creatinine of 5.8 at admission. The patient also was recently diagnosed with UTI, and she was treated with ceftriaxone during the hospital stay. Her urine cultures were positive for E. coli. The patient was seen actually incidentally by her newspaper peddler during the newspaper peddler rounding as a hospitalist initially at admission, Dr. Larsen. The patient was diagnosed with likely ATN related to the diarrhea and marked dehydration and taking diuretics. Her torsemide was held during the hospital stay and her creatinine has slowly recovered with a level of 4.28 by the time of discharge. Prior to that, the patient has continued to have metabolic acidosis, and she has a history of metabolic acidosis and used to be on sodium bicarb at home. She was placed on Bicitra that had to be increased by the time of discharge due to continuation of lowering of her carbon dioxide. The patient's hemoglobin at admission was 6.6. Her iron studies showed iron level of 52, TIBC of 202, percent iron saturation of 26, transferrin of 144, erythropoietin level of 17.9, ferritin level of 125. The patient's stool was heme negative and everything indicated anemia of chronic disease. She was transfused 2 units of packed red blood cells. By the time of discharge, her hemoglobin slightly decreased to 7.4. I discussed the patient's discharge with Dr. Larsen. Recommended for the patient to have CBC to be drawn in approximately 3 days but could be drawn as late as [address] Larsen's office will call the patient with a scheduled appointment for next week followup. The patient is to continue regular renal diet. Her diuretic can be restarted in a couple of days. She would require lower amount of insulin to use at home and I halved her dose of Lantus to 20 units twice a day. The patient completed her treatment of E. coli UTI with 3 days of ceftriaxone intravenously. By the time of discharge, she had no more diarrhea and her GI workup was benign. It is suspected that the patient likely had self-limited viral gastroenteritis. At discharge, the patient is also recommended to follow up with her primary care provider in 4 to 7 days. PHYSICAL EXAMINATION AT THE TIME OF DISCHARGE: Blood pressure 117/55, heart rate of 82 and regular, respiratory rate 20, oxygen saturation 99% on room air, temperature of 97.4. General: The patient is a pleasant 63-year-old obese female who is in no acute distress. Alert, awake, and oriented x3. HEENT: Head atraumatic, normocephalic. Eyes: Pupils are equal and reactive to light and accommodation. Oropharynx clear. Mucosa moist. Neck: Supple. No JVD. No bruits bilaterally. Cardiovascular: Regular rate and rhythm with no murmur. Respiratory: Clear to auscultation bilaterally. Abdomen: Soft, nontender. Bowel sounds are present in all 4 quadrants. Extremities: There is +1 pitting pedal edema bilaterally. Pulses +2 bilaterally. There is no clubbing or cyanosis. On neuro evaluation, speech is clear. Cranial nerves II through XII are grossly intact. Motor strength is 5/5 bilaterally. CONDITION AT DISCHARGE: Stable. DISPOSITION AT DISCHARGE: Home. Please note that this is a short summary of the patient's hospital stay. Please refer to further medical records for details. TIME SPENT: Approximately 35 minutes was spent on the patient's discharge. [id number]/CPS #: [id number] MTDD
== END 2019-04-27 14:15 | disposition home or self-care (01) | DRG 469 ==
LOC: ED 15:08 → MEDTELE 15:45
PROVIDERS: ADMIT Internal Medicine; ATTEND Internal Medicine
PROC: 30233N1 Transfusion of Nonautologous Red Blood Cells into Peripheral Vein, Percutaneous Approach (ICD-10-PCS; principal; 2019-04-24)
DX: N17.0 Acute kidney failure with tubular necrosis (principal); N39.0 Urinary tract infection, site not specified; E87.2 Acidosis; E86.0 Dehydration; K52.9 Noninfective gastroenteritis and colitis, unspecified; B96.20 Unspecified Escherichia coli [E. coli] as the cause of diseases classified elsewhere; E11.22 Type 2 diabetes mellitus with diabetic chronic kidney disease; I12.9 Hypertensive chronic kidney disease with stage 1 through stage 4 chronic kidney disease, or unspecified chronic kidney disease; N18.3 Chronic kidney disease, stage 3 (moderate); D63.1 Anemia in chronic kidney disease; E83.42 Hypomagnesemia; M54.89 Other dorsalgia; K43.9 Ventral hernia without obstruction or gangrene; Z98.84 Bariatric surgery status; Z79.82 Long term (current) use of aspirin; Z79.4 Long term (current) use of insulin; Z79.891 Long term (current) use of opiate analgesic; Z79.899 Other long term (current) drug therapy; Z88.6 Allergy status to analgesic agent; Z88.8 Allergy status to other drugs, medicaments and biological substances; Z91.018 Allergy to other foods; Z91.048 Other nonmedicinal substance allergy status; Z83.3 Family history of diabetes mellitus; Z84.1 Family history of disorders of kidney and ureter; Z82.49 Family history of ischemic heart disease and other diseases of the circulatory system
CPT/HCPCS: 36415; 74176; 80048; 80053; 81003; 82272; 82550; 82570; 82668; 82728; 83540; 83550; 83605; 83615; 83735; 83880; 84300; 84540; 84550; 85025; 85027; 85049; 85362; 85384; 85610; 85730; 86850; 86900; 86901; 86922; 87040; 87045; 87046; 87077; 87086; 87425; 87899; 93005; 99284; A9270-GY; G8978-GP-CI; G8979-GP-CI; G8980-GP-CI; G8987-GO-CJ; G8988-GO-CI; J0610; J0696; J1644; J1940; J3475; P9040

== ENCOUNTER → 2019-12-22 09:23 | Day surgery (SDC) | payer MEDICARE, OTHER ==
[~2019-12-22 09:23] MED LIST changes: +Clindamycin 600 MG/D5W BAG(*) 600 MG/50 ML BAG IV ONE; +Heparin 2 UNITS/ML IVPREMIX* 1,000 ML IV ONE; +Lidocaine 1% INJ* 10 MG/ML 30 ML SDV ONE; -NS 0.9% 1000 ML* 1,000 ML IV ONE; -Ondansetron INJ* 2 MG/ML VIAL IV ONE
[2019-12-22 14:00] VITALS: BP 144/65
--- NOTE | 2019-12-22 14:00 | OP ---
Operative Report - Blank - Operative Report Date of Operation: 12/22/19 Note: Procedure Note Tunneled HD Catheter placement Note: Performed by Dr. Adelaida Guzman, [facility] Nephrology 12/22/2019 Right Internal Jugular Tunneled Hemodialysis Catheter Placement Note: Procedure indication: ESRD, needs Hemodialysis correction Access. Consent was obtained, in chart. Patient understands risks, benefits, alternatives and wants to proceed. Rt IJV patency was checked by US. Following strict hand hygiene and standard sterile precautions, a full sterile attire for myself and all personnel involved in the procedure, including a gown , cap, face mask with an eye shield, and double sterile gloves. The procedure started with 2 ID time out after marking the new proposed venotomy site. Patient was put in Trendelenburg position. Vascular US was used during the procedure. Right Neck and Chest were prepped with 2% Chlorhexidine, and the surgical field was surrounded by sterile surgical towels. A sterile full body drape was placed to cover the patient from head to toe. Rt IJ was chosen. Under real time US guidance the Rt IJV was accessed by a 21-G needle, then a 0.018 micro wire was threaded through the 21-G needle into the vein and the 21- G needle was pulled out, leaving the micro wire in, confirmed in the IJ-SVC by Fluoro, then a 4-Fr sheath and inner stylet were passed over the micro wire into the vein. Both, the micro wire and the inner stylet were removed and the 4- Fr sheath was kept in place. Then, a 0.035 Amplatz wire was passed through the 4 -Fr sheath into the central circulation, confirmed by Fluoro in the Rt Atrium. Skin near the venotomy was nicked using # 11 Blade and extended to 0.5 cm long, then was dilated using a curved Lorena. Bleeding was controlled by pressure over the dilated venotomy site. A 19 cm GlidePath TDC was chosen. The proposed tunnel & exit site were numbed thoroughly with 10 cc of 1% Lidocaine w/o Epi. The exit site was created using # 11 Blade and extended to 0.5 cm long. Exit was dissected bluntly using a curved Lorena. A blunt tunneler was bent and used to pull the GlidePath TDC from the exit site to the venotomy site and was placed just behind the 5-Fr sheath Sequential dilatation of the venotomy using 12 then 14 Fr the 16 Fr dilator and peel away sheath after the 5-Fr sheath was removed. Dilator and wire were removed and the 19 cm GlidePath TDC was fed through the peel away sheath that was peel away carefully. Tip of TDC Catheter seen under Fluoro at the Cavo- atrial junction to Rt Atrium Both ports checked for flow and draw and both worked very well then flushed again with saline and locked with 1:100 in each port. Caps were applied over both ports. The catheter was secured and tethered in place using 2-0 Proline sutures at the exit site. A retention suture was placed using 2-0 Proline too as he was oozing from the exit site. The venotomy site was repaired using 3-0 Vicryl. Upright CXR ordered stat to r/o any complications. Complications: None Estimated Bleeding: < 5cc Fluoro Time: 0.5 min IV Contrast: Zero Radiation Exposure: 24 mGy Pre Op Meds: Clindamycin 600 mg IVPB pre Op. Fentanyl: None. Allergic. Versed: None. Allergic
== END | disposition home or self-care (01) ==
LOC: CHICATH 09:23
PROVIDERS: ATTEND Internal Medicine Nephrology
DX: N18.6 End stage renal disease (principal); E11.21 Type 2 diabetes mellitus with diabetic nephropathy; Z79.4 Long term (current) use of insulin; E78.1 Pure hyperglyceridemia; I12.9 Hypertensive chronic kidney disease with stage 1 through stage 4 chronic kidney disease, or unspecified chronic kidney disease; N25.81 Secondary hyperparathyroidism of renal origin; D63.1 Anemia in chronic kidney disease; G47.33 Obstructive sleep apnea (adult) (pediatric); K21.9 Gastro-esophageal reflux disease without esophagitis; E66.9 Obesity, unspecified; F32.9 Major depressive disorder, single episode, unspecified
CPT/HCPCS: 36558; 71045; 76937; 77001; C1750; C1769; J1642; J1644

== ENCOUNTER 2019-12-26 02:50 | Emergency (ER) | payer MEDICARE, OTHER ==
[2019-12-26 03:48] LABS: ABS Lymphocytes 0.8 10^3/ul (1.0-4.8); ABS Monocytes 0.5 10^3/ul (0-0.8); ABS Neutrophils 7.6 10^3/ul (1.5-7.7); Eosinophil % 0.2 %; Hematocrit 24 % (35-47); Hemoglobin 8.2 g/dL (12.0-16.0); Lymphocyte % 9.2 %; Mean Corpuscular HGB Conc 34 g/dL (31-36); Mean Corpuscular Hemoglobin 32 pg (27-31); Mean Corpuscular Volume 94 fL (80-97); Platelet Count 268 10^3/uL (150-450); Red Blood Count 2.59 10^6 /uL (3.70-4.87); Red Cell Distribution Width 14 % (10-15); White Blood Count 8.9 10^3/uL (3.5-10.8)
--- NOTE | 2019-12-26 03:50 | ED ---
Altered Mental Status - HPI Summary HPI Summary: THIS IS A LEVEL 5 CAVEAT DUE TO AMS. 64 year old female presents to the ED by EMS with a chief complaint of back pain. Per EMS, catheter placement 4 days ago. Her level of consciousness has gradually diminished since then. Patient denies nausea or SOB. PMHx of IDDM, HLD, CRF, and asthma. - History Of Current Complaint Chief Complaint: EDAltMentalStatus Stated Complaint: INCREASED CONFUSION PER EMS Time Seen by Provider: 12/26/19 03:03 Hx Obtained From: Patient, EMS Hx From Patient Unobtainable Due To: Altered Mental Status Onset/Duration: Still Present Timing: Lasting Days Character: Responsiveness Aggravating Factor(s): Medication Change Alleviating Factor(s): Nothing Associated Signs And Symptoms: Negative: Nausea - Allergies/Home Medications Allergies/Adverse Reactions: Allergies Allergy/AdvReac Type Severity Reaction Status Date / Time doxazosin Allergy Unknown Verified 12/26/19 03:07 Reaction Details fentanyl Allergy suicidal Verified 12/26/19 03:07 thoughts ibuprofen Allergy Has renal Verified 12/26/19 03:07 disease lamotrigine [From Lamictal] Allergy renal Verified 12/26/19 03:07 failure povidone-iodine Allergy Rash Verified 12/26/19 03:07 [From Betadine] rosiglitazone [From Avandia] Allergy Heart Verified 12/26/19 03:07 failure sertraline Allergy suicidal Verified 12/26/19 03:07 thoughts soap [From Betadine] Allergy Rash Verified 12/26/19 03:07 KIERSTEN Inhibitors AdvReac Coughing Verified 12/26/19 03:07 alprazolam [From Xanax] AdvReac Agitation Verified 12/26/19 03:07 atorvastatin [From Lipitor] AdvReac Muscle Verified 12/26/19 03:07 weakness diazepam [From Valium] AdvReac DOOR PERSON Verified 12/26/19 03:07 reaction erythromycin base AdvReac Abdominal Verified 12/26/19 03:07 Pain mushroom AdvReac GI Upset Verified 12/26/19 03:07 simvastatin [From Zocor] AdvReac Muscle Verified 12/26/19 03:07 weakness venlafaxine [From Effexor] AdvReac Dizziness Verified 12/26/19 03:07 Home Medications: Home Medications Ferrous Sulfate TAB* 325 mg PO DAILY 10/22/18 [History Confirmed 12/26/19] Latanoprost 0.005%* [Xalatan 0.005%*] 1 drop RIGHT EYE BEDTIME 10/22/18 [ History Confirmed 12/26/19] dilTIAZem HCl [Diltiazem 24Hr ER (Cd)] 120 mg PO BEDTIME 10/22/18 [History Confirmed 12/26/19] oxyCODONE SR TAB(*) [Oxycontin 10 mg (*)] 10 mg PO Q8HR MDD 30 mg 10/22/18 [ History Confirmed 12/26/19] Aspirin EC TAB* [Ecotrin EC Low Dose 81 MG*] 81 mg PO DAILY 01/27/19 [History Confirmed 12/26/19] Cholecalciferol TAB* [Vitamin D TAB*] 1,000 units PO BEDTIME 04/23/19 [History Confirmed 12/26/19] Cyclobenzaprine TAB* [Flexeril 10 MG TAB*] 30 mg PO BEDTIME PRN 04/23/19 [ History Confirmed 12/26/19] Insulin LISPRO* [HumaLOG 100 units/ml 3 ml VIAL *] 0 - 22 units SUBCUT PC [History Confirmed 12/26/19] Loperamide CAP* [Imodium CAP*] 2 mg PO Q4H PRN 04/23/19 [History Confirmed 12/26] Insulin Glargine,Hum.rec.anlog [Basaglar Kwikpen 100 inuts/ml 3 ml x 5 Pens] 20 unit SUBCUT BID #0 04/27/19 [Rx Confirmed 12/26/19] Albuterol Sulfate [Proair Digihaler] 2 puff INH Q4H PRN 12/22/19 [History Confirmed 12/26/19] Betaxolol-S 0.25%* [Betoptic-S 0.25%*] 1 drop RIGHT EYE BID 12/22/19 [History Confirmed 12/26/19] Cranberry Fruit Extract [Cranberry Extract] 200 mg PO DAILY 12/22/19 [History Confirmed 12/26/19] DULoxetine DR CAP* [Cymbalta CAP*] 30 mg PO DAILY 12/22/19 [History Confirmed ] Epoetin Jaylon [Procrit] 4,000 unit SUBCUT WEEKLY 12/22/19 [History Confirmed ] Sodium Bicarbonate 2 tab PO PC 12/22/19 [History Confirmed 12/26/19] Torsemide TAB* [Demadex*] 20 mg PO QAM 12/22/19 [History Confirmed 12/26/19] Turmeric Root Extract [Ra Turmeric] 500 mg PO BEDTIME 12/22/19 [History Confirmed 12/26/19] Gralise 300 mg PO DAILY 12/26/19 [History Confirmed 12/26/19] Magnesium 250 mg PO DAILY 12/26/19 [History Confirmed 12/26/19] rOPINIRole TAB* 0.5 mg PO BEDTIME 12/26/19 [History Confirmed 12/26/19] PMH/Surg Hx/FS Hx/Imm Hx Endocrine/Hematology History: Reports: Hx Diabetes Denies: Hx Anticoagulant Therapy, Hx Thyroid Disease Cardiovascular History: Reports: Hx Hypercholesterolemia, Hx Hypertension, Other Cardiovascular Problems/Disorders - IDDM Denies: Hx Angina, Hx Coronary Artery Disease, Hx Myocardial Infarction, Hx Pacemaker/ICD, Hx Valvular Heart Disease Respiratory History: Reports: Hx Asthma Denies: Hx Chronic Obstructive Pulmonary Disease (COPD) GI History: Reports: Hx Gall Bladder Disease History: Reports: Hx Chronic Renal Failure, Hx Kidney Stones Denies: Hx Dialysis Comment Only: Hx Renal Disease - ONLY KIDNEY STONES PER PT Musculoskeletal History: Reports: Hx Arthritis, Hx Back Problems - 4 back surgeries, Hx Osteoporosis Denies: Hx Rheumatoid Arthritis Sensory History: Reports: Hx Contacts or Glasses Denies: Hx Hearing Aid Opthamlomology History: Reports: Hx Contacts or Glasses Neurological History: Reports: Other Neuro Impairments/Disorders - RUPTURED DISKS, SPINAL STIMULATOR Denies: Hx Dementia, Hx Seizures Psychiatric History: Reports: Hx Anxiety, Hx Depression Denies: Hx Substance Abuse - Cancer History Hx Chemotherapy: No Hx Radiation Therapy: No - Surgical History Surgery Procedure, Year, and Place: SPINE stimulator, gall bladder removed, gastric bipass 2002, multiple ortho surgeries Hx Anesthesia Reactions: No - Immunization History Date of Tetanus Vaccine: utd Date of Influenza Vaccine: fall 2016 Infectious Disease History: Unable to Obtain/Confirm Infectious Disease History: Denies: Hx Clostridium Difficile, Hx Hepatitis, Hx Human Immunodeficiency Virus (HIV), Hx of Known/Suspected MRSA, Hx Shingles, Hx Tuberculosis, Hx Known/ Suspected VRE, Traveled Outside the [place] in Last 30 Days - Family History Known Family History: Positive: Cardiac Disease, Hypertension, Diabetes, Renal Disease, Other - brain CA - Social History Alcohol Use: None Hx Substance Use: No Substance Use Type: Reports: None Hx Tobacco Use: No Smoking Status (MU): Never Smoked Tobacco Have You Smoked in the Last Year: No Review of Systems - ROS Summary Review of Systems Summary: Home Medications Medication Instructions Recorded Confirmed Type Ferrous Sulfate TAB* 325 mg PO DAILY 10/22/18 12/26/19 History Latanoprost 0.005%* [Xalatan 1 drop RIGHT EYE BEDTIME 10/22/18 12/26/19 History 0.005%*] dilTIAZem HCl [Diltiazem 24Hr ER 120 mg PO BEDTIME 10/22/18 12/26/19 History (Cd)] oxyCODONE SR TAB(*) [Oxycontin 10 10 mg PO Q8HR MDD 30 mg 10/22/18 12/26/19 History mg (*)] Aspirin EC TAB* [Ecotrin EC Low 81 mg PO DAILY 01/27/19 12/26/19 History Dose 81 MG*] Cholecalciferol TAB* [Vitamin D 1,000 units PO BEDTIME 04/23/19 12/26/19 History TAB*] Cyclobenzaprine TAB* [Flexeril 10 30 mg PO BEDTIME PRN 04/23/19 12/26/19 History MG TAB*] Insulin LISPRO* [HumaLOG 100 0 - 22 units SUBCUT PC 04/23/19 12/26/19 History units/ml 3 ml VIAL *] Loperamide CAP* [Imodium CAP*] 2 mg PO Q4H PRN 04/23/19 12/26/19 History Insulin Glargine,Hum.rec.anlog 20 unit SUBCUT BID #0 04/27/19 12/26/19 Rx [Basaglar Kwikpen 100 inuts/ml 3 ml x 5 Pens] Albuterol Sulfate [Proair 2 puff INH Q4H PRN 12/22/19 12/26/19 History Digihaler] Betaxolol-S 0.25%* [Betoptic-S 1 drop RIGHT EYE BID 12/22/19 12/26/19 History 0.25%*] Cranberry Fruit Extract [Cranberry 200 mg PO DAILY 12/22/19 12/26/19 History Extract] DULoxetine DR CAP* [Cymbalta CAP*] 30 mg PO DAILY 12/22/19 12/26/19 History Epoetin Jaylon [Procrit] 4,000 unit SUBCUT WEEKLY 12/22/19 12/26/19 History Sodium Bicarbonate 2 tab PO PC 12/22/19 12/26/19 History Torsemide TAB* [Demadex*] 20 mg PO QAM 12/22/19 12/26/19 History Turmeric Root Extract [Ra Turmeric] 500 mg PO BEDTIME 12/22/19 12/26/19 History Gralise 300 mg PO DAILY 12/26/19 12/26/19 History Magnesium 250 mg PO DAILY 12/26/19 12/26/19 History rOPINIRole TAB* 0.5 mg PO BEDTIME 12/26/19 12/26/19 History Negative: Fever Negative: Shortness Of Breath Negative: Nausea Positive: Myalgia - Back pain All Other Systems Reviewed And Are Negative: No Physical Exam - Summary Physical Exam Summary: General: Well-developed, Well-nourished female. No acute distress. Sleepy. Slow to respond. HEENT: Normocephalic, Atraumatic. Eyes: Conjuctiva normal, PERRL. Ears: TMs within normal limits. Nares: (-) discharge, (-) erythema. Oropharynx: Clear, mucous membranes moist, (-) exudates. Neck: Soft, FROM, (-) lymphadenopathy, (-) thyromegaly, (-) JVD. Cardiovascular: Normal sinus rhythm, (-) murmur. Lungs: Clear to auscultation bilaterally (-) wheezes, (-) rales, (-) rhonchi. Abdomen: Soft, non-tender, non-distended, (-) organomegaly, normal bowel sounds. Back: (-) CVA tenderness Extremities: +1 pulses in lower extremities. No edema. Skin: Warm, dry, (-) rash. Neuro: Alert and oriented x3, no focal deficits. Psychiatric: Difficult to assess Triage Information Reviewed: Yes Vital Signs On Initial Exam: Initial Vitals Temp Pulse Resp BP Pulse Ox 97.0 F 88 16 144/74 97 12/26/19 02:55 12/26/19 02:55 12/26/19 02:55 12/26/19 02:55 12/26/19 02:55 Vital Signs Reviewed: Yes Completion Of Physical Exam Limited Due To: Altered Mental Status, Level 5 Procedures - Sedation Patient Received Moderate/Deep Sedation with Procedure: No Diagnostics - Vital Signs Vital Signs Temp Pulse Resp BP Pulse Ox 12/26/19 03:00 90 19 97 12/26/19 02:58 93 13 144/74 98 12/26/19 02:56 19 12/26/19 02:55 97.0 F 88 16 144/74 97 - Laboratory Result Diagrams: 12/26/19 03:26 12/26/19 06:29 Lab Statement: Any lab studies that have been ordered have been reviewed, and results considered in the medical decision making process. - Radiology CXR Radiology Interpretation Completed By: ED Physician Summary of Radiographic Findings: No infiltrate or effusion. An ED physician has reviewed and interpreted this report. Pending official read. - EKG 0343 Cardiac Rate: NL - 88 bpm EKG Rhythm: Sinus Rhythm ST Segment: Normal Ectopy: None Altered Mental Statu Course/Dx - Diagnoses Provider Diagnoses: Altered mental status, Renal failure, Acidosis - Provider Notifications Discussed Care Of Patient With: Jessica Guzman - Urology Time Discussed With Above Provider: 07:41 Instructed by Provider To: Admit As Observation - Dr. Guzman recommends admission as observation. He will conduct dialysis later today. Admit/Transition Orders Completed By ED Provider: Yes Discharge ED - Sign-Out/Discharge Documenting (check all that apply): Patient Departure - admit - Discharge Plan Condition: Fair Disposition: TRANS HIGHER LVL OF CARE FAC Referrals: No Primary Care Phys,NOPCP [Primary Care Provider] - - Billing Disposition and Condition Condition: FAIR Disposition: Trans Higher Lvl of Care Fac - Attestation Statements Document Initiated by Scribe: Yes Documenting Scribe: Davion Brady Provider For Whom Niko is Documenting (Include Credential): Mary Pope MD Scribe Attestation: Davion Hartman, scribed for Mary Pope MD on 12/29/19 at 1644. Scribe Documentation Reviewed: Yes Provider Attestation: The documentation as recorded by the scribDavion lucio accurately reflects the service I personally performed and the decisions made by me, Mary Pope MD Status of Scribe Document: Viewed
[2019-12-26 03:54] LABS: INR 1.04 (0.82-1.09)
[2019-12-26 04:06] LABS: Troponin I 0.01 ng/mL (<0.03)
[2019-12-26 04:09] LABS: Albumin 3.9 g/dL (3.2-5.2); Calcium 7.7 mg/dL (8.6-10.3); Chloride 102 mmol/L (101-111); Potassium 4.9 mmol/L (3.5-5.0); Sodium 129 mmol/L (135-145)
[2019-12-26 04:15] LABS: ALT 11 U/L (7-52); AST 15 U/L (13-39); Alkaline Phosphatase 196 U/L (34-104); Blood Urea Nitrogen 103 mg/dL (6-24); EGFR African American 6.2 (>60); EGFR Non-African American 5.1 (>60); Globulin 3.9 g/dL (2-4); Glucose 262 mg/dL (70-100); Total Protein 7.8 g/dL (6.4-8.9)
[2019-12-26 04:16] LABS: Anion Gap 16 mmol/L (2-11); CO2 Carbon Dioxide 11 mmol/L (22-32)
[2019-12-26 04:18] LABS: Acetaminophen < 15 mcg/mL
[2019-12-26] MEDS ORDERED: NS 0.9% 1000 ML** 1,000 ML IV SCH (04:30)
[2019-12-26 04:31] LABS: Urine Appearance Cloudy; Urine Bilirubin Negative (Negative); Urine Blood 1+ (Negative); Urine Color Yellow; Urine Glucose 2+(150 mg/dL) (Negative); Urine Ketones Negative (Negative); Urine Nitrite Negative (Negative); Urine Protein 1+(30 mg/dL) (Negative); Urine Urobilinogen Negative (Negative)
[2019-12-26 04:36] LABS: TSH (Thyroid Stimulating Horm) 2.45 mcIU/mL (0.34-5.60)
[2019-12-26 04:37] LABS: Urine Bacteria 3+ (Absent); Urine Red Blood Cell Trace(0-2/hpf) (Absent); Urine Squamous Epithelial Cell Present (Absent); Urine White Blood Cell 2+(11-20/hpf) (Absent)
[2019-12-26 04:52] LABS: Urine Benzodiazepine Screen None Detected (None Detect); Urine Opiates Screen None Detected (None Detect)
[2019-12-26] MEDS ORDERED: NS 0.9% 500 ML* 500 ML IV ONE (05:56)
[2019-12-26 06:50] LABS: Calcium 7.2 mg/dL (8.6-10.3); Potassium 4.7 mmol/L (3.5-5.0)
[2019-12-26 06:55] LABS: BUN/Creatinine Ratio 12.7 (8-20); EGFR African American 6.1 (>60)
[2019-12-26] MEDS ORDERED: cefTRIAXone(*) 1 GM in NS 0.9% 50 ML* 50 ML IVPB ONE (07:21)
--- NOTE | 2019-12-26 08:32 | UC ---
- Progress Note Progress Note: Pt was accepted to hospitalist at [facility] [place]. Pope discussed with nephrology at [facility] [place] - requested abg Transfer was cancel 8:20 - Dr. Ocasio approached me in ED - discussed with Dr. Guzman - requesting pt be transferred re-initiated transfer through transfer center 08:54 - Dr. Ocasio gave report to Dr. Soto - accepting pt Jerson velasquez - awaiting bed assignment 09:20 paperwork completed by [place] bed assignment provided at [facility] Course/Dx - Diagnoses Provider Diagnoses: Altered mental status, Renal failure, Acidosis - Provider Notifications Time Discussed With Above Provider: 07:41 Instructed by Provider To: Admit As Observation - Dr. Guzman recommends admission as observation. He will conduct dialysis later today. Admit/Transition Orders Completed By ED Provider: Yes Discharge ED - Sign-Out/Discharge Documenting (check all that apply): Sign-Out Patient Signing out patient TO: Mary Pope - Discharge Plan Condition: Fair Disposition: TRANS HIGHER LVL OF CARE FAC Referrals: No Primary Care Phys,NOPCP [Primary Care Provider] - - Billing Disposition and Condition Condition: FAIR Disposition: Trans Higher Lvl of Care Fac
[2019-12-26 09:40] VITALS: BP 129/60
== END 2019-12-26 10:10 | disposition short-term general hospital (02) ==
LOC: ED 02:50
DX: E87.2 Acidosis (principal); R41.82 Altered mental status, unspecified; E11.22 Type 2 diabetes mellitus with diabetic chronic kidney disease; I12.9 Hypertensive chronic kidney disease with stage 1 through stage 4 chronic kidney disease, or unspecified chronic kidney disease; N18.9 Chronic kidney disease, unspecified; E78.00 Pure hypercholesterolemia, unspecified; J45.909 Unspecified asthma, uncomplicated; F41.9 Anxiety disorder, unspecified; F32.9 Major depressive disorder, single episode, unspecified; Z87.442 Personal history of urinary calculi; Z90.49 Acquired absence of other specified parts of digestive tract; Z98.84 Bariatric surgery status; Z79.4 Long term (current) use of insulin; Z79.82 Long term (current) use of aspirin; Z79.899 Other long term (current) drug therapy; Z88.1 Allergy status to other antibiotic agents; Z88.5 Allergy status to narcotic agent; Z88.8 Allergy status to other drugs, medicaments and biological substances
CPT/HCPCS: 36415; 71045; 80048; 80053; 80307; 80329; 81003; 81015; 82140; 82803; 83605; 83735; 84443; 84484; 85025; 85610; 87040; 87086; 93005; 96361; 96365; 99285; G0480; J0696

== ENCOUNTER 2020-01-31 09:22 | Day surgery (SDC) | payer MEDICARE ==
--- NOTE | 2020-01-26 09:39 | HP ---
HISTORY AND PHYSICAL: DATE OF ADMISSION: 01/31/20. CHIEF COMPLAINT: End-stage renal disease. HISTORY OF PRESENT ILLNESS: The patient is a 64-year-old female with history of end-stage renal disease for which the patient recently started hemodialysis via a tunnel dialysis catheter. The patient has been having progressive renal failure that started with chronic glomerulonephritis and she has advanced to end -stage renal disease requiring hemodialysis. PAST MEDICAL HISTORY: Remarkable for obesity, tiz-yqmveoe-vdtsjszmt diabetes mellitus, chronic glomerulo-nephritis, history of asthma, kidney stones, back problems with herniated disks and multiple back surgeries, and history of morbid obesity that included bariatric surgery. PAST SURGICAL HISTORY: Include back surgery, gallbladder, kidney stones, kidney surgery, and sleeve gastric bypass for morbid obesity. MEDICATIONS: The patient's current medications include: 1. Admelog SoloStar 100 units/mL. 2. Aspirin 81 mg p.o. daily. 3. Cyclobenzaprine 10 mg p.o. daily. 4. Eliquis 2.5 mg p.o. daily. 5. Ferrous sulfate 325 mg p.o. daily. 6. Fish oil 500 mg p.o. daily. 7. Lantus SoloStar 15 units subcu in a.m. 8. Latanoprost 0.005% instill 1 drop into both eyes at bedtime. 9. Magnesium 400 mg p.o. daily. 10. Ropinirole 0.5 mg p.o. daily. 11. Bicarbonate 650 mg p.o. daily. 12. Vitamin D _1000 units____ p.o. daily. ALLERGIES: Include KIERSTEN INHIBITORS, ANTIDEPRESSANTS, and BETADINE. FAMILY HISTORY: Remarkable for father and mother both . Father had history of hypertension and diabetes and end-stage renal disease. Mother had heart disease, hypertension, and stroke. SOCIAL HISTORY: The patient is nonsmoker, nondrinker. She is retired. REVIEW OF SYSTEMS: General: The patient states that she has lost appetite and she feels very depressed with the present renal failure. ENT: She reports nasal discharge. Cardiovascular: History of hypertension. Respiratory: The patient had a history of asthma and shortness of breath with minimal activity. Gastrointestinal: The patient had a sleeve gastric procedure for morbid obesity. Musculoskeletal: The patient had multiple back surgeries for herniated disks. Currently, she has chronic pain and neuropathy related to that. Psychiatric: The patient reports being depressed. Hematologic: The patient has anemia related to end-stage renal disease. PHYSICAL EXAMINATION GENERAL: The patient is alert and oriented. She appears to be depressed. VITAL SIGNS: Her height is 66 inches, weight 220 pounds. Blood pressure is 176 /95, BMI is 35.5. Pulse of 98, respirations of 16. The patient states that she has a pain level of 10 and this is related to her neuropathy. HEAD AND NECK: Reveals no neck nodes or masses. There is a dialysis catheter present in the right internal jugular. LUNGS: Clear to auscultation bilaterally. HEART: Regular without murmurs. ABDOMEN: Globular. There is a healed incision from bariatric surgery. Also there is an area of second and third degree zhao that the patient sustained several years ago. Well-healed towards the mid and upper abdomen. EXTREMITIES: The lower extremity examination reveals bilateral edema and palpable pulses. Upper extremity examination reveals palpable pulses at the radials, brachials, and axillaries bilaterally. The patient has no visible veins. However, on ultrasound, the both basilic veins appeared to be of adequate size. The one on the left is larger with 5.7 mm in the mid arm and the one on the right is 5.1 mm and there appears to be excellent flow and no areas of stenosis. PLAN: For this reason, my recommendation for the patient is to proceed with a 2- stage basilic vein transposition. We will start with the first stage first that is a brachiobasilic arteriovenous fistula on the left arm following subsequently with a full transposition of the basilic vein at a later date. The patient understands that there are potential complications including but not exclusive of others such as occlusion, bleeding, failure to mature, infection. The patient understands, agrees and wishes to proceed. [id number]/[facility] #: [id number] MTDD
[~2020-01-31 09:22] MED LIST changes: +Buffered Lidocaine 1% SYRIN* 1 ML/SYRINGE INTRADERM ONE; -Clindamycin 600 MG/D5W BAG(*) 600 MG/50 ML BAG IV ONE; -Heparin 2 UNITS/ML IVPREMIX* 1,000 ML IV ONE; -Lidocaine 1% INJ* 10 MG/ML 30 ML SDV ONE
[2020-01-31] MEDS ORDERED: ceFAZolin 2 GM PREMIX in ORs 2 GM/50 ML BAG ONE (10:12)
[2020-01-31] MEDS ORDERED: Buffered Lidocaine 1% SYRIN* 1 ML/SYRINGE INTRADERM ONE (10:12)
[2020-01-31] MEDS ORDERED: Heparin 2 UNITS/ML IVPREMIX* 1,000 ML IV ONE (10:41)
[2020-01-31] MEDS ORDERED: Propofol* 10 MG/ML 20 ML BTL ONE ×2 (11:08→12:00)
[2020-01-31] MEDS ORDERED: Midazolam* 1 MG/ML 2 ML VIAL (2 MG) ONE (11:08)
[2020-01-31] MEDS ORDERED: Esmolol* 10 MG/ML 10 ML (100 mg) ONE (11:14)
[2020-01-31] MEDS ORDERED: fentaNYL* 50 MCG/ML 2 ML VIAL (100 MCG VIAL) ONE (11:17)
[2020-01-31] MEDS ORDERED: Metoprolol Tartrate IV* 1 MG/ML 5 ML VIAL ONE ×2 (11:36→13:21)
[2020-01-31] MEDS ORDERED: Naloxone* 0.4 MG/ML 1 ML VIAL IV PRN (12:23)
--- NOTE | 2020-01-31 13:30 | OP ---
DATE OF OPERATION: 01/31/20 [facility] DATE OF : 53 SURGEON: Tyrone Wright MD BORDER MACHINE OPERATOR: Sybil Olivares NP ANESTHESIA: Local plus MAC. PRE-OP DIAGNOSIS: End-stage renal disease. POST-OP DIAGNOSIS: End-stage renal disease. OPERATIVE PROCEDURE: Left brachiobasilic arteriovenous fistula (first stage basilic vein transposition). ESTIMATED BLOOD LOSS: Less than 5 cc. INDICATIONS: The patient is a 64-year-old female with end-stage renal disease, undergoing hemodialysis via a tunneled dialysis catheter. The patient's vein mapping is only adequate for the basilic vein, the best the left arm. For this reason the patient is undergoing a first stage of the basilic vein transposition , specifically brachiobasilic arteriovenous fistula. DESCRIPTION OF PROCEDURE: The patient was taken to the operating room. After proper identification of the patient and site of surgery, she was placed in supine position. She was then prepped and draped in the usual sterile fashion. She received preoperative antibiotics and under sedation, she was prepped and draped in the usual sterile fashion. After proper time-out, the lidocaine 1% was used to infiltrate in the left antecubital fossa. An oblique incision was performed in this area. The incision was carried down through the skin and subcutaneous tissue. After this was done, the basilic vein was identified and dissected off proximally and distally towards the antecubital fossa in a distance long enough in order to be anastomosed to the brachial artery. It was then encircled and vessel loops and branches were ligated proximally and distally with 4-0 Vicryl suture. After this was done, the brachial artery was then identified in the antecubital fossa. Care was taken to avoid other structures such as the nerves. The brachial artery was then encircled in vessel loops and after this was completed, the patient received 3000 units of heparin. Five minutes later, we then proceeded to detach the basilic vein from the distal end by clamping and dividing it. Proximally, Rafael boltonier and we then proceeded to tie off the distal end with 4-0 Vicryl suture. After this was done, we then proceeded to dilate the opening of the vein with coronary dilator. A 3.5 mm dilator would go easily into the vein and the irrigation olive tip needle was used as well and there were no area of obstruction. The Rafael Villanueva were reapplied, and after this was done the brachial artery was then clamped proximally and distally; and using an 11 blade, we proceeded to perform and arteriotomy. This was extended with Nelson scissors. We then proceeded to perform an end-to-side anastomosis using 6-0 Prolene suture in a parachute technique. After this was completed, we then proceeded to open the venenous flow removing the Rafael Villanueva and then the distal arterial clamp and the proximal arterial clamp. Excellent pulse was noted into the vein and there was soon after a thrill. There was an excellent palpable radial pulse distally. No evidence of ischemia in the left hand. After this was completed, completed, the area was checked for hemostasis and no bleeding was noted. The subcutaneous tissue was then closed with interrupted 4-0 Vicryl sutures and the skin was closed with 5-0 Monocryl and Steri- Strips. The patient tolerated the procedure well and she was taken in good condition to the recovery room. [id number]/[facility] #: [id number] SHYLA
[2020-01-31] MEDS ORDERED: hydrALAZINE IV* 20 MG/ML VIAL ONE (13:52)
[2020-01-31 14:02] VITALS: BP 180/92
== END 2020-01-31 14:24 | disposition home or self-care (01) ==
LOC: OR 09:22
PROVIDERS: ATTEND Surgery
DX: I12.0 Hypertensive chronic kidney disease with stage 5 chronic kidney disease or end stage renal disease (principal); N18.6 End stage renal disease; Z79.01 Long term (current) use of anticoagulants; E11.9 Type 2 diabetes mellitus without complications; Z79.4 Long term (current) use of insulin; J45.909 Unspecified asthma, uncomplicated; G47.33 Obstructive sleep apnea (adult) (pediatric); E66.9 Obesity, unspecified
CPT/HCPCS: J0360; J0690; J1644; J2250; J2704; J3010; J3490

== ENCOUNTER → 2020-02-25 13:18 | Day surgery (SDC) | payer MEDICARE ==
--- NOTE | 2020-02-25 13:17 | HP ---
H&P (Free Text) History and Physical: History and Physical Performed by Dr. Cele Guzman. PILOT [employer] [facility]AC[facility] Nephrology on 02/25/2020 Encounter from 02/25/2020 Chief Complaint: Right IJ TDC isnt working HPI: ESRD, undergoes HD MWF. Nurses have difficulty running HD via the Rt IJ TDC, keeps alarming and doesnt run faster than 250 cc QB PMH: HTN DM ESRD on HD MWF Allergies: doxazosin Allergy (Verified 01/31/20 10:17) Unknown Reaction Details fentanyl Allergy (Verified 01/31/20 10:17) suicidal thoughts ibuprofen Allergy (Verified 01/31/20 10:17) Has renal disease lamotrigine [From Lamictal] Allergy (Verified 01/31/20 10:17) renal failure povidone-iodine [From Betadine] Allergy (Verified 01/31/20 10:17) Rash rosiglitazone [From Avandia] Allergy (Verified 01/31/20 10:17) Heart failure sertraline Allergy (Verified 01/31/20 10:17) suicidal thoughts soap [From Betadine] Allergy (Verified 01/31/20 10:17) Rash KIERSTEN Inhibitors Adverse Reaction (Verified 01/31/20 10:17) Coughing alprazolam [From Xanax] Adverse Reaction (Verified 01/31/20 10:17) Agitation atorvastatin [From Lipitor] Adverse Reaction (Verified 01/31/20 10:17) Muscle weakness diazepam [From Valium] Adverse Reaction (Verified 01/31/20 10:17) 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 erythromycin base Adverse Reaction (Verified 01/31/20 10:17) Abdominal Pain mushroom Adverse Reaction (Verified 01/31/20 10:17) GI Upset simvastatin [From Zocor] Adverse Reaction (Verified 01/31/20 10:17) Muscle weakness venlafaxine [From Effexor] Adverse Reaction (Verified 01/31/20 10:17) Dizziness Home Med: Reviewed Medication Instructions Recorded Confirmed Type Ferrous Sulfate TAB* 325 mg PO DAILY 10/22/18 01/31/20 History Latanoprost 0.005%* [Xalatan 1 drop RIGHT EYE BEDTIME 10/22/18 01/31/20 History 0.005%*] oxyCODONE SR TAB(*) [Oxycontin 10 5 mg PO Q8HR MDD 30 mg 10/22/18 01/31/20 History mg (*)] Aspirin EC TAB* [Ecotrin EC Low 81 mg PO DAILY 01/27/19 01/31/20 History Dose 81 MG*] Cholecalciferol TAB* [Vitamin D 1,000 units PO BEDTIME 04/23/19 01/31/20 History TAB*] Cyclobenzaprine TAB* [Flexeril 10 30 mg PO BEDTIME PRN 04/23/19 01/31/20 History MG TAB*] Insulin LISPRO* [HumaLOG 100 0 - 22 units SUBCUT AC 04/23/19 01/31/20 History units/ml 3 ml VIAL *] Loperamide CAP* [Imodium CAP*] 2 mg PO Q4H PRN 04/23/19 01/31/20 History Albuterol Sulfate [Proair 2 puff INH Q4H PRN 12/22/19 01/25/20 History Digihaler] Betaxolol-S 0.25%* [Betoptic-S 1 drop RIGHT EYE BID 12/22/19 01/31/20 History 0.25%*] Cranberry Fruit Extract [Cranberry 200 mg PO DAILY 12/22/19 01/31/20 History Extract] DULoxetine DR CAP* [Cymbalta CAP*] 30 mg PO DAILY 12/22/19 01/31/20 History Turmeric Root Extract [Ra Turmeric] 500 mg PO BEDTIME 12/22/19 01/25/20 History Gralise 300 mg PO DAILY 12/26/19 01/31/20 History Magnesium 250 mg PO DAILY 12/26/19 01/25/20 History rOPINIRole TAB* 0.5 mg PO BEDTIME 12/26/19 01/31/20 History [place] 810 mg PO QAM 01/25/20 01/25/20 History Apixaban [Eliquis] 2.5 mg PO BID 01/25/20 01/31/20 History [place]-3 Fatty Acids/Fish Oil [Fish 1 cap PO QAM 01/25/20 01/31/20 History Oil 1200 mg] Alert and awake. VITALS: BP: 150/70 HR: 80/m Heart: NSR.No LE edema. No murmur. Lung: Clear to auscultation. Surgical Hx: Rt IJ TDC. Family Hx: No ESRD, HD. Positive HTN & DM Social Hx: No smoking. No ETOH. 12-Point Review of System obtained: Constitutional: Fatigue. Eyes No blurry vision. No red eye CV: No SOB at rest, no chest pain no syncope. Has + edema Respiratory: No cough no wheezing G.I: no diarrhea no nausea no vomiting no Urine output Skin no rash Neurology No seizures or neurologic deficit Hem/Lymphatic no bleeding no lymph nodes swelling Musculoskeletal: No arthritis, no swelling Psych no anxiety no depression no hallucination A/P: Exchange or replace TDC.
[~2020-02-25 13:18] MED LIST changes: -Buffered Lidocaine 1% SYRIN* 1 ML/SYRINGE INTRADERM ONE; +Clindamycin 600 MG/D5W BAG(*) 600 MG/50 ML BAG IV ONE; +Heparin 2 UNITS/ML IVPREMIX* 1,000 ML IV ONE; +Heparin(*) 1000 UNIT/ML 10 ML VIAL CATH LAB IV ONE; +Iodixanol 320 (CONTRAST) 100 ML SDV ONE; +Lidocaine 1% INJ* 10 MG/ML 30 ML SDV ONE
--- NOTE | 2020-02-25 13:21 | OP ---
Operative Report - Blank - Operative Report Date of Operation: 02/25/20 Note: Procedure Note Tunneled HD Catheter placement Note: Performed by Dr. Adelaida Guzman, [facility] Nephrology 02/25/2020 Right Internal Jugular Tunneled Hemodialysis Catheter Placement Note: Procedure indication: ESRD, needs Hemodialysis chcf Access. Consent was obtained, in chart. Patient understands risks, benefits, alternatives and wants to proceed. Rt IJV patency was checked by US. Following strict hand hygiene and standard sterile precautions, a full sterile attire for myself and all personnel involved in the procedure, including a gown , cap, face mask with an eye shield, and double sterile gloves. The procedure started with 2 ID time out after marking the new proposed venotomy site. Patient was put in Trendelenburg position. Vascular US was used during the procedure. Right Neck and Chest were prepped with 2% Chlorhexidine, and the surgical field was surrounded by sterile surgical towels. A sterile full body drape was placed to cover the patient from head to toe. Rt IJ was chosen. Under real time US guidance the Rt IJV was accessed by a 21-G needle, then a 0.018 micro wire was threaded through the 21-G needle into the vein and the 21- G needle was pulled out, leaving the micro wire in, confirmed in the IJ-SVC by Fluoro, then a 4-Fr sheath and inner stylet were passed over the micro wire into the vein. Both, the micro wire and the inner stylet were removed and the 4- Fr sheath was kept in place. Then, a 0.035 Amplatz wire was passed through the 4 -Fr sheath into the central circulation, confirmed by Fluoro in the Rt [facility]. Skin near the venotomy was nicked using # 11 Blade and extended to 0.5 cm long, then was dilated using a curved Lorena. Bleeding was controlled by pressure over the dilated venotomy site. A 19 cm BioFlo TDC was chosen. The proposed tunnel & exit site were numbed thoroughly with 10 cc of 1% Lidocaine w/o Epi. The exit site was created using # 11 Blade and extended to 0.5 cm long. Exit was dissected bluntly using a curved Lorena. A blunt tunneler was bent and used to pull the TDC from the exit site to the venotomy site and was placed just behind the 5-Fr sheath Sequential dilatation of the venotomy using 12 then 14 Fr the 16 Fr dilator and peel away sheath after the 5-Fr sheath was removed. Dilator and wire were removed and the 19 cm TDC was fed through the peel away sheath that was peel away carefully. Tip of TDC Catheter seen under Fluoro at the Rt [facility] Both ports checked for flow and draw and both worked very well then flushed again with saline and locked with 1:1000 in each port. Caps were applied over both ports. The catheter was secured and tethered in place using 2-0 Proline sutures at the exit site. The venotomy site was repaired using 3-0 Vicryl. Complications: None Estimated Bleeding: < 5cc Fluoro Time: 0.7 min IV Contrast: Zero Radiation Exposure: 20 mGy Pre Op Meds: Clindamycin 600 mg IVPB pre Op. Sedation free as she has allergy to Fentanyl and Benzos
--- NOTE | 2020-02-25 15:00 | OP ---
Operative Report - Blank - Operative Report Date of Operation: 02/25/20 Note: Date of Operation: 02/25/20 Procedure Note Tunneled HD Catheter Removal Note: Performed by Dr. Adelaida Guzman, [facility] Nephrology Right Internal Jugular Tunneled Hemodialysis Catheter Removal Note: Procedure indication: ESRD, Access dysfunctional needs a new access. Consent was obtained Right Internal Jugular Tunneled Hemodialysis Catheter Removal Note: Following strict hand hygiene and standard sterile precautions, using a cap, face mask with an eye shield, and double sterile gloves. Neck and Chest were prepped with 2% Chlorhexidine. Skin over exit site and tunnel were numbed thoroughly using 30 cc of 1% Lidocaine, then using a curved Lorena, the exit site was bluntly dissected and the cuff was freed easily from the fibrin sheath around it. The TDC was pulled out easily. Bleeding was controlled and pressure was applied for 5 min at the exit site and the venotomy. Complications: None Estimated Bleeding: < 5cc Patient tolerated the procedure well.
[2020-02-25 15:38] VITALS: BP 141/77
== END | disposition home or self-care (01) ==
LOC: CHICATH 13:18
PROVIDERS: ATTEND Internal Medicine Nephrology
DX: T82.49XA Other complication of vascular dialysis catheter, initial encounter (principal); N18.6 End stage renal disease; Z99.2 Dependence on renal dialysis; E11.21 Type 2 diabetes mellitus with diabetic nephropathy; Z79.4 Long term (current) use of insulin; E66.01 Morbid (severe) obesity due to excess calories; K21.9 Gastro-esophageal reflux disease without esophagitis; F32.9 Major depressive disorder, single episode, unspecified; Z98.84 Bariatric surgery status; I12.9 Hypertensive chronic kidney disease with stage 1 through stage 4 chronic kidney disease, or unspecified chronic kidney disease; N25.81 Secondary hyperparathyroidism of renal origin; D63.1 Anemia in chronic kidney disease
CPT/HCPCS: 36558; 36589; 76937; C1750; J1644

== ENCOUNTER 2020-08-10 05:04 | Inpatient (IN) ==
[2020-08-10 07:12] LABS: ABS Basophils 0.1 10^3/ul (0-0.2); ABS Eosinophils 0.1 10^3/ul (0-0.6); ABS Lymphocytes 1.3 10^3/ul (1.0-4.8); ABS Monocytes 0.7 10^3/ul (0-0.8); Hematocrit 30 % (35-47); Lymphocyte % 10.5 %; Mean Corpuscular HGB Conc 34 g/dL (31-36); Mean Corpuscular Hemoglobin 33 pg (27-31); Mean Corpuscular Volume 98 fL (80-97); Mean Platelet Volume 9.1 fL (7.4-10.4); Platelet Count 206 10^3/uL (150-450); Red Blood Count 3.02 10^6 /uL (3.70-4.87); Red Cell Distribution Width 14 % (10-15); White Blood Count 12.2 10^3/uL (3.5-10.8)
[2020-08-10 08:51] LABS: BUN/Creatinine Ratio 15.3 (8-20); Blood Urea Nitrogen 78 mg/dL (6-24); CO2 Carbon Dioxide 17 mmol/L (22-32); Calcium 8.2 mg/dL (8.6-10.3); Chloride 104 mmol/L (101-111); EGFR African American 10.2 (>60); EGFR Non-African American 8.5 (>60); Glucose 194 mg/dL (70-100); Sodium 134 mmol/L (135-145)
[2020-08-10 09:36] LABS: Anion Gap 13 mmol/L (2-11)
[2020-08-10] MEDS ORDERED: Clindamycin 600 MG/D5W BAG 600 MG/50 ML BAG IV ONE (10:48)
[2020-08-10] MEDS ORDERED: Lactated Ringers 1000 ml BAG 500 ML IV ONE (10:48)
[2020-08-10 10:50] LABS: Urine Appearance Cloudy; Urine Bilirubin Negative (Negative); Urine Blood 1+ (Negative); Urine Color Yellow; Urine Glucose 1+(50 mg/dL) (Negative); Urine Ketones Negative (Negative); Urine Nitrite Negative (Negative); Urine Protein 2+(100 mg/dL) (Negative); Urine Specific Gravity 1.011 (1.010-1.030); Urine Urobilinogen Negative (Negative)
[2020-08-10 10:54] LABS: Urine Bacteria 1+ (Absent); Urine Red Blood Cell 1+(3-5/hpf) (Absent); Urine Squamous Epithelial Cell Present (Absent); Urine White Blood Cell 3+(>20/hpf) (Absent)
[2020-08-10] MEDS ORDERED: Ondansetron 4 mg VIAL 2 MG/ML 2 ml VIAL IV ONE (11:17)
[2020-08-10] MEDS ORDERED: fentaNYL 100 mcg/2 ml 50 MCG/ML VIAL IV SLOW PU ONE (14:25)
[2020-08-10] MEDS ORDERED: Vancomycin 1,000 MG in NS 0.9% 250 ml 250 ML IVPB ONE (17:24)
[2020-08-10] MEDS ORDERED: Dextrose 50% Syringe 50 ml 25 GM/50 ML SYRINGE IV PUSH PRN (17:47)
[2020-08-10] MEDS ORDERED: Morphine 2 MG/ML SYRINGE IV PRN (17:51)
[2020-08-10] MEDS ORDERED: Vancomycin per Pharmacy 1 EA NOTE FOLLOW UP SCH (18:00)
[2020-08-10] MEDS ORDERED: Vancomycin 1500 MG IV - x ONCE IVPB ONE (18:00)
[2020-08-10] MEDS ORDERED: Albuterol HFA INHALER 8 gm MDI INH PRN (19:09)
[2020-08-10] MEDS ORDERED: Cefepime ADVAN 1 GM in NS 0.9% 50 ML 50 ML IVPB SCH (20:00)
[2020-08-10] MEDS: BETAXOLOL BOTH EYES SCH (21:51)
[2020-08-10] MEDS: [UNRECOGNIZED DRUG - OTHER] BOTH EYES SCH (21:51)
[2020-08-10] MEDS: Latanoprost 0.005% 2.5 ml BTL BOTH EYES SCH (21:52)
[2020-08-10] MEDS: Insulin GLARGINE 100 un/ml 10 ml VIAL SUBCUT SCH (21:55)
[2020-08-10] MEDS: Heparin 5000 UNITS/ML 1 mL VIAL SUBCUT SCH (21:58)
[2020-08-10] MEDS: Nystatin TOP POWDER 15 GM BTL TOPICAL SCH (22:07)
[2020-08-11] MEDS: Cefepime 1 GM in Dextrose 1 GM/50 ML BAG IV SCH ×2 (00:16→23:42)
[2020-08-11] MEDS: Sodium Citrate/Citric Acid LIQ 15 ML UDC PO SCH ×4 (01:13→21:07)
[2020-08-11] MEDS: Insulin GLARGINE 100 un/ml 10 ml VIAL SUBCUT SCH ×2 (05:52→17:07)
[2020-08-11] MEDS: Heparin 5000 UNITS/ML 1 mL VIAL SUBCUT SCH ×3 (05:52→20:54)
[2020-08-11] MEDS ORDERED: Vancomycin Random Level NOTE FOLLOW UP ONE (06:00)
[2020-08-11 07:49] LABS: ABS Eosinophils 0.2 10^3/ul (0-0.6); ABS Monocytes 0.7 10^3/ul (0-0.8); ABS Neutrophils 5.5 10^3/ul (1.5-7.7); Hematocrit 27 % (35-47); Lymphocyte % 13.9 %; Mean Corpuscular HGB Conc 34 g/dL (31-36); Mean Corpuscular Hemoglobin 33 pg (27-31); Mean Corpuscular Volume 98 fL (80-97); Mean Platelet Volume 9.2 fL (7.4-10.4); Platelet Count 197 10^3/uL (150-450); Red Cell Distribution Width 14 % (10-15); White Blood Count 7.4 10^3/uL (3.5-10.8)
[2020-08-11 08:10] LABS: BUN/Creatinine Ratio 15.1 (8-20); Calcium 7.6 mg/dL (8.6-10.3); EGFR African American 10.4 (>60); EGFR Non-African American 8.6 (>60); Potassium 4.5 mmol/L (3.5-5.0)
[2020-08-11 08:13] LABS: Vancomycin Random 12.1 mcg/mL
[2020-08-11] MEDS: Aspirin EC 81 mg TAB.EC (enteric coated) PO SCH (08:16)
[2020-08-11] MEDS: BETAXOLOL BOTH EYES SCH ×3 (08:16→21:06)
[2020-08-11] MEDS: [UNRECOGNIZED DRUG - OTHER] BOTH EYES SCH ×3 (08:16→21:06)
[2020-08-11] MEDS: Nystatin TOP POWDER 15 GM BTL TOPICAL SCH ×2 (08:16→21:06)
[2020-08-11] MEDS: DULoxetine DR 20 mg CAP PO SCH (08:17)
[2020-08-11] MEDS ORDERED: Lidocaine 2.5%/Prilocain 2.5% 5 GM TUBE TOPICAL ONE (09:25)
[2020-08-11] MEDS: Heparin *DIALYSIS* ONLY 1,000 UNITS/ML VIAL DIALYSIS ONE (12:33)
[2020-08-11] MEDS ORDERED: Vancomycin - DIALYSIS DOSING 1 EA NOTE FOLLOW UP SCH (14:00)
[2020-08-11] MEDS: Vancomycin 1000 MG in NS 0.9% 250 ML IVPB ONE ×2 (17:07→21:02)
[2020-08-11] MEDS: oxyCODONE SR 10 mg TAB PO SCH (20:55)
[2020-08-11] MEDS: Latanoprost 0.005% 2.5 ml BTL BOTH EYES SCH (21:06)
[2020-08-12] MEDS ORDERED: diPHENhydraMINE 25 mg TAB PO ONE (05:54)
[2020-08-12] MEDS: Insulin GLARGINE 100 un/ml 10 ml VIAL SUBCUT SCH ×2 (05:59→17:10)
[2020-08-12] MEDS: Heparin 5000 UNITS/ML 1 mL VIAL SUBCUT SCH ×3 (05:59→21:22)
[2020-08-12 07:27] LABS: ABS Eosinophils 0.1 10^3/ul (0-0.6); ABS Lymphocytes 1.3 10^3/ul (1.0-4.8); ABS Monocytes 0.6 10^3/ul (0-0.8); ABS Neutrophils 3.6 10^3/ul (1.5-7.7); Eosinophil % 2.5 %; Hematocrit 25 % (35-47); Hemoglobin 8.6 g/dL (12.0-16.0); Lymphocyte % 23.6 %; Mean Corpuscular HGB Conc 34 g/dL (31-36); Mean Corpuscular Hemoglobin 33 pg (27-31); Mean Corpuscular Volume 98 fL (80-97); Mean Platelet Volume 9.3 fL (7.4-10.4); Platelet Count 198 10^3/uL (150-450); Red Blood Count 2.58 10^6 /uL (3.70-4.87); Red Cell Distribution Width 14 % (10-15); White Blood Count 5.7 10^3/uL (3.5-10.8)
[2020-08-12 07:45] LABS: BUN/Creatinine Ratio 13.4 (8-20); C Reactive Protein 126.71 mg/L (<8.01); Calcium 7.5 mg/dL (8.6-10.3); EGFR African American 12.6 (>60); EGFR Non-African American 10.4 (>60); Potassium 4.1 mmol/L (3.5-5.0)
[2020-08-12] MEDS: DULoxetine DR 20 mg CAP PO SCH (09:41)
[2020-08-12] MEDS: Aspirin EC 81 mg TAB.EC (enteric coated) PO SCH (09:42)
[2020-08-12] MEDS: oxyCODONE SR 10 mg TAB PO SCH ×2 (09:44→21:22)
[2020-08-12] MEDS: [UNRECOGNIZED DRUG - OTHER] BOTH EYES SCH ×2 (09:46→21:05)
[2020-08-12] MEDS: Sodium Citrate/Citric Acid LIQ 15 ML UDC PO SCH ×3 (09:46→21:10)
[2020-08-12] MEDS: BETAXOLOL BOTH EYES SCH ×2 (09:46→21:05)
[2020-08-12] MEDS: Nystatin TOP POWDER 15 GM BTL TOPICAL SCH ×2 (09:53→21:22)
[2020-08-12 17:07] LABS: Hepatitis B Surface Antigen Nonreactive (Nonreactive)
[2020-08-12 17:12] LABS: Hepatitis B Core IgM Nonreactive (Nonreactive)
[2020-08-12 17:24] LABS: Hepatitis B Surface Ab Not Immune (Immune)
[2020-08-12] MEDS: Ondansetron 4 mg VIAL 2 MG/ML 2 ml VIAL IV PRN (18:00)
[2020-08-12] MEDS: Latanoprost 0.005% 2.5 ml BTL BOTH EYES SCH (21:06)
[2020-08-12] MEDS: Cefepime 1 GM in Dextrose 1 GM/50 ML BAG IV SCH (23:12)
[2020-08-13 05:47] LABS: ABS Eosinophils 0.1 10^3/ul (0-0.6); ABS Monocytes 0.3 10^3/ul (0-0.8); ABS Neutrophils 3.8 10^3/ul (1.5-7.7); Eosinophil % 2.8 %; Hematocrit 27 % (35-47); Hemoglobin 8.8 g/dL (12.0-16.0); Lymphocyte % 18.2 %; Mean Corpuscular HGB Conc 33 g/dL (31-36); Mean Corpuscular Hemoglobin 32 pg (27-31); Mean Corpuscular Volume 98 fL (80-97); Mean Platelet Volume 8.9 fL (7.4-10.4); Platelet Count 210 10^3/uL (150-450); Red Blood Count 2.73 10^6 /uL (3.70-4.87); Red Cell Distribution Width 14 % (10-15); White Blood Count 5.2 10^3/uL (3.5-10.8)
[2020-08-13 06:08] LABS: BUN/Creatinine Ratio 13.4 (8-20); Calcium 7.3 mg/dL (8.6-10.3); EGFR African American 11.5 (>60); EGFR Non-African American 9.5 (>60); Potassium 4.5 mmol/L (3.5-5.0)
[2020-08-13] MEDS: Insulin GLARGINE 100 un/ml 10 ml VIAL SUBCUT SCH ×3 (06:18→19:48)
[2020-08-13] MEDS: Heparin 5000 UNITS/ML 1 mL VIAL SUBCUT SCH ×3 (06:18→20:37)
[2020-08-13] MEDS: Aspirin EC 81 mg TAB.EC (enteric coated) PO SCH (09:21)
[2020-08-13] MEDS: DULoxetine DR 20 mg CAP PO SCH (09:21)
[2020-08-13] MEDS: oxyCODONE SR 10 mg TAB PO SCH (09:23)
[2020-08-13] MEDS: BETAXOLOL BOTH EYES SCH ×2 (09:24→19:30)
[2020-08-13] MEDS: [UNRECOGNIZED DRUG - OTHER] BOTH EYES SCH ×2 (09:24→19:30)
[2020-08-13] MEDS: Nystatin TOP POWDER 15 GM BTL TOPICAL SCH ×2 (09:24→20:36)
[2020-08-13] MEDS: Sodium Citrate/Citric Acid LIQ 15 ML UDC PO SCH ×3 (09:24→19:31)
[2020-08-13 12:47] LABS: INR 1.03 (0.82-1.09)
[2020-08-13 12:52] LABS: Albumin 3.5 g/dL (3.2-5.2); Globulin 3.6 g/dL (2-4); Indirect Bilirubin 0.3 mg/dL (0.3-1.0); Total Bilirubin 0.4 mg/dL (0.2-1.0); Total Protein 7.1 g/dL (6.4-8.9)
[2020-08-13] MEDS ORDERED: LORazepam 2 mg VIAL 1 ml IV PUSH ONE (17:30)
[2020-08-13] MEDS ORDERED: Lorazepam PYXIS KEY PRN (17:30)
[2020-08-13] MEDS ORDERED: LORazepam 2 mg VIAL 1 ml ONE (18:49)
[2020-08-13] MEDS: Latanoprost 0.005% 2.5 ml BTL BOTH EYES SCH (19:31)
[2020-08-13] MEDS: Cefepime 1 GM in Dextrose 1 GM/50 ML BAG IV SCH (22:32)
[2020-08-14] MEDS: Heparin 5000 UNITS/ML 1 mL VIAL SUBCUT SCH ×4 (05:55→20:11)
[2020-08-14] MEDS ORDERED: Vancomycin Random Level NOTE FOLLOW UP ONE (06:00)
[2020-08-14] MEDS: Sodium Citrate/Citric Acid LIQ 15 ML UDC PO SCH ×3 (08:27→20:08)
[2020-08-14] MEDS: Aspirin EC 81 mg TAB.EC (enteric coated) PO SCH (08:29)
[2020-08-14] MEDS: Insulin GLARGINE 100 un/ml 10 ml VIAL SUBCUT SCH ×2 (08:34→20:08)
[2020-08-14] MEDS: Nystatin TOP POWDER 15 GM BTL TOPICAL SCH ×2 (08:36→20:12)
[2020-08-14] MEDS: [UNRECOGNIZED DRUG - OTHER] BOTH EYES SCH ×2 (08:36→20:12)
[2020-08-14] MEDS: BETAXOLOL BOTH EYES SCH ×2 (08:36→20:12)
[2020-08-14 09:00] LABS: ABS Eosinophils 0.1 10^3/ul (0-0.6); ABS Lymphocytes 1.1 10^3/ul (1.0-4.8); ABS Monocytes 0.8 10^3/ul (0-0.8); ABS Neutrophils 9.2 10^3/ul (1.5-7.7); Eosinophil % 0.8 %; Hematocrit 25 % (35-47); Hemoglobin 8.1 g/dL (12.0-16.0); Lymphocyte % 9.8 %; Mean Corpuscular HGB Conc 33 g/dL (31-36); Mean Corpuscular Hemoglobin 32 pg (27-31); Mean Corpuscular Volume 98 fL (80-97); Mean Platelet Volume 8.7 fL (7.4-10.4); Platelet Count 219 10^3/uL (150-450); Red Blood Count 2.53 10^6 /uL (3.70-4.87); Red Cell Distribution Width 13 % (10-15); White Blood Count 11.3 10^3/uL (3.5-10.8)
[2020-08-14 09:13] LABS: BUN/Creatinine Ratio 12.9 (8-20); Calcium 7.3 mg/dL (8.6-10.3); EGFR African American 9.2 (>60); EGFR Non-African American 7.6 (>60); Potassium 4.9 mmol/L (3.5-5.0)
[2020-08-14 09:33] LABS: Vancomycin Random 12.8 mcg/mL
[2020-08-14 09:44] LABS: Albumin 2.9 g/dL (3.2-5.2); Albumin/Globulin Ratio 0.9 (1-3); C Reactive Protein 186.28 mg/L (<8.01); Globulin 3.1 g/dL (2-4); Indirect Bilirubin 0.4 mg/dL (0.3-1.0); Magnesium 1.9 mg/dL (1.9-2.7); Total Bilirubin 0.5 mg/dL (0.2-1.0)
[2020-08-14] MEDS: Ondansetron 4 mg VIAL 2 MG/ML 2 ml VIAL IV PRN (14:21)
[2020-08-14] MEDS: Latanoprost 0.005% 2.5 ml BTL BOTH EYES SCH (20:12)
[2020-08-14] MEDS: Cefepime 1 GM in Dextrose 1 GM/50 ML BAG IV SCH (22:58)
[2020-08-15] MEDS: Heparin 5000 UNITS/ML 1 mL VIAL SUBCUT SCH ×3 (04:57→22:53)
[2020-08-15 07:04] LABS: ABS Eosinophils 0.1 10^3/ul (0-0.6); ABS Lymphocytes 0.9 10^3/ul (1.0-4.8); ABS Monocytes 0.7 10^3/ul (0-0.8); ABS Neutrophils 6.3 10^3/ul (1.5-7.7); Eosinophil % 1.8 %; Hematocrit 22 % (35-47); Hemoglobin 7.4 g/dL (12.0-16.0); Lymphocyte % 11.7 %; Mean Corpuscular HGB Conc 34 g/dL (31-36); Mean Corpuscular Hemoglobin 34 pg (27-31); Mean Corpuscular Volume 99 fL (80-97); Mean Platelet Volume 8.8 fL (7.4-10.4); Platelet Count 197 10^3/uL (150-450); Red Blood Count 2.22 10^6 /uL (3.70-4.87); Red Cell Distribution Width 14 % (10-15); White Blood Count 8.1 10^3/uL (3.5-10.8)
[2020-08-15 07:18] LABS: BUN/Creatinine Ratio 13.5 (8-20); Calcium 7.6 mg/dL (8.6-10.3); EGFR African American 8.7 (>60); EGFR Non-African American 7.2 (>60); Potassium 4.6 mmol/L (3.5-5.0)
[2020-08-15] MEDS: Aspirin EC 81 mg TAB.EC (enteric coated) PO SCH (08:36)
[2020-08-15] MEDS: Insulin GLARGINE 100 un/ml 10 ml VIAL SUBCUT SCH ×2 (08:38→22:55)
[2020-08-15] MEDS: Nystatin TOP POWDER 15 GM BTL TOPICAL SCH ×2 (08:41→22:51)
[2020-08-15] MEDS: Sodium Citrate/Citric Acid LIQ 15 ML UDC PO SCH ×3 (08:42→22:52)
[2020-08-15] MEDS: [UNRECOGNIZED DRUG - OTHER] BOTH EYES SCH ×2 (08:59→22:51)
[2020-08-15] MEDS: BETAXOLOL BOTH EYES SCH ×2 (08:59→22:51)
[2020-08-15] MEDS: Heparin *DIALYSIS* ONLY 1,000 UNITS/ML VIAL DIALYSIS ONE ×6 (17:06→19:10)
[2020-08-15] MEDS ORDERED: Vancomycin 1000 MG in NS 0.9% 250 ML IVPB ONE (18:00)
[2020-08-15] MEDS: Latanoprost 0.005% 2.5 ml BTL BOTH EYES SCH (22:52)
[2020-08-16] MEDS: Cefepime 1 GM in Dextrose 1 GM/50 ML BAG IV SCH (02:55)
[2020-08-16] MEDS: Heparin 5000 UNITS/ML 1 mL VIAL SUBCUT SCH ×2 (05:42→13:27)
[2020-08-16] MEDS: Aspirin EC 81 mg TAB.EC (enteric coated) PO SCH (08:10)
[2020-08-16] MEDS: [UNRECOGNIZED DRUG - OTHER] BOTH EYES SCH (08:11)
[2020-08-16] MEDS: BETAXOLOL BOTH EYES SCH (08:11)
[2020-08-16] MEDS: Nystatin TOP POWDER 15 GM BTL TOPICAL SCH (08:12)
[2020-08-16] MEDS: Sodium Citrate/Citric Acid LIQ 15 ML UDC PO SCH ×2 (08:13→13:24)
[2020-08-16] MEDS: Insulin GLARGINE 100 un/ml 10 ml VIAL SUBCUT SCH (08:14)
[2020-08-16 09:08] LABS: ABS Basophils 0.1 10^3/ul (0-0.2); ABS Eosinophils 0.2 10^3/ul (0-0.6); ABS Monocytes 0.7 10^3/ul (0-0.8); ABS Neutrophils 4.9 10^3/ul (1.5-7.7); Eosinophil % 2.8 %; Hematocrit 26 % (35-47); Hemoglobin 8.8 g/dL (12.0-16.0); Lymphocyte % 14.3 %; Mean Corpuscular HGB Conc 34 g/dL (31-36); Mean Corpuscular Hemoglobin 33 pg (27-31); Mean Corpuscular Volume 98 fL (80-97); Mean Platelet Volume 8.8 fL (7.4-10.4); Platelet Count 267 10^3/uL (150-450); Red Blood Count 2.66 10^6 /uL (3.70-4.87); Red Cell Distribution Width 13 % (10-15); White Blood Count 6.8 10^3/uL (3.5-10.8)
[2020-08-16 09:30] LABS: BUN/Creatinine Ratio 11.3 (8-20); Calcium 8.1 mg/dL (8.6-10.3); EGFR African American 15.7 (>60); EGFR Non-African American 12.9 (>60)
[2020-08-16] MEDS ORDERED: Lidocaine 2.5%/Prilocain 2.5% 5 GM TUBE TOPICAL SCH (10:00)
[2020-08-16 16:20] VITALS: BP 132/69
[2020-08-17] MEDS ORDERED: Vancomycin Random Level NOTE FOLLOW UP ONE (06:00)
== END 2020-08-16 19:30 | disposition home or self-care (01) | DRG 919 ==
LOC: ED 05:04 → MEDTELE 17:51
PROVIDERS: ADMIT Internal Medicine; ATTEND Internal Medicine